=== PATIENT | female | born 1940 | race Caucasian/White ===

== ENCOUNTER 2018-01-21 18:12 | Emergency (ER) | payer OTHER ==
[2018-01-21 18:34] VITALS: BP 164/80; PULSE 80; TEMP 98.2; BMI 37.2
--- NOTE | 2018-01-21 18:42 | PDOC ---
History of Present Illness - General History Source: Patient, Family Exam Limitations: No Limitations - History of Present Illness Initial Comments: 01/21/18 18:46 The patient is an 85 year old female, accompanied by family, with a past medical history of HTN, hypercholerolemia, and diabetes who presents to the emergency department with rashes on her right leg and right buttox for approximately 4 days. The patient states that her leg began itching before presentation of the rash. She reports the rash on he leg feeling hot and painful. The rash on her buttox is 1 day old and is itchy. Patient has taken advil to attempt to relieve pain with mild success. She denies history of chickenpox. Patient has an unknown vaccination history. <Sam Parra - Last Filed: 01/21/18 18:45> - History of Present Illness Initial Comments: 01/27/18 07:13 Physicl exam: Alert, no acute distress, cheerful and cooperative. HEENT clear Neck supple without bruit mass or nodes Lungs clear CV regular without murmur rub or gallop Abdomen benign Neurological intact Skin: There is a rash along the dermatomal distribution of L4-L5 on the right, group vesicles on an erythematous base, some fresh vesicles are present, there is crusting on others. Impression: Herpes zoster, localize, without complication Plan: Since it is uncertain as to exactly when the lesions appeared, antiviral prescribed. Local wound care discussed. Because of comorbidities, steroids were not recommended. Patient was administered first dose of antiviral, and instructed to follow-up with her primary physician. Fully ambulatory and in no acute pain or other distress upon discharge to follow-up as directed <Jude Little - Last Filed: 01/27/18 07:16> - General Chief Complaint: Rash Stated Complaint: LESIONS ON BACK & KNEE Time Seen by Provider: 01/21/18 18:21 Past History <Sam Parra - Last Filed: 01/21/18 18:45> - Past Medical History COPD: No Diabetes: Yes HTN: Yes Hypercholesterolemia: Yes - Suicide/Smoking/Psychosocial Hx Smoking History: Never smoked Have you smoked in the past 12 months: No Number of Cigarettes Smoked Daily: 0 Hx Alcohol Use: No Drug/Substance Use Hx: No Substance Use Type: None <Jude Little - Last Filed: 01/27/18 07:16> - Past Medical History Allergies/Adverse Reactions: Allergies Allergy/AdvReac Type Severity Reaction Status Date / Time No Known Allergies Allergy Verified 01/21/18 18:14 Home Medications: Ambulatory Orders Metoprolol Tartrate 50 mg PO BID 07/23/16 Sitagliptin Phos/Metformin HCl [Janumet Xr 50-1,000 mg Tablet] 1 capl PO BID 11/06 Atorvastatin Ca [Lipitor] 40 mg PO HS 01/21/18 Glipizide 10 mg PO DAILY 01/21/18 Valacyclovir HCl [Valtrex] 1,000 mg PO TID #20 tablet 01/21/18 Valsartan/Hydrochlorothiazide [Valsartan-Hctz 320-12.5 mg Tab] 1 each PO DAILY 01/21/18 Review of Systems - Review of Systems Able to Perform ROS?: Yes Comments:: 01/21/18 18:46 CONSTITUTIONAL: Absent: fever, no chills, no fatigue EYES: Absent: visual changes ENT: Absent: ear pain, no sore throat CARDIOVASCULAR: Absent: chest pain, no palpitations RESPIRATORY: Absent: cough, no SOB GI: Absent: abdominal pain, no nausea, no vomiting, no constipation, no diarrhea GENITOURINARY: Absent: dysuria, no frequency, no hematuria MUSCULOSKELETAL: Absent: back pain, no arthralgia, no myalgia SKIN: (+) Rash medial aspect of right leg. Rash posterior aspect of right buttox. <Sam Parra - Last Filed: 01/21/18 18:45> *Physical Exam - Vital Signs Last Vital Signs Temp Pulse Resp BP Pulse Ox 98.2 F 80 18 164/80 96 01/21/18 18:13 01/21/18 18:13 01/21/18 18:13 01/21/18 18:13 01/21/18 18:13 - Physical Exam Comments: 01/21/18 18:46 GENERAL: Well-appearing, well-nourished. No apparent distress. HEENT: Normocephalic, atraumatic. PERRL, EOM intact. CARDIOVASCULAR: Normal S1, S2. Regular rate and rhythm. PULMONARY: Clear to auscultation bilaterally. ABDOMEN: Soft, non-distended, non-tender. EXTREMITIES: Normal ROM in all four extremities. No gross deformities. SKIN: (+) Rash medial aspect of right leg. Rash posterior aspect of right buttox. NEUROLOGICAL: No focal neurological deficits. <Sam Parra - Last Filed: 01/21/18 18:45> - Vital Signs Last Vital Signs Temp Pulse Resp BP Pulse Ox 98.2 F 80 18 164/80 96 01/21/18 18:13 01/21/18 18:13 01/21/18 18:13 01/21/18 18:13 01/21/18 18:13 <Jude Little - Last Filed: 01/27/18 07:16> *DC/Admit/Observation/Transfer - Attestations Scribe Attestion: 01/21/18 18:46 Documentation prepared by Sam Parra, acting as medical radiation dosimetrist for Jude Little MD. <Sam Parra - Last Filed: 01/21/18 18:45> - Discharge Dispostion Decision to Admit order: No <Jude Little - Last Filed: 01/27/18 07:16> Diagnosis at time of Disposition: Zoster Qualifiers: Herpes zoster complications: without complications Qualified Code(s): B02.9 - Zoster without complications - Discharge Dispostion Disposition: HOME Condition at time of disposition: Stable - Prescriptions Prescriptions: Valacyclovir HCl [Valtrex] 1,000 mg PO TID #20 tablet - Patient Instructions Printed Discharge Instructions: DI for Shingles Additional Instructions: Clean and dress wounds as directed. Keep covered and avoid irritation from clothing. Recheck primary physician in 2-3 days.
[2018-01-21] MEDS ORDERED: valACYclovir HCL 500 MG TABLET (FP) ONE (18:43)
[2018-01-21] MEDS ORDERED: valACYclovir HCL 1000 MG TABLET PO ONE (18:45)
== END 2018-01-21 18:59 | disposition home or self-care (01) ==
LOC: FER 18:12
DX: B02.9 Zoster without complications (principal); I10 Essential (primary) hypertension; E78.00 Pure hypercholesterolemia, unspecified; E11.9 Type 2 diabetes mellitus without complications
CPT/HCPCS: 99281-25

== ENCOUNTER 2018-03-13 22:35 | Inpatient (IN) | payer OTHER ==
--- NOTE | 2018-03-13 22:36 | PDOC ---
History of Present Illness - General Chief Complaint: Palpitations Stated Complaint: PALPITATIONS,WEAKNESS Past History - Travel Traveled outside of the country in the last 30 days: No Close contact w/someone who was outside of country & ill: No - Past Medical History Allergies/Adverse Reactions: Allergies Allergy/AdvReac Type Severity Reaction Status Date / Time No Known Allergies Allergy Verified 01/21/18 18:14 Home Medications: Ambulatory Orders Metoprolol Tartrate 50 mg PO BID 07/23/16 Sitagliptin Phos/Metformin HCl [Janumet Xr 50-1,000 mg Tablet] 1 capl PO BID 11/06 Atorvastatin Ca [Lipitor] 40 mg PO HS 01/21/18 Glipizide 10 mg PO DAILY 01/21/18 Valsartan/Hydrochlorothiazide [Valsartan-Hctz 320-12.5 mg Tab] 1 each PO DAILY 01/21/18 Aspirin [Ecotrin] 81 mg PO DAILY 03/13/18 COPD: No Diabetes: Yes HTN: Yes Hypercholesterolemia: Yes - Suicide/Smoking/Psychosocial Hx Smoking History: Never smoked Have you smoked in the past 12 months: No Number of Cigarettes Smoked Daily: 0 Hx Alcohol Use: No Drug/Substance Use Hx: No Substance Use Type: None Cardiac Specific PMH - Complaint Specific PMHX Abdominal Aortic Aneurysm: No Angina: Yes Cardiac Arrhythmia: No Cardiac Stent: No GERD: No Myocardial Infarction: No Pacemaker: No Pulmonary Embolus: No Valvular Heart Disease: No Peripheral Vascular Disease: Yes (pt has pain in her legs when she walks; also hx of DM) Review of Systems - Review of Systems Constitutional: Yes: Chills. No: Symptoms Reported, See HPI, Diaphoresis, Fever , Loss of Appetite, Malaise, Night Sweats, Weakness, Weight Stable, Unintentional Wgt. Loss, Unexplained wgt Loss, Other HEENTM: No: Symptoms Reported, See HPI, Eye Pain, Blurred Vision, Tearing, Recent change in vision, Double Vision, Cataracts, Ear Pain, Ocular Prothesis, Ear Discharge, Nose Pain, Nose Congestion, Tinnitus, Nose Bleeding, Hearing Loss , Throat Pain, Throat Swelling, Mouth Pain, Dental Problems, Difficulty Swallowing, Mouth Swelling, Other Respiratory: Yes: Cough. No: Symptoms reported, See HPI, Orthopnea, Shortness of Breath, SOB with Exertion, SOB at Rest, Stridor, Wheezing, Productive cough, Hemoptysis, Other Cardiac (ROS): Yes: Chest Pain, Lightheadedness, Palpitations. No: Symptoms Reported, See HPI, Edema, Irregular Heart Rate, Syncope, Chest Tightness, Other ABD/GI: No: Symptoms Reported, See HPI, Abdominal Distended, Abd. Pain w/ defecation, Blood Streaked Bowels, Constipated, Diarrhea, Difficulty Swallowing , Nausea, Poor Appetite, Poor Fluid Intake, Rectal Bleeding, Vomiting, Indigestion, Abdominal cramping, Tarry Stools, Other : No: Symptoms Reported, See HPI, Burning, Dysuria, Discharge, Frequency, Flank Pain, Hematuria, Incontinence, Pain, Urgency, Testicular Mass, Testicular Swelling, Lesions, Testicular Pain, Other Musculoskeletal: No: Symptoms Reported, See HPI, Back Pain, Gout, Joint Pain, Joint Swelling, Muscle Pain, Muscle Weakness, Neck Pain, Joint Stiffness, Other Integumentary: No: Symptoms Reported, See HPI, Bruising, Change in Color, Change in Hair/Nails, Dryness, Erythema, Flushing, Lesions, Lumps, Pallor, Pruritus, Rash, Sweating, Other *Physical Exam - Vital Signs Last Vital Signs Temp Pulse Resp BP Pulse Ox 99.1 F 80 20 110/64 94 L 03/14/18 00:50 03/14/18 00:50 03/14/18 00:50 03/14/18 00:50 03/13/18 22:38 - Physical Exam General Appearance: Yes: Nourished, Appropriately Dressed. No: Apparent Distress HEENT: positive: EOMI, MADHU, Normal ENT Inspection, Normal Voice, Pharynx Normal Neck: positive: Trachea midline, Supple Respiratory/Chest: positive: Crackles (At the bases), Rhonchi (at the bases bilaterally) Cardiovascular: positive: Regular Rhythm, S1, S2, Tachycardia Female Pelvic Exam: positive: normal external exam (slight vag wall prolapse) Gastrointestinal/Abdominal: positive: Normal Bowel Sounds, Soft Extremity: positive: Normal Inspection, Normal Range of Motion, Pedal Edema (1+) , Calf Tenderness (minimal) Integumentary: positive: Normal Color, Dry Neurologic: positive: last code striper II-XII NML intact, Fully Oriented, Alert, Normal Mood/ Affect, Normal Response, Motor Strength 5/5 Heart Score/ECG Review - History History: Slightly suspicious - Age Age: >/= 65 - Risk Factors Risk Factors Heart Score: Yes Hx Hypercholesterolemia, Yes Hx Hypertension, Yes Hx Diabetes Based on the list above the patient has:: >/=3 risk factors or Hx atherosclerotic disease - ECG Intrepretation Rhythm: Regular Rhythm - QRS Widened: RBBB - ST and T Non Specific ST-T Wave changes: Yes ED Treatment Course - LABORATORY CBC & Chemistry Diagram: 03/13/18 23:00 03/13/18 23:00 - ADDITIONAL ORDERS Additional order review: Laboratory Results 03/13/18 03/13/18 03/13/18 23:32 23:30 23:00 PT with INR INR PTT (Actin FS) Sodium 132 L Potassium 3.7 Chloride 101 Carbon Dioxide 25 Anion Gap 6 L BUN 35 H Creatinine 1.5 H Creat Clearance w eGFR 33.50 Random Glucose 196 H Calcium 8.0 L Total Bilirubin 0.4 AST 21 ALT 19 Alkaline Phosphatase 79 Creatine Kinase Troponin I 0.05 Total Protein 7.0 Albumin 3.3 L Urine Color Yellow Urine Appearance Cloudy Urine pH 5.0 Ur Specific [place] 1.020 Urine Protein 3+ H Urine Glucose (UA) Negative Urine Ketones Negative Urine Blood 2+ H Urine Nitrite Negative Urine Bilirubin Negative Urine Urobilinogen 0.2 Ur Leukocyte Esterase 2+ H Urine RBC 5-10 Urine WBC >100 Ur Epithelial Cells Few Urine Crystals Few Amorphous Urates Few Urine Bacteria Moderate 03/13/18 03/13/18 03/13/18 23:00 23:00 23:00 PT with INR 12.3 INR 1.10 PTT (Actin FS) 26.7 Sodium Potassium Chloride Carbon Dioxide Anion Gap BUN Creatinine Creat Clearance w eGFR Random Glucose Calcium Total Bilirubin AST ALT Alkaline Phosphatase Creatine Kinase 87 Troponin I Total Protein Albumin Urine Color Urine Appearance Urine pH Ur Specific [place] Urine Protein Urine Glucose (UA) Urine Ketones Urine Blood Urine Nitrite Urine Bilirubin Urine Urobilinogen Ur Leukocyte Esterase Urine RBC Urine WBC Ur Epithelial Cells Urine Crystals Amorphous Urates Urine Bacteria 03/13/18 23:00 RBC 3.95 MCV 89.1 MCHC 34.0 RDW 13.8 MPV 7.9 Neutrophils % 81.4 Lymphocytes % 11.1 Monocytes % 6.7 Eosinophils % 0.5 Basophils % 0.3 Troponin, BNP 03/13/18 23:32 Troponin I 0.05 - RADIOLOGY Radiology Studies Ordered: Category Date Time Status CHEST X-RAY PORTABLE* [RAD] Stat Radiology 03/13/18 22:39 Taken bilateral infitrates Chest X-Ray Result: Pneumonia - Medications Given in the ED: ED Medications Discontinued Medications Generic Name Dose Route Start Last Admin Trade Name Brooklynn PRN Reason Stop Dose Admin Acetaminophen 650 mg 03/13/18 23:02 03/13/18 23:03 Tylenol - PO 03/13/18 23:03 650 mg ONCE ONE Administration Aspirin 162 mg 03/13/18 23:00 03/13/18 23:00 Asa - PO 03/13/18 23:01 162 mg ONCE ONE Administration Azithromycin 500 mg/ Dextrose 250 mls @ 250 mls/hr 03/13/18 23:35 03/14/18 00 :10 IVPB 03/14/18 00:34 250 mls/hr ONCE ONE Administration Ceftriaxone Sodium 1 gm/ 50 mls @ 100 mls/hr 03/13/18 23:35 03/13/18 23:49 Dextrose IVPB 03/14/18 00:04 100 mls/hr ONCE ONE Administration Metoprolol Tartrate 50 mg 03/13/18 23:00 03/13/18 23:00 Lopressor - PO 03/13/18 23:01 50 mg NOW ONE Administration Nitroglycerin 1 inch 03/13/18 23:00 03/13/18 23:00 Nitro-Bid 2% Paste - TD 03/13/18 23:01 1 inch ONCE ONE Administration Pt also given ceftriaxone and zithromax to treat for community acquired pneumo. Pt will be covered for a UTI with the ceftriaxone also. - Consult/PCP Case Discussed with Personal Care Physician Not on Staff:: Not on staff Medical Decision Making - Medical Decision Making 03/13/18 22:48 Pt comes with weakness and palptations. She has a HR of 90, despite the fact that she tells us that she is compilant with her valsartan, HCTZ and betablocker. Pt's blood sugar was 200 earlier today which is high for her. 03/13/18 22:52 03/13/18 23:40 Pt's urine is cloudy; we did a straight cath specimen. Pt also has bilateral pneumonia on CXR. We will treat with IV ceftriaxone and IV zithromax. 03/13/18 23:40 Labs are all resulted. Pt is dry; bun/cr slightly elevated and her WBC is 13. 03/13/18 23:54 CPK is 87 and Trop is 0.5 Both within normal range. *DC/Admit/Observation/Transfer Diagnosis at time of Disposition: Bilateral pneumonia, Palpitations, Fever, Weakness, UTI (urinary tract infection), Cystitis - Discharge Dispostion Condition at time of disposition: Guarded Decision to Admit order: Yes Decision to Admit order Date/Time: Decision to Admit Order Category Date Time Status Decision to Admit to Hospital Routine Admission 03/13/18 23:58 Active - Referrals - Patient Instructions - Post Discharge Activity
[2018-03-13] MEDS ORDERED: METOPROLOL TARTRATE 50 MG TABLET (FP) ONE (22:57)
[2018-03-13] MEDS ORDERED: NITROGLYCERIN 2% OINTMENT - 1GM PACKET TD ONE ×2 (22:59→23:00)
[2018-03-13] MEDS ORDERED: ASPIRIN 81 MG CHEWABLE TABLETS PO ONE (23:00)
[2018-03-13] MEDS ORDERED: METOPROLOL TARTRATE 50 MG TABLET (FP) PO ONE (23:00)
[2018-03-13] MEDS ORDERED: ASPIRIN 81 MG CHEWABLE TABLETS ONE (23:01)
[2018-03-13] MEDS ORDERED: ACETAMINOPHEN 325 MG TABLET (FP) PO ONE (23:02)
[2018-03-13] MEDS ORDERED: ACETAMINOPHEN 325 MG TABLET (FP) ONE (23:03)
[2018-03-13 23:11] LABS: BASO % 0.3 % (0-2.0); EOS % 0.5 % (0-4.5); HEMATOCRIT 35.2 % (32.4-45.2); LYMPH % 11.1 % (8-40); MCH 30.3 pg (25.7-33.7); MEAN CELL VOLUME 89.1 fl (80-96); MEAN PLT VOLUME 7.9 fl (7.5-11.1); MONO % 6.7 % (3.8-10.2); NEUT % 81.4 % (42.8-82.8); PLATELET COUNT 287 K/MM3 (134-434); RBC 3.95 M/mm3 (3.60-5.2); RDW 13.8 % (11.6-15.6); WHITE BLOOD COUNT 13.1 K/mm3 (4.0-10.8)
[2018-03-13 23:32] LABS: INR 1.1 (0.82-1.09); PROTHROMBIN TIME (PATIENT) 12.3 SEC (10.2-13.0)
[2018-03-13 23:34] LABS: ALBUMIN 3.3 g/dl (3.5-5.0); ALK PHOS 79 U/L (32-92); ANION GAP 6 (8-16); BILIRUBIN,TOTAL 0.4 mg/dl (0.2-1.0); BLOOD UREA NITROGEN 35 mg/dl (7-18); CHLORIDE 101 mmol/L (98-107); CO2 25 mmol/L (22-28); CREATININE 1.5 mg/dl (0.6-1.3); GLUCOSE,RANDOM 196 mg/dl (74-106); POTASSIUM 3.7 mmol/L (3.5-5.1); SGOT/AST 21 U/L (10-42); SGPT/ALT 19 U/L (10-40); SODIUM 132 mmol/L (136-145)
[2018-03-13] MEDS ORDERED: AZITHROMYCIN IVPB 500 MG in DEXTROSE 5%-WATER - 250 ML IVPB ONE (23:35)
[2018-03-13] MEDS ORDERED: CEFTRIAXONE 1 GM in DEXTROSE 5%-WATER - 50 ML IVPB ONE (23:35)
[2018-03-13] MEDS ORDERED: cefTRIAXone SODIUM 1 GM VIAL ONE (23:40)
[2018-03-13] MEDS ORDERED: AZITHROMYCIN 500 MG VIAL IVPB ONE (23:40)
[2018-03-13 23:45] LABS: URINE BILIRUBIN Negative (NEGATIVE); URINE GLUCOSE (UA) Negative (NEGATIVE); URINE KETONE Negative (NEGATIVE); URINE NITRITE Negative (NEGATIVE); URINE UROBILINOGEN 0.2 (0.2-1.0)
[2018-03-13 23:52] LABS: URINE APPEARANCE CLOUDY; URINE COLOR YELLOW; URINE LEUK ESTERASE 2+ (NEGATIVE); URINE PROTEIN 3+ (NEGATIVE)
[2018-03-13 23:59] LABS: AMORP URATES FEW /hpf (NONE SEEN); EPI CELLS FEW /HPF; URINE BACTERIA MODERATE /hpf (NEGATIVE); URINE CRYSTALS FEW /hpf (NONE SEEN); URINE WBC >100 (0-5)
--- NOTE | 2018-03-13 23:59 | HP ---
CHIEF COMPLAINT: Weakness, Fever, Chills PCP: Dr. Louisa Koo ([place], [place]) HISTORY OF PRESENT ILLNESS: 77 y/o woman PMH DM, HTN, PVD, Shingles. Who presents to the ED with family for fever, chills, non-productive cough, and weakness. Per the family patient was noted to have bilateral hand shaking, dizziness, palpitations, subjective fever at home. Patient speaks Japanese/Crotian, the son and daughter in law translated per patient request. The patient reported chest pain when coughing while in the ED. She was given NTG paste, low dose Asa in the ED. Patient denies ZIMMERMAN, blurred vision, SOB, AP, N/V/D, constipation, dysuria. ER course was notable for: (1) EKG- RBBB (2) Troponin I- 0.05 (3) Chest Xray- Bilateral Infiltrates (4) Sepsis- T Max 102.1, WBC 13, Neutrophils 84, Spo2 92% RA Recent Travel: None PAST MEDICAL HISTORY: See HPI PAST SURGICAL HISTORY: Childbirth Social History: Smoking: Never Alcohol: Never Drugs: None Lives at home with family Family History: Non-contributory Allergies No Known Allergies Allergy (Verified 01/21/18 18:14) HOME MEDICATIONS: Home Medications Medication Instructions Recorded Metoprolol Tartrate 50 mg PO BID 07/23/16 Sitagliptin Phos/Metformin HCl 1 capl PO BID 07/23/16 [Janumet Xr 50-1,000 mg Tablet] Atorvastatin Ca [Lipitor] 40 mg PO HS 01/21/18 Glipizide 10 mg PO DAILY 01/21/18 Valacyclovir HCl [Valtrex] 1,000 mg PO TID #20 tablet 01/21/18 Valsartan/Hydrochlorothiazide 1 each PO DAILY 01/21/18 [Valsartan-Hctz 320-12.5 mg Tab] REVIEW OF SYSTEMS CONSTITUTIONAL: fever, chills, generalized weakness Absent: diaphoresis, malaise, loss of appetite, weight change HEENT: Absent: rhinorrhea, nasal congestion, throat pain, throat swelling, difficulty swallowing, mouth swelling, ear pain, eye pain, visual changes CARDIOVASCULAR: chest pain, palpitations, peripheral edema Absent: syncope, irregular heart rate, lightheadedness RESPIRATORY: cough Absent: shortness of breath, dyspnea with exertion, orthopnea, wheezing, stridor , hemoptysis GASTROINTESTINAL: Absent: abdominal pain, abdominal distension, nausea, vomiting, diarrhea, constipation, melena, hematochezia GENITOURINARY: Absent: dysuria, frequency, urgency, hesitancy, hematuria, flank pain, genital pain MUSCULOSKELETAL: Absent: myalgia, arthralgia, joint swelling, back pain, neck pain SKIN: Absent: rash, itching, pallor HEMATOLOGIC/IMMUNOLOGIC: Absent: easy bleeding, easy bruising, lymphadenopathy, frequent infections ENDOCRINE: Absent: unexplained weight gain, unexplained weight loss, heat intolerance, cold intolerance NEUROLOGIC: dizziness Absent: headache, focal weakness or paresthesias, unsteady gait, seizure, mental status changes, bladder or bowel incontinence PSYCHIATRIC: Absent: anxiety, depression, suicidal or homicidal ideation, hallucinations. PHYSICAL EXAMINATION Vital Signs - 24 hr 03/13/18 03/13/18 22:38 23:02 Temperature 99 F 102.1 F H Pulse Rate 90 Respiratory 18 Rate Blood Pressure 168/86 O2 Sat by Pulse 94 L Oximetry (%) GENERAL: Obese, awake, alert, and fully oriented, in no acute distress. HEAD: Normal with no signs of trauma. EYES: Pupils equal, round and reactive to light, extraocular movements intact, sclera anicteric, conjunctiva clear. No lid lag. EARS, NOSE, THROAT: Ears normal, nares patent, oropharynx clear without exudates. Moist mucous membranes. NECK: Normal range of motion, supple without lymphadenopathy, JVD, or masses. LUNGS: Coarse rhonchi at bases. No wheezes. No accessory muscle use. HEART: Regular rate and rhythm, normal S1 and S2 without murmur, rub or gallop. CP reproducible on palpation ABDOMEN: Soft, nontender, not distended, normoactive bowel sounds, no guarding, no rebound, no masses. No hepatomegaly or splenomegaly. MUSCULOSKELETAL: Normal range of motion at all joints. No bony deformities or tenderness. No CVA tenderness. UPPER EXTREMITIES: 2+ pulses, warm, well-perfused. No cyanosis. No clubbing. No peripheral edema. LOWER EXTREMITIES: 2+ pulses, warm, well-perfused. No calf tenderness. +1 B/L pitting peripheral edema. NEUROLOGICAL: Cranial nerves II-XII intact. Normal speech. Gait not observed. PSYCHIATRIC: Cooperative. Good eye contact. Appropriate mood and affect. SKIN: Warm, dry, normal turgor, no rashes or lesions noted, normal capillary refill. Laboratory Results - last 24 hr 03/13/18 03/13/18 03/13/18 23:00 23:00 23:00 WBC 13.1 H RBC 3.95 Hgb 12.0 Hct 35.2 MCV 89.1 MCH 30.3 MCHC 34.0 RDW 13.8 Plt Count 287 MPV 7.9 Absolute Neuts (auto) 10.6 Neutrophils % 81.4 Lymphocytes % 11.1 Monocytes % 6.7 Eosinophils % 0.5 Basophils % 0.3 PT with INR INR PTT (Actin FS) 26.7 Sodium Potassium Chloride Carbon Dioxide Anion Gap BUN Creatinine Creat Clearance w eGFR Random Glucose Calcium Total Bilirubin AST ALT Alkaline Phosphatase Creatine Kinase 87 Troponin I Total Protein Albumin Urine Color Urine Appearance Urine pH Ur Specific [place] Urine Protein Urine Glucose (UA) Urine Ketones Urine Blood Urine Nitrite Urine Bilirubin Urine Urobilinogen Ur Leukocyte Esterase 03/13/18 03/13/18 03/13/18 23:00 23:00 23:30 WBC RBC Hgb Hct MCV MCH MCHC RDW Plt Count MPV Absolute Neuts (auto) Neutrophils % Lymphocytes % Monocytes % Eosinophils % Basophils % PT with INR 12.3 INR 1.10 PTT (Actin FS) Sodium 132 L Potassium 3.7 Chloride 101 Carbon Dioxide 25 Anion Gap 6 L BUN 35 H Creatinine 1.5 H Creat Clearance w eGFR 33.50 Random Glucose 196 H Calcium 8.0 L Total Bilirubin 0.4 AST 21 ALT 19 Alkaline Phosphatase 79 Creatine Kinase Troponin I Total Protein 7.0 Albumin 3.3 L Urine Color Yellow Urine Appearance Cloudy Urine pH 5.0 Ur Specific [place] 1.020 Urine Protein 3+ H Urine Glucose (UA) Negative Urine Ketones Negative Urine Blood 2+ H Urine Nitrite Negative Urine Bilirubin Negative Urine Urobilinogen 0.2 Ur Leukocyte Esterase 2+ H 03/13/18 23:32 WBC RBC Hgb Hct MCV MCH MCHC RDW Plt Count MPV Absolute Neuts (auto) Neutrophils % Lymphocytes % Monocytes % Eosinophils % Basophils % PT with INR INR PTT (Actin FS) Sodium Potassium Chloride Carbon Dioxide Anion Gap BUN Creatinine Creat Clearance w eGFR Random Glucose Calcium Total Bilirubin AST ALT Alkaline Phosphatase Creatine Kinase Troponin I 0.05 Total Protein Albumin Urine Color Urine Appearance Urine pH Ur Specific [place] Urine Protein Urine Glucose (UA) Urine Ketones Urine Blood Urine Nitrite Urine Bilirubin Urine Urobilinogen Ur Leukocyte Esterase ASSESSMENT/PLAN: 77 y/o woman PMH of HTN, DM, PVD. Placed in Tele Observation Sepsis secondary to Community Acquired Pneumonia, Chest Pain. Plan: 1. Sepsis Community Acquired Pneumonia - CURB65 Score 2 - Sepsis Criteria Met- T Max 101.2, WBC 13, BUN 35, Spo2 92% - Chest Xray- bilateral infiltrates - Blood Cultures-pending - Urine Culture, Urine Legionella- pending - Given Ceftriaxone, Azithromycin in ED, will continue - Monitor vitals - Monitor CBC, BMP - Consider ID consult if condition worsens - O2 2. Chest Pain - r/o ACS - Likely pleurisy secondary to non-productive cough - Serial Enzymes - EKG- reviewed - Appreciate Cardiology consult - Asa, NTG paste given in ED - Will continue Asa 3. Hypertension - Suboptimal - Monitor BP - Continue home med - Monitor renal function 4. Diabetes Mellitus - stable - BGMs - Continue home meds - HgbA1c in am 5. PVD - Will continue to treat with interventions accordingly 6. FEN - PO Fluids as tolerated - Replete lytes prn - Low Na, Diabetic Diet 7. DVT ppx - OOB - SCDs - Heparin SQ Code Status: Full Code Dispo: Tele Observation Problem List - Problem (1) Bilateral pneumonia Code(s): J18.9 - PNEUMONIA, UNSPECIFIED ORGANISM (2) Chest pain Code(s): R07.9 - CHEST PAIN, UNSPECIFIED (3) Cough Code(s): R05 - COUGH (4) Fever Code(s): R50.9 - FEVER, UNSPECIFIED (5) Weakness Code(s): R53.1 - WEAKNESS (6) Hypertension Code(s): I10 - ESSENTIAL (PRIMARY) HYPERTENSION (7) Diabetes mellitus Code(s): E11.9 - TYPE 2 DIABETES MELLITUS WITHOUT COMPLICATIONS (8) PVD (peripheral vascular disease) Code(s): I73.9 - PERIPHERAL VASCULAR DISEASE, UNSPECIFIED Visit type - Emergency Visit Emergency Visit: Yes ED Registration Date: 03/13/18 Care time: The patient presented to the Emergency Department on the above date and was hospitalized for further evaluation of their emergent condition. - New Patient This patient is new to me today: Yes Date on this admission: 03/13/18 - Critical Care Critical Care patient: No Hospitalist Screening - Colonoscopy Questionnaire Colonoscopy Questionnaire: Colonoscopy Questionnaire - Patient: 50 - 75 years old and never had a screening colonoscopy: No History of colon or rectal polyps, or CA: No History of IBD, Crohn's disease or UC: No History of abdominal radiation therapy as a child: No - Relative: 1 with colon or rectal CA, or polyps at age 60 or younger: No Colon or rectal CA diagnosed at age 45 or younger: No Multiple relatives with colon or rectal CA: No - Outcome: Screening Result: Negative Screen
[2018-03-14 03:55] VITALS: BMI 37.5
[2018-03-14] MEDS ORDERED: ACETAMINOPHEN 325 MG TABLET (FP) PO PRN (05:02)
[2018-03-14] MEDS ORDERED: glipiZIDE 5 MG TABLET (FP) ONE (07:12)
[2018-03-14] MEDS: glipiZIDE 10 MG TABLET (FP) PO SCH (07:14)
[2018-03-14] MEDS: ASPIRIN COATED 81 MG TABLET.EC PO SCH (09:08)
[2018-03-14] MEDS: METOPROLOL TARTRATE 50 MG TABLET (FP) PO SCH ×2 (09:08→21:25)
[2018-03-14] MEDS: HEPARIN NA (PORCINE) 5,000 UNITS/ML 1ML VIAL SQ SCH ×2 (09:08→21:25)
[2018-03-14] MEDS: VALSARTAN 160 MG TABLET (UD) PO SCH (09:08)
[2018-03-14 09:12] LABS: ANION GAP 7 (8-16); BLOOD UREA NITROGEN 32 mg/dl (7-18); CALCIUM 8.2 mg/dl (8.4-10.2); CHLORIDE 102 mmol/L (98-107); CO2 28 mmol/L (22-28); CREATININE 1.4 mg/dl (0.6-1.3); GLUCOSE,RANDOM 133 mg/dl (74-106); MAGNESIUM 1.9 mg/dL (1.8-2.4); PHOSPHOROUS 3.9 mg/dl (2.5-4.6); POTASSIUM 4.2 mmol/L (3.5-5.1); SODIUM 137 mmol/L (136-145)
[2018-03-14 09:15] LABS: BASO % 0.2 % (0-2.0); EOS % 0.4 % (0-4.5); HEMATOCRIT 29.5 % (32.4-45.2); HEMOGLOBIN 10.3 GM/dl (10.7-15.3); LYMPH % 14.1 % (8-40); MCH 30.9 pg (25.7-33.7); MCHC 34.9 g/dl (32.0-36.0); MEAN CELL VOLUME 88.5 fl (80-96); MEAN PLT VOLUME 8.4 fl (7.5-11.1); MONO % 8.6 % (3.8-10.2); NEUT % 76.7 % (42.8-82.8); PLATELET COUNT 207 K/MM3 (134-434); RBC 3.34 M/mm3 (3.60-5.2); RDW 13.4 % (11.6-15.6); WHITE BLOOD COUNT 10.8 K/mm3 (4.0-10.8)
[2018-03-14] MEDS ORDERED: PATIENT'S OWN MEDICATION (NON-FORMULARY) (Sitagliptin Phos/Metformin Hcl [Janumet Xr 50-1, PO SCH (10:00)
[2018-03-14] MEDS ORDERED: PATIENT'S OWN MEDICATION (NON-FORMULARY) (Valsartan/Hydrochlorothiazide [Valsartan-Hctz 32 PO SCH (10:00)
[2018-03-14] MEDS ORDERED: HYDROCHLOROTHIAZIDE 12.5 MG CAPSULE (FP) PO SCH (10:00)
--- NOTE | 2018-03-14 10:48 | PN ---
Physical Exam: SUBJECTIVE: Patient seen and examined, pt reports feeling better, less sob, cp with deep breathing,intermittent productive cough with clear sputum, denies abdominal pain, N/V/D or urinary symptoms. OBJECTIVE: Vital Signs Period Temp Pulse Resp BP Sys/Metzger Pulse Ox Last 24 Hr 97.6 F-102.1 F 69-90 16-20 110-168/47-86 94-100 GENERAL: The patient is awake, alert, and fully oriented, in no acute distress. HEAD: Normal with no signs of trauma. EYES: PERRL, extraocular movements intact, sclera anicteric, conjunctiva clear. No ptosis. ENT: Ears normal, nares patent, oropharynx clear without exudates, moist mucous membranes. NECK: Trachea midline, full range of motion, supple. LUNGS: + crackles, no wheezing, Breath sounds equal, no accessory muscle use. HEART: Regular rate and rhythm, S1, S2 without murmur, rub or gallop. ABDOMEN: Soft, nontender, nondistended, normoactive bowel sounds, no guarding, no rebound, no hepatosplenomegaly, no masses. EXTREMITIES: 2+ pulses, warm, well-perfused, + edema LT > Rt, generalized weakness. NEUROLOGICAL: Cranial nerves II through XII grossly intact. Normal speech, gait not observed. PSYCH: Normal mood, normal affect. SKIN: Warm, dry, normal turgor, no rashes or lesions noted Laboratory Results - last 24 hr 03/13/18 03/13/18 03/13/18 23:00 23:00 23:00 WBC 13.1 H RBC 3.95 Hgb 12.0 Hct 35.2 MCV 89.1 MCH 30.3 MCHC 34.0 RDW 13.8 Plt Count 287 MPV 7.9 Absolute Neuts (auto) 10.6 Neutrophils % 81.4 Lymphocytes % 11.1 Monocytes % 6.7 Eosinophils % 0.5 Basophils % 0.3 PT with INR INR PTT (Actin FS) 26.7 Sodium Potassium Chloride Carbon Dioxide Anion Gap BUN Creatinine Creat Clearance w eGFR POC Glucometer Random Glucose Lactic Acid Calcium Phosphorus Magnesium Total Bilirubin AST ALT Alkaline Phosphatase Creatine Kinase 87 Troponin I Total Protein Albumin Urine Color Urine Appearance Urine pH Ur Specific [place] Urine Protein Urine Glucose (UA) Urine Ketones Urine Blood Urine Nitrite Urine Bilirubin Urine Urobilinogen Ur Leukocyte Esterase Urine RBC Urine WBC Ur Epithelial Cells Urine Crystals Amorphous Urates Urine Bacteria 03/13/18 03/13/18 03/13/18 23:00 23:00 23:30 WBC RBC Hgb Hct MCV MCH MCHC RDW Plt Count MPV Absolute Neuts (auto) Neutrophils % Lymphocytes % Monocytes % Eosinophils % Basophils % PT with INR 12.3 INR 1.10 PTT (Actin FS) Sodium 132 L Potassium 3.7 Chloride 101 Carbon Dioxide 25 Anion Gap 6 L BUN 35 H Creatinine 1.5 H Creat Clearance w eGFR 33.50 POC Glucometer Random Glucose 196 H Lactic Acid Calcium 8.0 L Phosphorus Magnesium Total Bilirubin 0.4 AST 21 ALT 19 Alkaline Phosphatase 79 Creatine Kinase Troponin I Total Protein 7.0 Albumin 3.3 L Urine Color Yellow Urine Appearance Cloudy Urine pH 5.0 Ur Specific [place] 1.020 Urine Protein 3+ H Urine Glucose (UA) Negative Urine Ketones Negative Urine Blood 2+ H Urine Nitrite Negative Urine Bilirubin Negative Urine Urobilinogen 0.2 Ur Leukocyte Esterase 2+ H Urine RBC 5-10 Urine WBC >100 Ur Epithelial Cells Few Urine Crystals Few Amorphous Urates Few Urine Bacteria Moderate 03/13/18 03/13/18 03/14/18 23:32 23:40 06:44 WBC RBC Hgb Hct MCV MCH MCHC RDW Plt Count MPV Absolute Neuts (auto) Neutrophils % Lymphocytes % Monocytes % Eosinophils % Basophils % PT with INR INR PTT (Actin FS) Sodium Potassium Chloride Carbon Dioxide Anion Gap BUN Creatinine Creat Clearance w eGFR POC Glucometer 134 Random Glucose Lactic Acid 1.4 Calcium Phosphorus Magnesium Total Bilirubin AST ALT Alkaline Phosphatase Creatine Kinase Troponin I 0.05 Total Protein Albumin Urine Color Urine Appearance Urine pH Ur Specific [place] Urine Protein Urine Glucose (UA) Urine Ketones Urine Blood Urine Nitrite Urine Bilirubin Urine Urobilinogen Ur Leukocyte Esterase Urine RBC Urine WBC Ur Epithelial Cells Urine Crystals Amorphous Urates Urine Bacteria 03/14/18 03/14/18 03/14/18 07:00 07:00 07:00 WBC 10.8 RBC 3.34 L Hgb 10.3 L Hct 29.5 L D MCV 88.5 MCH 30.9 MCHC 34.9 RDW 13.4 Plt Count 207 MPV 8.4 Absolute Neuts (auto) 8.4 Neutrophils % 76.7 Lymphocytes % 14.1 Monocytes % 8.6 Eosinophils % 0.4 Basophils % 0.2 PT with INR INR PTT (Actin FS) Sodium 137 Potassium 4.2 Chloride 102 Carbon Dioxide 28 Anion Gap 7 L BUN 32 H Creatinine 1.4 H Creat Clearance w eGFR 36.27 POC Glucometer Random Glucose 133 H D Lactic Acid Calcium 8.2 L Phosphorus 3.9 Magnesium 1.9 Total Bilirubin AST ALT Alkaline Phosphatase Creatine Kinase Troponin I < 0.03 Total Protein Albumin Urine Color Urine Appearance Urine pH Ur Specific [place] Urine Protein Urine Glucose (UA) Urine Ketones Urine Blood Urine Nitrite Urine Bilirubin Urine Urobilinogen Ur Leukocyte Esterase Urine RBC Urine WBC Ur Epithelial Cells Urine Crystals Amorphous Urates Urine Bacteria Active Medications Generic Name Dose Route Start Last Admin Trade Name Freq PRN Reason Stop Dose Admin Acetaminophen 650 mg 03/14/18 05:02 Tylenol - PO Q6H PRN FEVER Aspirin 81 mg 03/14/18 10:00 03/14/18 09:08 Ecotrin - PO 81 mg DAILY KERA Administration Atorvastatin Calcium 40 mg 03/14/18 22:00 Lipitor - PO HS KERA Glipizide 10 mg 03/14/18 07:00 03/14/18 07:14 Glucotrol - PO 10 mg DAILY@0700 KERA Administration Heparin Sodium (Porcine) 5,000 unit 03/14/18 10:00 03/14/18 09:08 Heparin - SQ 5,000 unit BID KERA Administration Hydrochlorothiazide 12.5 mg 03/14/18 10:00 03/14/18 09:08 Hctz - PO 12.5 mg DAILY KERA Administration Azithromycin 500 mg/ Dextrose 250 mls @ 250 mls/hr 03/14/18 18:00 IVPB DAILY KERA Ceftriaxone Sodium 1 gm/ 50 mls @ 100 mls/hr 03/14/18 18:00 Dextrose IVPB DAILY [facility] Protocol Metformin HCl 1,000 mg 03/14/18 16:30 Glucophage Xr - PO BIDAC KERA Metoprolol Tartrate 50 mg 03/14/18 10:00 03/14/18 09:08 Lopressor - PO 50 mg BID KERA Administration Sitagliptin Phosphate 50 mg 03/14/18 16:30 Januvia - PO BID@0700,1630 KERA Valsartan 320 mg 03/14/18 10:00 03/14/18 09:08 Diovan - PO 320 mg DAILY KERA Administration ASSESSMENT/PLAN: This is a 77 y/o woman PMH of HTN, DM, PVD and Shingles,admitted with Community Acquired Pneumonia and Chest Pain. *Sepsis due to Community Acquired Pneumonia - CURB65 Score 2 - Chest Xray- bilateral infiltrates - T Max 101.2, now afebrile - wbc normalized - Blood Cultures-pending - Urine Legionella- pending - will cont on Ceftriaxone, Azithromycin - will cont on O2, will check pulse ox * Chest Pain- Likely pleurisy secondary to non-productive cough - Trop neg x3 - EKG- SR with non- specific T wave abnormality - Cardiology consult ordered - Asa, NTG paste given in ED - Will continue Asa, BB and Statin *Hypertension- BP stable - will cont on home meds except HCTZ in view of DAVI * Diabetes Mellitus- BS stable - BGMs - will hold off on Metformin in view of elevated cre - will cotn on Januvia daily based on creatinine clearance - HgbA1c ordered * Abnormal UA - afebrile now - will f/u on urine culture - on Ceftriaxone * DAVI- baseline unknown - NA 132- 137 -cre 1.4 , bun 32 - will hold off Metformin and Januvia dose adjusted - will hold off on HCTZ - will f/u on CBC - gentle hydration * Hx of PVD - not on ant meds *Anemia- mild drop in H/H - no overt signs of bleeding noted - will check stool OB and Fe studies * LLE swelling - ordered US r/o DVT *FEN - Replete lytes prn - Low Na, Diabetic Diet *DVT ppx - OOB - SCDs - Heparin SQ Code Status: Full Code Dispo: Requires in patient care. Updated plan of care with son at bedside Visit type - Emergency Visit Emergency Visit: Yes ED Registration Date: 03/13/18 Care time: The patient presented to the Emergency Department on the above date and was hospitalized for further evaluation of their emergent condition. - New Patient This patient is new to me today: No - Critical Care Critical Care patient: No
[2018-03-14] MEDS ORDERED: SODIUM CHLORIDE 1,000 ML IV SCH (11:45)
--- NOTE | 2018-03-14 11:59 | CON.CARD ---
Cardiology Consult (text) - Consultation Consultation Note: cc: cough, fever hpi: 77 f hx hld, dm, htn here with cough, fever. Past few days not feeling well. Coughing a lot and started to notice sharp pain in right chest in one small area. Worse with coughing and deep breaths. Resolved today. No sob, palps, dizzy, loc, pnd, orthopnea. Treating for pna here. pmh: per hpi psh: nc social: no tob fam: no premature cad, scd ros: per hpi; no nvd, alcantar, vision changes, abd pain, gib, hematuria, dysuria meds: Home Medications Medication Instructions Recorded Metoprolol Tartrate 50 mg PO BID 07/23/16 Sitagliptin Phos/Metformin HCl 1 capl PO BID 07/23/16 [Janumet Xr 50-1,000 mg Tablet] Atorvastatin Ca [Lipitor] 40 mg PO HS 01/21/18 Glipizide 10 mg PO DAILY 01/21/18 Valsartan/Hydrochlorothiazide 1 each PO DAILY 01/21/18 [Valsartan-Hctz 320-12.5 mg Tab] Aspirin [Ecotrin] 81 mg PO DAILY 03/13/18 pe: Vital Signs Period Temp Pulse Resp BP Sys/Metzger Pulse Ox Last 24 Hr 97.6 F-102.1 F 69-90 16-20 110-168/47-86 94-100 nad no jvd rrr s1s2 no mrg cta bl nl eff aaox3 no le e/c/c pos dp pt no carotid bruits no jaundice diaphoresis abd nt nd pos bs +chest wall tenderness Laboratory Last Values WBC 10.8 K/mm3 (4.0-10.8) 03/14/18 07:00 RBC 3.34 M/mm3 (3.60-5.2) L 03/14/18 07:00 Hgb 10.3 GM/dl (10.7-15.3) L 03/14/18 07:00 Hct 29.5 % (32.4-45.2) L D 03/14/18 07:00 MCV 88.5 fl (80-96) 03/14/18 07:00 MCH 30.9 pg (25.7-33.7) 03/14/18 07:00 MCHC 34.9 g/dl (32.0-36.0) 03/14/18 07:00 RDW 13.4 % (11.6-15.6) 03/14/18 07:00 Plt Count 207 K/MM3 (134-434) 03/14/18 07:00 MPV 8.4 fl (7.5-11.1) 03/14/18 07:00 Absolute Neuts (auto) 8.4 # 03/14/18 07:00 Neutrophils % 76.7 % (42.8-82.8) 03/14/18 07:00 Lymphocytes % 14.1 % (8-40) 03/14/18 07:00 Monocytes % 8.6 % (3.8-10.2) 03/14/18 07:00 Eosinophils % 0.4 % (0-4.5) 03/14/18 07:00 Basophils % 0.2 % (0-2.0) 03/14/18 07:00 PT with INR 12.3 SEC (10.2-13.0) 03/13/18 23:00 INR 1.10 (0.82-1.09) 03/13/18 23:00 PTT (Actin FS) 26.7 SECONDS (25.2-36.5) 03/13/18 23:00 Sodium 137 mmol/L (136-145) 03/14/18 07:00 Potassium 4.2 mmol/L (3.5-5.1) 03/14/18 07:00 Chloride 102 mmol/L (98-107) 03/14/18 07:00 Carbon Dioxide 28 mmol/L (22-28) 03/14/18 07:00 Anion Gap 7 (8-16) L 03/14/18 07:00 BUN 32 mg/dl (7-18) H 03/14/18 07:00 Creatinine 1.4 mg/dl (0.6-1.3) H 03/14/18 07:00 Creat Clearance w eGFR 36.27 (>60) 03/14/18 07:00 POC Glucometer 149 UNITS (80-120) 03/14/18 11:20 Random Glucose 133 mg/dl (74-106) H D 03/14/18 07:00 Lactic Acid 1.4 mmol/L (0.0-2.0) 03/13/18 23:40 Calcium 8.2 mg/dl (8.4-10.2) L 03/14/18 07:00 Phosphorus 3.9 mg/dl (2.5-4.6) 03/14/18 07:00 Magnesium 1.9 mg/dL (1.8-2.4) 03/14/18 07:00 Total Bilirubin 0.4 mg/dl (0.2-1.0) 03/13/18 23:00 AST 21 U/L (10-42) 03/13/18 23:00 ALT 19 U/L (10-40) 03/13/18 23:00 Alkaline Phosphatase 79 U/L (32-92) 03/13/18 23:00 Creatine Kinase 87 IU/L (26-192) 03/13/18 23:00 Troponin I < 0.03 ng/ml (0.00-0.06) 03/14/18 07:00 Total Protein 7.0 g/dl (6.4-8.3) 03/13/18 23:00 Albumin 3.3 g/dl (3.5-5.0) L 03/13/18 23:00 Urine Color Yellow 03/13/18 23:30 Urine Appearance Cloudy 03/13/18 23:30 Urine pH 5.0 (4.5-8) 03/13/18 23:30 Ur Specific [place] 1.020 (1.005-1.025) 03/13/18 23:30 Urine Protein 3+ (NEGATIVE) H 03/13/18 23:30 Urine Glucose (UA) Negative (NEGATIVE) 03/13/18 23:30 Urine Ketones Negative (NEGATIVE) 03/13/18 23:30 Urine Blood 2+ (NEGATIVE) H 03/13/18 23:30 Urine Nitrite Negative (NEGATIVE) 03/13/18 23:30 Urine Bilirubin Negative (NEGATIVE) 03/13/18 23:30 Urine Urobilinogen 0.2 (0.2-1.0) 03/13/18 23:30 Ur Leukocyte Esterase 2+ (NEGATIVE) H 03/13/18 23:30 Urine RBC 5-10 /hpf (0-3) 03/13/18 23:30 Urine WBC >100 (0-5) 03/13/18 23:30 Ur Epithelial Cells Few /HPF 03/13/18 23:30 Urine Crystals Few /hpf (NONE SEEN) 03/13/18 23:30 Amorphous Urates Few /hpf (NONE SEEN) 03/13/18 23:30 Urine Bacteria Moderate /hpf (NEGATIVE) 03/13/18 23:30 ecg: sr, nl intervals, irbbb tele: sr cxr: no chf a/p: 77 f hx hld, dm, htn here with cough, fever. pna: -cont abx per pmd, pt symptomatically improving hld: -cont statin htn: -cont home meds cp: -reproducible on exam, worse with cough, seems MSK from pna/coughing. No signs acs. No further cardiac testing needed for this MSK cp. Can dc tele.
[2018-03-14] MEDS ORDERED: sitaGLIPtin PHOSPHATE 50 MG TABLET PO SCH (16:30)
[2018-03-14] MEDS ORDERED: CEFTRIAXONE 1 GM in DEXTROSE 5%-WATER - 50 ML IVPB SCH (18:00)
[2018-03-14] MEDS: AZITHROMYCIN IVPB 500 MG in DEXTROSE 5%-WATER - 250 ML IVPB SCH (18:06)
[2018-03-14] MEDS: ATORVASTATIN CA 40 MG TABLET (FP) PO SCH (21:25)
[2018-03-14] MEDS ORDERED: INSULIN (NOVOLOG) ASPART 100 UNITS/ML 10ML VIAL ONE (22:03)
[2018-03-14] MEDS: INSULIN SLIDING SCALE (NOVOLOG) 1 VIAL SQ SCH (22:04)
[2018-03-15] MEDS ORDERED: glipiZIDE 5 MG TABLET (FP) ONE (06:06)
[2018-03-15] MEDS: sitaGLIPtin PHOSPHATE 50 MG TABLET PO SCH (06:17)
[2018-03-15] MEDS: INSULIN SLIDING SCALE (NOVOLOG) 1 VIAL SQ SCH ×4 (06:18→21:12)
[2018-03-15] MEDS: glipiZIDE 10 MG TABLET (FP) PO SCH (06:18)
[2018-03-15 08:21] LABS: BASO % 0.3 % (0-2.0); EOS % 1.8 % (0-4.5); HEMATOCRIT 30.5 % (32.4-45.2); HEMOGLOBIN 10.5 GM/dl (10.7-15.3); LYMPH % 21.6 % (8-40); MCH 30.7 pg (25.7-33.7); MCHC 34.4 g/dl (32.0-36.0); MEAN CELL VOLUME 89.2 fl (80-96); MEAN PLT VOLUME 7.6 fl (7.5-11.1); MONO % 7.3 % (3.8-10.2); PLATELET COUNT 268 K/MM3 (134-434); RBC 3.42 M/mm3 (3.60-5.2); RDW 13.4 % (11.6-15.6)
[2018-03-15 08:57] LABS: ANION GAP 7 (8-16); BLOOD UREA NITROGEN 22 mg/dl (7-18); CALCIUM 8.5 mg/dl (8.4-10.2); CHLORIDE 104 mmol/L (98-107); CO2 27 mmol/L (22-28); CREATININE 1.2 mg/dl (0.6-1.3); GLUCOSE,RANDOM 113 mg/dl (74-106); POTASSIUM 4.4 mmol/L (3.5-5.1); SODIUM 138 mmol/L (136-145)
--- NOTE | 2018-03-15 09:18 | PN ---
Physical Exam: SUBJECTIVE: Patient seen and examined, patient is sitting at bedside recliner both sons at bedside, she reports left lower back pain, denies any tactile fevers reports improvement in breathing. OBJECTIVE:She was a 77-year-old female with a past medical history of diabetes mellitus, hypertension, peripheral vascular disease, and herpes zoster. Patient was admitted when she department to inpatient for sepsis secondary to Community- acquired pneumonia and urinary tract infection. Vital Signs Period Temp Pulse Resp BP Sys/Metzger Pulse Ox Last 24 Hr 98.2 F-99.1 F 75-94 17-20 132-160/54-65 95-99 GENERAL: The patient is awake, alert, and fully oriented, in no acute distress. HEAD: Normal with no signs of trauma. EYES: PERRL, extraocular movements intact, sclera anicteric, conjunctiva clear. No ptosis. ENT: Ears normal, nares patent, oropharynx clear without exudates, moist mucous membranes. NECK: Trachea midline, full range of motion, supple. LUNGS: Breath sounds equal, Clear to apexes and crackles to bilateral bases, rr 20, no wheezes, no accessory muscle use. HEART: Regular rate and rhythm, S1, S2 without murmur, rub or gallop. ABDOMEN: Soft, nontender, nondistended, normoactive bowel sounds, no guarding, no rebound, no hepatosplenomegaly, no masses. EXTREMITIES: 2+ pulses, warm, well-perfused, no edema. NEUROLOGICAL: Cranial nerves II through XII grossly intact. Normal speech, gait not observed. PSYCH: Normal mood, normal affect. SKIN: Warm, dry, normal turgor, no rashes or lesions noted Laboratory Results - last 24 hr 03/14/18 03/14/18 03/14/18 07:00 07:00 11:20 WBC 10.8 RBC 3.34 L Hgb 10.3 L Hct 29.5 L D MCV 88.5 MCH 30.9 MCHC 34.9 RDW 13.4 Plt Count 207 MPV 8.4 Absolute Neuts (auto) 8.4 Neutrophils % 76.7 Lymphocytes % 14.1 Monocytes % 8.6 Eosinophils % 0.4 Basophils % 0.2 Sodium Potassium Chloride Carbon Dioxide Anion Gap BUN Creatinine Creat Clearance w eGFR POC Glucometer 149 Random Glucose Calcium Ferritin Troponin I < 0.03 Vitamin B12 Serum Folate 03/14/18 03/14/18 03/14/18 13:20 13:20 16:40 WBC RBC Hgb Hct MCV MCH MCHC RDW Plt Count MPV Absolute Neuts (auto) Neutrophils % Lymphocytes % Monocytes % Eosinophils % Basophils % Sodium Potassium Chloride Carbon Dioxide Anion Gap BUN Creatinine Creat Clearance w eGFR POC Glucometer 145 Random Glucose Calcium Ferritin 197.2 Troponin I < 0.03 Vitamin B12 342 Serum Folate 19 H 03/14/18 03/15/18 03/15/18 21:23 06:15 07:55 WBC 8.0 RBC 3.42 L Hgb 10.5 L Hct 30.5 L MCV 89.2 MCH 30.7 MCHC 34.4 RDW 13.4 Plt Count 268 MPV 7.6 Absolute Neuts (auto) 5.6 Neutrophils % 69.0 Lymphocytes % 21.6 Monocytes % 7.3 Eosinophils % 1.8 Basophils % 0.3 Sodium Potassium Chloride Carbon Dioxide Anion Gap BUN Creatinine Creat Clearance w eGFR POC Glucometer 265 139 Random Glucose Calcium Ferritin Troponin I Vitamin B12 Serum Folate 03/15/18 07:55 WBC RBC Hgb Hct MCV MCH MCHC RDW Plt Count MPV Absolute Neuts (auto) Neutrophils % Lymphocytes % Monocytes % Eosinophils % Basophils % Sodium 138 Potassium 4.4 Chloride 104 Carbon Dioxide 27 Anion Gap 7 L BUN 22 H Creatinine 1.2 Creat Clearance w eGFR 43.34 POC Glucometer Random Glucose 113 H Calcium 8.5 Ferritin Troponin I Vitamin B12 Serum Folate Active Medications Generic Name Dose Route Start Last Admin Trade Name Freq PRN Reason Stop Dose Admin Acetaminophen 650 mg 03/14/18 05:02 Tylenol - PO Q6H PRN FEVER Aspirin 81 mg 03/14/18 10:00 03/14/18 09:08 Ecotrin - PO 81 mg DAILY KERA Administration Atorvastatin Calcium 40 mg 03/14/18 22:00 03/14/18 21:25 Lipitor - PO 40 mg HS KERA Administration Glipizide 10 mg 03/14/18 07:00 03/15/18 06:18 Glucotrol - PO 10 mg DAILY@0700 KERA Administration Heparin Sodium (Porcine) 5,000 unit 03/14/18 10:00 03/14/18 21:25 Heparin - SQ 5,000 unit BID KERA Administration Azithromycin 500 mg/ Dextrose 250 mls @ 250 mls/hr 03/14/18 18:00 03/14/18 18 :06 IVPB 250 mls/hr DAILY KERA Administration Sodium Chloride 1,000 mls @ 50 mls/hr 03/14/18 11:45 03/14/18 12:55 Normal Saline - IV 03/15/18 11:38 50 mls/hr ASDIR KERA Administration Ceftriaxone Sodium 50 mls @ 100 mls/hr 03/15/18 08:34 Ceftriaxone 1 Gm-D5w Bag IVPB DAILY [facility] Protocol Insulin Aspart 1 vial 03/14/18 22:00 03/15/18 06:18 Novolog Vial Sliding Scale - SQ Not Given ACHS [facility] Protocol Metoprolol Tartrate 50 mg 03/14/18 10:00 03/14/18 21:25 Lopressor - PO 50 mg BID KERA Administration Sitagliptin Phosphate 50 mg 03/15/18 07:00 03/15/18 06:17 Januvia - PO 50 mg DAILY@0700 KERA Administration Valsartan 320 mg 03/14/18 10:00 03/14/18 09:08 Diovan - PO 320 mg DAILY KERA Administration Microbiology 03/14/18 09:10 Sputum - Expectorated Gram Stain - Final 03/14/18 09:10 Sputum - Expectorated Sputum Culture - Preliminary NORMAL RESPIRATORY LAURA 03/13/18 23:40 Urine - Urine Clean Catch Urine Culture - Preliminary Lactose Fermenting Neg Bacilli 03/13/18 23:40 Blood - Peripheral Venous Blood Culture - Preliminary NO GROWTH OBTAINED AFTER 24 HOURS, INCUBATION TO CONTINUE FOR 4 DAYS. 03/13/18 23:40 Blood - Peripheral Venous Blood Culture - Preliminary NO GROWTH OBTAINED AFTER 24 HOURS, INCUBATION TO CONTINUE FOR 4 DAYS. IMAGING Chest x-ray: Increased markings of the left base enlarged heart Duplex of bilateral lower extremities: Negative for DVT bilaterally ASSESSMENT/PLAN: 1) Sepsis due to Community Acquired Pneumonia vs uti - afebrile no leukocytosis noted, Blood Cultures negative to date, Urine culture preliminary lactose fermenting negative bacilli - continue Rocephin and Zithromax until all cultures are finalized. - trend cbc and fever curve 2) pulm community acquired pna - pending sputum culture, repeat Chest x-ray ordered today, PA/LAT - Continue SpO2 monitoring, keep SpO2 above 92% with supplemental O2 as necessary - continue Rocephin and Zithromax. 3) cardiology Chest pain R/O ACS - troponin x 3 wnl - Pain unlikely ACS, cardiology consulted and following Hypertension - Continue Diovan and Lopressor, b/p slighthy above goal, likely secondary to pain 4)/neph UTI - Urine culture and as above, continue Rocephin until final culture is obtained. - Left CVA tenderness noted will order ultrasound of kidney bladder pelvis assess for hydronephrosis SIDDHARTH - Creatinine improving likely secondary to hypovolemia, strict monitoring 5) Endo Diabetes mellitus - Pending hemoglobin A1c, continue to hold metformin secondary to Siddharth, Continue glipizide and Januvia with regular insulin sliding scale fingersticks before meals and at bedtime FEN - Replete lytes prn - Low Na, Diabetic Diet *DVT ppx - OOB - SCDs - Heparin SQ Code Status: Full Code Dispo: Requires in patient care. Updated plan of care with sons at bedside, All questions answered, sons and patient agreed with plan
[2018-03-15] MEDS: CEFTRIAXONE 1 G/50 ML PREMIX 50 ML IVPB SCH (09:39)
[2018-03-15] MEDS: HEPARIN NA (PORCINE) 5,000 UNITS/ML 1ML VIAL SQ SCH ×2 (09:39→21:11)
[2018-03-15] MEDS: ASPIRIN COATED 81 MG TABLET.EC PO SCH (09:41)
[2018-03-15] MEDS: VALSARTAN 160 MG TABLET (UD) PO SCH (09:41)
[2018-03-15] MEDS: METOPROLOL TARTRATE 50 MG TABLET (FP) PO SCH ×2 (09:41→21:11)
[2018-03-15] MEDS: AZITHROMYCIN IVPB 500 MG in DEXTROSE 5%-WATER - 250 ML IVPB SCH (09:42)
[2018-03-15] MEDS: ATORVASTATIN CA 40 MG TABLET (FP) PO SCH (21:11)
--- NOTE | 2018-03-15 22:09 | EKG ---
Test Reason : Blood Pressure : / mmHG Vent. Rate : 097 BPM Atrial Rate : 097 BPM P-R Int : 136 ms QRS Dur : 112 ms QT Int : 370 ms P-R-T Axes : 027 006 -05 degrees QTc Int : 469 ms SINUS RHYTHM WITH PREMATURE ATRIAL COMPLEXES INCOMPLETE RIGHT BUNDLE BRANCH BLOCK BORDERLINE ECG NO PREVIOUS ECGS AVAILABLE Confirmed by MESHA WONG, ROSSY ([id number]) on 03/15/2018 10:09:24 PM Referred By: DR ARTEAGA Confirmed By:ROSSY ZIMMER MD
[2018-03-16] MEDS ORDERED: glipiZIDE 5 MG TABLET (FP) ONE (06:43)
[2018-03-16] MEDS: sitaGLIPtin PHOSPHATE 50 MG TABLET PO SCH (06:46)
[2018-03-16] MEDS: INSULIN SLIDING SCALE (NOVOLOG) 1 VIAL SQ SCH ×4 (06:47→21:42)
[2018-03-16] MEDS: glipiZIDE 10 MG TABLET (FP) PO SCH (06:47)
[2018-03-16 08:11] LABS: BASO % 1.3 % (0-2.0); EOS % 2.3 % (0-4.5); HEMATOCRIT 30.7 % (32.4-45.2); HEMOGLOBIN 10.6 GM/dl (10.7-15.3); LYMPH % 11.6 % (8-40); MCH 30.5 pg (25.7-33.7); MCHC 34.5 g/dl (32.0-36.0); MEAN CELL VOLUME 88.4 fl (80-96); MEAN PLT VOLUME 7.6 fl (7.5-11.1); MONO % 7.7 % (3.8-10.2); NEUT % 77.1 % (42.8-82.8); PLATELET COUNT 267 K/MM3 (134-434); RBC 3.47 M/mm3 (3.60-5.2); RDW 13.9 % (11.6-15.6); WHITE BLOOD COUNT 8.5 K/mm3 (4.0-10.8)
[2018-03-16 08:12] LABS: SERUM IRON SATURATION 10 % (15-55); TOTAL IRON BINDING CAPACITY 186 ug/dL (250-450); UIBC 168 ug/dL (118-369)
[2018-03-16] MEDS ORDERED: glipiZIDE 5 MG TABLET (FP) PO SCH (09:14)
[2018-03-16 09:36] LABS: ALBUMIN 2.6 g/dl (3.5-5.0); ALK PHOS 76 U/L (32-92); ANION GAP 11 (8-16); BLOOD UREA NITROGEN 20 mg/dl (7-18); CALCIUM 8.4 mg/dl (8.4-10.2); CHLORIDE 103 mmol/L (98-107); CO2 25 mmol/L (22-28); CREATININE 1.4 mg/dl (0.6-1.3); GLUCOSE,RANDOM 161 mg/dl (74-106); MAGNESIUM 1.8 mg/dL (1.8-2.4); PHOSPHOROUS 3.6 mg/dl (2.5-4.6); POTASSIUM 3.9 mmol/L (3.5-5.1); SGOT/AST 36 U/L (10-42); SGPT/ALT 57 U/L (10-40); SODIUM 139 mmol/L (136-145); TOT PROT 6.3 g/dl (6.4-8.3)
[2018-03-16 09:41] LABS: BILIRUBIN,TOTAL < 0.5 mg/dl (0.2-1.0)
[2018-03-16] MEDS: CEFTRIAXONE 1 G/50 ML PREMIX 50 ML IVPB SCH (09:53)
[2018-03-16] MEDS: ALBUTEROL SO4 2.5/IPRATROPIUM 0.5 INH SOL 3 ML VIAL.NEB. NEB SCH ×3 (09:53→19:53)
[2018-03-16] MEDS: AZITHROMYCIN IVPB 500 MG in DEXTROSE 5%-WATER - 250 ML IVPB SCH (09:56)
[2018-03-16] MEDS: ASPIRIN COATED 81 MG TABLET.EC PO SCH (09:56)
[2018-03-16] MEDS: VALSARTAN 160 MG TABLET (UD) PO SCH (09:56)
[2018-03-16] MEDS: HEPARIN NA (PORCINE) 5,000 UNITS/ML 1ML VIAL SQ SCH ×2 (09:56→21:41)
[2018-03-16] MEDS: METOPROLOL TARTRATE 50 MG TABLET (FP) PO SCH ×2 (09:56→21:41)
[2018-03-16] MEDS ORDERED: MAGNESIUM 1GM/D5W 100ML - 100 ML IVPB IVPB ONE (09:56)
--- NOTE | 2018-03-16 09:56 | PN ---
Physical Exam: SUBJECTIVE: Patient seen and examined, reports Left back pain, denies any chest pain or shortness of breath, sons at bedside. OBJECTIVE:patient is a 77-year-old female with a past medical history of diabetes mellitus, hypertension, peripheral vascular disease, and herpes zoster. Patient was admitted From the emergency department to inpatient for sepsis secondary to Community-acquired pneumonia and urinary tract infection Vital Signs Period Temp Pulse Resp BP Sys/Metzger Pulse Ox Last 24 Hr 98.2 F-99.1 F 80-106 17-20 150-160/66-80 92-98 GENERAL: The patient is awake, alert, and fully oriented, in no acute distress. HEAD: Normal with no signs of trauma. EYES: PERRL, extraocular movements intact, sclera anicteric, conjunctiva clear. No ptosis. ENT: Ears normal, nares patent, oropharynx clear without exudates, moist mucous membranes. NECK: Trachea midline, full range of motion, supple. LUNGS: Breath sounds equal,Crackles at bilateral bases, no wheezes, no accessory muscle use. HEART: Regular rate and rhythm, S1, S2 without murmur, rub or gallop. ABDOMEN: Soft, nontender, nondistended, normoactive bowel sounds, no guarding, no rebound, no hepatosplenomegaly, no masses. EXTREMITIES: 2+ pulses, warm, well-perfused, no edema. NEUROLOGICAL: Cranial nerves II through XII grossly intact. Normal speech, gait not observed. PSYCH: Normal mood, normal affect. SKIN: Warm, dry, normal turgor, no rashes or lesions noted Laboratory Results - last 24 hr 03/15/18 03/15/18 03/15/18 07:55 07:55 16:31 WBC RBC Hgb Hct MCV MCH MCHC RDW Plt Count MPV Absolute Neuts (auto) Neutrophils % Lymphocytes % Monocytes % Eosinophils % Basophils % Sodium Potassium Chloride Carbon Dioxide Anion Gap BUN Creatinine Creat Clearance w eGFR POC Glucometer 149 Random Glucose Hemoglobin A1c % 6.2 H Calcium Phosphorus Magnesium Iron 18 L TIBC 186 L Iron Saturation 10 L Total Bilirubin AST ALT Alkaline Phosphatase Total Protein Albumin 03/15/18 03/16/18 03/16/18 20:54 06:41 07:50 WBC 8.5 RBC 3.47 L Hgb 10.6 L Hct 30.7 L MCV 88.4 MCH 30.5 MCHC 34.5 RDW 13.9 Plt Count 267 MPV 7.6 Absolute Neuts (auto) 6.5 Neutrophils % 77.1 Lymphocytes % 11.6 Monocytes % 7.7 Eosinophils % 2.3 Basophils % 1.3 Sodium Potassium Chloride Carbon Dioxide Anion Gap BUN Creatinine Creat Clearance w eGFR POC Glucometer 291 164 Random Glucose Hemoglobin A1c % Calcium Phosphorus Magnesium Iron TIBC Iron Saturation Total Bilirubin AST ALT Alkaline Phosphatase Total Protein Albumin 03/16/18 07:50 WBC RBC Hgb Hct MCV MCH MCHC RDW Plt Count MPV Absolute Neuts (auto) Neutrophils % Lymphocytes % Monocytes % Eosinophils % Basophils % Sodium 139 Potassium 3.9 Chloride 103 Carbon Dioxide 25 Anion Gap 11 BUN 20 H Creatinine 1.4 H Creat Clearance w eGFR 36.27 POC Glucometer Random Glucose 161 H D Hemoglobin A1c % Calcium 8.4 Phosphorus 3.6 Magnesium 1.8 Iron TIBC Iron Saturation Total Bilirubin < 0.5 AST 36 D ALT 57 H D Alkaline Phosphatase 76 Total Protein 6.3 L Albumin 2.6 L Active Medications Generic Name Dose Route Start Last Admin Trade Name Mirzaq PRN Reason Stop Dose Admin Acetaminophen 650 mg 03/14/18 05:02 Tylenol - PO Q6H PRN FEVER Albuterol/Ipratropium 1 amp 03/16/18 08:00 03/16/18 09:53 Duoneb - NEB 1 amp RQID KERA Administration Aspirin 81 mg 03/14/18 10:00 03/16/18 09:56 Ecotrin - PO 81 mg DAILY KERA Administration Atorvastatin Calcium 40 mg 03/14/18 22:00 03/15/18 21:11 Lipitor - PO 40 mg HS KERA Administration Glipizide 10 mg 03/16/18 09:14 Glucotrol - PO DAILY@0700 KERA Heparin Sodium (Porcine) 5,000 unit 03/14/18 10:00 03/16/18 09:56 Heparin - SQ 5,000 unit BID KERA Administration Azithromycin 500 mg/ Dextrose 250 mls @ 250 mls/hr 03/14/18 18:00 03/16/18 09 :56 IVPB 250 mls/hr DAILY KERA Administration Ceftriaxone Sodium 50 mls @ 100 mls/hr 03/15/18 08:34 03/16/18 09:53 Ceftriaxone 1 Gm-D5w Bag IVPB 100 mls/hr DAILY KERA Administration Protocol Insulin Aspart 1 vial 03/14/18 22:00 03/16/18 06:47 Novolog Vial Sliding Scale - SQ Not Given ACHS [facility] Protocol Magnesium Sulfate 1 gm 03/16/18 09:56 Magnesium Sulfate IVPB 03/16/18 09:57 ONCE ONE Metoprolol Tartrate 50 mg 03/14/18 10:00 03/16/18 09:56 Lopressor - PO 50 mg BID KERA Administration Sitagliptin Phosphate 50 mg 03/15/18 07:00 03/16/18 06:46 Januvia - PO 50 mg DAILY@0700 KERA Administration Valsartan 320 mg 03/14/18 10:00 03/16/18 09:56 Diovan - PO 320 mg DAILY KERA Administration Microbiology 03/14/18 09:10 Sputum - Expectorated Gram Stain - Final 03/14/18 09:10 Sputum - Expectorated Sputum Culture - Final NORMAL RESPIRATORY LAURA 03/13/18 23:40 Blood - Peripheral Venous Blood Culture - Preliminary NO GROWTH OBTAINED AFTER 48 HOURS, INCUBATION TO CONTINUE FOR 3 DAYS. 03/13/18 23:40 Blood - Peripheral Venous Blood Culture - Preliminary NO GROWTH OBTAINED AFTER 48 HOURS, INCUBATION TO CONTINUE FOR 3 DAYS. 03/13/18 23:40 Urine - Urine Clean Catch Urine Culture - Preliminary Lactose Fermenting Neg Bacilli Imaging Chest x-ray: infilitrate of left lower lobe, Increased lung markings to the right base Duplex of bilateral lower extremities: Negative for DVT bilaterally ASSESSMENT/PLAN: 1) Sepsis due to Community Acquired Pneumonia vs uti - low grade temp noted, no leukocytosis noted, sputum and Blood Cultures negative to date, Urine culture preliminary lactose fermenting negative bacilli awaiting final urine culture - continue Rocephin and Zithromax until all cultures are finalized. - trend cbc and fever curve 2) pulm community acquired pna - cxr notable for left lower lobe infilitrate continue rocephin and zithromax - Continue SpO2 monitoring, keep SpO2 above 92% with supplemental O2 as necessary 3) cardiology Chest pain R/O ACS - troponin x 3 wnl - Pain unlikely ACS, cardiology consulted and following Hypertension - Continue Diovan and Lopressor, b/p slighthy above goal, likely secondary to pain 4)/neph UTI - Urine culture and as above, continue Rocephin until final culture is obtained. - Ultrasound of kidney/pelvis no evidence of hydronephrosis or urinary retention noted, Bilateral renal cysts DAVI - Creatinine improving likely secondary to hypovolemia, Restart IV fluids, strict monitoring 5) Endo Diabetes mellitus - hemoglobin A1c 6.2, continue to hold metformin secondary to Davi, Continue glipizide and Januvia with regular insulin sliding scale fingersticks before meals and at bedtime FEN - Replete lytes prn - Low Na, Diabetic Diet *DVT ppx - OOB - SCDs - Heparin SQ Code Status: Full Code Dispo: Requires in patient care. Updated plan of care with sons at bedside, All questions answered, sons and patient agreed with plan
[2018-03-16] MEDS ORDERED: REFRIGERATED ANITBIOTICS ONE (12:09)
[2018-03-16] MEDS ORDERED: INSULIN (NOVOLOG) ASPART 100 UNITS/ML 10ML VIAL ONE ×2 (12:10→17:07)
[2018-03-16] MEDS ORDERED: SODIUM CHLORIDE 0.45% 1,000 ML IV SCH (12:30)
[2018-03-16] MEDS: ATORVASTATIN CA 40 MG TABLET (FP) PO SCH (21:41)
[2018-03-17] MEDS: sitaGLIPtin PHOSPHATE 50 MG TABLET PO SCH (06:58)
[2018-03-17] MEDS: INSULIN SLIDING SCALE (NOVOLOG) 1 VIAL SQ SCH (06:58)
[2018-03-17] MEDS: ALBUTEROL SO4 2.5/IPRATROPIUM 0.5 INH SOL 3 ML VIAL.NEB. NEB SCH ×2 (08:14→11:27)
[2018-03-17] MEDS ORDERED: AZITHROMYCIN IVPB 250 ML IVPB SCH ×2 (08:17→10:00)
[2018-03-17 09:19] LABS: HEMATOCRIT 33.8 % (32.4-45.2); HEMOGLOBIN 11.2 GM/dl (10.7-15.3); MCH 29.5 pg (25.7-33.7); MCHC 33.2 g/dl (32.0-36.0); MEAN CELL VOLUME 88.6 fl (80-96); MEAN PLT VOLUME 7.5 fl (7.5-11.1); PLATELET COUNT 325 K/MM3 (134-434); RBC 3.82 M/mm3 (3.60-5.2); RDW 13.7 % (11.6-15.6); WHITE BLOOD COUNT 10.4 K/mm3 (4.0-10.8)
[2018-03-17] MEDS: VALSARTAN 160 MG TABLET (UD) PO SCH (09:19)
[2018-03-17] MEDS: HEPARIN NA (PORCINE) 5,000 UNITS/ML 1ML VIAL SQ SCH (09:19)
[2018-03-17] MEDS: ASPIRIN COATED 81 MG TABLET.EC PO SCH (09:19)
[2018-03-17] MEDS: CEFTRIAXONE 1 G/50 ML PREMIX 50 ML IVPB SCH (09:19)
[2018-03-17] MEDS: METOPROLOL TARTRATE 50 MG TABLET (FP) PO SCH (09:20)
[2018-03-17 09:27] LABS: ALBUMIN 2.7 g/dl (3.5-5.0); ALK PHOS 76 U/L (32-92); ANION GAP 9 (8-16); BILIRUBIN,TOTAL 0.2 mg/dl (0.2-1.0); BLOOD UREA NITROGEN 18 mg/dl (7-18); CALCIUM 8.1 mg/dl (8.4-10.2); CHLORIDE 101 mmol/L (98-107); CO2 23 mmol/L (22-28); CREATININE 1.2 mg/dl (0.6-1.3); GLUCOSE,RANDOM 299 mg/dl (74-106); MAGNESIUM 1.8 mg/dL (1.8-2.4); PHOSPHOROUS 3.6 mg/dl (2.5-4.6); POTASSIUM 3.7 mmol/L (3.5-5.1); SGOT/AST 27 U/L (10-42); SGPT/ALT 51 U/L (10-40); SODIUM 133 mmol/L (136-145); TOT PROT 6.6 g/dl (6.4-8.3)
[2018-03-17 09:35] LABS: ADD RBC MORPHOLOGY YES
[2018-03-17] MEDS ORDERED: KETOROLAC TROMETHAMINE 30 MG/1 ML VIAL IVPUSH ONE (10:14)
[2018-03-17] MEDS ORDERED: MAGNESIUM SULF 50% (8.12 MEQ/2 ML-1 GM VIAL) IVPB ONE (10:15)
[2018-03-17 10:23] LABS: PLATELET ESTIMATE ADEQUATE
[2018-03-17 10:36] LABS: URIC ACID 7.4 mg/dl (2.6-7.2)
[2018-03-17] MEDS ORDERED: MAGNESIUM 1GM/D5W - 1 GM/100 ML IVPB IVPB ONE (10:45)
[2018-03-17] MEDS ORDERED: INSULIN SLIDING SCALE (NOVOLOG) 1 VIAL SQ SCH (11:05)
[2018-03-17] MEDS ORDERED: POTASSIUM CHLORIDE TABS 20 MEQ TABLET.ER (FP) PO ONE (11:06)
[2018-03-17] MEDS ORDERED: INSULIN REGULAR HUMAN 100 UNITS/ML *VIAL SQ ONE (11:06)
[2018-03-17] MEDS ORDERED: INSULIN (NOVOLOG) ASPART 100 UNITS/ML 10ML VIAL ONE (11:18)
[2018-03-17] MEDS ORDERED: COLCHICINE 0.6 MG TABLET (FP) PO ONE ×2 (11:30→12:30)
--- NOTE | 2018-03-17 12:42 | DS ---
Physical Exam: SUBJECTIVE: Patient seen and examined, reports pain to left toe, OBJECTIVE: Vital Signs Period Temp Pulse Resp BP Sys/Metzger Pulse Ox Last 24 Hr 98.0 F-99.2 F 74-114 16-20 155-190/58-77 94-98 PHYSICAL EXAM GENERAL: The patient is awake, alert, and fully oriented, in no acute distress. HEAD: Normal with no signs of trauma. EYES: PERRL, extraocular movements intact, sclera anicteric, conjunctiva clear. ENT: Ears normal, nares patent, oropharynx clear without exudates, moist mucous membranes. NECK: Trachea midline, full range of motion, supple. LUNGS: Breath sounds equal, clear to auscultation bilaterally, no wheezes, no crackles, no accessory muscle use. HEART: Regular rate and rhythm, S1, S2 without murmur, rub or gallop. ABDOMEN: Soft, nontender, nondistended, normoactive bowel sounds, no guarding, no rebound, no hepatosplenomegaly, no masses. EXTREMITIES: 2+ pulses, warm, well-perfused, no edema. erythema and point tenderness to the left 1st digit of the foot NEUROLOGICAL: Cranial nerves II through XII grossly intact. Normal speech, gait not observed. PSYCH: Normal mood, normal affect. SKIN: Warm, dry, normal turgor, no rashes or lesions noted. LABS Laboratory Results - last 24 hr 03/16/18 03/16/18 03/17/18 17:14 21:40 06:57 WBC RBC Hgb Hct MCV MCH MCHC RDW Plt Count MPV Absolute Neuts (auto) Neutrophils % Neutrophils % (Manual) Band Neutrophils % Lymphocytes % Lymphocytes % (Manual) Monocytes % (Manual) Platelet Estimate Sodium Potassium Chloride Carbon Dioxide Anion Gap BUN Creatinine Creat Clearance w eGFR POC Glucometer 148 197 172 Random Glucose Uric Acid Calcium Phosphorus Magnesium Total Bilirubin AST ALT Alkaline Phosphatase Total Protein Albumin 03/17/18 03/17/18 09:00 09:00 WBC 10.4 RBC 3.82 Hgb 11.2 Hct 33.8 MCV 88.6 MCH 29.5 MCHC 33.2 RDW 13.7 Plt Count 325 MPV 7.5 Absolute Neuts (auto) 8.8 Neutrophils % No Result Required. Neutrophils % (Manual) 80.0 Band Neutrophils % 4.0 Lymphocytes % No Result Required. Lymphocytes % (Manual) 12.0 Monocytes % (Manual) 4 Platelet Estimate Adequate Sodium 133 L Potassium 3.7 Chloride 101 Carbon Dioxide 23 Anion Gap 9 BUN 18 Creatinine 1.2 Creat Clearance w eGFR 43.34 POC Glucometer Random Glucose 299 H D Uric Acid 7.4 H Calcium 8.1 L Phosphorus 3.6 Magnesium 1.8 Total Bilirubin 0.2 AST 27 D ALT 51 H Alkaline Phosphatase 76 Total Protein 6.6 Albumin 2.7 L Microbiology 03/13/18 23:40 Urine - Urine Clean Catch Urine Culture - Final Escherichia Coli 03/13/18 23:40 Blood - Peripheral Venous Blood Culture - Preliminary NO GROWTH OBTAINED AFTER 72 HOURS, INCUBATION TO CONTINUE FOR 2 DAYS. 03/13/18 23:40 Blood - Peripheral Venous Blood Culture - Preliminary NO GROWTH OBTAINED AFTER 72 HOURS, INCUBATION TO CONTINUE FOR 2 DAYS. 03/14/18 09:10 Sputum - Expectorated Gram Stain - Final 03/14/18 09:10 Sputum - Expectorated Sputum Culture - Final NORMAL RESPIRATORY LAURA Imaging Chest x-ray: infilitrate of left lower lobe, Increased lung markings to the right base Duplex of bilateral lower extremities: Negative for DVT bilaterally Ultrasound of kidney/pelvis no evidence of hydronephrosis or urinary retention noted, Bilateral renal cysts HOSPITAL COURSE: 1) Sepsis due to Community Acquired Pneumonia vs uti - patient is afebrile, no leukocytosis noted, sputum and Blood Cultures negative to date, -Rocephin and Zithromax (03/15 - 03/17) patient is was transitioned to levaquin . 2)community acquired pna - cxr notable for left lower lobe infilitrate treated with rocephin and zithromax - Continue SpO2 monitoring, keep SpO2 above 92% with supplemental O2 as necessary 3) Chest pain R/O ACS - troponin x 3 wnl - Pain unlikely ACS, cardiology consulted and following Hypertension - Continued Diovan and Lopressor 4)/neph UTI - Urine culture noted as above, treated with Rocephin senstive for ecoli - SIDDHARTH - Creatinine improving likely secondary to hypovolemia improved after iv hydration, creatine wnl 5) Endo Diabetes mellitus - hemoglobin A1c 6.2, metformin held secondary to Siddharth, Continue glipizide and Januvia, regular insulin sliding scale fingersticks before meals and at bedtime PLAN -discharge home with vns - continue levaquin for the next 7 days - follow up with pcp within 1 week - return precautions reviewed, ie chest pain, shortness of breath, fever Date of Admission:03/14/18 Date of Discharge: 03/17/18 Minutes to complete discharge: 45 Discharge Summary Reason For Visit: BILATERAL PNEUMONIA,SEPSIS Current Active Problems Bilateral pneumonia (Acute) Chest pain (Acute) Cough (Acute) Cystitis (Acute) Diabetes mellitus (Acute) Fever (Acute) Hypertension (Acute) PVD (peripheral vascular disease) (Acute) Palpitations (Acute) UTI (urinary tract infection) (Acute) Weakness (Acute) Condition: Guarded - Instructions Referrals: Do Colbert MD [Staff Physician] - - Home Medications Comprehensive Discharge Medication List: Ambulatory Orders Metoprolol Tartrate 50 mg PO BID 07/23/16 Sitagliptin Phos/Metformin HCl [Janumet Xr 50-1,000 mg Tablet] 1 capl PO BID 11/06 Atorvastatin Ca [Lipitor] 40 mg PO HS 01/21/18 Glipizide 10 mg PO DAILY 01/21/18 Valsartan/Hydrochlorothiazide [Valsartan-Hctz 320-12.5 mg Tab] 1 each PO DAILY 01/21/18 Aspirin [Ecotrin] 81 mg PO DAILY 03/13/18
[2018-03-17 14:16] VITALS: BP 155/64; PULSE 82; TEMP 98.2
== END 2018-03-17 15:05 | disposition home health service (06) | DRG 871 ==
LOC: FER 22:35 → UNDOADMOB 23:50 → FM/S 23:50 → UNDOADMOB 23:59 → INTOOBSV 23:59 → FM/S 23:59 → OBSVTOIN 03-14 12:13
PROVIDERS: ADMIT Internal Medicine; ATTEND Nurse Practitioner Family
DX: A41.9 Sepsis, unspecified organism (principal); J18.9 Pneumonia, unspecified organism; N39.0 Urinary tract infection, site not specified; N17.9 Acute kidney failure, unspecified; I45.10 Unspecified right bundle-branch block; E11.51 Type 2 diabetes mellitus with diabetic peripheral angiopathy without gangrene; R09.1 Pleurisy; D64.9 Anemia, unspecified; Z79.84 Long term (current) use of oral hypoglycemic drugs; N28.1 Cyst of kidney, acquired; B96.20 Unspecified Escherichia coli [E. coli] as the cause of diseases classified elsewhere; E86.1 Hypovolemia
CPT/HCPCS: 36415; 71045-TC-FY; 71046-TC-FY; 76775-TC; 76856-TC; 80048; 80053; 81003; 81015; 82550; 82607; 82728; 82746; 82962; 83036; 83540; 83550; 83605; 83735; 84100; 84484; 84550; 85025; 85610; 85730; 87040; 87070; 87086; 87186; 87205; 93005; 93970-TC; 94640; 94761; 97116-GP; 97161-GP; 99283-25; J1644; J7030; J7620

== ENCOUNTER 2018-06-28 12:45 | Inpatient (IN) | payer OTHER ==
[2018-06-28 13:08] VITALS: BMI 37.2
--- NOTE | 2018-06-28 13:39 | PDOC ---
History of Present Illness - General Chief Complaint: Chest Pain Stated Complaint: CHEST PAIN Time Seen by Provider: 06/28/18 12:49 - History of Present Illness Initial Comments: 06/28/18 13:33 78yo F hx HTN, HL, DM presents from PMD office with 2 weeks of SOB and RLQ abd pain x 1 month. SOB is not constant, occurs usually at rest. Has no exacerbating factors and resolves on its own. Has never happened before. Per Dr. Lynn, pt also c/o of CP at rest while in the office. Currently denies. Pt' s son and daughter in law at bedside volunteer that pt has been giving varying histories regarding her CP, SOB. RLQ pain is intermittent for 1 month. No radiation. No change with food. Last BM this morning, non bloody brown stool. Pt also reporting R flank pain and malodorous urine. No N/V. Denies F/C, recent immobility, LE edema or pain. PMD: Dr. Lynn Cards: Dr. Gonsalves Past History - Past Medical History Allergies/Adverse Reactions: Allergies Allergy/AdvReac Type Severity Reaction Status Date / Time No Known Allergies Allergy Verified 06/28/18 12:54 Home Medications: Ambulatory Orders Metoprolol Tartrate 50 mg PO BID 07/23/16 Sitagliptin Phos/Metformin HCl [Janumet Xr 50-1,000 mg Tablet] 1 capl PO DAILY 07/23/16 Aspirin [Ecotrin] 81 mg PO DAILY 03/13/18 Acetaminophen [Tylenol .Regular Strength -] 650 mg PO Q6H PRN tablet 03/17/18 Albuterol Sulfate Inhaler - [Ventolin Hfa Inhaler -] 2 inh PO Q4H PRN #1 inh Losartan 50Mg/Hctz 12.5MG [Hyzaar -] 1 tab PO DAILY 06/28/18 Cardiac Disorders: Yes (RBBB) COPD: No Diabetes: Yes HTN: Yes Hypercholesterolemia: Yes Other medical history: SHINGLES, PVD - Suicide/Smoking/Psychosocial Hx Smoking History: Never smoked Have you smoked in the past 12 months: No Number of Cigarettes Smoked Daily: 0 Hx Alcohol Use: No Drug/Substance Use Hx: No Substance Use Type: None Review of Systems - Review of Systems Comments:: 06/28/18 14:55 GENERAL/CONSTITUTIONAL: No fever or chills. No weakness. HEAD, EYES, EARS, NOSE AND THROAT: No change in vision. No ear pain or discharge. No sore throat. GASTROINTESTINAL: No nausea, vomiting, diarrhea or constipation. +abd pain GENITOURINARY: No dysuria, frequency, or change in urination. CARDIOVASCULAR: +chest pain or shortness of breath. RESPIRATORY: No cough, wheezing, or hemoptysis. MUSCULOSKELETAL: No joint or muscle swelling or pain. No neck or back pain. SKIN: No rash NEUROLOGIC: No headache, vertigo, loss of consciousness, or change in strength/ sensation. ENDOCRINE: No increased thirst. No abnormal weight change. HEMATOLOGIC/LYMPHATIC: No anemia, easy bleeding, or history of blood clots. ALLERGIC/IMMUNOLOGIC: No hives or skin allergy. *Physical Exam - Vital Signs Last Vital Signs Temp Pulse Resp BP Pulse Ox 98.0 F 70 18 190/100 H 98 06/28/18 12:45 06/28/18 12:45 06/28/18 12:45 06/28/18 12:45 06/28/18 12:45 - Physical Exam Comments: 06/28/18 14:56 GENERAL: Awake, alert, oriented to name and place, in no acute distress HEAD: No signs of trauma EYES: Sclera anicteric, conjunctiva clear ENT: Hearing grossly normal, nares patent, oropharynx clear without exudates. dry MM NECK: Supple LUNGS: Breath sounds equal, +bibasilar rales, no crackles HEART: Regular rate and rhythm, normal S1 and S2, no murmurs, rubs or gallops ABDOMEN: Soft, +RLQ ttp, normoactive bowel sounds. No guarding, no rebound. No masses EXTREMITIES: Normal range of motion, trace symmetric LE pitting edema. No clubbing or cyanosis. No cords, erythema, or tenderness NEUROLOGICAL: Normal speech, cranial nerves intact, negative pronator drift, 5/ 5 strength in all 4 extremities, normal sensation to light touch in all 4 extremities, normal cerebellar exam, normal tone SKIN: Warm, Dry, normal turgor, no rashes or lesions noted. Heart Score/ECG Review - History History: Moderately suspicious - Electrocardiogram EKG: Non specific repolarization disturbance - Age Age: >/= 65 - Risk Factors Based on the list above the patient has:: >/=3 risk factors or Hx atherosclerotic disease - Troponin Troponin: </= normal limit - Score Heart Score - Total: 6 #1 06/28/18 15:00 Twelve-lead EKG was performed and reviewed by me. Sinus rhythm, rate 76. Normal axis. +PACs. +RBBB. ED Treatment Course - LABORATORY CBC & Chemistry Diagram: 06/28/18 13:35 06/28/18 13:35 Medical Decision Making - Medical Decision Making 06/28/18 15:04 78yo F hx HTN, HL, DM presents to the ED with vague hx of CP, SOB, RLQ abd pain. Vitals with elevated BP, will repeat. EKG with no ischemia. DDx includes but not limited to ACS vs PNA vs CHF. Unlikely PE with bibasilar rales, 2 weeks of intermittent sxs, no hypoxia, tachycardia, or tachypnea but will consider if remaining w/u is unremarkable. Will obtain CTAP given RLQ pain. 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 Will need admission for echo, further w/u Case discussed with Dr. Canas, pt accepted for admission to in tele Case discussed in detail with admitting physician including history, physical exam and ancillary studies. Admitting physician has assumed care for the patient, will follow all pending diagnostics and will complete the evaluation and treatment. *DC/Admit/Observation/Transfer Diagnosis at time of Disposition: UTI (urinary tract infection), Shortness of breath, CHF (congestive heart failure), DAVI (acute kidney injury) - Discharge Dispostion Condition at time of disposition: Good Decision to Admit order: Yes - Referrals Referrals: Piper Lynn [Primary Care Provider] - - Patient Instructions - Post Discharge Activity - Attestations Physician Attestion: 06/28/18 16:56 I, Dr. Jonathan Hansen MD, attest that this document has been prepared under my direction and personally reviewed by me in its entirety. I further attest, that it accurately reflects all work, treatment, procedures and medical decision -making performed by me.
[2018-06-28 14:05] LABS: BASO % 0.7 % (0-2.0); EOS % 1.7 % (0-4.5); HEMATOCRIT 34.3 % (32.4-45.2); HEMOGLOBIN 11.5 GM/dl (10.7-15.3); LYMPH % 26.2 % (8-40); MCH 29.8 pg (25.7-33.7); MCHC 33.7 g/dl (32.0-36.0); MEAN CELL VOLUME 88.5 fl (80-96); MEAN PLT VOLUME 7.8 fl (7.5-11.1); MONO % 8.5 % (3.8-10.2); NEUT % 62.9 % (42.8-82.8); PLATELET COUNT 270 K/MM3 (134-434); RBC 3.87 M/mm3 (3.60-5.2); RDW 12.6 % (11.6-15.6); WHITE BLOOD COUNT 6.8 K/mm3 (4.0-10.8)
[2018-06-28 14:59] LABS: URINE APPEARANCE Slightly; URINE BILIRUBIN Negative (NEGATIVE); URINE COLOR Yellow; URINE GLUCOSE (UA) Trace (NEGATIVE); URINE KETONE Negative (NEGATIVE); URINE LEUK ESTERASE 3+ (NEGATIVE); URINE NITRITE Positive (NEGATIVE); URINE PROTEIN 2+ (NEGATIVE); URINE UROBILINOGEN 0.2 (0.2-1.0)
[2018-06-28 15:00] LABS: ALBUMIN 3.8 g/dl (3.5-5.0); ALK PHOS 80 U/L (32-92); ANION GAP 8 MMOL/L (8-16); BILIRUBIN,TOTAL 0.3 mg/dl (0.2-1.0); BLOOD UREA NITROGEN 53 mg/dl (7-18); CALCIUM 8.7 mg/dl (8.4-10.2); CHLORIDE 102 mmol/L (98-107); CO2 27 mmol/L (22-28); CREATININE 1.5 mg/dl (0.6-1.3); GLUCOSE,RANDOM 114 mg/dl (74-106); MAGNESIUM 2.5 mg/dL (1.8-2.4); POTASSIUM 4.1 mmol/L (3.5-5.1); SGOT/AST 19 U/L (10-42); SGPT/ALT 19 U/L (10-40); SODIUM 137 mmol/L (136-145); TOT PROT 7.1 g/dl (6.4-8.3)
[2018-06-28] MEDS ORDERED: SODIUM CHLORIDE 1,000 ML IV STA (15:18)
[2018-06-28] MEDS ORDERED: CEFTRIAXONE 1,000 MG in DEXTROSE 5%-WATER - 50 ML IVPB ONE (16:44)
[2018-06-28] MEDS ORDERED: ACETAMINOPHEN 325 MG TABLET (FP) PO PRN (16:56)
[2018-06-28] MEDS ORDERED: cefTRIAXone SODIUM 1 GM VIAL ONE (17:11)
[2018-06-28 17:18] LABS: URINE WBC >100 (0-5)
[2018-06-28] MEDS ORDERED: HEPARIN NA (PORCINE) 5,000 UNITS/ML 1ML VIAL ONE (17:18)
[2018-06-28] MEDS ORDERED: ACETAMINOPHEN 325 MG TABLET (FP) ONE (17:18)
[2018-06-28 17:19] LABS: URINE BACTERIA 4+ /hpf (NEGATIVE)
[2018-06-28] MEDS ORDERED: FUROSEMIDE 40 MG/4 ML INJECTABLE VIAL ONE (17:19)
[2018-06-28] MEDS: FUROSEMIDE 40 MG/4 ML INJECTABLE VIAL IVPUSH SCH (17:25)
[2018-06-28] MEDS: HEPARIN NA (PORCINE) 5,000 UNITS/ML 1ML VIAL SQ SCH (17:28)
[2018-06-28] MEDS: METOPROLOL TARTRATE 50 MG TABLET (FP) PO SCH (21:27)
[2018-06-28] MEDS: INSULIN SLIDING SCALE (NOVOLOG) 1 VIAL SQ SCH (21:49)
--- NOTE | 2018-06-29 | HP ---
CHIEF COMPLAINT: chest pain PCP: Shane HISTORY OF PRESENT ILLNESS: This is a 78 year old female with a significant past medical history of HTN, DM with report of chest pain, SOB and RLQ pain as per ED note. Pt is a poor historian, stated "i am old, i cannot remember" as per cotton chopper. Upon exam, pt reports she came to the ED because she thought her sugar was low. She confirms that she had chest pain and shortness of breath for a few days as well as cough. The pain and SOB are resolved now and she is only coughing "a little. " She does reports dysuria and burning on urination. ER course was notable for: (1) u/a c/w UTI (2) BNP 1572, trop neg (3) CXR with congestion Recent Travel: pt denies PAST MEDICAL HISTORY: HTN, HLD, RBBB, PVD, DM, shingles PAST SURGICAL HISTORY: pt denies Social History: Smoking: pt denies Alcohol: pt denies Drugs: pt denies Family History: unk Allergies No Known Allergies Allergy (Verified 06/28/18 12:54) HOME MEDICATIONS: 3 Medication Instructions Recorded Metoprolol Tartrate 50 mg PO BID 07/23/16 Sitagliptin Phos/Metformin HCl 1 capl PO DAILY 07/23/16 [Janumet Xr 50-1,000 mg Tablet] Aspirin [Ecotrin] 81 mg PO DAILY 03/13/18 Acetaminophen [Tylenol .Regular 650 mg PO Q6H PRN tablet 03/17/18 Strength -] Albuterol Sulfate Inhaler - 2 inh PO Q4H PRN #1 inh 03/17/18 [Ventolin Hfa Inhaler -] Losartan 50Mg/Hctz 12.5MG [Hyzaar 1 tab PO DAILY 06/28/18 -] REVIEW OF SYSTEMS CONSTITUTIONAL: Absent: fever, chills, diaphoresis, generalized weakness, malaise, loss of appetite, weight change HEENT: Absent: rhinorrhea, nasal congestion, throat pain, throat swelling, difficulty swallowing, mouth swelling, ear pain, eye pain, visual changes CARDIOVASCULAR: chest pain Absent: syncope, palpitations, irregular heart rate, lightheadedness, peripheral edema RESPIRATORY: cough, shortness of breath Absent: wheezing, stridor, hemoptysis GASTROINTESTINAL: Absent: abdominal pain, abdominal distension, nausea, vomiting, diarrhea, constipation, melena, hematochezia GENITOURINARY: dysuria Absent: frequency, urgency, hesitancy, hematuria, flank pain, genital pain MUSCULOSKELETAL: Absent: myalgia, arthralgia, joint swelling, back pain, neck pain SKIN: Absent: rash, itching, pallor HEMATOLOGIC/IMMUNOLOGIC: Absent: easy bleeding, easy bruising, lymphadenopathy, frequent infections ENDOCRINE: Absent: unexplained weight gain, unexplained weight loss, heat intolerance, cold intolerance NEUROLOGIC: Absent: headache, focal weakness or paresthesias, dizziness, unsteady gait, seizure, mental status changes, bladder or bowel incontinence PSYCHIATRIC: Absent: anxiety, depression, suicidal or homicidal ideation, hallucinations. PHYSICAL EXAMINATION Vital Signs - 24 hr 3 06/28/18 06/28/18 06/28/18 12:45 16:15 16:56 Temperature 98.0 F Pulse Rate 70 Pulse Rate [ 77 Apical] Respiratory 18 18 18 Rate Blood Pressure 190/100 H Blood Pressure 199/77 H [Left Arm] O2 Sat by Pulse 98 96 99 Oximetry (%) 3 06/28/18 06/28/18 06/28/18 19:00 20:58 21:00 Temperature 98.3 F 97.7 F Pulse Rate 65 Pulse Rate [ 74 Apical] Respiratory 18 19 18 Rate Blood Pressure 174/52 H Blood Pressure 200/71 H [Left Arm] O2 Sat by Pulse 99 98 99 Oximetry (%) GENERAL: Awake, alert, and fully oriented, in no acute distress. HEAD: Normal with no signs of trauma. EYES: Pupils equal, round and reactive to light, extraocular movements intact, sclera anicteric, conjunctiva clear. No lid lag. EARS, NOSE, THROAT: Ears normal, nares patent, oropharynx clear without exudates. Moist mucous membranes. NECK: Normal range of motion, supple without lymphadenopathy, JVD, or masses. LUNGS: Breath sounds equal, clear to auscultation bilaterally. No wheezes, and no crackles. No accessory muscle use. HEART: Regular rate and rhythm, normal S1 and S2 without murmur, rub or gallop. ABDOMEN: Soft, nontender, not distended, normoactive bowel sounds, no guarding, no rebound, no masses. No hepatomegaly or splenomegaly. MUSCULOSKELETAL: Normal range of motion at all joints. No bony deformities or tenderness. No CVA tenderness. UPPER EXTREMITIES: 2+ pulses, warm, well-perfused. No cyanosis. No clubbing. No peripheral edema. LOWER EXTREMITIES: 2+ pulses, warm, well-perfused. No calf tenderness. No peripheral edema. NEUROLOGICAL: Cranial nerves II-XII intact. Normal speech. Normal gait. PSYCHIATRIC: Cooperative. Good eye contact. Appropriate mood and affect. SKIN: Warm, dry, normal turgor, no rashes or lesions noted, normal capillary refill. Laboratory Results - last 24 hr 3 06/28/18 06/28/18 06/28/18 06/28/18 06/28/18 13:35 13:35 13:35 19:40 21:41 WBC 6.8 RBC 3.87 Hgb 11.5 Hct 34.3 MCV 88.5 MCH 29.8 MCHC 33.7 RDW 12.6 Plt Count 270 MPV 7.8 Absolute Neuts (auto) 4.3 Neutrophils % 62.9 Lymphocytes % 26.2 Monocytes % 8.5 Eosinophils % 1.7 Basophils % 0.7 Sodium 137 Potassium 4.1 Chloride 102 Carbon Dioxide 27 D Anion Gap 8 BUN 53 H Creatinine 1.5 H Creat Clearance w eGFR 33.41 POC Glucometer 165 Random Glucose 114 H Calcium 8.7 Magnesium 2.5 H Total Bilirubin 0.3 AST 19 D ALT 19 D Alkaline Phosphatase 80 Creatine Kinase 52 Troponin I < 0.03 < 0.03 B-Natriuretic Peptide 1572.4 H Total Protein 7.1 Albumin 3.8 Urine Color Urine Appearance Urine pH Ur Specific [place] Urine Protein Urine Glucose (UA) Urine Ketones Urine Blood Urine Nitrite Urine Bilirubin Urine Urobilinogen Ur Leukocyte Esterase Urine RBC Urine WBC Urine Bacteria 3 Urine Color Yellow 06/28/18: Urine Appearance Slightly 06/28/18 14:18 Urine pH 7.0 (4.5-8) 06/28/18 14:18 Ur Specific [place] 1.015 (1.010-1.035) 06/28/18 14:18 Urine Protein 2+ (NEGATIVE) H 06/28/18 14:18 Urine Glucose (UA) Trace (NEGATIVE) 06/28/18 14:18 Urine Ketones Negative (NEGATIVE) 06/28/18 14:18 Urine Blood Trace-intact (NEGATIVE) H 06/28/18 14:18 Urine Nitrite Positive (NEGATIVE) 06/28/18 14: Urine Bilirubin Negative (NEGATIVE) 06/28/18 14:18 Ur Leukocyte Esterase 3+ (NEGATIVE) H 06/28/18 14:18 Urine RBC 2-5 /hpf (0-3) 06/28/18 14:18 Urine WBC >100 (0-5) 06/28/18 14:18 Urine Bacteria 4+ /hpf (NEGATIVE) 06/28/18 14:18 ECG sinus rhythm with PAC vent rate 76, qtc 495 RBBB TWI lead III, aVF, unchanged from prior ECG Radiology Reports CXR portable Since the prior study of 03/20/2018 there are some mild central congestive changes with weak inspiration, large heart and sclerotic knob. Correlation recommended. Reported By: Enrico Moreira MD 06/28/18 1641 Abdomen/pelvis CT with IV and PO contrast Impression: No CT findings of acute pathology are noted within the abdomen/ pelvis. The partially imaged lower chest demonstrates bilateral mild to moderate groundglass interstitial thickening which may be chronic or acute in nature. Correlate clinically and with either radiography or dedicated chest CT. Cardiomegaly. Reported By: Jose Wilkes MD 06/28/18 1648 ASSESSMENT/PLAN: 78yF with PMH HTN, HLD, RBBB, PVD, DM, shingles presented to the ED with multiple complaints including chest pain, SOB, cough, RLQ pain, dysuria. CHF exac - lasix given in ED, pt feeling much better - cont lasix 20mg IVP daily - echo ordered - cardiology consult chest pain - troponin neg x 2, trend x 1 more HTN/HLD - cont home meds, losartan/HCTZ, metoprolol - lipid profile in am UTI - cont ceftriaxone DM - hold home janumet - BGM AC/HS with novolog SS DVT PPX - heparin SC FEN - tolerating po - BMP in am - low sodium / diabetic diet as tolerated Dispo: pt currently requires admission for management of her emergent condition. Visit type - Emergency Visit Emergency Visit: Yes ED Registration Date: 06/28/18 Care time: The patient presented to the Emergency Department on the above date and was hospitalized for further evaluation of their emergent condition. - New Patient This patient is new to me today: Yes Date on this admission: 06/28/18 - Critical Care Critical Care patient: No
[2018-06-29] MEDS: HEPARIN NA (PORCINE) 5,000 UNITS/ML 1ML VIAL SQ SCH ×3 (02:00→18:15)
[2018-06-29 08:15] LABS: BASO % 0.5 % (0-2.0); EOS % 1.7 % (0-4.5); HEMATOCRIT 33.4 % (32.4-45.2); HEMOGLOBIN 10.8 GM/dl (10.7-15.3); LYMPH % 20.7 % (8-40); MCH 28.6 pg (25.7-33.7); MCHC 32.3 g/dl (32.0-36.0); MEAN CELL VOLUME 88.5 fl (80-96); MEAN PLT VOLUME 7.9 fl (7.5-11.1); MONO % 8.1 % (3.8-10.2); PLATELET COUNT 244 K/MM3 (134-434); RBC 3.77 M/mm3 (3.60-5.2); WHITE BLOOD COUNT 7.9 K/mm3 (4.0-10.8)
[2018-06-29 08:41] LABS: ANION GAP 1 MMOL/L (8-16); BLOOD UREA NITROGEN 44 mg/dl (7-18); CALCIUM 8.1 mg/dl (8.4-10.2); CHLORIDE 105 mmol/L (98-107); CO2 27 mmol/L (22-28); CREATININE 1.4 mg/dl (0.6-1.3); GLUCOSE,RANDOM 114 mg/dl (74-106); MAGNESIUM 2.3 mg/dL (1.8-2.4); POTASSIUM 4.2 mmol/L (3.5-5.1); SODIUM 133 mmol/L (136-145)
[2018-06-29 08:52] LABS: CHOLESTEROL 225 mg/dl; HDL CHOLESTEROL 47 mg/dl (29-89); LDL CHOLESTEROL (ONLY DFH) 140 mg/dl; TRIGLYCERIDES 188 mg/dl (35-160)
--- NOTE | 2018-06-29 09:14 | PN ---
Physical Exam: SUBJECTIVE: Patient seen and examined, sitting in bedside recliner, son at bedside, reports pain to bilateral legs OBJECTIVE: patient is a 78 y/o female with a past medical history of HTN, HLD, RBBB, PVD, DM, and shingles. Patient was admitted from the emergency department for chf excerbation and uti. Vital Signs Period Temp Pulse Resp BP Sys/Metzger Pulse Ox Last 24 Hr 97.6 F-98.3 F 65-77 18-19 152-200/52-100 96-99 GENERAL: The patient is awake, alert, and fully oriented, in no acute distress. HEAD: Normal with no signs of trauma. EYES: PERRL, extraocular movements intact, sclera anicteric, conjunctiva clear. No ptosis. ENT: Ears normal, nares patent, oropharynx clear without exudates, moist mucous membranes. NECK: Trachea midline, full range of motion, supple. LUNGS: Breath sounds equal, clear to auscultation bilaterally, no wheezes, no crackles, no accessory muscle use. HEART: Regular rate and rhythm, S1, S2 without murmur, rub or gallop. ABDOMEN: Soft, nontender, nondistended, normoactive bowel sounds, no guarding, no rebound, no hepatosplenomegaly, no masses. EXTREMITIES: 2+ pulses, warm, well-perfused, no edema. NEUROLOGICAL: Cranial nerves II through XII grossly intact. Normal speech, gait not observed. PSYCH: Normal mood, normal affect. SKIN: Warm, dry, normal turgor, no rashes or lesions noted Laboratory Results - last 24 hr 06/28/18 06/28/18 06/28/18 13:35 13:35 13:35 WBC 6.8 RBC 3.87 Hgb 11.5 Hct 34.3 MCV 88.5 MCH 29.8 MCHC 33.7 RDW 12.6 Plt Count 270 MPV 7.8 Absolute Neuts (auto) 4.3 Neutrophils % 62.9 Lymphocytes % 26.2 Monocytes % 8.5 Eosinophils % 1.7 Basophils % 0.7 Sodium 137 Potassium 4.1 Chloride 102 Carbon Dioxide 27 D Anion Gap 8 BUN 53 H Creatinine 1.5 H Creat Clearance w eGFR 33.41 POC Glucometer Random Glucose 114 H Calcium 8.7 Magnesium 2.5 H Total Bilirubin 0.3 AST 19 D ALT 19 D Alkaline Phosphatase 80 Creatine Kinase Troponin I < 0.03 B-Natriuretic Peptide Total Protein 7.1 Albumin 3.8 Triglycerides Cholesterol Total LDL Cholesterol HDL Cholesterol Urine Color Urine Appearance Urine pH Ur Specific [place] Urine Protein Urine Glucose (UA) Urine Ketones Urine Blood Urine Nitrite Urine Bilirubin Urine Urobilinogen Ur Leukocyte Esterase Urine RBC Urine WBC Urine Bacteria 06/28/18 06/28/18 06/28/18 13:35 14:18 19:40 WBC RBC Hgb Hct MCV MCH MCHC RDW Plt Count MPV Absolute Neuts (auto) Neutrophils % Lymphocytes % Monocytes % Eosinophils % Basophils % Sodium Potassium Chloride Carbon Dioxide Anion Gap BUN Creatinine Creat Clearance w eGFR POC Glucometer Random Glucose Calcium Magnesium Total Bilirubin AST ALT Alkaline Phosphatase Creatine Kinase Troponin I < 0.03 B-Natriuretic Peptide 1572.4 H Total Protein Albumin Triglycerides Cholesterol Total LDL Cholesterol HDL Cholesterol Urine Color Yellow Urine Appearance Slightly Urine pH 7.0 Ur Specific [place] 1.015 Urine Protein 2+ H Urine Glucose (UA) Trace Urine Ketones Negative Urine Blood Trace-intact H Urine Nitrite Positive Urine Bilirubin Negative Urine Urobilinogen 0.2 Ur Leukocyte Esterase 3+ H Urine RBC 2-5 Urine WBC >100 Urine Bacteria 4+ 06/28/18 06/28/18 06/29/18 19:40 21:41 01:00 WBC RBC Hgb Hct MCV MCH MCHC RDW Plt Count MPV Absolute Neuts (auto) Neutrophils % Lymphocytes % Monocytes % Eosinophils % Basophils % Sodium Potassium Chloride Carbon Dioxide Anion Gap BUN Creatinine Creat Clearance w eGFR POC Glucometer 165 Random Glucose Calcium Magnesium Total Bilirubin AST ALT Alkaline Phosphatase Creatine Kinase 52 Troponin I Cancelled B-Natriuretic Peptide Total Protein Albumin Triglycerides Cholesterol Total LDL Cholesterol HDL Cholesterol Urine Color Urine Appearance Urine pH Ur Specific [place] Urine Protein Urine Glucose (UA) Urine Ketones Urine Blood Urine Nitrite Urine Bilirubin Urine Urobilinogen Ur Leukocyte Esterase Urine RBC Urine WBC Urine Bacteria 06/29/18 06/29/18 06/29/18 01:00 01:00 06:03 WBC RBC Hgb Hct MCV MCH MCHC RDW Plt Count MPV Absolute Neuts (auto) Neutrophils % Lymphocytes % Monocytes % Eosinophils % Basophils % Sodium Potassium Chloride Carbon Dioxide Anion Gap BUN Creatinine Creat Clearance w eGFR POC Glucometer 129 Random Glucose Calcium Magnesium Total Bilirubin AST ALT Alkaline Phosphatase Creatine Kinase Cancelled 49 Troponin I < 0.02 B-Natriuretic Peptide Total Protein Albumin Triglycerides Cholesterol Total LDL Cholesterol HDL Cholesterol Urine Color Urine Appearance Urine pH Ur Specific [place] Urine Protein Urine Glucose (UA) Urine Ketones Urine Blood Urine Nitrite Urine Bilirubin Urine Urobilinogen Ur Leukocyte Esterase Urine RBC Urine WBC Urine Bacteria 06/29/18 06/29/18 06/29/18 07:10 07:10 07:10 WBC 7.9 RBC 3.77 Hgb 10.8 Hct 33.4 MCV 88.5 MCH 28.6 MCHC 32.3 RDW 13.0 Plt Count 244 MPV 7.9 Absolute Neuts (auto) 5.6 Neutrophils % 69.0 Lymphocytes % 20.7 Monocytes % 8.1 Eosinophils % 1.7 Basophils % 0.5 Sodium 133 L Potassium 4.2 Chloride 105 Carbon Dioxide 27 Anion Gap 1 L BUN 44 H Creatinine 1.4 H Creat Clearance w eGFR 36.18 POC Glucometer Random Glucose 114 H Calcium 8.1 L Magnesium 2.3 Total Bilirubin AST ALT Alkaline Phosphatase Creatine Kinase Troponin I B-Natriuretic Peptide Total Protein Albumin Triglycerides 188 H Cholesterol 225 Total LDL Cholesterol 140 HDL Cholesterol 47 Urine Color Urine Appearance Urine pH Ur Specific [place] Urine Protein Urine Glucose (UA) Urine Ketones Urine Blood Urine Nitrite Urine Bilirubin Urine Urobilinogen Ur Leukocyte Esterase Urine RBC Urine WBC Urine Bacteria Active Medications Generic Name Dose Route Start Last Admin Trade Name Freq PRN Reason Stop Dose Admin Acetaminophen 650 mg 06/28/18 16:56 06/28/18 17:25 Tylenol - PO 650 mg Q6H PRN Administration PAIN Aspirin 81 mg 06/29/18 10:00 Ecotrin - PO DAILY KERA Furosemide 20 mg 06/28/18 17:03 06/28/18 17:25 Lasix Injection - IVPUSH 20 mg DAILY KERA Administration HCTZ/Losartan Potassium 1 tab 06/29/18 10:00 Hyzaar - PO DAILY KERA Heparin Sodium (Porcine) 5,000 unit 06/28/18 18:00 06/29/18 02:00 Heparin - SQ 5,000 unit Q8H-IV KERA Administration Ceftriaxone Sodium 1 gm/ 50 mls @ 100 mls/hr 06/29/18 10:00 Sodium Chloride IVPB DAILY [facility] Protocol Insulin Aspart 1 vial 06/28/18 22:00 06/28/18 21:49 Novolog Vial Sliding Scale - SQ Not Given ACHS [facility] Protocol Metoprolol Tartrate 50 mg 06/28/18 22:00 06/28/18 21:27 Lopressor - PO 50 mg BID KERA Administration imaging ct of abd/pelvis: no acute pathology ASSESSMENT/PLAN: 1) cardiology acute CHF exac - continue lasix 20mg, 1kg weight loss noted - strict i/o and daily weight - pt is pending echo today - appreciate cardiology input chest pain r/o acs - troponin x 3 wnl, continous cardiac monitoring hypertension hld - cont home meds, losartan/HCTZ, metoprolol - lipid profile in am 2) UTI - cont ceftriaxone, history of ecoli in past sensitive to rocephin, f/u urine culture 3) endo DM - fingersticks achs with regular insulin sliding scale DVT PPX - heparin SC FEN - tolerating po - BMP in am - low sodium / diabetic diet as tolerated Dispo: pt currently requires admission for management of her emergent condition. Visit type - Emergency Visit Emergency Visit: Yes ED Registration Date: 06/28/18 Care time: The patient presented to the Emergency Department on the above date and was hospitalized for further evaluation of their emergent condition. - New Patient This patient is new to me today: No - Critical Care Critical Care patient: No - Discharge Referral Referred to [facility] No
[2018-06-29] MEDS: CEFTRIAXONE 1 GM in SODIUM CHLORIDE 50 ML IVPB SCH (09:50)
[2018-06-29] MEDS ORDERED: CEFTRIAXONE 1 GM in DEXTROSE 5%-WATER - 50 ML IVPB SCH (10:00)
[2018-06-29] MEDS ORDERED: LOSARTAN 50MG/HCTZ 12.5MG 1 TAB (FP) PO SCH (10:00)
[2018-06-29] MEDS: ASPIRIN COATED 81 MG TABLET.EC PO SCH (10:26)
[2018-06-29] MEDS: FUROSEMIDE 40 MG/4 ML INJECTABLE VIAL IVPUSH SCH (10:26)
[2018-06-29] MEDS: METOPROLOL TARTRATE 50 MG TABLET (FP) PO SCH (10:26)
[2018-06-29] MEDS: INSULIN SLIDING SCALE (NOVOLOG) 1 VIAL SQ SCH ×3 (13:15→21:11)
--- NOTE | 2018-06-29 16:42 | ECHO ---
Name: OSMIN LR Exam:Adult Echocardiogram Study Date: 06/29/2018 12:32 PM Age: 78 yrs Reason For Study: CHF Height: 53 in Weight: 152 lb BSA: 1.5 m2 MMode/2D Measurements & Calculations IVSd: 1.3 cm Ao root diam: 2.6 cm LVIDd: 3.7 cm LA dimension: 3.9 cm LVIDs: 2.1 cm LVPWd: 1.1 cm EDV(Teich): 56.9 ml ESV(Teich): 14.2 ml Doppler Measurements & Calculations MV E max murphy: 100.2 cm/sec MV A max murphy: 107.4 cm/sec MV dec slope: 488.8 cm/sec2 MV E/A: 0.93 MR max murphy: 597.2 cm/sec TR max murphy: 260.8 cm/sec MR max P.9 mmHg TR max P.3 mmHg PI end-d murphy: 57.6 cm/sec Left Ventricle The left ventricular size, thickness and function are normal. EF 70%. Right Ventricle The right ventricle is grossly normal size. The right ventricular systolic function is normal. Atria The left atrium is mildly dilated. Mitral Valve Mitral annular calcification. Thickened mitral valves. Mild to moderate Mitral Regurgitation. Tricuspid Valve Mild TR with a PSAP of 32 mmHg. Aortic Valve The aortic valve is trileaflet. Mild aortic regurgitation. Pulmonic Valve The pulmonic valve leaflets are thin and pliable; valve motion is normal. Great Vessels The aortic root is normal size. Pericardium/Pleura There is no pericardial effusion. Interpretation Summary EF 70%. The right ventricular systolic function is normal. The left atrium is mildly dilated. Mitral annular calcification. Thickened mitral valves. Mild to moderate Mitral Regurgitation. Mild TR with a PSAP of 32 mmHg The aortic valve is trileaflet. Mild aortic regurgitation. The pulmonic valve leaflets are thin and pliable; valve motion is normal. MD Paul Romero 06/29/2018 04:41 PM
[2018-06-29] MEDS ORDERED: PT OWN MED DRAWER 7, Y5N ONE (16:45)
--- NOTE | 2018-06-29 16:55 | CON.CARD ---
Consult Consult Specialty:: cardio - History of Present Illness History of Present Illness: 78 yo female here with CP and SOB. family at bedside translates, and also provides supplemental history. pt experiencing episodic sob at rest, for past 2-3 months. episodes last seconds, probably < 1 minute then pass. states that what she described as chest heaviness yesterday is actually feeling like cannot catch her breath, no cp/tightness/constriction/pressure. "sometimes" feels heart beating rapidly--doesn't recall if palpitations are assctd with sob episodes or not. no syncope. NO MORE SOB SINCE HERE IN HOSPITAL denies h/o CAD, CHF, CVA initial bp's elevated 190s-200/100. presently improved, still 170s systolic labs: bun/creat 55/1.5, BNP 1500 (no priors), trop negative. PMH: HTN DM - Alcohol/Substance Use Hx Alcohol Use: No - Smoking History Smoking history: Never smoked Have you smoked in the past 12 months: No Aproximately how many cigarettes per day: 0 Home Medications - Allergies Allergies/Adverse Reactions: Allergies Allergy/AdvReac Type Severity Reaction Status Date / Time No Known Allergies Allergy Verified 06/28/18 12:54 - Home Medications Home Medications: Ambulatory Orders Metoprolol Tartrate 50 mg PO BID 07/23/16 Sitagliptin Phos/Metformin HCl [Janumet Xr 50-1,000 mg Tablet] 1 capl PO DAILY 07/23/16 Aspirin [Ecotrin] 81 mg PO DAILY 03/13/18 Acetaminophen [Tylenol .Regular Strength -] 650 mg PO Q6H PRN tablet 03/17/18 Albuterol Sulfate Inhaler - [Ventolin Hfa Inhaler -] 2 inh PO Q4H PRN #1 inh Losartan 50Mg/Hctz 12.5MG [Hyzaar -] 1 tab PO DAILY 06/28/18 Family Disease History - Family Disease History Family History: Denies (no known CMP) Review of Systems - Review of Systems Constitutional: denies: Chills, Fever Eyes: denies: Eye Pain HENT: denies: Nasal Congestion Neck: denies: Stiffness Cardiovascular: reports: Palpitations Respiratory: denies: Orthopnea, PND Gastrointestinal: denies: Diarrhea, Rectal Bleeding Genitourinary: denies: Burning, Hematuria Musculoskeletal: denies: Muscle Pain Integumentary: denies: Rash Neurological: denies: Numbness, Seizure, Syncope Endocrine: denies: Excessive Sweating Hematology/Lymphatic: denies: Excessive Bleeding Vital Signs: Vital Signs Temperature 98.1 F 06/29/18 14:25 Pulse Rate 68 06/29/18 14:25 Respiratory Rate 16 06/29/18 14:25 Blood Pressure 174/64 H 06/29/18 14:25 O2 Sat by Pulse Oximetry (%) 100 06/29/18 14:25 Constitutional: Yes: Well Nourished, No Distress Eyes: No: Sclera Icterus HENT: No: Nasal Congestion Neck: No: Decreased ROM Respiratory: Yes: CTA Bilaterally, Rales (bases). No: Accessory Muscle Use, Wheezes Gastrointestinal: Yes: Normal Bowel Sounds. No: Distention, Hepatomegaly, Palpable Mass, Tenderness Cardiovascular: Yes: Regular Rate and Rhythm JVD: No Carotid Bruit: No PMI: Non-Displaced Heart Sounds: Yes: S1, S2. No: Gallop Murmur: No: Systolic Murmur, Diastolic Murmur Musculoskeletal: Yes: Other (No kyphosis) Extremities: No: Cool, Cyanosis Edema: No Peripheral Pulses: 2+ Left Carotid, 2+ Right Carotid, 2+ Left Doralis Pedis, 2+ Right Dorsalis Pedis Integumentary: No: Jaundice Neurological: Yes: Alert, Oriented (x3) Psychiatric: No: Agitated - Other Data Labs, Other Data: CBC, BMP 06/29/18 07:10 06/29/18 07:10 Troponin, BNP 06/28/18 06/29/18 06/29/18 19:40 01:00 01:00 Troponin I < 0.03 Cancelled < 0.02 Troponin, BNP 06/28/18 06/29/18 06/29/18 19:40 01:00 01:00 Troponin I < 0.03 Cancelled < 0.02 Laboratory Tests 06/28/18 06/28/18 06/28/18 13:35 13:35 13:35 WBC Hgb Plt Count Sodium Potassium Carbon Dioxide BUN 53 H Creatinine 1.5 H Total Bilirubin 0.3 AST 19 D ALT 19 D Troponin I < 0.03 B-Natriuretic Peptide 1572.4 H Albumin 3.8 Triglycerides Cholesterol Total LDL Cholesterol HDL Cholesterol 06/28/18 06/29/1806/29/18 19:40 01:00 07:10 WBC 7.9 Hgb 10.8 Plt Count 244 Sodium Potassium Carbon Dioxide BUN Creatinine Total Bilirubin AST ALT Troponin I < 0.03 < 0.02 B-Natriuretic Peptide Albumin Triglycerides Cholesterol Total LDL Cholesterol HDL Cholesterol 06/29/18 06/29/18 07:10 07:10 WBC Hgb Plt Count Sodium 133 L Potassium 4.2 Carbon Dioxide 27 BUN 44 H Creatinine 1.4 H Total Bilirubin AST ALT Troponin I B-Natriuretic Peptide Albumin Triglycerides 188 H Cholesterol 225 Total LDL Cholesterol 140 HDL Cholesterol 47 Assessment/Plan ECG: NSR with APC. RBBB. normal axis. mildly prolonged QT (<500)--no signif change vs 03/08 prior CXR: mild central congestive changes new vs 03/08 Echo 06/29/18: nl LV/EF. nl RV. mild LAE. mild-mod MR, mild AI. PASP estimate 32 mmHg. tele: NSR with wide QRS. episodes of PSVT HR 130s-150 range, ? atrial tach SOB: -atypical sx's: nonexertional and sporadic, very brief duration -not suspicious description for angina. trop neg x 3, ECG no ischemic changes -BNP 1500, no priors--utility of this is veyr limited with GFR 30s -CXR with perihilar pulm edema pattern and assctd vascular redistribution ( image reviewed by me) -suspect component of acute CHF given no effusions present on CXR-- ? due to HTN urgency, ? due to longer episode of SVT -received lasix 20 IV yest and today, no more sob (bun and creat both trending down)--continue same for now. -would recommend no standing lasix on discharge, while observe for recurrent sx' s (expect HF will be avoided if BP and SVT are controlled)--given pt age and baseline GFR hi risk for DAVI or electrolyte abnormalities (evelio if remains on thiazide diuretic). -no indication for stress testing at this time PSVT: -possible atrial tach on tele, though cannot definitively rule out atrial flutter -brief episodes--would not expose her to risks of bleeding on AC without definitive dx -? episodes causing her CHF and also mild CHF on day of admission -rec change metoprolol to sustained release (succinate) and increase 50 bid to 75 bid -she should f/u with her balance wheel hand filer (dr alvarez, [facility]) as outpt for rhythm monitoring hypertensive urgency: -initially very elevated in ER -improving now, but still quite suboptimal (last systolic 170s) -changing home metoprolol to longer acting and higher dose -change losartan 50 to valsartan 320 (more potent, longer duration of effect). -cont home hctz 12.5 -observe BP trend. CKD: -prior creat here range 1.2-1.6 -renal fxn stable at present DM: -per hospitalist
[2018-06-29] MEDS ORDERED: LOSARTAN POTASSIUM 50 MG TABLET (FP) PO ONE (19:11)
[2018-06-30] MEDS: HEPARIN NA (PORCINE) 5,000 UNITS/ML 1ML VIAL SQ SCH ×2 (02:00→09:35)
[2018-06-30] MEDS: INSULIN SLIDING SCALE (NOVOLOG) 1 VIAL SQ SCH ×5 (06:29→21:44)
--- NOTE | 2018-06-30 07:49 | PN ---
Physical Exam: SUBJECTIVE: Patient seen and examined, reports feeling well wants to go home. OBJECTIVE:patient is a 78 y/o female with a past medical history of HTN, HLD, RBBB, PVD, DM, and shingles. Patient was admitted from the emergency department for chf excerbation and uti. Vital Signs Period Temp Pulse Resp BP Sys/Metzger Pulse Ox Last 24 Hr 97.7 F-98.1 F 67-78 16-19 162-174/53-64 96-100 GENERAL: The patient is awake, alert, and fully oriented, in no acute distress. HEAD: Normal with no signs of trauma. EYES: PERRL, extraocular movements intact, sclera anicteric, conjunctiva clear. No ptosis. ENT: Ears normal, nares patent, oropharynx clear without exudates, moist mucous membranes. NECK: Trachea midline, full range of motion, supple. LUNGS: Breath sounds equal, clear to auscultation bilaterally, no wheezes, no crackles, no accessory muscle use. HEART: Regular rate and rhythm, S1, S2 without murmur, rub or gallop. ABDOMEN: Soft, nontender, nondistended, normoactive bowel sounds, no guarding, no rebound, no hepatosplenomegaly, no masses. EXTREMITIES: 2+ pulses, warm, well-perfused, no edema. NEUROLOGICAL: Cranial nerves II through XII grossly intact. Normal speech, gait not observed. PSYCH: Normal mood, normal affect. SKIN: Warm, dry, normal turgor, no rashes or lesions noted Laboratory Results - last 24 hr 06/29/18 06/29/18 06/29/18 07:10 07:10 07:10 WBC 7.9 RBC 3.77 Hgb 10.8 Hct 33.4 MCV 88.5 MCH 28.6 MCHC 32.3 RDW 13.0 Plt Count 244 MPV 7.9 Absolute Neuts (auto) 5.6 Neutrophils % 69.0 Lymphocytes % 20.7 Monocytes % 8.1 Eosinophils % 1.7 Basophils % 0.5 Sodium 133 L Potassium 4.2 Chloride 105 Carbon Dioxide 27 Anion Gap 1 L BUN 44 H Creatinine 1.4 H Creat Clearance w eGFR 36.18 POC Glucometer Random Glucose 114 H Calcium 8.1 L Magnesium 2.3 Triglycerides 188 H Cholesterol 225 Total LDL Cholesterol 140 HDL Cholesterol 47 06/29/18 06/29/18 06/29/18 13:08 17:06 20:56 WBC RBC Hgb Hct MCV MCH MCHC RDW Plt Count MPV Absolute Neuts (auto) Neutrophils % Lymphocytes % Monocytes % Eosinophils % Basophils % Sodium Potassium Chloride Carbon Dioxide Anion Gap BUN Creatinine Creat Clearance w eGFR POC Glucometer 143 122 231 Random Glucose Calcium Magnesium Triglycerides Cholesterol Total LDL Cholesterol HDL Cholesterol 06/30/18 06:20 WBC RBC Hgb Hct MCV MCH MCHC RDW Plt Count MPV Absolute Neuts (auto) Neutrophils % Lymphocytes % Monocytes % Eosinophils % Basophils % Sodium Potassium Chloride Carbon Dioxide Anion Gap BUN Creatinine Creat Clearance w eGFR POC Glucometer 150 Random Glucose Calcium Magnesium Triglycerides Cholesterol Total LDL Cholesterol HDL Cholesterol Active Medications Generic Name Dose Route Start Last Admin Trade Name Freq PRN Reason Stop Dose Admin Acetaminophen 650 mg 06/28/18 16:56 06/28/18 17:25 Tylenol - PO 650 mg Q6H PRN Administration PAIN Aspirin 81 mg 06/29/18 10:00 06/29/18 10:26 Ecotrin - PO 81 mg DAILY [facility] Administration Furosemide 20 mg 06/28/18 17:03 06/29/18 10:26 Lasix Injection - IVPUSH 20 mg DAILY [facility] Administration Heparin Sodium (Porcine) 5,000 unit 06/28/18 18:00 06/30/18 02:00 Heparin - SQ 5,000 unit Q8H-IV [facility] Administration Hydrochlorothiazide 12.5 mg 06/30/18 10:00 Hctz - PO DAILY [facility] Ceftriaxone Sodium 1 gm/ 50 mls @ 100 mls/hr 06/29/18 10:00 Sodium Chloride IVPB DAILY [facility] Protocol Insulin Aspart 1 vial 06/28/18 22:00 06/30/18 06:29 Novolog Vial Sliding Scale - SQ 4 units ACHS [facility] Administration Protocol Metoprolol Succinate 75 mg 06/29/18 22:00 06/29/18 21:11 Toprol Xl - PO 75 mg BID [facility] Administration Valsartan 320 mg 06/30/18 10:00 Diovan - PO DAILY [facility] imaging ct of abd/pelvis: no acute pathology ASSESSMENT/PLAN: 1) cardiology acute CHF exac - continue lasix 20mg iv daily, 6kg weight loss noted -echo ef 70%, mild MR - strict i/o and daily weight - cardiology (amirah/lucia) consulted and followed chest pain r/o acs - troponin x 3 wnl, brief episode of atrial tachycardia noted on cardiac monitoiring, will continue metoprol, close monitoring hypertension - above goal, continue diovan, hctz, and toprol 2) UTI - cont ceftriaxone, history of ecoli in past sensitive to rocephin, f/u urine culture 3) endo DM - fingersticks achs with regular insulin sliding scale DVT PPX - heparin SC FEN - tolerating po - BMP in am - low sodium / diabetic diet as tolerated Dispo: pt currently requires admission for management of her emergent condition. Visit type - Emergency Visit Emergency Visit: Yes ED Registration Date: 06/28/18 Care time: The patient presented to the Emergency Department on the above date and was hospitalized for further evaluation of their emergent condition. - New Patient This patient is new to me today: No - Critical Care Critical Care patient: No - Discharge Referral Referred to [facility] Med [facility] No
[2018-06-30 08:11] LABS: ANION GAP 8 MMOL/L (8-16); BLOOD UREA NITROGEN 39 mg/dl (7-18); CALCIUM 8.6 mg/dl (8.4-10.2); CHLORIDE 101 mmol/L (98-107); CO2 26 mmol/L (22-28); CREATININE 1.4 mg/dl (0.6-1.3); GLUCOSE,RANDOM 135 mg/dl (74-106); POTASSIUM 3.8 mmol/L (3.5-5.1); SODIUM 135 mmol/L (136-145)
--- NOTE | 2018-06-30 09:20 | PN ---
Progress Note (short form) - Note Progress Note: s: no complaints, wants to go home Current Medications Acetaminophen (Tylenol -) 650 mg PO Q6H PRN PRN Reason: PAIN Last Admin: 06/28/18 17:25 Dose: 650 mg Aspirin (Ecotrin -) 81 mg PO DAILY [facility] Last Admin: 06/29/18 10:26 Dose: 81 mg Furosemide (Lasix Injection -) 20 mg IVPUSH DAILY [facility] Last Admin: 06/29/18 10:26 Dose: 20 mg Heparin Sodium (Porcine) (Heparin -) 5,000 unit SQ Q8H-IV [facility] Last Admin: 06/30/18 02:00 Dose: 5,000 unit Hydrochlorothiazide (Hctz -) 12.5 mg PO DAILY [facility] Ceftriaxone Sodium 1 gm/ (Sodium Chloride) 50 mls @ 100 mls/hr IVPB DAILY [facility]; Protocol Insulin Aspart (Novolog Vial Sliding Scale -) 1 vial SQ ACHS [facility]; Protocol Last Admin: 06/30/18 06:29 Dose: 4 units Metoprolol Succinate (Toprol Xl -) 75 mg PO BID [facility] Last Admin: 06/29/18 21:11 Dose: 75 mg Valsartan (Diovan -) 320 mg PO DAILY [facility] Vital Signs: Vital Signs Period Temp Pulse Resp BP Sys/Metzger Pulse Ox Last 24 Hr 97.7 F-98.1 F 67-78 16-19 162-174/53-64 96-100 Constitutional: Yes: Well Nourished, No Distress Eyes: No: Sclera Icterus HENT: No: Nasal Congestion Neck: No: Decreased ROM Respiratory: Yes: CTA Bilaterally. No: Accessory Muscle Use, Wheezes Gastrointestinal: Yes: Normal Bowel Sounds. No: Distention, Hepatomegaly, Palpable Mass, Tenderness Cardiovascular: Yes: Regular Rate and Rhythm JVD: No Carotid Bruit: No PMI: Non-Displaced Heart Sounds: Yes: S1, S2. No: Gallop Murmur: No: Systolic Murmur, Diastolic Murmur Musculoskeletal: Yes: Other (No kyphosis) Extremities: No: Cool, Cyanosis Edema: No Peripheral Pulses: 2+ Left Carotid, 2+ Right Carotid, 2+ Left Doralis Pedis, 2+ Right Dorsalis Pedis Integumentary: No: Jaundice Neurological: Yes: Alert, Oriented (x3) Psychiatric: No: Agitated Assessment/Plan ECG: NSR with APC. RBBB. normal axis. mildly prolonged QT (<500)--no signif change vs 03/08 prior CXR: mild central congestive changes new vs 03/08 Echo 06/29/18: nl LV/EF. nl RV. mild LAE. mild-mod MR, mild AI. PASP estimate 32 mmHg. tele: NSR with wide QRS. one episode of PSVT HR 140s at 21:20 (received increased dose of metoprolol 75 mg at 21:000) SOB: -atypical sx's: nonexertional and sporadic, very brief duration -not suspicious description for angina. trop neg x 3, ECG no ischemic changes -BNP 1500, no priors--utility of this is veyr limited with GFR 30s -CXR with perihilar pulm edema pattern and assctd vascular redistribution ( image reviewed by me) -suspect component of acute CHF given no effusions present on CXR-- ? due to HTN urgency, ? due to longer episode of SVT -received lasix 20 IV day of admission and yesterday, sob resolved and BUN/Cr stable - dc lasix 20 mg IV after dose this AM -would recommend no standing lasix on discharge, while observe for recurrent sx' s (expect HF will be avoided if BP and SVT are controlled)--given pt age and baseline GFR hi risk for DAVI or electrolyte abnormalities (evelio if remains on thiazide diuretic). -no indication for stress testing at this time PSVT: -possible atrial tach on tele, though cannot definitively rule out atrial flutter -brief episodes--would not expose her to risks of bleeding on AC without definitive dx -? episodes causing her CHF and also mild CHF on day of admission -cont metoprolol succinate 75 mg BID, did not have episodes except one which was right after receiving metoprolol. if further episodes today would increase to 100 mg BID -she should f/u with her electrical subcontractor (dr alvarez, [facility]) as outpt for rhythm monitoring hypertensive urgency: -initially very elevated in ER -improving now, but still quite suboptimal (last systolic 170s) -changed home metoprolol to longer acting and higher dose, has received one dose last night -changed losartan 50 to valsartan 320 (more potent, longer duration of effect) yesterday, observe BP trend on new regimen - has not received meds yet today -cont home hctz 12.5 CKD: -prior creat here range 1.2-1.6 -renal fxn stable at present DM: -per hospitalist
[2018-06-30] MEDS: VALSARTAN 160 MG TABLET (UD) PO SCH (09:34)
[2018-06-30] MEDS: ASPIRIN COATED 81 MG TABLET.EC PO SCH (09:34)
[2018-06-30] MEDS: HYDROCHLOROTHIAZIDE 12.5 MG CAPSULE (FP) PO SCH (09:34)
[2018-06-30] MEDS: FUROSEMIDE 40 MG/4 ML INJECTABLE VIAL IVPUSH SCH (09:35)
[2018-06-30 09:46] LABS: BASO % 0.7 % (0-2.0); EOS % 4.7 % (0-4.5); HEMATOCRIT 33.6 % (32.4-45.2); HEMOGLOBIN 10.8 GM/dl (10.7-15.3); LYMPH % 30.4 % (8-40); MCH 28.6 pg (25.7-33.7); MCHC 32.3 g/dl (32.0-36.0); MEAN CELL VOLUME 88.8 fl (80-96); MEAN PLT VOLUME 8.3 fl (7.5-11.1); MONO % 11.5 % (3.8-10.2); NEUT % 52.7 % (42.8-82.8); PLATELET COUNT 249 K/MM3 (134-434); RBC 3.79 M/mm3 (3.60-5.2); WHITE BLOOD COUNT 5.7 K/mm3 (4.0-10.8)
--- NOTE | 2018-06-30 09:50 | EKG ---
Test Reason : Blood Pressure : / mmHG Vent. Rate : 076 BPM Atrial Rate : 076 BPM P-R Int : 184 ms QRS Dur : 118 ms QT Int : 440 ms P-R-T Axes : 042 -07 -04 degrees QTc Int : 495 ms SINUS RHYTHM WITH PREMATURE ATRIAL COMPLEXES RIGHT BUNDLE BRANCH BLOCK ABNORMAL ECG WHEN COMPARED WITH ECG OF 20-MAR-2018 20:44, NO SIGNIFICANT CHANGE WAS FOUND Confirmed by REGINA WONG, BIMAL ([id number]) on 06/30/2018 9:49:59 AM Referred By: ROEL Confirmed By:BIMAL TAPIA MD
[2018-06-30] MEDS: CEFTRIAXONE 1 GM in SODIUM CHLORIDE 50 ML IVPB SCH (10:10)
[2018-06-30] MEDS ORDERED: PT OWN MED DRAWER 7, Y5N ONE (11:33)
[2018-06-30] MEDS ORDERED: INSULIN (NOVOLOG) ASPART 100 UNITS/ML 10ML VIAL ONE (21:43)
[2018-07-01] MEDS: HEPARIN NA (PORCINE) 5,000 UNITS/ML 1ML VIAL SQ SCH ×2 (02:43→09:56)
[2018-07-01 06:32] VITALS: TEMP 98
[2018-07-01] MEDS: INSULIN SLIDING SCALE (NOVOLOG) 1 VIAL SQ SCH (06:48)
[2018-07-01 07:59] LABS: HEMATOCRIT 34.1 % (32.4-45.2); HEMOGLOBIN 11.4 GM/dl (10.7-15.3); LYMPH % 26.5 % (8-40); MCH 29.7 pg (25.7-33.7); MCHC 33.5 g/dl (32.0-36.0); MEAN CELL VOLUME 88.6 fl (80-96); MEAN PLT VOLUME 7.7 fl (7.5-11.1); MONO % 10.2 % (3.8-10.2); NEUT % 55.3 % (42.8-82.8); PLATELET COUNT 257 K/MM3 (134-434); RBC 3.85 M/mm3 (3.60-5.2); RDW 12.6 % (11.6-15.6); WHITE BLOOD COUNT 6.6 K/mm3 (4.0-10.8)
[2018-07-01 08:27] LABS: ANION GAP 9 MMOL/L (8-16); BLOOD UREA NITROGEN 42 mg/dl (7-18); CHLORIDE 103 mmol/L (98-107); CO2 26 mmol/L (22-28); CREATININE 1.5 mg/dl (0.6-1.3); GLUCOSE,RANDOM 163 mg/dl (74-106); POTASSIUM 4.5 mmol/L (3.5-5.1); SODIUM 138 mmol/L (136-145)
[2018-07-01] MEDS ORDERED: PT OWN MED DRAWER 7, Y5N ONE (09:14)
[2018-07-01] MEDS: HYDROCHLOROTHIAZIDE 12.5 MG CAPSULE (FP) PO SCH (09:57)
[2018-07-01] MEDS: VALSARTAN 160 MG TABLET (UD) PO SCH (09:57)
[2018-07-01] MEDS: ASPIRIN COATED 81 MG TABLET.EC PO SCH (09:57)
[2018-07-01] MEDS: CEFTRIAXONE 1 GM in SODIUM CHLORIDE 50 ML IVPB SCH (09:58)
--- NOTE | 2018-07-01 10:51 | DS ---
Physical Exam: SUBJECTIVE: Patient seen and examinedNumber patient is sitting at bedside states son with patient reports feeling well denies chest pain shortness of breath wants to go home OBJECTIVE: patient is a 78 year old female with a significant past medical history of HTN, DM with report of chest pain, SOB and RLQ pain as per ED note. Pt is a poor historian, stated "i am old, i cannot remember" as per [employer]. Upon exam, pt reports she came to the ED because she thought her sugar was low. She confirms that she had chest pain and shortness of breath for a few days as well as cough. The pain and SOB are resolved now and she is only coughing "a little." She does reports dysuria and burning on urination. ER course was notable for: (1) u/a c/w UTI (2) BNP 1572, trop neg (3) CXR with congestion Vital Signs Period Temp Pulse Resp BP Sys/Metzger Pulse Ox Last 24 Hr 97.9 F-98.0 F 61-79 16-18 133-158/44-61 96-98 PHYSICAL EXAM GENERAL: The patient is awake, alert, and fully oriented, in no acute distress. HEAD: Normal with no signs of trauma. EYES: PERRL, extraocular movements intact, sclera anicteric, conjunctiva clear. No ptosis. ENT: Ears normal, nares patent, oropharynx clear without exudates, moist mucous membranes. NECK: Trachea midline, full range of motion, supple. LUNGS: Breath sounds equal, clear to auscultation bilaterally, no wheezes, no crackles, no accessory muscle use. HEART: Regular rate and rhythm, S1, S2 without murmur, rub or gallop. ABDOMEN: Soft, nontender, nondistended, normoactive bowel sounds, no guarding, no rebound, no hepatosplenomegaly, no masses. EXTREMITIES: 2+ pulses, warm, well-perfused, no edema. NEUROLOGICAL: Cranial nerves II through XII grossly intact. Normal speech, gait not observed. PSYCH: Normal mood, normal affect. SKIN: Warm, dry, normal turgor, no rashes or lesions noted LABS Laboratory Results - last 24 hr 06/30/18 06/30/18 07/01/18 11:21 21:39 06:34 WBC RBC Hgb Hct MCV MCH MCHC RDW Plt Count MPV Absolute Neuts (auto) Neutrophils % Lymphocytes % Monocytes % Eosinophils % Basophils % Sodium Potassium Chloride Carbon Dioxide Anion Gap BUN Creatinine Creat Clearance w eGFR POC Glucometer 297 180 140 Random Glucose Calcium 07/01/18 07/01/18 07:25 07:25 WBC 6.6 RBC 3.85 Hgb 11.4 Hct 34.1 MCV 88.6 MCH 29.7 MCHC 33.5 RDW 12.6 Plt Count 257 MPV 7.7 Absolute Neuts (auto) 3.5 Neutrophils % 55.3 Lymphocytes % 26.5 Monocytes % 10.2 Eosinophils % 7.0 H Basophils % 1.0 Sodium 138 Potassium 4.5 Chloride 103 Carbon Dioxide 26 Anion Gap 9 BUN 42 H Creatinine 1.5 H Creat Clearance w eGFR 33.41 POC Glucometer Random Glucose 163 H D Calcium 9.0 Microbiology 06/28/18 14:18 Urine - Urine Clean Catch Urine Culture - Preliminary Lactose Fermenting Neg Bacilli imaging ct of abd/pelvis: no acute pathology HOSPITAL COURSE: 1) cardiology acute systolic CHF exac - patient was diuressed with lasix 20mg iv daily, 6kg weight loss noted, patient is now euvolemic on exam -echo ef 70%, mild MR - cardiology (amirah/lucia) consulted and followed chest pain r/o acs - troponin x 3 wnl, brief episode of atrial tachycardia noted on cardiac monitoiring, toprol increased to 75mg bid hypertension - She was noted to have elevated blood pressure on hospital day 1, patient was placed on Diovan, b/p is now controlled 2) UTI - urine culture prelim + for lactose fermenting negative bacili, She was treated with Rocephin throughout admission then transitioned to Keflex 3) endo DM - fingersticks achs with regular insulin sliding scale PLAN - Discharge home with visiting nurse, son at bedside discharge instructions reviewed with son all questions answered return precautions reviewed, son verbalizes understanding. - Will discharge home with Keflexantibiotic for urinary tract infection - In addition reviewed change of blood pressure medication with son patient is now prescribed Diovan and losartan was discontinued some verbalizes understanding. - Strict follow-up with patient's primary inspector tester sorter at [facility] within 2 week patient and son verbalized understanding Date of Admission:06/28/18 Date of Discharge: 07/01/18 Minutes to complete discharge: 45 Discharge Summary Reason For Visit: ACUTE KIDNEY INJURY,URINARY TRACT INFECTION Current Active Problems DAVI (acute kidney injury) (Acute) CHF (congestive heart failure) (Acute) Shortness of breath (Acute) UTI (urinary tract infection) (Acute) Condition: Good - Instructions Diet, Activity, Other Instructions: you were admitted to The hospital for congestive heart failure and a urinary tract infection You were treated with IV antibiotics and will be discharged with Keflex ( antibiotic) please take antibiotic as prescribed. Please take antibiotic with food. Your blood pressure was noted to be elevated throughout urination, you were evaluated by the inspector tester sorter and was started on Diovan, Please continue Diovan as prescribed. In addition continue hydrochlorothiazide daily please follow-up with your inspector tester sorter if any new or persistent symptoms develop please return to the emergency department Referrals: Piper Lynn [Primary Care Provider] - Erika Licea MD [Staff Physician] - Disposition: HOME - Home Medications Comprehensive Discharge Medication List: Ambulatory Orders Metoprolol Tartrate 50 mg PO BID 07/23/16 Sitagliptin Phos/Metformin HCl [Janumet Xr 50-1,000 mg Tablet] 1 capl PO DAILY 07/23/16 Aspirin [Ecotrin] 81 mg PO DAILY 03/13/18 Acetaminophen [Tylenol .Regular Strength -] 650 mg PO Q6H PRN tablet 03/17/18 Albuterol Sulfate Inhaler - [Ventolin Hfa Inhaler -] 2 inh PO Q4H PRN #1 inh Losartan 50Mg/Hctz 12.5MG [Hyzaar -] 1 tab PO DAILY 06/28/18 - Discharge Referral Referred to [facility] No
[2018-07-01 12:14] VITALS: BP 156/72; PULSE 70
== END 2018-07-01 11:45 | disposition home or self-care (01) | DRG 291 ==
LOC: FER 12:45 → FM/S 16:56
PROVIDERS: ADMIT Internal Medicine; ATTEND Nurse Practitioner Family
DX: I13.0 Hypertensive heart and chronic kidney disease with heart failure and stage 1 through stage 4 chronic kidney disease, or unspecified chronic kidney disease (principal); I50.23 Acute on chronic systolic (congestive) heart failure; N39.0 Urinary tract infection, site not specified; I47.1 Supraventricular tachycardia; I16.0 Hypertensive urgency; E11.9 Type 2 diabetes mellitus without complications; E78.00 Pure hypercholesterolemia, unspecified; Z79.84 Long term (current) use of oral hypoglycemic drugs; I45.10 Unspecified right bundle-branch block; I73.9 Peripheral vascular disease, unspecified
CPT/HCPCS: 36415; 71045-TC-FY; 71250-TC; 74177-TC; 80048; 80053; 80061; 81003; 81015; 82550; 82962; 83735; 83880; 84484; 85025; 87086; 87186; 93005; 93306-TC; 93970-TC; 99285-25; J1644; J7030

== ENCOUNTER 2018-07-27 11:45 | Inpatient (IN) | payer OTHER ==
--- NOTE | 2018-07-27 11:47 | PDOC ---
History of Present Illness - General Chief Complaint: Cold Symptoms Stated Complaint: COUGH Time Seen by Provider: 07/27/18 11:47 History Source: Patient, Family Exam Limitations: No Limitations - History of Present Illness Initial Comments: 07/27/18 11:48 Ms Fritz is a 78 year old female with a significant past medical history of HTN, DM (poor historian) who presents to the ER with sons due to cough. Pt s/p recent admission for chest pain, s/p diuresis and UTI s/p treatment. She had had a cough which began three days ago, productive of yellow sputum This is associated with generalized weakness and myalgias No nausea, vomiting, diarrhea, constipation Decreased appetite Pt slightly confused S/p treatment for UTI (with Keflex, completed last week) PAST MEDICAL HISTORY: HTN, HLD, RBBB, PVD, DM, shingles PAST SURGICAL HISTORY: pt denies Social History: Smoking: pt denies Alcohol: pt denies Drugs: pt denies Family History: non contributory Allergies No Known Allergies Allergy HOME MEDICATIONS: Metoprolol 50mg po bid, Janumet, Asa, albuterol, Losartan/HCTZ REVIEW OF SYSTEMS GENERAL/CONSTITUTIONAL: Yes: Weakness, loss of appetite HEAD, EYES, EARS, NOSE AND THROAT: No: ear pain, discharge, sore throat, throat swelling. CARDIOVASCULAR: Yes: weakness No: chest pain, lightheadedness, palpitations, syncope RESPIRATORY: Yes: cough, shortness of breath GASTROINTESTINAL: No: nausea, vomiting, diarrhea, abdominal pain GENITOURINARY: No: dysuria, frequency, urgency, flank pain. MUSCULOSKELETAL: No: back pain, joint pain SKIN: No: lesions, pallor, rash or easy bruising. NEUROLOGIC: No: headache, vertigo, paresthesias, weakness ENDOCRINE: No: unexplained weight gain or loss HEMATOLOGIC/LYMPHATIC: No: anemia, easy bleeding, swelling nodes. PHYSICAL EXAMINATION GENERAL: Awake, alert, and fully oriented, in no acute distress, low grade fever . HEAD: Normal EYES: Pupils equal, round and reactive to light EARS, NOSE, THROAT: Ears normal, nares patent, oropharynx clear without exudates. Moist mucous membranes. NECK: Normal range of motion, supple LUNGS: crackles through out all lung day, no wheezing, (+) coughing HEART: Regular rate and rhythm, normal S1 and S2 without murmur, rub or gallop. ABDOMEN: Soft, nontender, distended MUSCULOSKELETAL: Normal range of motion at all joints. LOWER EXTREMITIES: 2+ pulses, warm, well-perfused. No calf tenderness. (+) peripheral edema to mid leg NEUROLOGICAL: Cranial nerves II-XII intact. Generalized weakness SKIN: Warm, dry, normal turgor, no rashes or lesions noted, normal capillary refill. 07/27/18 12:03 07/27/18 12:29 Past History - Past Medical History Allergies/Adverse Reactions: Allergies Allergy/AdvReac Type Severity Reaction Status Date / Time No Known Allergies Allergy Verified 07/27/18 11:47 Home Medications: Ambulatory Orders Sitagliptin Phos/Metformin HCl [Janumet Xr 50-1,000 mg Tablet] 1 capl PO DAILY 07/23/16 Aspirin [Ecotrin] 81 mg PO DAILY 03/13/18 Hydrochlorothiazide [Hctz -] 12.5 mg PO DAILY #30 cap 07/01/18 Metoprolol Succinate [Toprol XL -] 75 mg PO BID #60 tab.sr.24h 07/01/18 Valsartan [Diovan] 320 mg PO DAILY #30 tablet 07/01/18 Cardiac Disorders: Yes (RBBB) COPD: No Diabetes: Yes HTN: Yes Hypercholesterolemia: Yes - Suicide/Smoking/Psychosocial Hx Smoking History: Never smoked Have you smoked in the past 12 months: No Number of Cigarettes Smoked Daily: 0 Hx Alcohol Use: No Drug/Substance Use Hx: No Substance Use Type: None Hx Substance Use Treatment: No ED Treatment Course - LABORATORY CBC & Chemistry Diagram: 07/27/18 12:05 07/27/18 12:05 Medical Decision Making - Medical Decision Making 07/27/18 12:23 Pt presents to the ER with cough CXR reveals congestion and fluid overloading Given tylenol for low grade fever EKG: Sinus Rhythm, irregular, tachycardiac at 106 bpm, axis nml, intervals abn - QTc : 504ms, no st elevations or depressions, T waves upright 07/27/18 12:44 Laboratory Tests 07/01/18 07/01/18 07/27/18 07:25 07:25 12:05 WBC 6.6 6.4 Hgb 11.4 11.1 Hct 34.1 33.2 Plt Count 257 246 Sodium Potassium Chloride Carbon Dioxide BUN 42 H Creatinine 1.5 H Random Glucose 163 H D Troponin I 07/27/18 07/27/18 12:05 12:05 WBC Hgb Hct Plt Count Sodium 128 L Potassium 3.6 Chloride 96 L Carbon Dioxide 23 BUN 35 H Creatinine 1.7 H Random Glucose 230 H D Troponin I 0.03 07/27/18 13:25 call placed to hospitalist will place on obs Studies pending: - influenza - BNP - Serum/Urine osm - Urine Na/Urea Clinical impression: chf, initial presentation *DC/Admit/Observation/Transfer Diagnosis at time of Disposition: CHF (congestive heart failure) Qualifiers: Heart failure type: unspecified Heart failure chronicity: acute on chronic Qualified Code(s): I50.9 - Heart failure, unspecified - Discharge Dispostion Condition at time of disposition: Stable Decision to Admit order: Yes - Referrals - Patient Instructions - Post Discharge Activity
[2018-07-27] MEDS ORDERED: ACETAMINOPHEN 1000 MG/100 ML VIAL (NON FORMULARY) IVPB ONE (11:59)
[2018-07-27 12:29] LABS: HEMATOCRIT 33.2 % (32.4-45.2); HEMOGLOBIN 11.1 GM/dl (10.7-15.3); MCH 29.4 pg (25.7-33.7); MCHC 33.4 g/dl (32.0-36.0); PLATELET COUNT 246 K/MM3 (134-434); RBC 3.78 M/mm3 (3.60-5.2); RDW 12.5 % (11.6-15.6); WHITE BLOOD COUNT 6.4 K/mm3 (4.0-10.8)
[2018-07-27] MEDS ORDERED: ACETAMINOPHEN INJECTION 100 ML IVPB ONE (12:29)
[2018-07-27 12:36] LABS: ALBUMIN 3.1 g/dl (3.5-5.0); ALK PHOS 80 U/L (32-92); ANION GAP 9 MMOL/L (8-16); BILIRUBIN,TOTAL 0.6 mg/dl (0.2-1.0); BLOOD UREA NITROGEN 35 mg/dl (7-18); CALCIUM 8.3 mg/dl (8.4-10.2); CHLORIDE 96 mmol/L (98-107); CO2 23 mmol/L (22-28); CREATININE 1.7 mg/dl (0.6-1.3); GLUCOSE,RANDOM 230 mg/dl (74-106); POTASSIUM 3.6 mmol/L (3.5-5.1); SGOT/AST 22 U/L (10-42); SGPT/ALT 18 U/L (10-40); SODIUM 128 mmol/L (136-145); TOT PROT 6.7 g/dl (6.4-8.3)
[2018-07-27 12:39] LABS: ACTIVATED PTT 22.6 SECONDS (25.2-36.5)
[2018-07-27 12:43] LABS: INR 1.2 (0.82-1.09); PROTHROMBIN TIME (PATIENT) 13.4 SEC (10.2-13.0)
[2018-07-27 12:47] LABS: PLATELET ESTIMATE ADEQUATE
[2018-07-27 14:25] LABS: N-TERMINAL BNP 4744.3 pg/ml (5-450)
--- NOTE | 2018-07-27 16:41 | HP ---
CHIEF COMPLAINT: SOB brought in by family PCP: MAURI Gonsalves HISTORY OF PRESENT ILLNESS: Patient is an 78 y/o female who was recently seen here for SOB on the hospitalist service with a cardiac consult. She got some diuresis at that time but was discharged without lasix as no compelling indication given echo findings with normal LVEF/RVEF, mild LAE, mild to moderate MR, mild AI, with PASP 32. Today comes in with SOB noted by family. Unfortunately family not present on my initial assessment and the patient, as documented in the past, is a difficult historian. These sx aparently began last night and were not made better or worse with anything. 2 days cough with productive sputum. Hasn't been on abx recently, no other hospitalizations. Low grade fevers but none > 101.4. CXR shows large heart with central congestive changes seen. Flu swab was negative. BNP 4744 (1500 last check). She appears to have a history of having transient episodes of SOB at rest that have been occuring for months. Also, given her history of PSVT, it is documented on her last admission that there was concern that transiently elevated rates could be contributing to the patient's SOB. She will be admitted to telemetry. I should mention that when I saw her she was saturating well on RA without any respiratory complaints. 10 sys ROS couldn't be obtained from patient given her status as poor historian Recent Travel: None PAST MEDICAL HISTORY: DM, HTN, CKD-III (1.2-1.6 baseline), Long QTc (but <500) in the past PAST SURGICAL HISTORY: No recent procedures Social History: Smoking: no current Alcohol: no current Drugs: no current Family History: Couldn't accurately obtain Allergies No Known Allergies Allergy (Verified 07/27/18 11:47) HOME MEDICATIONS: Home Medications Medication Instructions Recorded Sitagliptin Phos/Metformin HCl 1 capl PO DAILY 07/23/16 [Janumet Xr 50-1,000 mg Tablet] Aspirin [Ecotrin] 81 mg PO DAILY 03/13/18 Hydrochlorothiazide [Hctz -] 12.5 mg PO DAILY #30 cap 07/01/18 Metoprolol Succinate [Toprol XL -] 75 mg PO BID #60 tab.sr.24h 07/01/18 Valsartan [Diovan] 320 mg PO DAILY #30 tablet 07/01/18 PHYSICAL EXAMINATION Vital Signs - 24 hr 07/27/18 07/27/18 07/27/18 11:46 11:56 12:06 Temperature 100.3 F H 100.3 F H Pulse Rate 67 Pulse Rate [ Apical] Respiratory 20 Rate Blood Pressure 153/75 Blood Pressure [Right Arm] O2 Sat by Pulse 94 L 93 L Oximetry (%) 07/27/18 13:46 Temperature 99.1 F Pulse Rate Pulse Rate [ 72 Apical] Respiratory 19 Rate Blood Pressure Blood Pressure 138/52 L [Right Arm] O2 Sat by Pulse 97 Oximetry (%) GENERAL: Awake, alert, and fully oriented, in no acute distress. HEAD: Normal with no signs of trauma. EYES: Pupils equal, round and reactive to light, extraocular movements intact EARS, NOSE, THROAT: Ears normal, nares patent, oropharynx clear without exudates. Moist mucous membranes. NECK: Normal range of motion, supple without lymphadenopathy, JVD, or masses. LUNGS: Breath sounds equal, clear to auscultation bilaterally. HEART: Regular rate and rhythm, normal S1 and S2 without murmur, rub or gallop. ABDOMEN: Soft, nontender, not distended, normoactive bowel sounds, no guarding MUSCULOSKELETAL: Normal range of motion at all joints. UPPER EXTREMITIES: 2+ pulses, warm, well-perfused. LOWER EXTREMITIES: 2+ pulses, warm, well-perfused. No calf tenderness. No peripheral edema. NEUROLOGICAL: Cranial nerves II-XII intact. Normal speech. Normal gait. PSYCHIATRIC: Cooperative. blunted affect SKIN: Warm, dry, normal turgor Laboratory Results - last 24 hr 07/27/18 07/27/18 07/27/18 12:05 12:05 12:05 WBC 6.4 RBC 3.78 Hgb 11.1 Hct 33.2 MCV 88.0 MCH 29.4 MCHC 33.4 RDW 12.5 Plt Count 246 MPV 8.0 Absolute Neuts (auto) 5.0 Neutrophils % No Result Required. Neutrophils % (Manual) 68.0 Band Neutrophils % 6.0 Lymphocytes % No Result Required. Lymphocytes % (Manual) 14.0 Monocytes % (Manual) 10 Basophils % (Manual) 2.0 Platelet Estimate Adequate PT with INR 13.4 H INR 1.20 PTT (Actin FS) 22.6 L Sodium 128 L Potassium 3.6 Chloride 96 L Carbon Dioxide 23 Anion Gap 9 BUN 35 H Creatinine 1.7 H Creat Clearance w eGFR 28.92 Random Glucose 230 H D Lactic Acid Calcium 8.3 L Total Bilirubin 0.6 AST 22 ALT 18 Alkaline Phosphatase 80 Creatine Kinase 47 CK-MB (CK-2) 1.3 Troponin I B-Natriuretic Peptide Total Protein 6.7 Albumin 3.1 L 07/27/18 07/27/18 07/27/18 12:05 12:05 12:32 WBC RBC Hgb Hct MCV MCH MCHC RDW Plt Count MPV Absolute Neuts (auto) Neutrophils % Neutrophils % (Manual) Band Neutrophils % Lymphocytes % Lymphocytes % (Manual) Monocytes % (Manual) Basophils % (Manual) Platelet Estimate PT with INR INR PTT (Actin FS) Sodium Potassium Chloride Carbon Dioxide Anion Gap BUN Creatinine Creat Clearance w eGFR Random Glucose Lactic Acid 1.7 Calcium Total Bilirubin AST ALT Alkaline Phosphatase Creatine Kinase 46 CK-MB (CK-2) Troponin I 0.03 B-Natriuretic Peptide Total Protein Albumin 07/27/18 12:32 WBC RBC Hgb Hct MCV MCH MCHC RDW Plt Count MPV Absolute Neuts (auto) Neutrophils % Neutrophils % (Manual) Band Neutrophils % Lymphocytes % Lymphocytes % (Manual) Monocytes % (Manual) Basophils % (Manual) Platelet Estimate PT with INR INR PTT (Actin FS) Sodium Potassium Chloride Carbon Dioxide Anion Gap BUN Creatinine Creat Clearance w eGFR Random Glucose Lactic Acid Calcium Total Bilirubin AST ALT Alkaline Phosphatase Creatine Kinase CK-MB (CK-2) Troponin I B-Natriuretic Peptide 4744.3 H Total Protein Albumin ASSESSMENT/PLAN: Mrs. Earl is an 78 y/o female presenting with 1 day SOB found to have low grade fevers and an elevated BNP. She will be admitted to the medicine service with a cardiac consultation 1) Acute SOB with elevated BNP -Has been seen here for fluid overload in the past by Dr. Hubbard; she was not discharged on lasix as there was no compelling reason. She did have a history of bouts of PSVT that likely could have contributed to a rate related fluid overload picture -Consulting cardiology -Echo reviewed from last visit; LVEF and RVEF, mild LAW, mild to moderate MR, Mild AI, PASP is 32. -BNP 4k range but unreliable given gfr; was 1000s last time so this does represent an interval increase -As she is doing well and not on O2 2) Low grade fever -Could be reactive; no WBC. Given pulmonary symptoms, etc. will work this up to ensure no pneumonia, especially with her repeat visits to the hospital. Blood cx drawn in ER. Follow VS for fevers, trend WBC, check ESR/CRP, check CT to better elucidate lung structure and to check for occult infiltrate. 3) DM -SSI while inpatient; hold PO antihyperglycemics 4) Mild DAVI on CKD-III -GFR has been trending in low 30s; now Cr slightly above her baseline of 1.2- 1.6 at 1.7. Will monitor UOP and BMP, and if this continues to worsen we will consult nephrology. Makes the BNP unreliable 5) H/O HTN -Continue home Valsartan 320; on home metoprolol succinate 75 bid per cardio at last visit -Monitor; keep <160 while inpatient. -Close followup with PCP 6) Acute Hyponatremia -Na 128; has been somewhat low in the past. Checking serum/urine osm, urine Na. Asx. If worsens will go ahead and consult nephrology. Hemodynamics stable. -Need more information before we can assuredly diurese or hydrate; followup labs. 7) H/O PSVT -Monitor on tele Code status unchanged since last admission 40 minutes spent on this admission Visit type - Emergency Visit Emergency Visit: No - New Patient This patient is new to me today: Yes Date on this admission: 07/27/18 - Critical Care Critical Care patient: No
[2018-07-27] MEDS ORDERED: ALBUTEROL SO4 2.5/IPRATROPIUM 0.5 INH SOL 3 ML VIAL.NEB. NEB ONE ×2 (19:56→20:15)
[2018-07-27] MEDS ORDERED: guaiFENesin 200 MG/10 ML 10 ML UNIT-DOSE CUPS PO ONE ×2 (19:56→20:15)
[2018-07-27] MEDS: HEPARIN NA (PORCINE) 5,000 UNITS/ML 1ML VIAL SQ SCH (21:25)
[2018-07-28 02:15] LABS: ANION GAP 11 MMOL/L (8-16); BLOOD UREA NITROGEN 40 mg/dL (7-18); CALCIUM 8.1 mg/dL (8.5-10.1); CHLORIDE 98 mmol/L (98-107); CO2 24 mmol/L (21-32); CREATININE 1.9 mg/dL (0.55-1.3); GLUCOSE,RANDOM 276 mg/dL (74-106); POTASSIUM 3.4 mmol/L (3.5-5.1); SODIUM 134 mmol/L (136-145)
[2018-07-28] MEDS ORDERED: POTASSIUM CHLORIDE TABS 20 MEQ TABLET.ER (FP) PO ONE (04:19)
[2018-07-28] MEDS: HEPARIN NA (PORCINE) 5,000 UNITS/ML 1ML VIAL SQ SCH ×3 (06:06→21:18)
[2018-07-28] MEDS: INSULIN SLIDING SCALE (NOVOLOG) 1 VIAL SQ SCH ×2 (06:59→16:50)
[2018-07-28 08:20] LABS: HEMATOCRIT 31.4 % (32.4-45.2); HEMOGLOBIN 10.4 GM/dl (10.7-15.3); MCH 29.2 pg (25.7-33.7); MCHC 33.1 g/dl (32.0-36.0); MEAN CELL VOLUME 88.1 fl (80-96); MEAN PLT VOLUME 8.5 fl (7.5-11.1); PLATELET COUNT 215 K/MM3 (134-434); RBC 3.56 M/mm3 (3.60-5.2); RDW 12.3 % (11.6-15.6)
[2018-07-28 08:27] LABS: ALBUMIN 2.6 g/dl (3.5-5.0); ALK PHOS 86 U/L (32-92); ANION GAP 10 MMOL/L (8-16); BILIRUBIN,TOTAL 0.4 mg/dl (0.2-1.0); BLOOD UREA NITROGEN 38 mg/dl (7-18); CALCIUM 8.4 mg/dl (8.4-10.2); CHLORIDE 99 mmol/L (98-107); CO2 25 mmol/L (22-28); CREATININE 1.7 mg/dl (0.6-1.3); GLUCOSE,RANDOM 247 mg/dl (74-106); MAGNESIUM 1.7 mg/dL (1.8-2.4); SGOT/AST 19 U/L (10-42); SGPT/ALT 22 U/L (10-40); SODIUM 134 mmol/L (136-145); TOT PROT 5.9 g/dl (6.4-8.3)
--- NOTE | 2018-07-28 08:28 | PN ---
Physical Exam: SUBJECTIVE: Patient seen and examined, patient reports difficulty breathing and persistent cough, son at bedside. OBJECTIVE: Patient is a 78 y/o female with a past medical history of DM, HTN, CKD stage III, and chronic uti. patient was admitted from the emergency department for acute respiratory distress. Vital Signs Period Temp Pulse Resp BP Sys/Metzger Pulse Ox Last 24 Hr 98.3 F-100.3 F 67-123 18-20 110-153/45-75 92-100 GENERAL: The patient is awake, alert, and fully oriented, and agitated. HEAD: Normal with no signs of trauma. EYES: PERRL, extraocular movements intact, sclera anicteric, conjunctiva clear. No ptosis. ENT: Ears normal, nares patent, oropharynx clear without exudates, moist mucous membranes. NECK: Trachea midline, full range of motion, + jvd, supple. LUNGS: Breath sounds equal, course rhonchi to apexes witb inspiratory wheeze and rales to bases, rr 24, + accessory muscle use. HEART: Regular rate and rhythm, S1, S2 without murmur, rub or gallop. ABDOMEN: Soft, nontender, nondistended, normoactive bowel sounds, no guarding, no rebound, no hepatosplenomegaly, no masses. EXTREMITIES: 2+ pulses, warm, well-perfused, no edema. NEUROLOGICAL: Cranial nerves II through XII grossly intact. Normal speech, gait not observed. PSYCH: Normal mood, normal affect. SKIN: Warm, dry, normal turgor, no rashes or lesions noted Laboratory Results - last 24 hr CBC WBC 8.0 K/mm3 (4.0-10.8) 07/28/18 06:30 RBC 3.56 M/mm3 (3.60-5.2) L 07/28/18 06:30 Hgb 10.4 GM/dl (10.7-15.3) L 07/28/18 06:30 Hct 31.4 % (32.4-45.2) L 07/28/18 06:30 MCV 88.1 fl (80-96) 07/28/18 06:30 MCH 29.2 pg (25.7-33.7) 07/28/18 06:30 MCHC 33.1 g/dl (32.0-36.0) 07/28/18 06:30 RDW 12.3 % (11.6-15.6) 07/28/18 06:30 Plt Count 215 K/MM3 (134-434) 07/28/18 06:30 MPV 8.5 fl (7.5-11.1) 07/28/18 06:30 Absolute Neuts (auto) 5.0 K/mm3 07/27/18 12:05 Neutrophils % No Result Required. 07/27/18 12:05 Neutrophils % (Manual) 68.0 % (42.8-82.8) 07/27/18 12:05 Band Neutrophils % 6.0 % (0-10) 07/27/18 12:05 Lymphocytes % No Result Required. 07/27/18 12:05 Lymphocytes % (Manual) 14.0 % (8-40) 07/27/18 12:05 Monocytes % (Manual) 10 % (3.8-10.2) 07/27/18 12:05 Basophils % (Manual) 2.0 % (0-2.0) 07/27/18 12:05 Platelet Estimate Adequate 07/27/18 12:05 ESR > 140 mm/hr (0-30) H 07/27/18 12:05 CMP Sodium 134 mmol/L (136-145) L 07/28/18 06:30 Potassium 4.0 mmol/L (3.5-5.1) 07/28/18 06:30 Chloride 99 mmol/L (98-107) 07/28/18 06:30 Carbon Dioxide 25 mmol/L (22-28) 07/28/18 06:30 Anion Gap 10 MMOL/L (8-16) 07/28/18 06:30 BUN 38 mg/dl (7-18) H 07/28/18 06:30 Creatinine 1.7 mg/dl (0.6-1.3) H 07/28/18 06:30 Creat Clearance w eGFR 28.92 (>60) 07/28/18 06:30 POC Glucometer 225 UNITS (80-120) 07/28/18 11:40 Random Glucose 247 mg/dl (74-106) H 07/28/18 06:30 Serum Osmolality 290 mosm/kg (278-305) 07/27/18 13:05 Lactic Acid 1.7 mmol/L (0.4-2.0) 07/27/18 12:05 Calcium 8.4 mg/dl (8.4-10.2) 07/28/18 06:30 Magnesium 1.7 mg/dL (1.8-2.4) L 07/28/18 06:30 Total Bilirubin 0.4 mg/dl (0.2-1.0) 07/28/18 06:30 AST 19 U/L (10-42) 07/28/18 06:30 ALT 22 U/L (10-40) D 07/28/18 06:30 Alkaline Phosphatase 86 U/L (32-92) 07/28/18 06:30 Creatine Kinase 46 IU/L (26-192) 07/27/18 12:32 CK-MB (CK-2) 1.3 ng/mL (0.3-4.0) 07/27/18 12:05 Troponin I 0.03 ng/ml (0.00-0.06) 07/27/18 20:20 C-Reactive Protein 24.2 MG/DL (0.00-0.3) H 07/27/18 12:32 B-Natriuretic Peptide 4744.3 pg/ml (5-450) H 07/27/18 12:32 Total Protein 5.9 g/dl (6.4-8.3) L 07/28/18 06:30 Albumin 2.6 g/dl (3.5-5.0) L 07/28/18 06:30 Active Medications Generic Name Dose Route Start Last Admin Trade Name Freq PRN Reason Stop Dose Admin Aspirin 81 mg 07/28/18 10:00 Ecotrin - PO DAILY [facility] Heparin Sodium (Porcine) 5,000 unit 07/27/18 22:00 07/28/18 06:06 Heparin - SQ 5,000 unit TID KERA Administration Hydrochlorothiazide 12.5 mg 07/28/18 10:00 Hctz - PO DAILY KERA Insulin Aspart 1 vial 07/28/18 07:00 07/28/18 06:59 Novolog Vial Sliding Scale - SQ 6 units BIDAC KERA Administration Protocol Metoprolol Succinate 75 mg 07/27/18 22:00 07/27/18 21:24 Toprol Xl - PO 75 mg BID KERA Administration Valsartan 320 mg 07/28/18 10:00 Diovan - PO DAILY KERA Microbiology 07/27/18 12:06 Nasopharyngeal Swab Influenza Types A,B Antigen - Final, negative 07/27/18 12:06 Nasopharyngeal Swab - Final, negative ASSESSMENT/PLAN: 1) CARDIOVASCULAR acute congestive heart failure - signs of fluid overload noted on exam, repeat cxr today with vascular congestion, will order lasix 40mg iv x1, strict i/o and daily weight, pending ct of chest - echo 06/29/18, reviewed 06/29/18 ef 70%, moderate MR - pt does have a history of PSVT, likely contributing to CHF HR 110-120's on cardiac monitoring (sinus rhythmn), will increased toprol to 100mg bid - appreciate cardiology input hypertension - b/p slightly above goal, close monitoring q4h, will continue toprol now 100mg bid and diovan 2) ID low grade fever - no leukocytosis noted, influenza rapid is negative, pending blood and urine culture - awaiting ct of chest to r/o any infilitrate 3) endo DM - continue fingerstick achs with regular insulin sliding scale 4) nephro acute on chronic ckd - repeat creatine today 1.7, baseline 1.2, close following in setting of diuresis f/e/n - diabetic diet - replete magnesium ppx - heparin - protonix - oob - pt evaluation Code status unchanged since last admission 40 minutes spent on this admission Visit type - Emergency Visit Emergency Visit: Yes ED Registration Date: 07/27/18 Care time: The patient presented to the Emergency Department on the above date and was hospitalized for further evaluation of their emergent condition. - New Patient This patient is new to me today: Yes Date on this admission: 07/28/18 - Critical Care Critical Care patient: No - Discharge Referral Referred to [facility] Med P.C.: No
[2018-07-28] MEDS ORDERED: MAGNESIUM SULF 50% (8.12 MEQ/2 ML-1 GM VIAL) IVPB ONE (09:02)
[2018-07-28] MEDS ORDERED: MAGNESIUM 1GM/D5W - 1 GM/100 ML IVPB IVPB ONE (09:30)
[2018-07-28] MEDS ORDERED: FUROSEMIDE 40 MG/4 ML INJECTABLE VIAL IVPUSH ONE (09:30)
[2018-07-28] MEDS ORDERED: ALBUTEROL SO4 2.5/IPRATROPIUM 0.5 INH SOL 3 ML VIAL.NEB. NEB ONE (09:30)
[2018-07-28] MEDS: VALSARTAN 160 MG TABLET (UD) PO SCH (09:42)
[2018-07-28] MEDS: ASPIRIN COATED 81 MG TABLET.EC PO SCH (09:42)
--- NOTE | 2018-07-28 09:49 | EKG ---
Test Reason : Blood Pressure : / mmHG Vent. Rate : 106 BPM Atrial Rate : 122 BPM P-R Int : 000 ms QRS Dur : 120 ms QT Int : 380 ms P-R-T Axes : 031 017 -14 degrees QTc Int : 504 ms SINUS TACHYCARDIA WITH FUSION COMPLEXES RIGHT BUNDLE BRANCH BLOCK ABNORMAL ECG WHEN COMPARED WITH ECG OF 28-JUN-2018 13:16, FUSION COMPLEXES ARE NOW PRESENT PREMATURE ATRIAL COMPLEXES ARE NO LONGER PRESENT NON-SPECIFIC CHANGE IN ST SEGMENT IN ANTERIOR LEADS NONSPECIFIC T WAVE ABNORMALITY NOW EVIDENT IN ANTERIOR LEADS Confirmed by REGINA WONG, BIMAL ([id number]) on 07/28/2018 9:49:42 AM Referred By: CHRISTIAN PAYNE Confirmed By:BIMAL TAPIA MD
[2018-07-28] MEDS ORDERED: HYDROCHLOROTHIAZIDE 12.5 MG CAPSULE (FP) PO SCH (10:00)
[2018-07-28] MEDS ORDERED: ALBUTEROL SO4 2.5/IPRATROPIUM 0.5 INH SOL 3 ML VIAL.NEB. NEB PRN (12:13)
[2018-07-28] MEDS ORDERED: METOPROLOL TARTRATE 25 MG TABLET (FP) PO ONE (13:12)
[2018-07-28] MEDS ORDERED: PANTOPRAZOLE SODIUM 40 MG VIAL IVPUSH ONE (13:30)
[2018-07-28] MEDS ORDERED: ACETAMINOPHEN 1000 MG/100 ML VIAL (NON FORMULARY) IVPB ONE (14:45)
--- NOTE | 2018-07-28 16:12 | CON.CARD ---
Cardiology Consult (text) - Consultation Consultation Note: cc: productive cough hpi: 78 f hx hld, dm, htn here with productive cough for 3 days. Also some sob. No cp palps dizzy loc pnd orthopnea le edema. pmh: per hpi psh: nc social: no tob fam: no premature cad, scd ros: per hpi; no nvd, alcantar, vision changes, abd pain, gib, hematuria, dysuria meds: Ambulatory Orders Sitagliptin Phos/Metformin HCl [Janumet Xr 50-1,000 mg Tablet] 1 capl PO DAILY 07/23/16 Aspirin [Ecotrin] 81 mg PO DAILY 03/13/18 Hydrochlorothiazide [Hctz -] 12.5 mg PO DAILY #30 cap 07/01/18 Metoprolol Succinate [Toprol XL -] 75 mg PO BID #60 tab.sr.24h 07/01/18 Valsartan [Diovan] 320 mg PO DAILY #30 tablet 07/01/18 pe: Vital Signs Period Temp Pulse Resp BP Sys/Metzger Pulse Ox Last 24 Hr 98.1 F-100.8 F 70-124 18-20 110-174/45-66 89-100 nad no jvd rrr s1s2 no mrg right sided crackles, nl eff aaox3 no le e/c/c pos dp pt no carotid bruits no jaundice diaphoresis abd nt nd pos bs Laboratory Last Values WBC 8.0 K/mm3 (4.0-10.8) 07/28/18 06:30 RBC 3.56 M/mm3 (3.60-5.2) L 07/28/18 06:30 Hgb 10.4 GM/dl (10.7-15.3) L 07/28/18 06:30 Hct 31.4 % (32.4-45.2) L 07/28/18 06:30 MCV 88.1 fl (80-96) 07/28/18 06:30 MCH 29.2 pg (25.7-33.7) 07/28/18 06:30 MCHC 33.1 g/dl (32.0-36.0) 07/28/18 06:30 RDW 12.3 % (11.6-15.6) 07/28/18 06:30 Plt Count 215 K/MM3 (134-434) 07/28/18 06:30 MPV 8.5 fl (7.5-11.1) 07/28/18 06:30 Absolute Neuts (auto) 5.0 K/mm3 07/27/18 12:05 Neutrophils % No Result Required. 07/27/18 12:05 Neutrophils % (Manual) 68.0 % (42.8-82.8) 07/27/18 12:05 Band Neutrophils % 6.0 % (0-10) 07/27/18 12:05 Lymphocytes % No Result Required. 07/27/18 12:05 Lymphocytes % (Manual) 14.0 % (8-40) 07/27/18 12:05 Monocytes % (Manual) 10 % (3.8-10.2) 07/27/18 12:05 Basophils % (Manual) 2.0 % (0-2.0) 07/27/18 12:05 Platelet Estimate Adequate 07/27/18 12:05 ESR > 140 mm/hr (0-30) H 07/27/18 12:05 PT with INR 13.4 SEC (10.2-13.0) H 07/27/18 12:05 INR 1.20 (0.82-1.09) 07/27/18 12:05 PTT (Actin FS) 22.6 SECONDS (25.2-36.5) L 07/27/18 12:05 Sodium 134 mmol/L (136-145) L 07/28/18 06:30 Potassium 4.0 mmol/L (3.5-5.1) 07/28/18 06:30 Chloride 99 mmol/L (98-107) 07/28/18 06:30 Carbon Dioxide 25 mmol/L (22-28) 07/28/18 06:30 Anion Gap 10 MMOL/L (8-16) 07/28/18 06:30 BUN 38 mg/dl (7-18) H 07/28/18 06:30 Creatinine 1.7 mg/dl (0.6-1.3) H 07/28/18 06:30 Creat Clearance w eGFR 28.92 (>60) 07/28/18 06:30 POC Glucometer 225 UNITS (80-120) 07/28/18 11:40 Random Glucose 247 mg/dl (74-106) H 07/28/18 06:30 Serum Osmolality 290 mosm/kg (278-305) 07/27/18 13:05 Lactic Acid 1.7 mmol/L (0.4-2.0) 07/27/18 12:05 Calcium 8.4 mg/dl (8.4-10.2) 07/28/18 06:30 Magnesium 1.7 mg/dL (1.8-2.4) L 07/28/18 06:30 Total Bilirubin 0.4 mg/dl (0.2-1.0) 07/28/18 06:30 AST 19 U/L (10-42) 07/28/18 06:30 ALT 22 U/L (10-40) D 07/28/18 06:30 Alkaline Phosphatase 86 U/L (32-92) 07/28/18 06:30 Creatine Kinase 46 IU/L (26-192) 07/27/18 12:32 CK-MB (CK-2) 1.3 ng/mL (0.3-4.0) 07/27/18 12:05 Troponin I 0.03 ng/ml (0.00-0.06) 07/27/18 20:20 C-Reactive Protein 24.2 MG/DL (0.00-0.3) H 07/27/18 12:32 B-Natriuretic Peptide 4744.3 pg/ml (5-450) H 07/27/18 12:32 Total Protein 5.9 g/dl (6.4-8.3) L 07/28/18 06:30 Albumin 2.6 g/dl (3.5-5.0) L 07/28/18 06:30 ECG: sr, pacs, nl pr, RBBB, no sig change prior ct chest: rul and rll pna Echo 06/29/18: nl LV/EF. nl RV. mild LAE. mild-mod MR, mild AI. PASP estimate 32 mmHg. tele: sr, pacs, brief pat runs a/p: 78 f hx hld, dm, htn here with productive cough. SOB, productive cough: -bnp elevated but not as reliable with ckd -ct chest shows no chf, no effusions, but shows right pna. she also has a fever and productive cough. would treat as pna, does not seem chf presently -no signs acs atrial tach: -cont toprol 100 bid -she should f/u with her direct marketing manager (dr alvarez, [facility]) as outpt for rhythm monitoring htn: -cont current meds CKD: -prior creat here range 1.2-1.6 -renal fxn stable at present
--- NOTE | 2018-07-28 17:29 | HOSP ---
Subjective - Review of Symptoms Events since last encounter: Was called by the nursing electrical assembly supervisor "Keara" regarding the Ct scan for being positive for BL consolidation and needing IV antibiotic. Ordered IV Zosyn with Pulmonary and ID consult. Patient has a prolonged QTC of 504. Discussed with ID will send Legionella and pneumo. antigen, start the patient on Zosyn and Doxycyline IV. Patient was admitted today. Physical Examination Vital Signs: Vital Signs Temperature 100.8 F H 07/28/18 14:15 Pulse Rate 124 H 07/28/18 14:15 Respiratory Rate 20 07/28/18 14:15 Blood Pressure 174/64 H 07/28/18 14:15 O2 Sat by Pulse Oximetry (%) 89 L 07/28/18 14:15 Labs: CBC, BMP 07/28/18 06:30 07/28/18 06:30
[2018-07-28] MEDS ORDERED: PIPERACILLIN/TAZOB 3.375 GM 3.375 GM in DEXTROSE 5%-WATER - 50 ML IVPB SCH (18:00)
[2018-07-28] MEDS ORDERED: PIPERACILLIN/TAZOB 3.375 GM 3.375 GM/50 ML BAG IVPB SCH ×2 (18:06→18:15)
[2018-07-28 18:28] LABS: URINE APPEARANCE Clear; URINE BILIRUBIN Negative (NEGATIVE); URINE COLOR Yellow; URINE GLUCOSE (UA) Negative (NEGATIVE); URINE KETONE Negative (NEGATIVE); URINE LEUK ESTERASE 1+ (NEGATIVE); URINE NITRITE Negative (NEGATIVE); URINE PROTEIN 2+ (NEGATIVE); URINE UROBILINOGEN 0.2 (0.2-1.0)
[2018-07-28 18:58] LABS: EPI CELLS FEW /HPF; URINE BACTERIA 3+ /hpf (NEGATIVE); URINE RBC 0-2 /hpf (0-3)
[2018-07-28] MEDS ORDERED: PT OWN MED DRAWER 7, Y5N ONE (21:08)
[2018-07-28] MEDS ORDERED: REFRIGERATED ANITBIOTICS ONE (21:09)
[2018-07-28] MEDS ORDERED: DOXYCYCLINE INJECTION 100 MG in DEXTROSE 5%-WATER - 100 ML IVPB SCH (22:00)
[2018-07-28 22:12] LABS: URINE UREA NITROGEN 270 MG/DL (350-1000)
[2018-07-29] MEDS ORDERED: PIPERACILLIN/TAZOB 3.375 GM 3.375 GM/50 ML BAG IVPB SCH (02:00)
[2018-07-29] MEDS ORDERED: ACETAMINOPHEN 325 MG TABLET (FP) ONE (06:18)
[2018-07-29] MEDS: HEPARIN NA (PORCINE) 5,000 UNITS/ML 1ML VIAL SQ SCH ×3 (06:27→21:19)
[2018-07-29] MEDS: INSULIN SLIDING SCALE (NOVOLOG) 1 VIAL SQ SCH ×2 (06:27→17:00)
[2018-07-29] MEDS ORDERED: INSULIN (NOVOLOG) ASPART 100 UNITS/ML 10ML VIAL ONE (06:45)
[2018-07-29] MEDS ORDERED: ACETAMINOPHEN 325 MG TABLET (FP) PO PRN (07:50)
--- NOTE | 2018-07-29 07:51 | PN ---
Physical Exam: SUBJECTIVE: Patient seen and examined, reports moist cough denies any chest pain , does reports shortness of breath. OBJECTIVE:Patient is a 78 y/o female with a past medical history of DM, HTN, CKD stage III, and chronic uti. patient was admitted from the emergency department for acute respiratory distress secondary to PNA Vital Signs Period Temp Pulse Resp BP Sys/Metzger Pulse Ox Last 24 Hr 98 F-102.2 F 91-124 18-20 110-174/44-76 89-100 GENERAL: The patient is awake, alert, and fully oriented, in no acute distress. HEAD: Normal with no signs of trauma. EYES: PERRL, extraocular movements intact, sclera anicteric, conjunctiva clear. No ptosis. ENT: Ears normal, nares patent, oropharynx clear without exudates, moist mucous membranes. NECK: Trachea midline, full range of motion, supple. LUNGS: Breath sounds equal, crackles to bilateral lower lobes, rhonchi to apexes bilaterally, no wheezes, no accessory muscle use. HEART: Regular rate and rhythm, S1, S2 without murmur, rub or gallop. ABDOMEN: Soft, nontender, nondistended, normoactive bowel sounds, no guarding, no rebound, no hepatosplenomegaly, no masses. EXTREMITIES: 2+ pulses, warm, well-perfused, no edema bilaterally lower extremities. NEUROLOGICAL: Cranial nerves II through XII grossly intact. Normal speech, gait not observed. PSYCH: Normal mood, normal affect. SKIN: Warm, dry, normal turgor, no rashes or lesions noted Laboratory Results - last 24 hr CBC WBC 10.7 K/mm3 (4.0-10.8) 07/29/18 07:37 RBC 3.32 M/mm3 (3.60-5.2) L 07/29/18 07:37 Hgb 9.9 GM/dl (10.7-15.3) L 07/29/18 07:37 Hct 29.2 % (32.4-45.2) L 07/29/18 07:37 MCV 87.9 fl (80-96) 07/29/18 07:37 MCH 29.7 pg (25.7-33.7) 07/29/18 07:37 MCHC 33.8 g/dl (32.0-36.0) 07/29/18 07:37 RDW 12.5 % (11.6-15.6) 07/29/18 07:37 Plt Count 231 K/MM3 (134-434) 07/29/18 07:37 MPV 7.9 fl (7.5-11.1) 07/29/18 07:37 Absolute Neuts (auto) 9.5 K/mm3 07/29/18 07:37 Neutrophils % 88.0 % (42.8-82.8) H 07/29/18 07:37 Neutrophils % (Manual) 68.0 % (42.8-82.8) 07/27/18 12:05 Band Neutrophils % 6.0 % (0-10) 07/27/18 12:05 Lymphocytes % 6.9 % (8-40) L 07/29/18 07:37 Lymphocytes % (Manual) 14.0 % (8-40) 07/27/18 12:05 Monocytes % 4.9 % (3.8-10.2) 07/29/18 07:37 Monocytes % (Manual) 10 % (3.8-10.2) 07/27/18 12:05 Eosinophils % 0.2 % (0-4.5) 07/29/18 07:37 Basophils % 0.0 % (0-2.0) 07/29/18 07:37 Basophils % (Manual) 2.0 % (0-2.0) 07/27/18 12:05 Platelet Estimate Adequate 07/27/18 12:05 ESR > 140 mm/hr (0-30) H 07/27/18 12:05 CMP Sodium 132 mmol/L (136-145) L 07/29/18 07:37 Potassium 3.4 mmol/L (3.5-5.1) L 07/29/18 07:37 Chloride 98 mmol/L (98-107) 07/29/18 07:37 Carbon Dioxide 25 mmol/L (22-28) 07/29/18 07:37 Anion Gap 9 MMOL/L (8-16) 07/29/18 07:37 BUN 35 mg/dl (7-18) H 07/29/18 07:37 Creatinine 1.8 mg/dl (0.6-1.3) H 07/29/18 07:37 Creat Clearance w eGFR 27.07 (>60) 07/29/18 07:37 POC Glucometer 309 UNITS (80-120) 07/29/18 11:48 Random Glucose 249 mg/dl (74-106) H 07/29/18 07:37 Serum Osmolality 290 mosm/kg (278-305) 07/27/18 13:05 Lactic Acid 1.7 mmol/L (0.4-2.0) 07/27/18 12:05 Calcium 7.9 mg/dl (8.4-10.2) L 07/29/18 07:37 Phosphorus 3.1 mg/dl (2.5-4.6) 07/29/18 07:37 Magnesium 1.9 mg/dL (1.8-2.4) 07/29/18 07:37 Total Bilirubin 0.4 mg/dl (0.2-1.0) 07/28/18 06:30 AST 19 U/L (10-42) 07/28/18 06:30 ALT 22 U/L (10-40) D 07/28/18 06:30 Alkaline Phosphatase 86 U/L (32-92) 07/28/18 06:30 Creatine Kinase 46 IU/L (26-192) 07/27/18 12:32 CK-MB (CK-2) 1.3 ng/mL (0.3-4.0) 07/27/18 12:05 Troponin I 0.03 ng/ml (0.00-0.06) 07/27/18 20:20 C-Reactive Protein 24.2 MG/DL (0.00-0.3) H 07/27/18 12:32 B-Natriuretic Peptide 4744.3 pg/ml (5-450) H 07/27/18 12:32 Total Protein 5.9 g/dl (6.4-8.3) L 07/28/18 06:30 Albumin 2.6 g/dl (3.5-5.0) L 07/28/18 06:30 Active Medications Generic Name Dose Route Start Last Admin Trade Name Freq PRN Reason Stop Dose Admin Albuterol/Ipratropium 1 amp 07/28/18 12:13 Duoneb - NEB Q6H PRN SHORTNESS OF BREATH Aspirin 81 mg 07/28/18 10:00 07/28/18 09:42 Ecotrin - PO 81 mg DAILY KERA Administration Heparin Sodium (Porcine) 5,000 unit 07/27/18 22:00 07/29/18 06:27 Heparin - SQ 5,000 unit TID KERA Administration Doxycycline Hyclate 100 mg/ 100 mls @ 100 mls/hr 07/28/18 22:00 07/28/18 21: 18 Dextrose IVPB 100 mls/hr BID KERA Administration Piperacillin Sod/Tazobactam Sod 3.375 gm in 50 mls @ 100 mls/hr 07/29/18 02: 00 07/29/18 01:29 Zosyn 3.375gm Ivpb (Pre-Docked) IVPB 100 mls/hr Q8H-IV KERA Administration Protocol Insulin Aspart 1 vial 07/28/18 07:00 07/29/18 06:27 Novolog Vial Sliding Scale - SQ 6 units BIDAC KERA Administration Protocol Metoprolol Succinate 100 mg 07/28/18 22:00 07/28/18 21:18 Toprol Xl - PO 100 mg BID KERA Administration Pantoprazole Sodium 40 mg 07/29/18 10:00 Protonix Iv IVPUSH DAILY KERA Valsartan 320 mg 07/28/18 10:00 07/28/18 09:42 Diovan - PO 320 mg DAILY KERA Administration Microbiology 07/27/18 12:05 Blood - Peripheral Venous Blood Culture - Preliminary NO GROWTH OBTAINED AFTER 48 HOURS, INCUBATION TO CONTINUE FOR 3 DAYS. 07/27/18 13:14 Blood - Peripheral Venous Blood Culture - Preliminary NO GROWTH OBTAINED AFTER 24 HOURS, INCUBATION TO CONTINUE FOR 4 DAYS. 07/27/18 12:06 Nasopharyngeal Swab Influenza Types A,B Antigen - Final, negative 07/27/18 12:06 Nasopharyngeal Swab - Final, negative IMAGING ct of chest: right upper and lower lobe consolidations ASSESSMENT/PLAN: 1) CARDIOVASCULAR congestive heart failure - ct of chest reviewed, no effusions no infilitrates noted, patient appears euvolemic on exam - continues strict i/o daily weights - echo 06/29/18, reviewed 06/29/18 ef 70%, moderate MR - cardiology consulted and following hx of psvt - less tachycardic, will continue toprol 100mg bid with parameters - continue cardiac monitoring hypertension - b/p at goal, close monitoring q4h, will continue toprol now 100mg bid and diovan 2)pulm PNA - no leukocytosis is noted, tmax 102.2 today, blood culture negative to date, follow up sputum culture and urine antigens - continue doxycline and zosyn day 1 - appreciate ID and pulmonary consult 3) endo DM - continue fingerstick achs with regular insulin sliding scale 4) nephro acute on chronic ckd - repeat creatine today 1.8, baseline 1.2, slightly elevated, pt did receive lasix yesterday, repeat bmp tomorrow f/e/n - diabetic diet ppx - heparin - protonix - oob - pt evaluation Visit type - Emergency Visit Emergency Visit: Yes ED Registration Date: 07/27/18 Care time: The patient presented to the Emergency Department on the above date and was hospitalized for further evaluation of their emergent condition. - New Patient This patient is new to me today: No - Critical Care Critical Care patient: No - Discharge Referral Referred to [facility] Med P.C.: No
[2018-07-29 08:07] LABS: EOS % 0.2 % (0-4.5); HEMATOCRIT 29.2 % (32.4-45.2); HEMOGLOBIN 9.9 GM/dl (10.7-15.3); LYMPH % 6.9 % (8-40); MCH 29.7 pg (25.7-33.7); MCHC 33.8 g/dl (32.0-36.0); MEAN CELL VOLUME 87.9 fl (80-96); MEAN PLT VOLUME 7.9 fl (7.5-11.1); MONO % 4.9 % (3.8-10.2); PLATELET COUNT 231 K/MM3 (134-434); RBC 3.32 M/mm3 (3.60-5.2); RDW 12.5 % (11.6-15.6); WHITE BLOOD COUNT 10.7 K/mm3 (4.0-10.8)
[2018-07-29 08:15] LABS: ANION GAP 9 MMOL/L (8-16); BLOOD UREA NITROGEN 35 mg/dl (7-18); CALCIUM 7.9 mg/dl (8.4-10.2); CHLORIDE 98 mmol/L (98-107); CO2 25 mmol/L (22-28); CREATININE 1.8 mg/dl (0.6-1.3); GLUCOSE,RANDOM 249 mg/dl (74-106); MAGNESIUM 1.9 mg/dL (1.8-2.4); PHOSPHOROUS 3.1 mg/dl (2.5-4.6); POTASSIUM 3.4 mmol/L (3.5-5.1); SODIUM 132 mmol/L (136-145)
[2018-07-29] MEDS ORDERED: POTASSIUM CHLORIDE TABS 20 MEQ TABLET.ER (FP) PO ONE (09:00)
[2018-07-29] MEDS: PANTOPRAZOLE SODIUM 40 MG VIAL IVPUSH SCH (09:43)
[2018-07-29] MEDS: VALSARTAN 160 MG TABLET (UD) PO SCH (09:43)
[2018-07-29] MEDS: ASPIRIN COATED 81 MG TABLET.EC PO SCH (09:44)
[2018-07-29] MEDS: DOXYCYCLINE INJECTION 100 MG in SODIUM CHLORIDE 100 ML IVPB SCH ×2 (09:44→21:19)
[2018-07-29] MEDS: PIPERACILLIN/TAZOB 3.375 GM 3.375 GM in SODIUM CHLORIDE 50 ML IVPB SCH ×2 (09:44→17:49)
--- NOTE | 2018-07-29 10:35 | PN ---
Progress Note (short form) - Note Progress Note: ID Consult dictated RUL/RLL pneumonia Possible sepsis secondary to pneumonia Pending c/s empiric zosyn/ doxycycline
--- NOTE | 2018-07-29 10:54 | PN ---
Progress Note (short form) - Note Progress Note: PULMONARY CONSULTATION DICTATED 07/29/18 IMP BILATERAL PNEUMONIA CHF HTN DM CKD PLAN IV ABX PER ID CULTURES INHALED BRONCHODILATORS O2 LASIX LEGIONELLA URINARY ANTIGEN F/U CHEST X-RAYS DR CARDONA Problem List - Problems (1) CHF (congestive heart failure) Code(s): I50.9 - HEART FAILURE, UNSPECIFIED Qualifiers: Heart failure type: unspecified Heart failure chronicity: acute on chronic Qualified Code(s): I50.9 - Heart failure, unspecified (2) Bilateral pneumonia Code(s): J18.9 - PNEUMONIA, UNSPECIFIED ORGANISM (3) Chest pain Code(s): R07.9 - CHEST PAIN, UNSPECIFIED (4) Cough Code(s): R05 - COUGH (5) Diabetes mellitus Code(s): E11.9 - TYPE 2 DIABETES MELLITUS WITHOUT COMPLICATIONS (6) Fever Code(s): R50.9 - FEVER, UNSPECIFIED (7) Hypertension Code(s): I10 - ESSENTIAL (PRIMARY) HYPERTENSION (8) Shortness of breath Code(s): R06.02 - SHORTNESS OF BREATH
--- NOTE | 2018-07-29 13:29 | CONS ---
DATE OF CONSULTATION: DATE OF DICTATION: 07/29/2018 HISTORY OF PRESENT ILLNESS: The patient is an 78-year-old female who is evaluated for pneumonia. The patient's history was obtained from the chart as she is [id number]. The patient was admitted to the hospital on July 27, 2018 with a three-day history of worsening shortness of breath and cough productive of yellowish sputum. In addition, she complained of generalized weakness, myalgias and malaise. She had recently been treated for a urinary tract infection with Keflex. On admission, a chest x-ray showed possible pneumonia. A CAT scan of the chest shows right upper lobe and right lower lobe consolidation suspicious for pneumonia. Cultures were obtained and she was empirically treated with Zosyn and doxycycline. At the present time, she is out of bed to chair. She is in no acute respiratory distress. She is noted to have a dry cough. The patient lives at home in the community. She is a nonsmoker. She was recently hospitalized in June for a urinary tract infection. She has had no known ill contacts. Her vaccination status is not clear. PAST MEDICAL HISTORY: Positive for diabetes mellitus, hypertension, hyperlipidemia, peripheral vascular disease. ALLERGIES: No known drug allergies. MEDICATIONS: Janumet, Ecotrin, hydrochlorothiazide, Toprol and Diovan. SOCIAL HISTORY: As per HPI. REVIEW OF SYSTEMS: Neurologic: No loss of consciousness, seizure activity or focal weakness. Cardiac: Negative for chest pain or palpitations. Respiratory: As per HPI. Gastrointestinal: Negative for vomiting or diarrhea. Genitourinary: Positive for azotemia. LABORATORY DATA: White count 10.7, hematocrit 29.2, platelet count 231, BUN 35, creatinine 1.8. A urinalysis shows 10 to 20 white cells. Influenza swab is negative. Cultures are pending. PHYSICAL EXAMINATION: General: She is out of bed to chair. She is in no acute respiratory distress. Vital Signs: T-max is 102.2, pulse 93 and regular, blood pressure 129/47, respiratory rate 20 per minute. HEENT:: Sclerae anicteric. Heart: Heart sounds S1, S2. Lungs: Rales bilaterally in both lungs from the base to the mid-lung. Abdomen: Obese, soft and nontender. Extremities: Positive for edema. IMPRESSION: 1. Right upper lobe/right lower lobe pneumonia. 2. Possible sepsis secondary to pneumonia. 3. Congestive heart failure. 4. Diabetes mellitus. 5. Azotemia. PLAN: 1. Await cultures. 2. Obtain sputum culture and urine Legionella antigen. 3. Continue empiric antibiotic coverage with Zosyn and doxycycline. 4. Agree with avoiding macrolides and quinolones in light of prolonged QT interval. 5. Will follow. Thank you for the kind referral. SONJA NEGRETE M.D. [id number]
[2018-07-29] MEDS: ALBUTEROL SO4 2.5/IPRATROPIUM 0.5 INH SOL 3 ML VIAL.NEB. NEB SCH ×3 (13:30→20:07)
--- NOTE | 2018-07-29 17:40 | PN ---
Progress Note (short form) - Note Progress Note: cc: productive cough s: still has cough, sob improving. no cp, palps, dizzy Current Medications Acetaminophen (Tylenol -) 650 mg PO Q4H PRN PRN Reason: FEVER Albuterol/Ipratropium (Duoneb -) 1 amp NEB RQID COUNT INCLUDES THE [facility] Last Admin: 07/29/18 13:30 Dose: 1 amp Aspirin (Ecotrin -) 81 mg PO DAILY COUNT INCLUDES THE [facility] Last Admin: 07/29/18 09:44 Dose: 81 mg Guaifenesin (Diabetic Tussin Dm -) 5 ml PO Q6H PRN PRN Reason: COUGH Heparin Sodium (Porcine) (Heparin -) 5,000 unit SQ TID COUNT INCLUDES THE [facility] Last Admin: 07/29/18 14:30 Dose: 5,000 unit Piperacillin Sod/Tazobactam (Sod 3.375 gm/ Sodium Chloride) 50 mls @ 100 mls/ hr IVPB Q8H-IV COUNT INCLUDES THE [facility]; Protocol Last Admin: 07/29/18 09:44 Dose: 100 mls/hr Doxycycline Hyclate 100 mg/ (Sodium Chloride) 100 mls @ 100 mls/hr IVPB BID COUNT INCLUDES THE [facility] Last Admin: 07/29/18 09:44 Dose: 100 mls/hr Insulin Aspart (Novolog Vial Sliding Scale -) 1 vial SQ BIDAC COUNT INCLUDES THE [facility]; Protocol Last Admin: 07/29/18 06:27 Dose: 6 units Metoprolol Succinate (Toprol Xl -) 100 mg PO BID COUNT INCLUDES THE [facility] Last Admin: 07/29/18 09:44 Dose: 100 mg Pantoprazole Sodium (Protonix Iv) 40 mg IVPUSH DAILY COUNT INCLUDES THE [facility] Last Admin: 07/29/18 09:43 Dose: 40 mg Valsartan (Diovan -) 320 mg PO DAILY COUNT INCLUDES THE [facility] Last Admin: 07/29/18 09:43 Dose: 320 mg Vital Signs Period Temp Pulse Resp BP Sys/Metzger Pulse Ox Last 24 Hr 98 F-102.2 F 80-110 16-20 110-154/44-76 89-99 nad no jvd rrr s1s2 no mrg right sided crackles, nl eff aaox3 no le e/c/c pos dp pt no carotid bruits no jaundice diaphoresis abd nt nd pos bs ECG: sr, pacs, nl pr, RBBB, no sig change prior ct chest: rul and rll pna Echo 06/29/18: nl LV/EF. nl RV. mild LAE. mild-mod MR, mild AI. PASP estimate 32 mmHg. tele: sr, pacs, brief pat runs a/p: 78 f hx hld, dm, htn here with productive cough. SOB, productive cough: -bnp elevated but not as reliable with ckd - remains euvolemic -ct chest shows no chf, no effusions, but shows right pna. she also has a fever and productive cough, likely 2/2 PNA - pulm and ID following, on abx -no signs acs - stable from cardiac perspective atrial tach: -cont toprol 100 bid -she should f/u with her hot oiler (dr alvarez, [facility]) as outpt for rhythm monitoring htn: -cont current meds CKD: -prior creat here range 1.2-1.6 -renal fxn stable at present
[2018-07-29] MEDS ORDERED: PT OWN MED DRAWER 7, Y5N ONE (21:09)
[2018-07-30] MEDS ORDERED: PT OWN MED DRAWER 7, Y5N ONE ×3 (00:55→09:51)
[2018-07-30] MEDS: PIPERACILLIN/TAZOB 3.375 GM 3.375 GM in SODIUM CHLORIDE 50 ML IVPB SCH ×3 (01:14→17:37)
[2018-07-30] MEDS: guaiFENesin/D-M SUGAR-FREE/ACLHOL-FREE 118 ML BOTTLE PO PRN ×2 (01:42→22:13)
[2018-07-30] MEDS: HEPARIN NA (PORCINE) 5,000 UNITS/ML 1ML VIAL SQ SCH ×3 (06:29→21:44)
[2018-07-30] MEDS: INSULIN SLIDING SCALE (NOVOLOG) 1 VIAL SQ SCH ×4 (06:57→22:17)
[2018-07-30] MEDS: ALBUTEROL SO4 2.5/IPRATROPIUM 0.5 INH SOL 3 ML VIAL.NEB. NEB SCH ×4 (08:00→20:01)
[2018-07-30 09:11] LABS: BASO % 0.5 % (0-2.0); EOS % 1.8 % (0-4.5); HEMATOCRIT 28.5 % (32.4-45.2); HEMOGLOBIN 9.4 GM/dl (10.7-15.3); LYMPH % 11.6 % (8-40); MCH 29.4 pg (25.7-33.7); MCHC 33.2 g/dl (32.0-36.0); MEAN CELL VOLUME 88.6 fl (80-96); MONO % 5.7 % (3.8-10.2); NEUT % 80.4 % (42.8-82.8); PLATELET COUNT 269 K/MM3 (134-434); RBC 3.21 M/mm3 (3.60-5.2); RDW 12.5 % (11.6-15.6); WHITE BLOOD COUNT 9.5 K/mm3 (4.0-10.8)
--- NOTE | 2018-07-30 09:26 | CONS ---
DATE OF CONSULTATION: 07/29/2018 PULMONARY CONSULTATION REFERRING PHYSICIAN: Karime Perdomo NP HISTORY OF PRESENT ILLNESS: The patient is obtained from the chart as the patient is a poor historian because of the language barrier. She is an 78-year-old white female with a past medical history of hypertension, diabetes, PVD, shingles, hyperlipidemia, recent CHF, chronic kidney disease, admitted to [facility] secondary to shortness of breath, coughing and chest congestion. The patient apparently had the cough three days prior to admission. It was productive of yellow sputum. She also had generalized weakness and myalgias. According to her son, the patient also had decreased p.o. intake. She has had no nausea, vomiting, diarrhea or constipation. On admission, she was also noted to have a fever of 102.2. A chest CT was performed showing bilateral infiltrates consistent with pneumonia. The patient was admitted and placed on broad-spectrum antibiotics. Of note is that the patient was hospitalized in [place] in June secondary to congestive heart failure. PAST MEDICAL HISTORY: Again, this includes CHF, chronic kidney disease, hypertension and diabetes. REVIEW OF SYSTEMS: Positive for shortness of breath, fevers, weakness. No chest pain, palpitations or abdominal pain. CURRENT MEDICATIONS: Diovan, doxycycline, piperacillin, heparin, , DuoNebs, Toprol, NovoLog, Ecotrin and pantoprazole. PHYSICAL EXAMINATION: General: The patient is an elderly white female, awake and alert, currently in no acute distress. Vital Signs: She is currently afebrile. Blood pressure is 113/46, respiratory rate 18, O2 saturation is 99%. HEENT: Head is normocephalic, atraumatic. Neck: Supple. Heart: Regular. S1, S2. Chest: Scattered rhonchi. Abdomen: Soft. Bowel sounds are positive. Extremities: No cyanosis or edema. LABORATORY: BUN 35, creatinine 1.8, WBC is 10.7, hemoglobin 9.9, hematocrit 29.2, ESR is 140. A chest CT shows right upper lobe and lower lobe consolidations suspicious for pneumonia. IMPRESSION: 1. Bilateral pneumonia. 2. Recent history of congestive heart failure. 3. Elevated sed rate. 4. Hypertension. 5. Chronic kidney disease. PLAN: 1. Antibiotic therapy. 2. Supplemental O2. 3. Inhaled bronchodilators. 4. Follow up chest CT as an outpatient to document resolution of infiltrates. 5. Follow up chest x-rays, obtain cultures, Legionella urinary antigen. CHRISTO CARDONA M.D. [id number] MTDD
--- NOTE | 2018-07-30 09:46 | PN ---
Physical Exam: SUBJECTIVE: Patient seen and examined, sitting in bedside chair accompanied by Son, reports ongoing cough, denies any chest pain or shortness of breath. OBJECTIVE:Patient is a 78 y/o female with a past medical history of DM, HTN, CKD stage III, and chronic uti's. patient was admitted from the emergency department for acute respiratory distress secondary to PNA Vital Signs Period Temp Pulse Resp BP Sys/Metzger Pulse Ox Last 24 Hr 98 F-99.1 F 80-94 16-18 113-150/46-58 99-99 GENERAL: The patient is awake, alert, and fully oriented, in no acute distress. HEAD: Normal with no signs of trauma. EYES: PERRL, extraocular movements intact, sclera anicteric, conjunctiva clear. No ptosis. ENT: Ears normal, nares patent, oropharynx clear without exudates, moist mucous membranes. NECK: Trachea midline, full range of motion, supple. LUNGS: Breath sounds equal, crackles to bilateral lower lobes, rhonchi to apexes bilaterally, no wheezes, no accessory muscle use. HEART: Regular rate and rhythm, S1, S2 without murmur, rub or gallop. ABDOMEN: Soft, nontender, nondistended, normoactive bowel sounds, no guarding, no rebound, no hepatosplenomegaly, no masses. EXTREMITIES: 2+ pulses, warm, well-perfused, no edema bilaterally lower extremities. NEUROLOGICAL: Cranial nerves II through XII grossly intact. Normal speech, gait not observed. PSYCH: Normal mood, normal affect. SKIN: Warm, dry, normal turgor, no rashes or lesions noted Laboratory Results - last 24 hr 07/29/18 07/29/18 07/29/18 11:48 17:44 21:25 WBC RBC Hgb Hct MCV MCH MCHC RDW Plt Count MPV Absolute Neuts (auto) Neutrophils % Lymphocytes % Monocytes % Eosinophils % Basophils % POC Glucometer 309 322 240 07/30/18 07/30/18 06:24 09:04 WBC 9.5 RBC 3.21 L Hgb 9.4 L Hct 28.5 L MCV 88.6 MCH 29.4 MCHC 33.2 RDW 12.5 Plt Count 269 MPV 7.0 L Absolute Neuts (auto) 7.7 Neutrophils % 80.4 Lymphocytes % 11.6 Monocytes % 5.7 Eosinophils % 1.8 Basophils % 0.5 POC Glucometer 235 Active Medications Generic Name Dose Route Start Last Admin Trade Name Freq PRN Reason Stop Dose Admin Acetaminophen 650 mg 07/29/18 07:50 Tylenol - PO Q4H PRN FEVER Albuterol/Ipratropium 1 amp 07/29/18 13:15 07/29/18 20:07 Duoneb - NEB 1 amp RQID KERA Administration Aspirin 81 mg 07/28/18 10:00 07/29/18 09:44 Ecotrin - PO 81 mg DAILY KERA Administration Guaifenesin 5 ml 07/29/18 14:00 07/30/18 01:42 Diabetic Tussin Dm - PO 5 ml Q6H PRN Administration COUGH Heparin Sodium (Porcine) 5,000 unit 07/27/18 22:00 07/30/18 06:29 Heparin - SQ 5,000 unit TID KERA Administration Piperacillin Sod/Tazobactam 50 mls @ 100 mls/hr 07/29/18 10:00 07/30/18 01:14 Sod 3.375 gm/ Sodium Chloride IVPB 100 mls/hr Q8H-IV KERA Administration Protocol Doxycycline Hyclate 100 mg/ 100 mls @ 100 mls/hr 07/29/18 10:00 07/29/18 21: 19 Sodium Chloride IVPB 100 mls/hr BID KERA Administration Insulin Aspart 1 vial 07/28/18 07:00 07/30/18 06:57 Novolog Vial Sliding Scale - SQ 4 units BIDAC KERA Administration Protocol Metoprolol Succinate 100 mg 07/28/18 22:00 07/29/18 21:19 Toprol Xl - PO 100 mg BID KERA Administration Pantoprazole Sodium 40 mg 07/29/18 10:00 07/29/18 09:43 Protonix Iv IVPUSH 40 mg DAILY KERA Administration Valsartan 320 mg 07/28/18 10:00 07/29/18 09:43 Diovan - PO 320 mg DAILY KERA Administration Microbiology 07/28/18 17:40 Urine - Urine Clean Catch Urine Culture - Preliminary Lactose Fermenting Neg Bacilli 07/28/18 11:45 Sputum - Expectorated Gram Stain - Final 07/28/18 17:40 Urine For Antigen Detection Legionella Antigen - Final, negative 07/28/18 17:40 Urine For Antigen Detection Streptococcus pneumoniae Antigen (M - Final, negative 07/27/18 13:14 Blood - Peripheral Venous Blood Culture - Preliminary NO GROWTH OBTAINED AFTER 48 HOURS, INCUBATION TO CONTINUE FOR 3 DAYS. 07/27/18 12:05 Blood - Peripheral Venous Blood Culture - Preliminary NO GROWTH OBTAINED AFTER 48 HOURS, INCUBATION TO CONTINUE FOR 3 DAYS. 07/27/18 12:06 Nasopharyngeal Swab Influenza Types A,B Antigen - Final, negative 07/27/18 12:06 Nasopharyngeal Swab - Final, negative IMAGING ct of chest: right upper and lower lobe consolidations ASSESSMENT/PLAN: 1) CARDIOVASCULAR congestive heart failure - patient remains euvolemic, close monitoring - continues strict i/o daily weights - echo 06/29/18, reviewed 06/29/18 ef 70%, moderate MR - cardiology consulted and following hx of psvt - will continue toprol 100mg bid with parameters - continue cardiac monitoring hypertension - close monitoring q4h, will continue toprol now 100mg bid and diovan 2)pulm PNA - no leukocytosis is noted, low grade temp, sputum culture prelim +, hemopilus, continue doxycline and zosyn day 2 - ID and pulmonary consulted and following 3) endo DM - continue fingerstick achs with regular insulin sliding scale, restart januvia renal dose. 4) nephro acute on chronic ckd - repeat creatine today 1.7, trending downward, baseline 1.2, repeat bmp tomorrow in AM 5) heme normocytic anemia -repeat hgb 9.4 today, baseline 12, no signs of bleeding noted, pending iron studies 6) UTI - urine culture, prelim +, will continue zosyn until final culture is obtained f/e/n - diabetic diet ppx - heparin - protonix - oob - pt evaluation Visit type - Emergency Visit Emergency Visit: Yes ED Registration Date: 07/27/18 Care time: The patient presented to the Emergency Department on the above date and was hospitalized for further evaluation of their emergent condition. - New Patient This patient is new to me today: No - Critical Care Critical Care patient: No - Discharge Referral Referred to [facility] Med P.C.: No
[2018-07-30 10:03] LABS: ANION GAP 9 MMOL/L (8-16); BLOOD UREA NITROGEN 38 mg/dl (7-18); CALCIUM 8.4 mg/dl (8.4-10.2); CHLORIDE 105 mmol/L (98-107); CO2 22 mmol/L (22-28); CREATININE 1.7 mg/dl (0.6-1.3); GLUCOSE,RANDOM 231 mg/dl (74-106); PHOSPHOROUS 3.3 mg/dl (2.5-4.6); POTASSIUM 4.5 mmol/L (3.5-5.1); SODIUM 136 mmol/L (136-145)
--- NOTE | 2018-07-30 10:03 | PN ---
Progress Note (short form) - Note Progress Note: PULMONARY AWAKE/ALERT LANGUAGE BARRIER/SON PRESENT CONGESTED COUGH BUT SOME SUBJECTIVE IMPROVEMENT LOW GRADE TEMP SPO2 94% R/A OOB TO CHAIR NO JVD NOTED AT 90% BILATERAL DIFFUSE CRACKLES WITH EXP RHONCHI S1S2 BS+ B/L 1+ EDEMA LABS/MEDS/NOTES/IMAGES/MICRO NOTED IMP BILATERAL PNEUMONIA CHF HTN DM CKD PLAN IV ABX CULTURES UNREVEALING THUS FAR INHALED BRONCHODILATORS O2 LASIX URINARY ANTIGENS NEGATIVE INFLU SWAB NEGATIVE F/U CHEST X-RAYS Gibran KUO MD
[2018-07-30] MEDS: ASPIRIN COATED 81 MG TABLET.EC PO SCH (10:12)
[2018-07-30] MEDS: PANTOPRAZOLE SODIUM 40 MG VIAL IVPUSH SCH (10:13)
[2018-07-30] MEDS: VALSARTAN 160 MG TABLET (UD) PO SCH (10:13)
[2018-07-30] MEDS: DOXYCYCLINE INJECTION 100 MG in SODIUM CHLORIDE 100 ML IVPB SCH ×2 (10:14→21:44)
[2018-07-30] MEDS ORDERED: SODIUM CHLORIDE 100 ML IVPB ONE ×2 (12:03→19:58)
[2018-07-30] MEDS ORDERED: DOXYCYCLINE HYCLATE 100 MG VIAL ONE ×2 (12:03→19:57)
[2018-07-30] MEDS ORDERED: INSULIN (NOVOLOG) ASPART 100 UNITS/ML 10ML VIAL ONE (12:04)
[2018-07-30] MEDS: LACTOBACILLUS ACIDOPHILUS 1 TABLET PO SCH (15:10)
[2018-07-30] MEDS ORDERED: Insulin (LOG) Aspart 100 UNITS/ML VIAL SQ ONE (21:58)
[2018-07-31] MEDS: PIPERACILLIN/TAZOB 3.375 GM 3.375 GM in SODIUM CHLORIDE 50 ML IVPB SCH ×3 (01:12→18:16)
[2018-07-31] MEDS: HEPARIN NA (PORCINE) 5,000 UNITS/ML 1ML VIAL SQ SCH ×3 (06:11→21:02)
[2018-07-31] MEDS: sitaGLIPtin PHOSPHATE 25 MG TABLET (FP) PO SCH (06:11)
[2018-07-31] MEDS: INSULIN SLIDING SCALE (NOVOLOG) 1 VIAL SQ SCH ×4 (06:59→21:02)
[2018-07-31] MEDS: ALBUTEROL SO4 2.5/IPRATROPIUM 0.5 INH SOL 3 ML VIAL.NEB. NEB SCH ×4 (08:07→20:05)
[2018-07-31 08:37] LABS: EOS % 3.1 % (0-4.5); HEMATOCRIT 29.6 % (32.4-45.2); HEMOGLOBIN 9.7 GM/dl (10.7-15.3); LYMPH % 21.3 % (8-40); MCH 29.1 pg (25.7-33.7); MCHC 32.6 g/dl (32.0-36.0); MEAN CELL VOLUME 89.4 fl (80-96); MEAN PLT VOLUME 8.1 fl (7.5-11.1); MONO % 6.8 % (3.8-10.2); NEUT % 68.8 % (42.8-82.8); PLATELET COUNT 309 K/MM3 (134-434); RBC 3.31 M/mm3 (3.60-5.2); RDW 12.6 % (11.6-15.6)
[2018-07-31 08:47] LABS: ANION GAP 8 MMOL/L (8-16); BLOOD UREA NITROGEN 34 mg/dl (7-18); CALCIUM 8.5 mg/dl (8.4-10.2); CHLORIDE 104 mmol/L (98-107); CO2 23 mmol/L (22-28); CREATININE 1.6 mg/dl (0.6-1.3); GLUCOSE,RANDOM 233 mg/dl (74-106); MAGNESIUM 1.9 mg/dL (1.8-2.4); POTASSIUM 4.7 mmol/L (3.5-5.1); SODIUM 135 mmol/L (136-145)
[2018-07-31] MEDS ORDERED: DOXYCYCLINE HYCLATE 100 MG VIAL ONE ×2 (09:09→20:50)
[2018-07-31] MEDS ORDERED: SODIUM CHLORIDE 100 ML IVPB ONE ×2 (09:10→20:52)
[2018-07-31] MEDS: PANTOPRAZOLE SODIUM 40 MG VIAL IVPUSH SCH (09:25)
[2018-07-31] MEDS: LACTOBACILLUS ACIDOPHILUS 1 TABLET PO SCH (09:26)
[2018-07-31] MEDS: ASPIRIN COATED 81 MG TABLET.EC PO SCH (09:26)
[2018-07-31] MEDS: VALSARTAN 160 MG TABLET (UD) PO SCH (09:26)
[2018-07-31] MEDS: DOXYCYCLINE INJECTION 100 MG in SODIUM CHLORIDE 100 ML IVPB SCH ×2 (09:54→21:02)
--- NOTE | 2018-07-31 11:37 | PN ---
Physical Exam: SUBJECTIVE: Patient seen and examined oob to chair. Persistent cough, clear sputum. OBJECTIVE: Vital Signs Period Temp Pulse Resp BP Sys/Metzger Pulse Ox Last 24 Hr 98.1 F-99.2 F 89-105 17-18 148-158/48-83 93-97 GENERAL: The patient is awake, alert, and fully oriented, in no acute distress. LUNGS: Crackles all the way up; coughing; no wheezing, no accessory muscle use HEART: Regular rate and rhythm, S1, S2 ABDOMEN: Soft, nontender, nondistended EXTREMITIES: 1+bilateral lower extremity edema NEUROLOGICAL: Cranial nerves II through XII grossly intact. Normal speech, gait not observed. Laboratory Results - last 24 hr 07/30/18 07/30/18 07/30/18 11:13 11:13 12:00 WBC RBC Hgb Hct MCV MCH MCHC RDW Plt Count MPV Absolute Neuts (auto) Neutrophils % Lymphocytes % Monocytes % Eosinophils % Basophils % Retic Count 1.24 Sodium Potassium Chloride Carbon Dioxide Anion Gap BUN Creatinine Creat Clearance w eGFR POC Glucometer 291 Random Glucose Calcium Phosphorus Magnesium Ferritin 294.8 07/30/18 07/30/18 07/31/18 16:48 21:41 06:09 WBC RBC Hgb Hct MCV MCH MCHC RDW Plt Count MPV Absolute Neuts (auto) Neutrophils % Lymphocytes % Monocytes % Eosinophils % Basophils % Retic Count Sodium Potassium Chloride Carbon Dioxide Anion Gap BUN Creatinine Creat Clearance w eGFR POC Glucometer 364 339 235 Random Glucose Calcium Phosphorus Magnesium Ferritin 07/31/18 07/31/18 07:05 07:05 WBC 9.0 RBC 3.31 L Hgb 9.7 L Hct 29.6 L MCV 89.4 MCH 29.1 MCHC 32.6 RDW 12.6 Plt Count 309 MPV 8.1 Absolute Neuts (auto) 6.2 Neutrophils % 68.8 Lymphocytes % 21.3 Monocytes % 6.8 Eosinophils % 3.1 Basophils % 0.0 Retic Count Sodium 135 L Potassium 4.7 Chloride 104 Carbon Dioxide 23 Anion Gap 8 BUN 34 H Creatinine 1.6 H Creat Clearance w eGFR 31.01 POC Glucometer Random Glucose 233 H Calcium 8.5 Phosphorus 4.0 D Magnesium 1.9 Ferritin Active Medications Generic Name Dose Route Start Last Admin Trade Name Freq PRN Reason Stop Dose Admin Acetaminophen 650 mg 07/29/18 07:50 Tylenol - PO Q4H PRN FEVER Albuterol/Ipratropium 1 amp 07/29/18 13:15 07/31/18 11:14 Duoneb - NEB 1 amp RQID KERA Administration Aspirin 81 mg 07/28/18 10:00 07/31/18 09:26 Ecotrin - PO 81 mg DAILY KERA Administration Guaifenesin 5 ml 07/29/18 14:00 07/30/18 22:13 Diabetic Tussin Dm - PO 5 ml Q6H PRN Administration COUGH Heparin Sodium (Porcine) 5,000 unit 07/27/18 22:00 07/31/18 06:11 Heparin - SQ 5,000 unit TID KERA Administration Piperacillin Sod/Tazobactam 50 mls @ 100 mls/hr 07/29/18 10:00 07/31/18 09:26 Sod 3.375 gm/ Sodium Chloride IVPB 100 mls/hr Q8H-IV KERA Administration Protocol Doxycycline Hyclate 100 mg/ 100 mls @ 100 mls/hr 07/29/18 10:00 07/31/18 09: 54 Sodium Chloride IVPB 100 mls/hr BID KERA Administration Insulin Aspart 1 vial 07/30/18 21:58 07/31/18 11:12 Novolog Vial Sliding Scale - SQ 10 units ACHS KERA Administration Protocol Lactobacillus Acidophilus 1 tab 07/30/18 13:30 07/31/18 09:26 Bacid - PO 1 tab DAILY [facility] Administration Metoprolol Succinate 100 mg 07/28/18 22:00 07/31/18 09:26 Toprol Xl - PO 100 mg BID KERA Administration Pantoprazole Sodium 40 mg 07/29/18 10:00 07/31/18 09:25 Protonix Iv IVPUSH 40 mg DAILY [facility]A Administration Sitagliptin Phosphate 25 mg 07/31/18 07:00 07/31/18 06:11 Januvia - PO 25 mg DAILY@0700 [facility] Administration Valsartan 320 mg 07/28/18 10:00 07/31/18 09:26 Diovan - PO 320 mg DAILY [facility]ERA Administration ASSESSMENT/PLAN 78 year-old female with a PMH significant for HTN, heart failure, NIDDM, CKD, and recurrent UTIs, admitted for pneumonia. Haemophilus Influenza Type B community-acquired pneumonia --07/28 sputum (+) Haemophilus influenza Type B (patient emigrated from [facility] 1995, never received Hib vaccine??) --presently on Zosyn, switch to ceftriaxone tomorrow --adry --walked today in hallway, maintained SpO2 98% on room air Klebsiella UTI --same as above; will start ceftriaxone tomorrow Diastolic heart failure --lung congestion on successive xrays, diffuse crackles on exam, persistent cough, 1+ bilateral lower extremity edema, BNP 4744 (was 1500 a month ago) --06/29/18 Echo: LV normal; RV normal; LAE; mild to moderate MR; mild TR; mild AI --start Lasix IV 40mg --daily weights --strict I&Os Hypertension --BP elevated but stable --continue metoprolol; hold losartan CKD --Cr. 1.6 today, was 1.7 on admission, baseline 1.2 --continue to trend --hold ARB for now NIDDM --Novolog sliding scale coverage FEN Fluids: PO intake adequate Electrolytes: replete as indicated Nutrition: low sodium, diabetic DVT prophylaxis: subq heparin Physical therapy Dispo: continues to require inpatient care. Full code. Visit type - Emergency Visit Emergency Visit: Yes ED Registration Date: 07/27/18 Care time: The patient presented to the Emergency Department on the above date and was hospitalized for further evaluation of their emergent condition. - New Patient This patient is new to me today: Yes Date on this admission: 07/31/18 - Critical Care Critical Care patient: No
[2018-07-31] MEDS: FUROSEMIDE 40 MG/4 ML INJECTABLE VIAL IVPUSH SCH (12:09)
[2018-07-31] MEDS ORDERED: AZITHROMYCIN IVPB 500 MG in DEXTROSE 5%-WATER - 250 ML IVPB SCH (13:30)
[2018-08-01] MEDS: HEPARIN NA (PORCINE) 5,000 UNITS/ML 1ML VIAL SQ SCH ×3 (06:24→21:11)
[2018-08-01] MEDS ORDERED: PT OWN MED DRAWER 7, Y5N ONE ×2 (06:37→21:00)
[2018-08-01] MEDS: guaiFENesin/D-M SUGAR-FREE/ACLHOL-FREE 118 ML BOTTLE PO PRN ×2 (06:41→21:12)
[2018-08-01] MEDS ORDERED: REFRIGERATED ANITBIOTICS ONE (08:39)
[2018-08-01] MEDS: sitaGLIPtin PHOSPHATE 25 MG TABLET (FP) PO SCH (08:43)
[2018-08-01] MEDS: ALBUTEROL SO4 2.5/IPRATROPIUM 0.5 INH SOL 3 ML VIAL.NEB. NEB SCH ×4 (08:43→20:27)
[2018-08-01] MEDS: INSULIN SLIDING SCALE (NOVOLOG) 1 VIAL SQ SCH ×4 (08:43→21:10)
[2018-08-01] MEDS ORDERED: DOXYCYCLINE HYCLATE 100 MG VIAL ONE ×2 (09:03→20:54)
[2018-08-01] MEDS ORDERED: SODIUM CHLORIDE 100 ML IVPB ONE ×2 (09:04→20:55)
[2018-08-01 09:31] LABS: EOS % 3.5 % (0-4.5); HEMATOCRIT 28.5 % (32.4-45.2); LYMPH % 22.4 % (8-40); MCH 31.5 pg (25.7-33.7); MEAN PLT VOLUME 7.7 fl (7.5-11.1); MONO % 5.9 % (3.8-10.2); NEUT % 68.2 % (42.8-82.8); PLATELET COUNT 325 K/MM3 (134-434); RBC 3.17 M/mm3 (3.60-5.2); RDW 12.6 % (11.6-15.6); WHITE BLOOD COUNT 9.1 K/mm3 (4.0-10.8)
[2018-08-01] MEDS: ASPIRIN COATED 81 MG TABLET.EC PO SCH (09:31)
[2018-08-01] MEDS: PANTOPRAZOLE SODIUM 40 MG VIAL IVPUSH SCH (09:31)
[2018-08-01] MEDS: FUROSEMIDE 40 MG/4 ML INJECTABLE VIAL IVPUSH SCH (09:31)
[2018-08-01] MEDS: LACTOBACILLUS ACIDOPHILUS 1 TABLET PO SCH (09:31)
[2018-08-01] MEDS: VALSARTAN 160 MG TABLET (UD) PO SCH (09:31)
[2018-08-01] MEDS: DOXYCYCLINE INJECTION 100 MG in SODIUM CHLORIDE 100 ML IVPB SCH ×2 (09:32→21:09)
--- NOTE | 2018-08-01 09:35 | PN ---
Physical Exam: SUBJECTIVE: Patient seen and examined oob to chair. Cough slightly improved. OBJECTIVE: Vital Signs Period Temp Pulse Resp BP Sys/Metzger Pulse Ox Last 24 Hr 97.6 F-99.9 F 88-98 18-19 135-183/52-75 92-98 GENERAL: The patient is awake, alert, and fully oriented, in no acute distress. LUNGS: Crackles all the way up persist; coughing; no wheezing, no accessory muscle use HEART: Regular rate and rhythm, S1, S2 ABDOMEN: Soft, nontender, nondistended EXTREMITIES: 1+bilateral lower extremity edema NEUROLOGICAL: Cranial nerves II through XII grossly intact. Normal speech, gait not observed. Laboratory Results - last 24 hr 08/01/18 08/01/18 08/01/18 08:00 08:00 11:59 WBC 9.1 RBC 3.17 L Hgb 10.0 L Hct 28.5 L MCV 90.0 MCH 31.5 MCHC 35.0 RDW 12.6 Plt Count 325 MPV 7.7 Absolute Neuts (auto) 6.3 Neutrophils % 68.2 Lymphocytes % 22.4 Monocytes % 5.9 Eosinophils % 3.5 Basophils % 0.0 Sodium 136 Potassium 5.0 Chloride 104 Carbon Dioxide 23 Anion Gap 9 BUN 35 H Creatinine 1.5 H Creat Clearance w eGFR 33.41 POC Glucometer 360 Random Glucose 212 H Calcium 8.7 Magnesium 1.8 Total Bilirubin 0.2 AST 24 D ALT 36 D Alkaline Phosphatase 86 Total Protein 6.3 L Albumin 2.4 L Active Medications Generic Name Dose Route Start Last Admin Trade Name Freq PRN Reason Stop Dose Admin Acetaminophen 650 mg 07/29/18 07:50 Tylenol - PO Q4H PRN FEVER Albuterol/Ipratropium 1 amp 07/29/18 13:15 08/01/18 08:43 Duoneb - NEB 1 amp RQID KERA Administration Aspirin 81 mg 07/28/18 10:00 08/01/18 09:31 Ecotrin - PO 81 mg DAILY KERA Administration Furosemide 40 mg 07/31/18 12:00 08/01/18 09:31 Lasix Injection - IVPUSH 40 mg DAILY KERA Administration Guaifenesin 5 ml 07/29/18 14:00 08/01/18 06:41 Diabetic Tussin Dm - PO 5 ml Q6H PRN Administration COUGH Heparin Sodium (Porcine) 5,000 unit 07/27/18 22:00 08/01/18 06:24 Heparin - SQ 5,000 unit TID KERA Administration Doxycycline Hyclate 100 mg/ 100 mls @ 100 mls/hr 07/29/18 10:00 08/01/18 09: 32 Sodium Chloride IVPB 100 mls/hr BID KERA Administration Ceftriaxone Sodium 1 gm/ 100 mls @ 200 mls/hr 08/01/18 10:00 08/01/18 09:31 Dextrose IVPB 200 mls/hr DAILY KERA Administration Protocol Insulin Aspart 1 vial 07/30/18 21:58 08/01/18 08:43 Novolog Vial Sliding Scale - SQ 4 units ACHS KERA Administration Protocol Lactobacillus Acidophilus 1 tab 07/30/18 13:30 08/01/18 09:31 Bacid - PO 1 tab DAILY [facility]ERA Administration Metoprolol Succinate 100 mg 07/28/18 22:00 08/01/18 09:31 Toprol Xl - PO 100 mg BID KERA Administration Pantoprazole Sodium 40 mg 07/29/18 10:00 08/01/18 09:31 Protonix Iv IVPUSH 40 mg DAILY [facility]A Administration Sitagliptin Phosphate 25 mg 07/31/18 07:00 08/01/18 08:43 Januvia - PO 25 mg DAILY@0700 [facility] Administration Valsartan 320 mg 07/28/18 10:00 08/01/18 09:31 Diovan - PO 320 mg DAILY [facility]ERA Administration ASSESSMENT/PLAN: 78 year-old female with a PMH significant for HTN, heart failure, NIDDM, CKD, and recurrent UTIs, admitted for pneumonia. In CHF exacerbation and hypertensive. Haemophilus Influenza Type B community-acquired pneumonia --Tm 99.9, no leukocytosis --07/28 sputum (+) Haemophilus influenza Type B --Zosyn x 3 days; ceftriaxone (day #1) --duonebs Klebsiella UTI --antibiotics as above Diastolic heart failure --lung congestion on successive xrays, diffuse crackles on exam, persistent cough, 1+ bilateral lower extremity edema, BNP 4744 (was 1500 a month ago) --06/29/18 Echo: LV normal; RV normal; LAE; mild to moderate MR; mild TR; mild AI --continue Lasix IV 40mg --daily weights --strict I&Os Hypertension --BP elevated; continue Toprol XL, valsartan, start amlodipine CKD --Cr. 1.5 today, was 1.7 on admission, baseline 1.2-1.6 --continue to trend NIDDM --glucose running 200s; nursing says adhering to hospital diabetic diet --Novolog sliding scale coverage FEN Fluids: PO intake adequate Electrolytes: replete as indicated Nutrition: low sodium, diabetic DVT prophylaxis: subq heparin Physical therapy Dispo: continues to require inpatient care. Full code. Visit type - Emergency Visit Emergency Visit: Yes ED Registration Date: 07/27/18 Care time: The patient presented to the Emergency Department on the above date and was hospitalized for further evaluation of their emergent condition. - New Patient This patient is new to me today: No - Critical Care Critical Care patient: No
[2018-08-01] MEDS ORDERED: CEFTRIAXONE 1 GM in DEXTROSE 5%-WATER - 100 ML IVPB SCH (10:00)
[2018-08-01 10:31] LABS: ANION GAP 9 MMOL/L (8-16); BLOOD UREA NITROGEN 35 mg/dl (7-18); CHLORIDE 104 mmol/L (98-107); CO2 23 mmol/L (22-28); CREATININE 1.5 mg/dl (0.6-1.3); GLUCOSE,RANDOM 212 mg/dl (74-106); SODIUM 136 mmol/L (136-145)
[2018-08-01 10:32] LABS: ALBUMIN 2.4 g/dl (3.5-5.0); ALK PHOS 86 U/L (32-92); BILIRUBIN,TOTAL 0.2 mg/dl (0.2-1.0); CALCIUM 8.7 mg/dl (8.4-10.2); MAGNESIUM 1.8 mg/dL (1.8-2.4); SGOT/AST 24 U/L (10-42); SGPT/ALT 36 U/L (10-40); TOT PROT 6.3 g/dl (6.4-8.3)
[2018-08-01] MEDS: amLODIPine BESYLATE 5 MG TABLET (FP) PO SCH (13:54)
[2018-08-02] MEDS: HEPARIN NA (PORCINE) 5,000 UNITS/ML 1ML VIAL SQ SCH ×3 (06:31→21:19)
[2018-08-02] MEDS: guaiFENesin/D-M SUGAR-FREE/ACLHOL-FREE 118 ML BOTTLE PO PRN (06:32)
[2018-08-02] MEDS: sitaGLIPtin PHOSPHATE 25 MG TABLET (FP) PO SCH (06:32)
[2018-08-02] MEDS: INSULIN SLIDING SCALE (NOVOLOG) 1 VIAL SQ SCH ×4 (06:50→22:45)
[2018-08-02 08:20] LABS: BASO % 0.2 % (0-2.0); EOS % 3.1 % (0-4.5); HEMATOCRIT 30.1 % (32.4-45.2); HEMOGLOBIN 9.8 GM/dl (10.7-15.3); MCH 28.7 pg (25.7-33.7); MCHC 32.4 g/dl (32.0-36.0); MEAN CELL VOLUME 88.6 fl (80-96); MEAN PLT VOLUME 7.5 fl (7.5-11.1); NEUT % 79.7 % (42.8-82.8); PLATELET COUNT 347 K/MM3 (134-434); RDW 12.8 % (11.6-15.6); WHITE BLOOD COUNT 8.5 K/mm3 (4.0-10.8)
[2018-08-02] MEDS: ALBUTEROL SO4 2.5/IPRATROPIUM 0.5 INH SOL 3 ML VIAL.NEB. NEB SCH ×4 (08:20→20:39)
[2018-08-02] MEDS: CEFTRIAXONE 1 G/50 ML PREMIX 50 ML IVPB SCH (09:11)
[2018-08-02] MEDS: LACTOBACILLUS ACIDOPHILUS 1 TABLET PO SCH (09:11)
[2018-08-02] MEDS: PANTOPRAZOLE SODIUM 40 MG VIAL IVPUSH SCH (09:12)
[2018-08-02] MEDS: ASPIRIN COATED 81 MG TABLET.EC PO SCH (09:13)
[2018-08-02] MEDS: FUROSEMIDE 40 MG/4 ML INJECTABLE VIAL IVPUSH SCH ×2 (09:13→14:39)
[2018-08-02] MEDS: VALSARTAN 160 MG TABLET (UD) PO SCH (09:13)
[2018-08-02] MEDS: amLODIPine BESYLATE 5 MG TABLET (FP) PO SCH (09:13)
--- NOTE | 2018-08-02 09:16 | PN ---
Progress Note, Physician History of Present Illness: OOB in chair + cough noted Nursing staff reports cough less productive Afebrile Sputum H flu Legionella ag (-) WBC WNL Azotemia improved - Current Medication List Current Medications: Active Medications Acetaminophen (Tylenol -) 650 mg PO Q4H PRN PRN Reason: FEVER Albuterol/Ipratropium (Duoneb -) 1 amp NEB RQID [facility] Last Admin: 08/02/18 08:20 Dose: 1 amp Amlodipine Besylate (Norvasc -) 5 mg PO DAILY [facility] Last Admin: 08/01/18 13:54 Dose: 5 mg Aspirin (Ecotrin -) 81 mg PO DAILY [facility] Last Admin: 08/01/18 09:31 Dose: 81 mg Furosemide (Lasix Injection -) 40 mg IVPUSH DAILY [facility] Last Admin: 08/01/18 09:31 Dose: 40 mg Guaifenesin (Diabetic Tussin Dm -) 5 ml PO Q6H PRN PRN Reason: COUGH Last Admin: 08/02/18 06:32 Dose: 5 ml Heparin Sodium (Porcine) (Heparin -) 5,000 unit SQ TID [facility] Last Admin: 08/02/18 06:31 Dose: 5,000 unit Doxycycline Hyclate 100 mg/ (Sodium Chloride) 100 mls @ 100 mls/hr IVPB BID [facility] Last Admin: 08/01/18 21:09 Dose: 100 mls/hr Ceftriaxone Sodium (Ceftriaxone 1 Gm-D5w Bag) 50 mls @ 100 mls/hr IVPB DAILY [facility]; Protocol Insulin Aspart (Novolog Vial Sliding Scale -) 1 vial SQ ACHS [facility]; Protocol Last Admin: 08/02/18 06:50 Dose: 4 units Lactobacillus Acidophilus (Bacid -) 1 tab PO DAILY [facility] Last Admin: 08/01/18 09:31 Dose: 1 tab Metoprolol Succinate (Toprol Xl -) 100 mg PO BID [facility] Last Admin: 08/01/18 21:10 Dose: 100 mg Pantoprazole Sodium (Protonix Iv) 40 mg IVPUSH DAILY [facility] Last Admin: 08/01/18 09:31 Dose: 40 mg Sitagliptin Phosphate (Januvia -) 25 mg PO DAILY@0700 [facility] Last Admin: 08/02/18 06:32 Dose: 25 mg Valsartan (Diovan -) 320 mg PO DAILY [facility] Last Admin: 08/01/18 09:31 Dose: 320 mg - Objective Vital Signs: Vital Signs Temperature 98.1 F 08/02/18 06:00 Pulse Rate 92 H 08/02/18 06:00 Respiratory Rate 20 08/02/18 06:00 Blood Pressure 138/80 08/02/18 06:00 O2 Sat by Pulse Oximetry (%) 95 08/01/18 20:33 Constitutional: Yes: No Distress Cardiovascular: Yes: Regular Rate and Rhythm, S1, S2 Respiratory: Yes: Other (rales at bases bilaterally) Gastrointestinal: Yes: Normal Bowel Sounds, Soft. No: Tenderness Edema: Yes Labs: CBC, BMP 08/02/18 07:21 INR, PTT INR 1.20 (0.82-1.09) 07/27/18 12:05 Assessment/Plan RUL/ RLL pnerumonia Azotemia- improved CHF Continue Zosyn D/C doxycycline
[2018-08-02 09:56] LABS: ALBUMIN 2.5 g/dl (3.5-5.0); ANION GAP 11 MMOL/L (8-16); BILIRUBIN,TOTAL 0.4 mg/dl (0.2-1.0); BLOOD UREA NITROGEN 36 mg/dl (7-18); CALCIUM 8.9 mg/dl (8.4-10.2); CHLORIDE 104 mmol/L (98-107); CO2 22 mmol/L (22-28); CREATININE 1.5 mg/dl (0.6-1.3); GLUCOSE,RANDOM 214 mg/dl (74-106); MAGNESIUM 1.6 mg/dL (1.8-2.4); POTASSIUM 5.3 mmol/L (3.5-5.1); SODIUM 137 mmol/L (136-145); TOT PROT 6.2 g/dl (6.4-8.3)
[2018-08-02 09:57] LABS: ALK PHOS 82 U/L (32-92); SGOT/AST 22 U/L (10-42); SGPT/ALT 35 U/L (10-40)
--- NOTE | 2018-08-02 11:51 | PN ---
Physical Exam: SUBJECTIVE: Patient seen and examined oob to chair. Cough is much improved. OBJECTIVE: Vital Signs Period Temp Pulse Resp BP Sys/Metzger Pulse Ox Last 24 Hr 98 F-98.5 F 81-93 18-20 121-158/48-80 95-96 GENERAL: The patient is awake, alert, and fully oriented, in no acute distress. LUNGS: Crackles now jail up; minimal coughing; no wheezing, no accessory muscle use HEART: Regular rate and rhythm, S1, S2 ABDOMEN: Soft, nontender, nondistended EXTREMITIES: 1+bilateral lower extremity edema NEUROLOGICAL: Cranial nerves II through XII grossly intact. Normal speech, gait not observed. Laboratory Results - last 24 hr 08/01/18 08/01/18 08/01/18 11:59 16:36 20:52 WBC RBC Hgb Hct MCV MCH MCHC RDW Plt Count MPV Absolute Neuts (auto) Neutrophils % Lymphocytes % Monocytes % Eosinophils % Basophils % Sodium Potassium Chloride Carbon Dioxide Anion Gap BUN Creatinine Creat Clearance w eGFR POC Glucometer 360 251 244 Random Glucose Calcium Magnesium Total Bilirubin AST ALT Alkaline Phosphatase Total Protein Albumin 08/02/18 08/02/18 08/02/18 06:30 07:21 07:21 WBC 8.5 RBC 3.40 L Hgb 9.8 L Hct 30.1 L MCV 88.6 MCH 28.7 MCHC 32.4 RDW 12.8 Plt Count 347 MPV 7.5 Absolute Neuts (auto) 6.7 Neutrophils % 79.7 Lymphocytes % 14.0 Monocytes % 3.0 L Eosinophils % 3.1 Basophils % 0.2 Sodium 137 Potassium 5.3 H Chloride 104 Carbon Dioxide 22 Anion Gap 11 BUN 36 H Creatinine 1.5 H Creat Clearance w eGFR 33.41 POC Glucometer 208 Random Glucose 214 H Calcium 8.9 Magnesium 1.6 L Total Bilirubin 0.4 AST 22 ALT 35 Alkaline Phosphatase 82 Total Protein 6.2 L Albumin 2.5 L Active Medications Generic Name Dose Route Start Last Admin Trade Name Freq PRN Reason Stop Dose Admin Acetaminophen 650 mg 07/29/18 07:50 Tylenol - PO Q4H PRN FEVER Albuterol/Ipratropium 1 amp 07/29/18 13:15 08/02/18 08:20 Duoneb - NEB 1 amp RQID [facility]ERA Administration Amlodipine Besylate 5 mg 08/01/18 13:00 08/02/18 09:13 Norvasc - PO 5 mg DAILY [facility] Administration Aspirin 81 mg 07/28/18 10:00 08/02/18 09:13 Ecotrin - PO 81 mg DAILY [facility] Administration Furosemide 40 mg 07/31/18 12:00 08/02/18 09:13 Lasix Injection - IVPUSH 40 mg DAILY [facility] Administration Guaifenesin 5 ml 07/29/18 14:00 08/02/18 06:32 Diabetic Tussin Dm - PO 5 ml Q6H PRN Administration COUGH Heparin Sodium (Porcine) 5,000 unit 07/27/18 22:00 08/02/18 06:31 Heparin - SQ 5,000 unit TID KERA Administration Ceftriaxone Sodium 50 mls @ 100 mls/hr 08/02/18 08:07 08/02/18 09:11 Ceftriaxone 1 Gm-D5w Bag IVPB 100 mls/hr DAILY [facility] Administration Protocol Insulin Aspart 1 vial 07/30/18 21:58 08/02/18 06:50 Novolog Vial Sliding Scale - SQ 4 units ACHS KERA Administration Protocol Lactobacillus Acidophilus 1 tab 07/30/18 13:30 08/02/18 09:11 Bacid - PO 1 tab DAILY [facility] Administration Metoprolol Succinate 100 mg 07/28/18 22:00 08/02/18 09:13 Toprol Xl - PO 100 mg BID [facility] Administration Pantoprazole Sodium 40 mg 07/29/18 10:00 08/02/18 09:12 Protonix Iv IVPUSH 40 mg DAILY [facility] Administration Sitagliptin Phosphate 25 mg 07/31/18 07:00 08/02/18 06:32 Januvia - PO 25 mg DAILY@0700 [facility] Administration Valsartan 320 mg 07/28/18 10:00 08/02/18 09:13 Diovan - PO 320 mg DAILY [facility] Administration ASSESSMENT/PLAN 78 year-old female with a PMH significant for HTN, heart failure, NIDDM, CKD, and recurrent UTIs, admitted for pneumonia. In CHF exacerbation and hypertensive. Haemophilus Influenza Type B community-acquired pneumonia --afebrile, no leukocytosis --07/28 sputum (+) Haemophilus influenza Type B --Zosyn x 3 days; ceftriaxone (day #2) --duonebs --ID following Klebsiella UTI --antibiotics as above Diastolic heart failure --lung congestion on successive xrays, diffuse crackles persist on exam, 1+ bilateral lower extremity edema, BNP 4744 (was 1500 a month ago) --06/29/18 Echo: LV normal; RV normal; LAE; mild to moderate MR; mild TR; mild AI --weight trending up; nursing says patient is diet compliant; increase Lasix IV 40mg BID; fluid restrict 1L --daily weights --strict I&Os --cardiology following Hypertension --BP improved after starting amlodipine 08/01 --continue Toprol XL, valsartan, amlodipine CKD --Cr. 1.5 today, was 1.7 on admission, baseline 1.2-1.6 --continue to trend NIDDM --glucose running 200s; adhering to hospital diabetic diet --Novolog sliding scale coverage FEN Fluids: PO intake adequate Electrolytes: replete as indicated Nutrition: low sodium, diabetic DVT prophylaxis: subq heparin Physical therapy Dispo: continues to require inpatient care. Full code. Visit type - Emergency Visit Emergency Visit: Yes ED Registration Date: 07/27/18 Care time: The patient presented to the Emergency Department on the above date and was hospitalized for further evaluation of their emergent condition. - New Patient This patient is new to me today: No - Critical Care Critical Care patient: No
[2018-08-02] MEDS ORDERED: MAGNESIUM SULF 50% (8.12 MEQ/2 ML-1 GM VIAL) IVPB ONE (11:58)
[2018-08-02] MEDS ORDERED: INSULIN (NOVOLOG) ASPART 100 UNITS/ML 10ML VIAL ONE ×2 (12:03→22:44)
--- NOTE | 2018-08-02 13:45 | PN ---
Progress Note (short form) - Note Progress Note: cc: productive cough s: cough stable. no cp, palps dizzy Current Medications Acetaminophen (Tylenol -) 650 mg PO Q4H PRN PRN Reason: FEVER Albuterol/Ipratropium (Duoneb -) 1 amp NEB RQID [facility] Last Admin: 08/02/18 12:07 Dose: 1 amp Amlodipine Besylate (Norvasc -) 5 mg PO DAILY [facility] Last Admin: 08/02/18 09:13 Dose: 5 mg Aspirin (Ecotrin -) 81 mg PO DAILY [facility] Last Admin: 08/02/18 09:13 Dose: 81 mg Furosemide (Lasix Injection -) 40 mg IVPUSH BID@0600,1400 [facility] Guaifenesin (Diabetic Tussin Dm -) 5 ml PO Q6H PRN PRN Reason: COUGH Last Admin: 08/02/18 06:32 Dose: 5 ml Heparin Sodium (Porcine) (Heparin -) 5,000 unit SQ TID [facility] Last Admin: 08/02/18 06:31 Dose: 5,000 unit Ceftriaxone Sodium (Ceftriaxone 1 Gm-D5w Bag) 50 mls @ 100 mls/hr IVPB DAILY [facility]; Protocol Last Admin: 08/02/18 09:11 Dose: 100 mls/hr Insulin Aspart (Novolog Vial Sliding Scale -) 1 vial SQ ACHS [facility]; Protocol Last Admin: 08/02/18 12:07 Dose: 4 units Lactobacillus Acidophilus (Bacid -) 1 tab PO DAILY [facility] Last Admin: 08/02/18 09:11 Dose: 1 tab Metoprolol Succinate (Toprol Xl -) 100 mg PO BID [facility] Last Admin: 08/02/18 09:13 Dose: 100 mg Pantoprazole Sodium (Protonix Iv) 40 mg IVPUSH DAILY [facility] Last Admin: 08/02/18 09:12 Dose: 40 mg Sitagliptin Phosphate (Januvia -) 25 mg PO DAILY@0700 [facility] Last Admin: 08/02/18 06:32 Dose: 25 mg Valsartan (Diovan -) 320 mg PO DAILY [facility] Last Admin: 08/02/18 09:13 Dose: 320 mg Vital Signs Period Temp Pulse Resp BP Sys/Metzger Pulse Ox Last 24 Hr 98 F-98.5 F 81-93 18-20 121-158/48-80 95-96 nad, no jvd rrr s1s2 no mrg + rales at bases bilaterally, nl eff aaox3 1+ edema liza to ankles pos dp pt no carotid bruits no jaundice diaphoresis abd nt nd pos bs ECG: sr, pacs, nl pr, RBBB, no sig change prior ct chest: rul and rll pna Echo 06/29/18: nl LV/EF. nl RV. mild LAE. mild-mod MR, mild AI. PASP estimate 32 mmHg. tele: sr, pacs, brief pat runs a/p: 78 f hx hld, dm, htn here with productive cough. SOB, productive cough: -bnp elevated but not as reliable with ckd - euvolemic initially -ct chest shows no chf, no effusions, but shows right pna. she also has a fever and productive cough, likely 2/2 PNA - pulm and ID following, on abx - repeat x rays show congestion, gained weight since admission, noted crackles on exam - started on lasix 40 mg IV lasix daily x2, increased to BID today due to weight not improving, Cr stable - continue lasix 40 mg IV BID today, repeat CXR ordered - monitor Cr, I/O, daily standing weights atrial tach: -cont toprol 100 bid -she should f/u with her data officer (dr alvarez, [facility]) as outpt for rhythm monitoring htn: -cont current meds CKD: -prior creat here range 1.2-1.6 -renal fxn stable at present
--- NOTE | 2018-08-02 15:12 | PN ---
Progress Note (short form) - Note Progress Note: PULMONARY AWAKE/ALERT LANGUAGE BARRIER/ LESS CONGESTED COUGH LOW GRADE TEMP SPO2 98% R/A OOB TO CHAIR NO JVD NOTED AT 90% BILATERAL DIFFUSE CRACKLES WITH EXP RHONCHI S1S2 BS+ B/L 1+ EDEMA LABS/MEDS/NOTES/IMAGES/MICRO NOTED CXR SHOWS IMPROVEMENT IMP H.INFLU PNEUMONIA CHF HTN DM CKD PLAN IV ABX DAY #7 INHALED BRONCHODILATORS O2 LASIX/GLYCEMIC CONTROL Gibran KUO MD
[2018-08-03] MEDS: HEPARIN NA (PORCINE) 5,000 UNITS/ML 1ML VIAL SQ SCH ×2 (06:32→15:14)
[2018-08-03] MEDS: sitaGLIPtin PHOSPHATE 25 MG TABLET (FP) PO SCH (06:33)
[2018-08-03] MEDS: FUROSEMIDE 40 MG/4 ML INJECTABLE VIAL IVPUSH SCH (06:33)
[2018-08-03] MEDS ORDERED: INSULIN (NOVOLOG) ASPART 100 UNITS/ML 10ML VIAL ONE ×2 (06:34→11:43)
[2018-08-03] MEDS: INSULIN SLIDING SCALE (NOVOLOG) 1 VIAL SQ SCH ×4 (06:35→22:05)
--- NOTE | 2018-08-03 07:29 | PN ---
Progress Note, Physician History of Present Illness: pulmonary alert,oob-chair,feeling better,less congested,less cough - Current Medication List Current Medications: Active Medications Acetaminophen (Tylenol -) 650 mg PO Q4H PRN PRN Reason: FEVER Last Admin: 08/02/18 21:19 Dose: 650 mg Albuterol/Ipratropium (Duoneb -) 1 amp NEB RQID [facility] Last Admin: 08/02/18 20:39 Dose: 1 amp Amlodipine Besylate (Norvasc -) 5 mg PO DAILY [facility] Last Admin: 08/02/18 09:13 Dose: 5 mg Aspirin (Ecotrin -) 81 mg PO DAILY [facility] Last Admin: 08/02/18 09:13 Dose: 81 mg Furosemide (Lasix Injection -) 40 mg IVPUSH BID@0600,1400 [facility] Last Admin: 08/03/18 06:33 Dose: 40 mg Guaifenesin (Diabetic Tussin Dm -) 5 ml PO Q6H PRN PRN Reason: COUGH Last Admin: 08/02/18 06:32 Dose: 5 ml Heparin Sodium (Porcine) (Heparin -) 5,000 unit SQ TID [facility] Last Admin: 08/03/18 06:32 Dose: 5,000 unit Ceftriaxone Sodium (Ceftriaxone 1 Gm-D5w Bag) 50 mls @ 100 mls/hr IVPB DAILY [facility]; Protocol Last Admin: 08/02/18 09:11 Dose: 100 mls/hr Insulin Aspart (Novolog Vial Sliding Scale -) 1 vial SQ ACHS [facility]; Protocol Last Admin: 08/03/18 06:35 Dose: 4 units Lactobacillus Acidophilus (Bacid -) 1 tab PO DAILY [facility] Last Admin: 08/02/18 09:11 Dose: 1 tab Metoprolol Succinate (Toprol Xl -) 100 mg PO BID [facility] Last Admin: 08/02/18 21:20 Dose: 100 mg Pantoprazole Sodium (Protonix Iv) 40 mg IVPUSH DAILY [facility] Last Admin: 08/02/18 09:12 Dose: 40 mg Sitagliptin Phosphate (Januvia -) 25 mg PO DAILY@0700 [facility] Last Admin: 08/03/18 06:33 Dose: 25 mg Valsartan (Diovan -) 320 mg PO DAILY [facility] Last Admin: 08/02/18 09:13 Dose: 320 mg - Objective Vital Signs: Vital Signs Temperature 98.1 F 08/03/18 06:00 Pulse Rate 125 H 08/03/18 06:00 Respiratory Rate 18 08/03/18 06:00 Blood Pressure 146/94 08/03/18 06:00 O2 Sat by Pulse Oximetry (%) 98 08/03/18 06:52 Constitutional: Yes: Well Nourished, Calm Eyes: Yes: WNL HENT: Yes: WNL Neck: Yes: WNL Cardiovascular: Yes: Tachycardia, S1, S2 Respiratory: Yes: Rales (few bibasilar crackles) Gastrointestinal: Yes: Normal Bowel Sounds, Soft Extremities: Yes: WNL Edema: No Labs: CBC, BMP Problem List - Problems (1) CHF (congestive heart failure) Code(s): I50.9 - HEART FAILURE, UNSPECIFIED Qualifiers: Heart failure type: unspecified Heart failure chronicity: acute on chronic Qualified Code(s): I50.9 - Heart failure, unspecified (2) Bilateral pneumonia Code(s): J18.9 - PNEUMONIA, UNSPECIFIED ORGANISM (3) Chest pain Code(s): R07.9 - CHEST PAIN, UNSPECIFIED (4) Cough Code(s): R05 - COUGH (5) Diabetes mellitus Code(s): E11.9 - TYPE 2 DIABETES MELLITUS WITHOUT COMPLICATIONS (6) Fever Code(s): R50.9 - FEVER, UNSPECIFIED (7) Hypertension Code(s): I10 - ESSENTIAL (PRIMARY) HYPERTENSION (8) Shortness of breath Code(s): R06.02 - SHORTNESS OF BREATH Assessment/Plan IMP BILATERAL PNEUMONIA CLINICALLY IMPROVING CHF OMPROVING HTN DM CKD PLAN ABX PER ID INHALED BRONCHODILATORS O2 LASIX F/U CHEST X-RAYS DR CARDONA Problem List - Problems (1) CHF (congestive heart failure) Code(s): I50.9 - HEART FAILURE, UNSPECIFIED Qualifiers: Heart failure type: unspecified Heart failure chronicity: acute on chronic Qualified Code(s): I50.9 - Heart failure, unspecified (2) Bilateral pneumonia Code(s): J18.9 - PNEUMONIA, UNSPECIFIED ORGANISM (3) Chest pain Code(s): R07.9 - CHEST PAIN, UNSPECIFIED (4) Cough Code(s): R05 - COUGH (5) Diabetes mellitus Code(s): E11.9 - TYPE 2 DIABETES MELLITUS WITHOUT COMPLICATIONS (6) Fever Code(s): R50.9 - FEVER, UNSPECIFIED (7) Hypertension Code(s): I10 - ESSENTIAL (PRIMARY) HYPERTENSION (8) Shortness of breath Code(s): R06.02 - SHORTNESS OF BREATH
[2018-08-03 08:27] LABS: ANION GAP 7 MMOL/L (8-16); BLOOD UREA NITROGEN 42 mg/dl (7-18); CALCIUM 8.4 mg/dl (8.4-10.2); CHLORIDE 99 mmol/L (98-107); CO2 25 mmol/L (22-28); CREATININE 1.7 mg/dl (0.6-1.3); GLUCOSE,RANDOM 215 mg/dl (74-106); POTASSIUM 4.6 mmol/L (3.5-5.1); SODIUM 131 mmol/L (136-145)
[2018-08-03] MEDS: ALBUTEROL SO4 2.5/IPRATROPIUM 0.5 INH SOL 3 ML VIAL.NEB. NEB SCH ×2 (09:17→11:50)
[2018-08-03] MEDS: PANTOPRAZOLE SODIUM 40 MG VIAL IVPUSH SCH (09:17)
[2018-08-03] MEDS: VALSARTAN 160 MG TABLET (UD) PO SCH (09:17)
[2018-08-03] MEDS: CEFTRIAXONE 1 G/50 ML PREMIX 50 ML IVPB SCH (09:17)
[2018-08-03] MEDS: amLODIPine BESYLATE 5 MG TABLET (FP) PO SCH (09:18)
[2018-08-03] MEDS: ASPIRIN COATED 81 MG TABLET.EC PO SCH (09:18)
[2018-08-03] MEDS: LACTOBACILLUS ACIDOPHILUS 1 TABLET PO SCH (09:19)
--- NOTE | 2018-08-03 10:39 | PN ---
Physical Exam: SUBJECTIVE: Patient seen and examined oob to chair. Son present. OBJECTIVE: Vital Signs Period Temp Pulse Resp BP Sys/Metzger Pulse Ox Last 24 Hr 97.9 F-98.4 F 85-125 16-18 130-146/53-99 93-98 GENERAL: The patient is awake, alert, and fully oriented, in no acute distress. LUNGS: Crackles bilateral lower lobes; minimal coughing; no wheezing, no accessory muscle use HEART: Regular rate and rhythm, S1, S2 ABDOMEN: Soft, nontender, nondistended EXTREMITIES: trace edema bilaterally NEUROLOGICAL: Cranial nerves II through XII grossly intact. Normal speech, gait not observed. Laboratory Results - last 24 hr 08/03/18 08/03/18 06:31 07:36 Sodium 131 L Potassium 4.6 Chloride 99 Carbon Dioxide 25 Anion Gap 7 L BUN 42 H Creatinine 1.7 H Creat Clearance w eGFR 28.92 POC Glucometer 201 Random Glucose 215 H Calcium 8.4 Magnesium 2.0 Active Medications Generic Name Dose Route Start Last Admin Trade Name Freq PRN Reason Stop Dose Admin Acetaminophen 650 mg 07/29/18 07:50 08/02/18 21:19 Tylenol - PO 650 mg Q4H PRN Administration FEVER Albuterol/Ipratropium 1 amp 07/29/18 13:15 08/03/18 09:17 Duoneb - NEB 1 amp RQID [facility] Administration Amlodipine Besylate 5 mg 08/01/18 13:00 08/03/18 09:18 Norvasc - PO 5 mg DAILY [facility] Administration Aspirin 81 mg 07/28/18 10:00 08/03/18 09:18 Ecotrin - PO 81 mg DAILY [facility] Administration Guaifenesin 5 ml 07/29/18 14:00 08/02/18 06:32 Diabetic Tussin Dm - PO 5 ml Q6H PRN Administration COUGH Heparin Sodium (Porcine) 5,000 unit 07/27/18 22:00 08/03/18 06:32 Heparin - SQ 5,000 unit TID [facility] Administration Ceftriaxone Sodium 50 mls @ 100 mls/hr 08/02/18 08:07 08/03/18 09:17 Ceftriaxone 1 Gm-D5w Bag IVPB 100 mls/hr DAILY [facility] Administration Protocol Insulin Aspart 1 vial 07/30/18 21:58 08/03/18 06:35 Novolog Vial Sliding Scale - SQ 4 units ACHS [facility] Administration Protocol Lactobacillus Acidophilus 1 tab 07/30/18 13:30 08/03/18 09:19 Bacid - PO 1 tab DAILY [facility] Administration Metoprolol Succinate 100 mg 07/28/18 22:00 08/03/18 09:18 Toprol Xl - PO 100 mg BID [facility] Administration Pantoprazole Sodium 40 mg 07/29/18 10:00 08/03/18 09:17 Protonix Iv IVPUSH 40 mg DAILY [facility] Administration Sitagliptin Phosphate 25 mg 07/31/18 07:00 08/03/18 06:33 Januvia - PO 25 mg DAILY@0700 [facility] Administration Valsartan 320 mg 07/28/18 10:00 08/03/18 09:17 Diovan - PO 320 mg DAILY [facility] Administration ASSESSMENT/PLAN 78 year-old female with a PMH significant for HTN, heart failure, NIDDM, CKD, and recurrent UTIs, admitted for pneumonia. In CHF exacerbation and hypertensive. Haemophilus Influenza Type B community-acquired pneumonia --afebrile, no leukocytosis --07/28 sputum (+) Haemophilus influenza Type B --Zosyn x 3 days; ceftriaxone (day #3); tomorrow will be day #7 of antibiotics --duonebs --ID following Klebsiella UTI --antibiotics as above Diastolic heart failure --08/02 CXR worsening congestive changes; increased Lasix IV yesterday to BID , down 1.6kg today but bump in BUN/Cr, will decrease to daily --daily weights --strict I&Os --cardiology following Hypertension --BP improved after starting amlodipine 08/01 --continue Toprol XL, valsartan, amlodipine CKD --Cr 1.7, baseline 1.2-1.6 --continue to trend NIDDM --glucose running 200s; adhering to hospital diabetic diet --Novolog sliding scale coverage FEN Fluids: PO intake adequate Electrolytes: replete as indicated Nutrition: low sodium, diabetic DVT prophylaxis: subq heparin Physical therapy Dispo: continues to require inpatient care. Full code. Visit type - Emergency Visit Emergency Visit: Yes ED Registration Date: 07/27/18 Care time: The patient presented to the Emergency Department on the above date and was hospitalized for further evaluation of their emergent condition. - New Patient This patient is new to me today: No - Critical Care Critical Care patient: No
[2018-08-03 15:42] VITALS: BMI 24.4
[2018-08-04] MEDS: INSULIN SLIDING SCALE (NOVOLOG) 1 VIAL SQ SCH ×2 (06:51→11:32)
[2018-08-04] MEDS: sitaGLIPtin PHOSPHATE 25 MG TABLET (FP) PO SCH (06:52)
[2018-08-04 09:03] LABS: BASO % 0.5 % (0-2.0); EOS % 2.6 % (0-4.5); HEMOGLOBIN 10.7 GM/dl (10.7-15.3); LYMPH % 20.1 % (8-40); MCH 29.6 pg (25.7-33.7); MCHC 33.5 g/dl (32.0-36.0); MEAN CELL VOLUME 88.4 fl (80-96); MEAN PLT VOLUME 7.1 fl (7.5-11.1); MONO % 6.8 % (3.8-10.2); PLATELET COUNT 442 K/MM3 (134-434); RBC 3.62 M/mm3 (3.60-5.2); RDW 12.8 % (11.6-15.6); WHITE BLOOD COUNT 9.1 K/mm3 (4.0-10.8)
[2018-08-04 09:25] LABS: ALBUMIN 2.7 g/dl (3.5-5.0); ALK PHOS 93 U/L (32-92); ANION GAP 10 MMOL/L (8-16); BILIRUBIN,TOTAL 0.3 mg/dl (0.2-1.0); BLOOD UREA NITROGEN 45 mg/dl (7-18); CALCIUM 8.7 mg/dl (8.4-10.2); CHLORIDE 99 mmol/L (98-107); CO2 23 mmol/L (22-28); CREATININE 1.6 mg/dl (0.6-1.3); GLUCOSE,RANDOM 165 mg/dl (74-106); POTASSIUM 4.2 mmol/L (3.5-5.1); SGOT/AST 19 U/L (10-42); SGPT/ALT 27 U/L (10-40); SODIUM 132 mmol/L (136-145); TOT PROT 6.8 g/dl (6.4-8.3)
--- NOTE | 2018-08-04 09:59 | PN ---
Progress Note, Physician History of Present Illness: OOB in chair No complaints via cell liner Afebrile Sputum H flu Legionella ag (-) WBC WNL - Current Medication List Current Medications: Active Medications Acetaminophen (Tylenol -) 650 mg PO Q4H PRN PRN Reason: FEVER Last Admin: 08/02/18 21:19 Dose: 650 mg Amlodipine Besylate (Norvasc -) 5 mg PO DAILY [facility] Last Admin: 08/03/18 09:18 Dose: 5 mg Aspirin (Ecotrin -) 81 mg PO DAILY [facility] Last Admin: 08/03/18 09:18 Dose: 81 mg Guaifenesin (Diabetic Tussin Dm -) 5 ml PO Q6H PRN PRN Reason: COUGH Last Admin: 08/02/18 06:32 Dose: 5 ml Ceftriaxone Sodium (Ceftriaxone 1 Gm-D5w Bag) 50 mls @ 100 mls/hr IVPB DAILY [facility]; Protocol Last Admin: 08/03/18 09:17 Dose: 100 mls/hr Insulin Aspart (Novolog Vial Sliding Scale -) 1 vial SQ ACHS [facility]; Protocol Last Admin: 08/04/18 06:51 Dose: 4 units Lactobacillus Acidophilus (Bacid -) 1 tab PO DAILY [facility] Last Admin: 08/03/18 09:19 Dose: 1 tab Metoprolol Succinate (Toprol Xl -) 100 mg PO BID [facility] Last Admin: 08/03/18 22:05 Dose: 100 mg Pantoprazole Sodium (Protonix Iv) 40 mg IVPUSH DAILY [facility] Last Admin: 08/03/18 09:17 Dose: 40 mg Sitagliptin Phosphate (Januvia -) 25 mg PO DAILY@0700 [facility] Last Admin: 08/04/18 06:52 Dose: 25 mg Valsartan (Diovan -) 320 mg PO DAILY [facility] Last Admin: 08/03/18 09:17 Dose: 320 mg - Objective Vital Signs: Vital Signs Temperature 97.6 F 08/04/18 05:00 Pulse Rate 78 08/04/18 05:00 Respiratory Rate 18 08/04/18 05:00 Blood Pressure 173/61 H 08/04/18 05:00 O2 Sat by Pulse Oximetry (%) 94 L 08/03/18 22:01 Constitutional: Yes: No Distress Cardiovascular: Yes: Regular Rate and Rhythm, S1, S2 Respiratory: Yes: Other (rales lower lung day bilaterally) Gastrointestinal: Yes: Normal Bowel Sounds, Soft. No: Tenderness Edema: Yes Edema: LLE: 1+, RLE: 1+ Labs: CBC, BMP 08/04/18 08:53 08/04/18 08:53 INR, PTT INR 1.20 (0.82-1.09) 07/27/18 12:05 Assessment/Plan RUL/ RLL pnerumonia Azotemia- improved CHF May substitute Augmentin 875 mg po bid x 7d
[2018-08-04 10:47] VITALS: BP 140/62; PULSE 79; TEMP 97.8
[2018-08-04] MEDS: amLODIPine BESYLATE 5 MG TABLET (FP) PO SCH (10:48)
[2018-08-04] MEDS: CEFTRIAXONE 1 G/50 ML PREMIX 50 ML IVPB SCH (10:48)
[2018-08-04] MEDS: PANTOPRAZOLE SODIUM 40 MG VIAL IVPUSH SCH (10:48)
[2018-08-04] MEDS: ASPIRIN COATED 81 MG TABLET.EC PO SCH (10:48)
[2018-08-04] MEDS: VALSARTAN 160 MG TABLET (UD) PO SCH (10:49)
[2018-08-04] MEDS: LACTOBACILLUS ACIDOPHILUS 1 TABLET PO SCH (10:49)
--- NOTE | 2018-08-04 10:52 | DS ---
Physical Exam: SUBJECTIVE: Patient seen and examined OBJECTIVE: Vital Signs Period Temp Pulse Resp BP Sys/Metzger Pulse Ox Last 24 Hr 97.6 F-98.3 F 70-86 15-18 110-173/51-76 94-99 PHYSICAL EXAM GENERAL: The patient is awake, alert, and fully oriented, in no acute distress. HEAD: Normal with no signs of trauma. EYES: PERRL, extraocular movements intact, sclera anicteric, conjunctiva clear. ENT: Ears normal, nares patent, oropharynx clear without exudates, moist mucous membranes. NECK: Trachea midline, full range of motion, supple. LUNGS: Breath sounds equal, clear to auscultation bilaterally, no wheezes, no crackles, no accessory muscle use. HEART: Regular rate and rhythm, S1, S2 without murmur, rub or gallop. ABDOMEN: Soft, nontender, nondistended, normoactive bowel sounds, no guarding, no rebound, no hepatosplenomegaly, no masses. EXTREMITIES: 2+ pulses, warm, well-perfused, no edema. NEUROLOGICAL: Cranial nerves II through XII grossly intact. Normal speech, gait not observed. PSYCH: Normal mood, normal affect. SKIN: Warm, dry, normal turgor, no rashes or lesions noted. LABS Laboratory Results - last 24 hr 08/03/18 08/03/18 08/03/18 11:39 16:53 22:03 WBC RBC Hgb Hct MCV MCH MCHC RDW Plt Count MPV Absolute Neuts (auto) Neutrophils % Lymphocytes % Monocytes % Eosinophils % Basophils % Sodium Potassium Chloride Carbon Dioxide Anion Gap BUN Creatinine Creat Clearance w eGFR POC Glucometer 294 164 208 Random Glucose Calcium Magnesium Total Bilirubin AST ALT Alkaline Phosphatase Total Protein Albumin 08/04/18 08/04/18 08/04/18 06:44 08:53 08:53 WBC 9.1 RBC 3.62 Hgb 10.7 Hct 32.0 L MCV 88.4 MCH 29.6 MCHC 33.5 RDW 12.8 Plt Count 442 H MPV 7.1 L Absolute Neuts (auto) 6.5 Neutrophils % 70.0 Lymphocytes % 20.1 Monocytes % 6.8 Eosinophils % 2.6 Basophils % 0.5 Sodium 132 L Potassium 4.2 Chloride 99 Carbon Dioxide 23 Anion Gap 10 BUN 45 H Creatinine 1.6 H Creat Clearance w eGFR 31.01 POC Glucometer 204 Random Glucose 165 H D Calcium 8.7 Magnesium 2.0 Total Bilirubin 0.3 AST 19 ALT 27 D Alkaline Phosphatase 93 H D Total Protein 6.8 Albumin 2.7 L HOSPITAL COURSE: Date of Admission:07/27/18 Date of Discharge: 08/04/18 Pre hospital course Patient is an 78 y/o female who was recently seen here for SOB on the hospitalist service with a cardiac consult. She got some diuresis at that time but was discharged without lasix as no compelling indication given echo findings with normal LVEF/RVEF, mild LAE, mild to moderate MR, mild AI, with PASP 32. Today comes in with SOB noted by family. Two days cough with productive sputum. Hasn't been on abx recently, no other hospitalizations. Low grade fevers but none >101.4. CXR shows large heart with central congestive changes seen. Flu swab was negative. BNP 4744 (1500 last check). She appears to have a history of having transient episodes of SOB at rest that have been occurring for months. Subsequent hospital course 78 year-old female with a PMH significant for HTN, heart failure, NIDDM, CKD, and recurrent UTIs, admitted for pneumonia, CHF exacerbation and HTN. Haemophilus Influenza Type B community-acquired pneumonia --had fever to 102.2, afebrile > 5 days; no leukocytosis --07/28 sputum (+) Haemophilus influenza Type B --treated with Zosyn x 3 days; ceftriaxone x 4 days; discharged on 7-day course of augmentin Klebsiella UTI --antibiotics as above Diastolic heart failure --08/02 CXR worsening congestive changes --diuresed with Lasix --respiratory status stable, ambulated without oxygen and maintained SpPO2 98 % --will discharge on Lasix 40mg daily Hypertension --BP improved after starting amlodipine 08/01 --continued Toprol XL, valsartan, amlodipine CKD --Cr 1.6 at time of discharge, baseline 1.2-1.6 NIDDM --glucose running 200s; adhering to hospital diabetic diet --Novolog sliding scale coverage Minutes to complete discharge: 35 Discharge Summary Reason For Visit: CONGESTIVE HEART FAILURE Current Active Problems CHF (congestive heart failure) (Acute) Condition: Improved - Instructions Disposition: HOME - Home Medications Comprehensive Discharge Medication List: Ambulatory Orders Sitagliptin Phos/Metformin HCl [Jackt Xr 50-1,000 mg Tablet] 1 capl PO DAILY 07/23/16 Aspirin [Ecotrin] 81 mg PO DAILY 03/13/18 Metoprolol Succinate [Toprol XL -] 75 mg PO BID #60 tab.sr.24h 07/01/18 Valsartan [Diovan] 320 mg PO DAILY #30 tablet 07/01/18 Amlodipine Besylate [Norvasc -] 5 mg PO DAILY #30 tablet 08/04/18 This patient is new to me today: No Emergency Visit: Yes ED Registration Date: 07/27/18 Care time: The patient presented to the Emergency Department on the above date and was hospitalized for further evaluation of their emergent condition. Critical Care patient: No - Discharge Referral Referred to [facility] No
--- NOTE | 2018-08-04 15:15 | PN ---
Progress Note (short form) - Note Progress Note: PULMONARY AWAKE/ALERT LANGUAGE BARRIER/ LESS CONGESTED COUGH VSS SPO2 98% R/A OOB TO CHAIR NO JVD NOTED AT 90% BILATERAL DIFFUSE CRACKLES WITH EXP RHONCHI S1S2 BS+ B/L 1+ EDEMA LABS/MEDS/NOTES/IMAGES/MICRO NOTED CXR SHOWS IMPROVEMENT IMP H.INFLU PNEUMONIA CHF HTN DM CKD PLAN AGREE WITH CONTINUING TREATMENT AN OUTPATIENT INHALED BRONCHODILATORS O2 LASIX/GLYCEMIC CONTROL Gibran KUO MD
== END 2018-08-04 14:18 | disposition home or self-care (01) | DRG 291 ==
LOC: FER 11:45 → FM/S 13:30 → OBSVTOIN 15:45 → FM/S 18:36
PROVIDERS: ADMIT Internal Medicine; ATTEND Nurse Practitioner Acute Care
DX: I13.0 Hypertensive heart and chronic kidney disease with heart failure and stage 1 through stage 4 chronic kidney disease, or unspecified chronic kidney disease (principal); J11.00 Influenza due to unidentified influenza virus with unspecified type of pneumonia; I50.31 Acute diastolic (congestive) heart failure; N17.9 Acute kidney failure, unspecified; E87.1 Hypo-osmolality and hyponatremia; I47.1 Supraventricular tachycardia; N39.0 Urinary tract infection, site not specified; R07.89 Other chest pain; R05 Cough; R50.9 Fever, unspecified; R06.02 Shortness of breath; B96.1 Klebsiella pneumoniae [K. pneumoniae] as the cause of diseases classified elsewhere; E11.22 Type 2 diabetes mellitus with diabetic chronic kidney disease; N18.3 Chronic kidney disease, stage 3 (moderate); I45.10 Unspecified right bundle-branch block
CPT/HCPCS: 36415; 71045-TC-FY; 71046-TC-FY; 71250-TC; 80048; 80053; 81003; 81015; 82550; 82553; 82728; 82962; 83540; 83550; 83605; 83735; 83880; 83930; 83935; 84100; 84300; 84484; 85025; 85027; 85044; 85610; 85651; 85730; 86140; 87040; 87070; 87086; 87186; 87205; 87804; 87899; 93005; 94640; 97116-GP; 97161-GP; 99284-25; G0378; J0131; J1644

== ENCOUNTER 2019-08-30 17:39 | Inpatient (IN) | payer OTHER ==
--- NOTE | 2019-08-30 17:46 | PDOC ---
History of Present Illness - General Chief Complaint: Respiratory Stated Complaint: COUGH Time Seen by Provider: 08/30/19 17:44 - History of Present Illness Initial Comments: 08/30/19 17:45 79 yo F PMH HTN, diastolic heart failure, NIDDM, CKD, and recurrent UTIs, p/w cough. Serb speaking only, translation via daughter in law. Reports 5 days of cough, white sputum, worse at night. Actually feels better today, but her son discovered that she was having a cough today and wanted her to come straight to the ER considering her previous CHF and PNA history. Patient further complains that her hands have had a tremor for the past 5-6 days. Patient notes that she has had previous presentations with a cough that has turned out to be PNA, CHF exacerbation, or both. Specifically denies CP, SOB, fevers/chills, sick contacts, recent travel, [place], N/ V, constipation/diarrhea, abdominal pain, urinary changes. 08/30/19 19:10 Past History - Past Medical History Allergies/Adverse Reactions: Allergies Allergy/AdvReac Type Severity Reaction Status Date / Time No Known Allergies Allergy Verified 08/30/19 17:40 Home Medications: Ambulatory Orders Sitagliptin Phos/Metformin HCl [Janumet Xr 50-1,000 mg Tablet] 1 capl PO DAILY 07/23/16 Metoprolol Succinate [Toprol XL -] 75 mg PO BID #60 tab.sr.24h 07/01/18 Furosemide 40 mg PO DAILY #30 tablet 08/04/18 Amlodipine Besylate [Norvasc -] 10 mg PO DAILY 08/30/19 Atorvastatin Ca [Lipitor] 40 mg PO HS 08/30/19 Cardiac Disorders: Yes (RBBB) COPD: No Diabetes: Yes HTN: Yes Hypercholesterolemia: Yes - Psycho Social/Smoking Cessation Hx Smoking History: Never smoked Have you smoked in the past 12 months: No Number of Cigarettes Smoked Daily: 0 Hx Alcohol Use: No Drug/Substance Use Hx: No Substance Use Type: None Hx Substance Use Treatment: No Review of Systems - Review of Systems Comments:: 08/30/19 18:36 GENERAL/CONSTITUTIONAL: No fever or chills. No weakness. Hand tremors for the past 5-6 days. HEAD, EYES, EARS, NOSE AND THROAT: No change in vision. No ear pain or discharge. No sore throat. CARDIOVASCULAR: No chest pain or shortness of breath. RESPIRATORY: No cough, wheezing, or hemoptysis. GASTROINTESTINAL: No nausea, vomiting, diarrhea or constipation. GENITOURINARY: No dysuria, frequency, or change in urination. MUSCULOSKELETAL: No joint or muscle swelling or pain. No neck or back pain. SKIN: No rash NEUROLOGIC: No headache, vertigo, loss of consciousness, or change in strength/ sensation. ENDOCRINE: No increased thirst. No abnormal weight change. HEMATOLOGIC/LYMPHATIC: No anemia, easy bleeding, or history of blood clots. ALLERGIC/IMMUNOLOGIC: No hives or skin allergy *Physical Exam - Physical Exam 08/30/19 18:36 Gen: well-developed, well-nourished, NAD Neuro: AAOX4, CN II-XII intact, FTN intact, EOMI, PERRLA, 5/5 strength, SILT HEENT: atraumatic, normocephalic, dry mucous membranes Neck: trachea midline, supple CV: regular rate, regular rhythm, no murmurs, rubs, or gallops Pulm: b/l rhonchi Abd: soft, non-distended, non-tender MSK: full ROM, intact pulses Extr: 2+ pitting edema to the mid-rojas, no deformities Skin: warm, dry ED Treatment Course - LABORATORY CBC & Chemistry Diagram: 09/01/19 08:44 09/01/19 08:44 Medical Decision Making - Medical Decision Making 08/30/19 18:38 Concern for possible occult infiltrate. - Chest PA + L - CBC, CMP - BNP - coags - EKG, CXR - reassess Discharge - Discharge Information Problems reviewed: Yes Clinical Impression/Diagnosis: CHF (congestive heart failure) Qualifiers: Heart failure type: unspecified Heart failure chronicity: unspecified Qualified Code(s): I50.9 - Heart failure, unspecified Condition: Improved - Follow up/Referral - Patient Discharge Instructions - Post Discharge Activity
--- NOTE | 2019-08-30 19:00 | PDOC ---
Attending Attestation - Resident Resident Name: Igor Del Rosario - ED Attending Attestation I have performed the following: I have examined & evaluated the patient, The case was reviewed & discussed with the resident, I agree w/resident's findings & plan, Exceptions are as noted - HPI HPI: 08/30/19 18:58 79yo F hx CHF on lasix, HTN, DM, CKD (1.2-1.6) presents to the ED with cough for 1 week COmpliant with meds - Medical Decision Making 08/30/19 19:00 cough, hypoxic to 93% DDx CHF vs PNA vs bronchitis Plan -labs -CXR -reassess
--- NOTE | 2019-08-30 19:29 | PDOC ---
*Physical Exam - Vital Signs Last Vital Signs Temp Pulse Resp BP Pulse Ox 98.3 F 98 H 18 170/88 95 08/30/19 17:40 08/30/19 17:40 08/30/19 17:40 08/30/19 17:40 08/30/19 18:24 ED Treatment Course - LABORATORY CBC & Chemistry Diagram: 08/30/19 19:15 08/30/19 19:15 ED Progress Note - Progress Note Progress Note: 08/30/19 19:28 This is an 79-year-old female who comes in complaining of cough and congestion. Patient was seen initially by Dr. Hansen and care was transferred to [facility] at 1900 hrs. Patient has a work-up pending. Patient's O2 sat is low and she does have rhonchi on clinical exam. Patient has history of pneumonia in the past. Patient will need an admission once her work-up is complete. 08/30/19 20:54 Patient does have a moderately elevated glucose otherwise her white count is normal and there is no left shift. Chest x-ray shows some pulmonary vascular congestion but no obvious infiltrate chest x-ray was read by [facility] EKG shows normal sinus rhythm with some PACs and old inferior infarct and incomplete right bundle branch block no acute pathology Patient's BNP is markedly elevated at approximately 2500 Patient given Lasix and will be admitted to an inpatient bed for further management of CHF Discharge - Discharge Information Problems reviewed: Yes Clinical Impression/Diagnosis: CHF (congestive heart failure) Qualifiers: Heart failure type: unspecified Heart failure chronicity: unspecified Qualified Code(s): I50.9 - Heart failure, unspecified Condition: Stable - Admission Yes - Follow up/Referral - Patient Discharge Instructions - Post Discharge Activity
[2019-08-30 19:38] LABS: BASO % 0.6 % (0-2.0); EOS % 2.5 % (0-4.5); HEMATOCRIT 36.2 % (32.4-45.2); LYMPH % 30.1 % (8-40); MCH 29.9 pg (25.7-33.7); MCHC 33.2 g/dl (32.0-36.0); MONO % 8.6 % (3.8-10.2); NEUT % 58.2 % (42.8-82.8); PLATELET COUNT 282 K/MM3 (134-434); RBC 4.02 M/mm3 (3.60-5.2); RDW 12.6 % (11.6-15.6); WHITE BLOOD COUNT 9.7 K/mm3 (4.0-10.8)
[2019-08-30 19:43] LABS: ALBUMIN 3.4 g/dl (3.4-5.0); BILIRUBIN,TOTAL 0.5 mg/dl (0.2-1); CALCIUM 8.4 mg/dl (8.5-10); CREATININE 1.7 mg/dl (0.55-1.3); INR 1.11 (0.82-1.09); MAGNESIUM 1.8 mg/dL (1.8-2.4); POTASSIUM 4.7 mmol/L (3.5-5.1); PROTHROMBIN TIME (PATIENT) 12.4 SEC (10.2-13.0)
[2019-08-30] MEDS ORDERED: FUROSEMIDE 40 MG/4 ML INJECTABLE VIAL IVPUSH ONE (20:54)
[2019-08-30] MEDS ORDERED: INSULIN REGULAR HUMAN 100 UNITS/ML *VIAL IVPUSH ONE ×2 (20:56→20:59)
[2019-08-30] MEDS ORDERED: FUROSEMIDE 40 MG/4 ML INJECTABLE VIAL ONE (20:59)
[2019-08-30 21:06] LABS: EPITHELIAL CELLS FEW /hpf
[2019-08-30] MEDS ORDERED: INSULIN REGULAR HUMAN 100 UNITS/ML *VIAL ONE (21:08)
[2019-08-30] MEDS: ATORVASTATIN CA 40 MG TABLET (FP) PO SCH (22:25)
[2019-08-30 23:02] VITALS: BMI 23.1
[2019-08-31] MEDS ORDERED: guaiFENesin/D-METHORPHAN HB 10 ML UNIT-DOSE CUPS PO PRN (06:51)
[2019-08-31 08:06] LABS: BASO % 0.3 % (0-2.0); EOS % 1.8 % (0-4.5); HEMATOCRIT 35.1 % (32.4-45.2); HEMOGLOBIN 11.8 GM/dl (10.7-15.3); LYMPH % 18.8 % (8-40); MCH 29.5 pg (25.7-33.7); MCHC 33.5 g/dl (32.0-36.0); MONO % 7.3 % (3.8-10.2); NEUT % 71.8 % (42.8-82.8); PLATELET COUNT 247 K/MM3 (134-434); RBC 3.99 M/mm3 (3.60-5.2); RDW 12.4 % (11.6-15.6); WHITE BLOOD COUNT 9.8 K/mm3 (4.0-10.8)
[2019-08-31 08:27] LABS: ALBUMIN 3.1 g/dl (3.4-5.0); BILIRUBIN,TOTAL 0.5 mg/dl (0.2-1); CALCIUM 8.4 mg/dl (8.5-10); CREATININE 1.4 mg/dl (0.55-1.3); MAGNESIUM 1.7 mg/dL (1.8-2.4); POTASSIUM 4.2 mmol/L (3.5-5.1); TOT PROT 6.4 g/dl (6.4-8.2)
--- NOTE | 2019-08-31 08:52 | HP ---
CHIEF COMPLAINT: Cough PCP: Dr. Gonsalves Cardiology: Dr. Romero in [place] HISTORY OF PRESENT ILLNESS: 79 year-old female with a PMH significant for HTN, diastolic HF, NIDDM, CKD, and recurrent UTIs. Brought by family to the ED with report of cough productive of whitish sputum x 5 days. Patient stated she was feeling better but son wanted her to come to the hospital. Denies fever, sweats, chills. Denies chest pain, SOB, palpitations. Denies nausea, vomiting, diarrhea. ER course was notable for: (1) BNP 2508 Recent Travel: No PAST MEDICAL HISTORY: Hypertension Diastolic heart failure Type II NIDDM Chronic kidney disease Recurrent UTIs PAST SURGICAL HISTORY: None reported Social History: lives with extended family Smoking: never Alcohol: no Drugs: no Family history: non-contributory Allergies No Known Allergies Allergy (Verified 08/30/19 17:40) HOME MEDICATIONS: Home Medications Medication Instructions Recorded Sitagliptin Phos/Metformin HCl 1 capl PO DAILY 07/23/16 [Janumet Xr 50-1,000 mg Tablet] Metoprolol Succinate [Toprol XL -] 75 mg PO BID #60 tab.sr.24h 07/01/18 Furosemide 40 mg PO DAILY #30 tablet 08/04/18 Amlodipine Besylate [Norvasc -] 10 mg PO DAILY 08/30/19 Atorvastatin Ca [Lipitor] 40 mg PO HS 08/30/19 REVIEW OF SYSTEMS CONSTITUTIONAL: Absent: fever, chills, diaphoresis, generalized weakness, malaise, loss of appetite, weight change HEENT: Absent: rhinorrhea, nasal congestion, throat pain, throat swelling, difficulty swallowing, mouth swelling, ear pain, eye pain, visual changes CARDIOVASCULAR: Absent: chest pain, syncope, palpitations, irregular heart rate, lightheadedness , peripheral edema RESPIRATORY: +cough Absent: shortness of breath, dyspnea with exertion, orthopnea, wheezing, stridor , hemoptysis GASTROINTESTINAL: Absent: abdominal pain, abdominal distension, nausea, vomiting, diarrhea, constipation, melena, hematochezia GENITOURINARY: Absent: dysuria, frequency, urgency, hesitancy, hematuria, flank pain, genital pain MUSCULOSKELETAL: Absent: myalgia, arthralgia, joint swelling, back pain, neck pain SKIN: Absent: rash, itching, pallor HEMATOLOGIC/IMMUNOLOGIC: Absent: easy bleeding, easy bruising, lymphadenopathy, frequent infections ENDOCRINE: Absent: unexplained weight gain, unexplained weight loss, heat intolerance, cold intolerance NEUROLOGIC: Absent: headache, focal weakness or paresthesias, dizziness, unsteady gait, seizure, mental status changes, bladder or bowel incontinence PSYCHIATRIC: Absent: anxiety, depression, suicidal or homicidal ideation, hallucinations. PHYSICAL EXAMINATION Vital Signs - 24 hr 08/30/19 08/30/19 08/30/19 17:40 18:24 20:58 Temperature 98.3 F 97.8 F Pulse Rate 98 H Pulse Rate [ 89 Left Apical] Respiratory 18 20 Rate Blood Pressure 170/88 Blood Pressure 159/85 [Right Arm] O2 Sat by Pulse 93 L 95 99 Oximetry (%) 08/30/19 08/31/19 08/31/19 22:00 01:55 05:00 Temperature 98.4 F 98.3 F 97.9 F Pulse Rate 104 H 90 79 Pulse Rate [ Left Apical] Respiratory 20 18 18 Rate Blood Pressure 162/69 148/55 L 151/67 Blood Pressure [Right Arm] O2 Sat by Pulse 95 93 L Oximetry (%) GENERAL: Awake, alert, and fully oriented, in no acute distress. HEAD: Normal with no signs of trauma. EYES: Pupils equal, round and reactive to light, extraocular movements intact, sclera anicteric, conjunctiva clear. LUNGS: Breath sounds equal, clear to auscultation bilaterally. No wheezes, and no crackles. No accessory muscle use. HEART: Regular rate and rhythm, normal S1 and S2. ABDOMEN: Soft, nontender, not distended, normoactive bowel sound. UPPER EXTREMITIES: 2+ pulses, warm, well-perfused. No cyanosis. No clubbing. No peripheral edema. LOWER EXTREMITIES: 2+ pulses, warm, well-perfused. No calf tenderness. 2+ bilateral edema NEUROLOGICAL: Cranial nerves II-XII intact. Normal speech. Laboratory Results - last 24 hr 08/30/19 08/30/19 08/30/19 19:15 19:15 19:15 WBC 9.7 RBC 4.02 Hgb 12.0 Hct 36.2 MCV 90.0 MCH 29.9 MCHC 33.2 RDW 12.6 Plt Count 282 MPV 8.0 Absolute Neuts (auto) 5.7 Neutrophils % 58.2 Lymphocytes % 30.1 Monocytes % 8.6 Eosinophils % 2.5 Basophils % 0.6 PT with INR INR PTT (Actin FS) 28.3 Sodium 136 Potassium 4.7 Chloride 100 Carbon Dioxide 24 Anion Gap 12 BUN 35.0 H Creatinine 1.7 H Est GFR (CKD-EPI)AfAm 32.21 Est GFR (CKD-EPI)NonAf 27.80 POC Glucometer Random Glucose 286 H Calcium 8.4 L Magnesium 1.8 Total Bilirubin 0.5 AST 21 ALT 18 Alkaline Phosphatase 84 Troponin I B-Natriuretic Peptide Total Protein 7.0 Albumin 3.4 Urine Color Urine Appearance Urine pH Urine Protein Urine Glucose (UA) Urine Ketones Urine Blood Urine Nitrite Urine Bilirubin Urine Urobilinogen Ur Leukocyte Esterase Urine RBC Urine WBC Ur Transition Epith Cell Urine Bacteria 08/30/19 08/30/19 08/30/19 19:15 19:15 19:15 WBC RBC Hgb Hct MCV MCH MCHC RDW Plt Count MPV Absolute Neuts (auto) Neutrophils % Lymphocytes % Monocytes % Eosinophils % Basophils % PT with INR 12.4 INR 1.11 PTT (Actin FS) Sodium Potassium Chloride Carbon Dioxide Anion Gap BUN Creatinine Est GFR (CKD-EPI)AfAm Est GFR (CKD-EPI)NonAf POC Glucometer Random Glucose Calcium Magnesium Total Bilirubin AST ALT Alkaline Phosphatase Troponin I < 0.03 B-Natriuretic Peptide 2508.0 H Total Protein Albumin Urine Color Urine Appearance Urine pH Urine Protein Urine Glucose (UA) Urine Ketones Urine Blood Urine Nitrite Urine Bilirubin Urine Urobilinogen Ur Leukocyte Esterase Urine RBC Urine WBC Ur Transition Epith Cell Urine Bacteria 08/30/19 08/31/19 08/31/19 20:50 06:34 07:09 WBC 9.8 RBC 3.99 Hgb 11.8 Hct 35.1 MCV 88.0 MCH 29.5 MCHC 33.5 RDW 12.4 Plt Count 247 MPV 8.0 Absolute Neuts (auto) 7.1 Neutrophils % 71.8 Lymphocytes % 18.8 Monocytes % 7.3 Eosinophils % 1.8 Basophils % 0.3 PT with INR INR PTT (Actin FS) Sodium Potassium Chloride Carbon Dioxide Anion Gap BUN Creatinine Est GFR (CKD-EPI)AfAm Est GFR (CKD-EPI)NonAf POC Glucometer 177 Random Glucose Calcium Magnesium Total Bilirubin AST ALT Alkaline Phosphatase Troponin I B-Natriuretic Peptide Total Protein Albumin Urine Color Yellow Urine Appearance Slightly Urine pH 7.0 Urine Protein 3+ H Urine Glucose (UA) 1+ H Urine Ketones Negative Urine Blood Trace-intact Urine Nitrite Positive H Urine Bilirubin Negative Urine Urobilinogen 0.2 Ur Leukocyte Esterase 1+ Urine RBC 2-5 Urine WBC 10-20 Ur Transition Epith Cell Few Urine Bacteria Many 08/31/19 07:09 WBC RBC Hgb Hct MCV MCH MCHC RDW Plt Count MPV Absolute Neuts (auto) Neutrophils % Lymphocytes % Monocytes % Eosinophils % Basophils % PT with INR INR PTT (Actin FS) Sodium 136 Potassium 4.2 Chloride 103 Carbon Dioxide 25 Anion Gap 8 BUN 28.0 H Creatinine 1.4 H Est GFR (CKD-EPI)AfAm 40.74 Est GFR (CKD-EPI)NonAf 35.15 POC Glucometer Random Glucose 183 H Calcium 8.4 L Magnesium 1.7 L Total Bilirubin 0.5 AST 17 ALT 15 Alkaline Phosphatase 69 D Troponin I B-Natriuretic Peptide Total Protein 6.4 Albumin 3.1 L Urine Color Urine Appearance Urine pH Urine Protein Urine Glucose (UA) Urine Ketones Urine Blood Urine Nitrite Urine Bilirubin Urine Urobilinogen Ur Leukocyte Esterase Urine RBC Urine WBC Ur Transition Epith Cell Urine Bacteria ASSESSMENT/PLAN: 79 year-old female with a PMH significant for HTN, diastolic HF, Type II NIDDM, CKD, and recurrent UTIs. Brought by family to the ED with report of cough productive of whitish sputum x 5 days. Cough --afebrile, no leukocytosis, no recent illness, CXR unremarkable --observe off antibiotics Acute on chronic diastolic heart failure --2+ lower extremity edema, BNP elevated; patient goes to adult day care, eats salted foods --Lasix IVP 40mg x 1 given in ED with improvement in Cr this morning 1.7--> 1.4 --continue Lasix IVP 40mg daily --strict I&Os --daily weights Hypertension --continue ToprolXL, amlodipine Type II NIDDM --Novolog sliding scale coverage Chronic kidney disease --Cr 1.4 which is baseline Recurrent UTIs Pyuria --asymptomatic, afebrile, no leukocytosis --culture pending --no antibiotics Hypomagnesemia --replete FEN Fluids: PO intake adequate Electrolytes: replete as indicated Nutrition: low sodium diabetic DVT prophylaxis: subq lovenox Physical therapy Dispo: continues to require inpatient care. Full code. Visit type - Emergency Visit Emergency Visit: Yes ED Registration Date: 08/30/19 Care time: The patient presented to the Emergency Department on the above date and was hospitalized for further evaluation of their emergent condition. - New Patient This patient is new to me today: Yes Date on this admission: 08/31/19 - Critical Care Critical Care patient: No
[2019-08-31] MEDS: FUROSEMIDE 40 MG/4 ML INJECTABLE VIAL IVPUSH SCH (09:07)
[2019-08-31] MEDS: amLODIPine BESYLATE 10 MG TABLET (FP) PO SCH (09:08)
[2019-08-31] MEDS: ENOXAPARIN NA (PORCINE) 40 MG/0.4 ML DISP.SYRIN SQ SCH (10:06)
--- NOTE | 2019-08-31 10:11 | EKG ---
Test Reason : Blood Pressure : / mmHG Vent. Rate : 092 BPM Atrial Rate : 092 BPM P-R Int : 164 ms QRS Dur : 112 ms QT Int : 396 ms P-R-T Axes : 042 -12 005 degrees QTc Int : 489 ms SINUS RHYTHM WITH PREMATURE ATRIAL COMPLEXES INCOMPLETE RIGHT BUNDLE BRANCH BLOCK INFERIOR INFARCT , AGE UNDETERMINED ABNORMAL ECG WHEN COMPARED WITH ECG OF 27-JUL-2018 12:21, FUSION COMPLEXES ARE NO LONGER PRESENT PREMATURE ATRIAL COMPLEXES ARE NOW PRESENT INFERIOR INFARCT IS NOW PRESENT NONSPECIFIC T WAVE ABNORMALITY NO LONGER EVIDENT IN ANTERIOR LEADS Confirmed by REGINA WONG, BIMAL ([id number]) on 08/31/2019 10:10:51 AM Referred By: DR WHITING Confirmed By:BIMAL TAPIA MD
--- NOTE | 2019-08-31 15:30 | ECHO ---
Name: OSMIN LR Exam:Adult Echocardiogram Study Date: 08/31/2019 01:02 PM Age: 79 yrs Reason For Study: CHF Height: 68 in Weight: 146 lb BSA: 1.8 m2 MMode/2D Measurements & Calculations IVSd: 1.5 cm Ao root diam: 2.7 cm LVIDd: 3.3 cm LA dimension: 3.9 cm LVIDs: 2.3 cm LVPWd: 0.90 cm EDV(Teich): 42.7 ml LVOT diam: 2.0 cm ESV(Teich): 18.7 ml Doppler Measurements & Calculations MV E max murphy: 141.7 cm/sec MV A max murphy: 151.9 cm/sec MV dec slope: 742.8 cm/sec2 MV E/A: 0.93 Ao V2 max: 172.7 cm/sec LV V1 max P.8 mmHg Ao max P.9 mmHg LV V1 max: 109.4 cm/sec KEYSHAWN(V,D): 2.0 cm2 MR max murphy: 485.5 cm/sec TR max murphy: 286.6 cm/sec MR max P.5 mmHg TR max P.0 mmHg PA V2 max: 133.5 cm/sec PI end-d murphy: 103.4 cm/sec PA max P.1 mmHg Procedure A two-dimensional transthoracic echocardiogram with color flow and Doppler was performed. The study w as technically difficult with many images being suboptimal in quality. Left Ventricle The left ventricular size, thickness and function are normal. The left ventricular ejection fraction is normal. Regional wall motion abnormalities cannot be excluded due to limited visualization. Right Ventricle The right ventricle is not well visualized. Atria The left atrium is moderately dilated. The right atrium is mild to moderately dilated. Mitral Valve There is moderate mitral valve thickening. There is mild to moderate mitral annular calcification. Th ere is mild to moderate mitral regurgitation. Tricuspid Valve There is mild tricuspid valve thickening. There is no tricuspid stenosis. There is mild to moderate t ricuspid regurgitation. Right ventricular systolic pressure is elevated at 40-50mmHg. Aortic Valve The aortic valve is trileaflet. There is mild to moderate aortic valve thickening. There is mild aort ic sclerosis.;. No hemodynamically significant valvular aortic stenosis. Mild to moderate aortic regurgi tation. Pulmonic Valve The pulmonic valve is not well visualized. There is no pulmonic valvular stenosis. Mild pulmonic valv ular regurgitation. Great Vessels The aortic root is normal size. Pericardium/Pleura There is no pericardial effusion. Interpretation Summary The study was technically difficult with many images being suboptimal in quality. Mild to moderate aortic regurgitation. The left atrium is moderately dilated. The right atrium is mild to moderately dilated. The left ventricular ejection fraction is normal. The left ventricular size, thickness and function are normal Regional wall motion abnormalities cannot be excluded due to limited visualization. There is mild to moderate tricuspid regurgitation. Right ventricular systolic pressure is elevated at 40-50mmHg. There is mild to moderate aortic valve thickening. The aortic valve is trileaflet. There is mild aortic sclerosis.; Mild pulmonic valvular regurgitation. There is moderate mitral valve thickening. There is mild to moderate mitral regurgitation. There is mild to moderate mitral annular calcification. MD Song Ashton 08/31/2019 03:30 PM
[2019-08-31] MEDS ORDERED: MAGNESIUM SULF 50% (8.12 MEQ/2 ML-1 GM VIAL) IVPB ONE (20:29)
[2019-08-31] MEDS: ATORVASTATIN CA 40 MG TABLET (FP) PO SCH (22:05)
[2019-09-01 09:05] LABS: BASO % 0.4 % (0-2.0); EOS % 1.5 % (0-4.5); HEMATOCRIT 36.1 % (32.4-45.2); HEMOGLOBIN 11.9 GM/dl (10.7-15.3); LYMPH % 22.1 % (8-40); MCH 29.3 pg (25.7-33.7); MCHC 32.9 g/dl (32.0-36.0); MEAN CELL VOLUME 89.1 fl (80-96); MEAN PLT VOLUME 7.6 fl (7.5-11.1); MONO % 6.5 % (3.8-10.2); NEUT % 69.5 % (42.8-82.8); PLATELET COUNT 271 K/MM3 (134-434); RBC 4.05 M/mm3 (3.60-5.2); RDW 12.4 % (11.6-15.6); WHITE BLOOD COUNT 9.1 K/mm3 (4.0-10.8)
[2019-09-01] MEDS: FUROSEMIDE 40 MG/4 ML INJECTABLE VIAL IVPUSH SCH (09:18)
[2019-09-01] MEDS: ENOXAPARIN NA (PORCINE) 40 MG/0.4 ML DISP.SYRIN SQ SCH (09:20)
[2019-09-01] MEDS: amLODIPine BESYLATE 10 MG TABLET (FP) PO SCH (09:20)
[2019-09-01 09:24] LABS: ALBUMIN 3.1 g/dl (3.4-5.0); BILIRUBIN,TOTAL 0.5 mg/dl (0.2-1); CALCIUM 8.4 mg/dl (8.5-10); CREATININE 1.5 mg/dl (0.55-1.3); MAGNESIUM 1.9 mg/dL (1.8-2.4); POTASSIUM 4.3 mmol/L (3.5-5.1); TOT PROT 6.5 g/dl (6.4-8.2)
[2019-09-01] MEDS ORDERED: INSULIN (NOVOLOG) ASPART 100 UNITS/ML 10ML VIAL SQ SCH (12:15)
[2019-09-01 13:59] VITALS: BP 128/61; PULSE 79; TEMP 98
--- NOTE | 2019-09-01 14:14 | DS ---
Physical Exam: SUBJECTIVE: Patient seen and examined OBJECTIVE: Vital Signs Period Temp Pulse Resp BP Sys/Metzger Pulse Ox Last 24 Hr 98.0 F-99.1 F 79-88 18-20 128-156/52-61 91-93 PHYSICAL EXAM GENERAL: The patient is awake, alert, and fully oriented, in no acute distress. HEAD: Normal with no signs of trauma. EYES: PERRL, extraocular movements intact, sclera anicteric, conjunctiva clear. ENT: Ears normal, nares patent, oropharynx clear without exudates, moist mucous membranes. NECK: Trachea midline, full range of motion, supple. LUNGS: Breath sounds equal, clear to auscultation bilaterally, no wheezes, no crackles, no accessory muscle use. HEART: Regular rate and rhythm, S1, S2 without murmur, rub or gallop. ABDOMEN: Soft, nontender, nondistended, normoactive bowel sounds, no guarding, no rebound, no hepatosplenomegaly, no masses. EXTREMITIES: 2+ pulses, warm, well-perfused, no edema. NEUROLOGICAL: Cranial nerves II through XII grossly intact. Normal speech, gait not observed. PSYCH: Normal mood, normal affect. SKIN: Warm, dry, normal turgor, no rashes or lesions noted. LABS Laboratory Results - last 24 hr 08/31/19 08/31/19 09/01/19 16:28 22:30 06:57 WBC RBC Hgb Hct MCV MCH MCHC RDW Plt Count MPV Absolute Neuts (auto) Neutrophils % Lymphocytes % Monocytes % Eosinophils % Basophils % Sodium Potassium Chloride Carbon Dioxide Anion Gap BUN Creatinine Est GFR (CKD-EPI)AfAm Est GFR (CKD-EPI)NonAf POC Glucometer 226 192 175 Random Glucose Calcium Magnesium Total Bilirubin AST ALT Alkaline Phosphatase Total Protein Albumin 09/01/19 09/01/19 09/01/19 08:44 08:44 11:46 WBC 9.1 RBC 4.05 Hgb 11.9 Hct 36.1 MCV 89.1 MCH 29.3 MCHC 32.9 RDW 12.4 Plt Count 271 MPV 7.6 Absolute Neuts (auto) 6.4 Neutrophils % 69.5 Lymphocytes % 22.1 Monocytes % 6.5 Eosinophils % 1.5 Basophils % 0.4 Sodium 135 L Potassium 4.3 Chloride 100 Carbon Dioxide 25 Anion Gap 10 BUN 26.0 H Creatinine 1.5 H Est GFR (CKD-EPI)AfAm 37.48 Est GFR (CKD-EPI)NonAf 32.34 POC Glucometer 257 Random Glucose 244 H Calcium 8.4 L Magnesium 1.9 Total Bilirubin 0.5 AST 18 ALT 17 Alkaline Phosphatase 69 Total Protein 6.5 Albumin 3.1 L HOSPITAL COURSE: Date of Admission:08/30/19 Date of Discharge: 09/01/19 79 year-old female with a PMH significant for HTN, diastolic HF, Type II NIDDM, CKD, and recurrent UTIs. Brought by family to the ED with report of cough productive of whitish sputum x 5 days. Cough --afebrile, no leukocytosis, no recent illness, CXR unremarkable --observed off antibiotics Acute on chronic diastolic heart failure --2+ lower extremity edema and BNP was elevated on admission; patient goes to adult day care, eats salted foods --treated with Lasix IVP 40mg daily, down 3.3kg Hypertension --BP was stable, continued ToprolXL, amlodipine Type II NIDDM --Novolog sliding scale coverage Chronic kidney disease --Cr 1.5 which is baseline Recurrent UTIs Pyuria --asymptomatic, afebrile, no leukocytosis --culture grew LFGNB, like colonization of bladder epithelium in this elderly woman with recurrent UTIs; no antibiodies given Hypomagnesemia --repleted Minutes to complete discharge: 35 Discharge Summary Problems reviewed: Yes Reason For Visit: CONGESTIVE HEART FAILURE Current Active Problems CHF (congestive heart failure) (Acute) Condition: Improved - Instructions Referrals: Piper Lynn [Primary Care Provider] - Disposition: HOME - Home Medications Comprehensive Discharge Medication List: Ambulatory Orders Sitagliptin Phos/Metformin HCl [Janumet Xr 50-1,000 mg Tablet] 1 capl PO DAILY 07/23/16 Metoprolol Succinate [Toprol XL -] 75 mg PO BID #60 tab.sr.24h 07/01/18 Furosemide 40 mg PO DAILY #30 tablet 08/04/18 Amlodipine Besylate [Norvasc -] 10 mg PO DAILY 08/30/19 Atorvastatin Ca [Lipitor] 40 mg PO HS 08/30/19 This patient is new to me today: No Emergency Visit: Yes ED Registration Date: 08/30/19 Care time: The patient presented to the Emergency Department on the above date and was hospitalized for further evaluation of their emergent condition. Critical Care patient: No - Discharge Referral Referred to [facility] No
== END 2019-09-01 14:53 | disposition home or self-care (01) | DRG 291 ==
LOC: SUPCPDRO 17:39 → FER 17:39 → FM/S 21:32
PROVIDERS: ADMIT Internal Medicine; ATTEND Nurse Practitioner Acute Care
DX: I13.0 Hypertensive heart and chronic kidney disease with heart failure and stage 1 through stage 4 chronic kidney disease, or unspecified chronic kidney disease (principal); I50.33 Acute on chronic diastolic (congestive) heart failure; N39.0 Urinary tract infection, site not specified; I45.10 Unspecified right bundle-branch block; E11.22 Type 2 diabetes mellitus with diabetic chronic kidney disease; N18.9 Chronic kidney disease, unspecified; R82.81 Pyuria; E83.42 Hypomagnesemia; B96.20 Unspecified Escherichia coli [E. coli] as the cause of diseases classified elsewhere; R05 Cough
CPT/HCPCS: 36415; 71046-TC-FY; 80053; 81003; 81015; 82962; 83735; 83880; 84484; 85025; 85610; 85730; 87086; 87186; 93005; 93306-TC; 99284-25

== ENCOUNTER 2020-10-09 16:55 | Inpatient (IN) | payer OTHER ==
[2020-10-09 18:02] LABS: BASO % 4.4 % (0-2.0); EOS % 0.4 % (0-4.5); HEMATOCRIT 32.6 % (32.4-45.2); HEMOGLOBIN 10.6 GM/dl (10.7-15.3); LYMPH % 13.9 % (8-40); MCH 28.9 pg (25.7-33.7); MCHC 32.5 g/dl (32.0-36.0); MEAN CELL VOLUME 88.7 fl (80-96); MEAN PLT VOLUME 7.5 fl (7.5-11.1); MONO % 4.4 % (3.8-10.2); NEUT % 76.9 % (42.8-82.8); PLATELET COUNT 256 K/MM3 (134-434); RBC 3.68 M/mm3 (3.60-5.2); RDW 13.4 % (11.6-15.6); WHITE BLOOD COUNT 7.9 K/mm3 (4.0-10.8)
[2020-10-09 18:05] LABS: ALBUMIN 3.8 g/dl (3.4-5.0); BILIRUBIN,TOTAL 0.8 mg/dl (0.2-1); CALCIUM 8.6 mg/dl (8.5-10); POTASSIUM 4.9 mmol/L (3.5-5.1); TOT PROT 7.7 g/dl (6.4-8.2)
[2020-10-09] MEDS ORDERED: FUROSEMIDE 40 MG/4 ML INJECTABLE VIAL IVPUSH ONE (18:28)
[2020-10-09] MEDS ORDERED: FUROSEMIDE 40 MG/4 ML INJECTABLE VIAL ONE (18:49)
[2020-10-09 19:07] LABS: N-TERMINAL BNP 4844.6 pg/ml (5-450)
[2020-10-09] MEDS: ATORVASTATIN CA 40 MG TABLET (FP) PO SCH (23:02)
[2020-10-09] MEDS: HEPARIN NA (PORCINE) 5,000 UNITS/ML 1ML VIAL SQ SCH (23:03)
[2020-10-09] MEDS: INSULIN SLIDING SCALE (NOVOLOG) 1 VIAL SQ SCH (23:11)
[2020-10-09] MEDS ORDERED: CEFTRIAXONE 1 GM in DEXTROSE 5%-WATER - 50 ML IVPB ONE (23:51)
[2020-10-10] MEDS ORDERED: DEXTROSE 5%-WATER - 50 ML IVPB ONE (00:09)
[2020-10-10] MEDS ORDERED: cefTRIAXone SODIUM 1 GM VIAL ONE (00:09)
[2020-10-10] MEDS: INSULIN SLIDING SCALE (NOVOLOG) 1 VIAL SQ SCH ×4 (06:40→22:07)
[2020-10-10] MEDS: FUROSEMIDE 40 MG/4 ML INJECTABLE VIAL IVPUSH SCH ×2 (06:40→15:27)
[2020-10-10] MEDS ORDERED: ACETAMINOPHEN 325 MG TABLET (FP) PO ONE (06:57)
[2020-10-10 08:18] LABS: BASO % 0.6 % (0-2.0); EOS % 1.9 % (0-4.5); HEMATOCRIT 29.2 % (32.4-45.2); HEMOGLOBIN 9.7 GM/dl (10.7-15.3); LYMPH % 12.1 % (8-40); MCH 29.1 pg (25.7-33.7); MCHC 33.1 g/dl (32.0-36.0); MEAN PLT VOLUME 7.4 fl (7.5-11.1); MONO % 6.6 % (3.8-10.2); NEUT % 78.8 % (42.8-82.8); PLATELET COUNT 219 K/MM3 (134-434); RBC 3.32 M/mm3 (3.60-5.2); WHITE BLOOD COUNT 7.9 K/mm3 (4.0-10.8)
[2020-10-10 08:33] LABS: ALBUMIN 3.1 g/dl (3.4-5.0); BILIRUBIN,TOTAL 0.8 mg/dl (0.2-1); CALCIUM 8.3 mg/dl (8.5-10); CREATININE 1.7 mg/dl (0.55-1.3); TOT PROT 6.5 g/dl (6.4-8.2)
[2020-10-10] MEDS: amLODIPine BESYLATE 10 MG TABLET (FP) PO SCH (09:27)
[2020-10-10] MEDS: HEPARIN NA (PORCINE) 5,000 UNITS/ML 1ML VIAL SQ SCH ×2 (09:28→21:50)
[2020-10-10] MEDS ORDERED: amLODIPine BESYLATE 5 MG TABLET (FP) PO SCH (10:00)
[2020-10-10] MEDS: ATORVASTATIN CA 40 MG TABLET (FP) PO SCH (21:50)
[2020-10-11] MEDS: FUROSEMIDE 40 MG/4 ML INJECTABLE VIAL IVPUSH SCH ×2 (06:29→15:22)
[2020-10-11] MEDS: INSULIN SLIDING SCALE (NOVOLOG) 1 VIAL SQ SCH ×3 (06:29→21:18)
[2020-10-11 08:23] LABS: HEMATOCRIT 32.3 % (32.4-45.2); HEMOGLOBIN 10.4 GM/dl (10.7-15.3); LYMPH % 20.5 % (8-40); MCH 28.5 pg (25.7-33.7); MCHC 32.1 g/dl (32.0-36.0); MEAN CELL VOLUME 88.8 fl (80-96); MEAN PLT VOLUME 7.8 fl (7.5-11.1); MONO % 6.3 % (3.8-10.2); NEUT % 69.2 % (42.8-82.8); PLATELET COUNT 272 K/MM3 (134-434); RBC 3.64 M/mm3 (3.60-5.2); RDW 13.3 % (11.6-15.6); WHITE BLOOD COUNT 6.7 K/mm3 (4.0-10.8)
[2020-10-11 08:29] LABS: ALBUMIN 3.4 g/dl (3.4-5.0); BILIRUBIN,TOTAL 0.6 mg/dl (0.2-1); CALCIUM 8.3 mg/dl (8.5-10); CREATININE 1.8 mg/dl (0.55-1.3); MAGNESIUM 2.1 mg/dL (1.8-2.4); POTASSIUM 4.2 mmol/L (3.5-5.1); TOT PROT 6.8 g/dl (6.4-8.2)
[2020-10-11] MEDS: amLODIPine BESYLATE 10 MG TABLET (FP) PO SCH (10:32)
[2020-10-11] MEDS: HEPARIN NA (PORCINE) 5,000 UNITS/ML 1ML VIAL SQ SCH ×2 (10:33→21:18)
[2020-10-11] MEDS: ATORVASTATIN CA 40 MG TABLET (FP) PO SCH (21:18)
[2020-10-12] MEDS: INSULIN SLIDING SCALE (NOVOLOG) 1 VIAL SQ SCH ×5 (06:52→22:00)
[2020-10-12] MEDS: amLODIPine BESYLATE 10 MG TABLET (FP) PO SCH (09:59)
[2020-10-12] MEDS: HEPARIN NA (PORCINE) 5,000 UNITS/ML 1ML VIAL SQ SCH ×2 (09:59→22:00)
[2020-10-12] MEDS ORDERED: FUROSEMIDE 40 MG/4 ML INJECTABLE VIAL IVPUSH SCH (10:00)
[2020-10-12] MEDS: FUROSEMIDE 40 MG/4 ML INJECTABLE VIAL IVPUSH SCH (17:30)
[2020-10-12] MEDS: ATORVASTATIN CA 40 MG TABLET (FP) PO SCH (22:00)
[2020-10-13] MEDS: FUROSEMIDE 40 MG/4 ML INJECTABLE VIAL IVPUSH SCH ×2 (05:48→15:25)
[2020-10-13] MEDS: INSULIN SLIDING SCALE (NOVOLOG) 1 VIAL SQ SCH ×4 (06:47→21:33)
[2020-10-13 08:36] LABS: BASO % 0.4 % (0-2.0); EOS % 2.6 % (0-4.5); HEMATOCRIT 29.6 % (32.4-45.2); HEMOGLOBIN 9.7 GM/dl (10.7-15.3); LYMPH % 15.7 % (8-40); MCHC 32.8 g/dl (32.0-36.0); MEAN CELL VOLUME 88.6 fl (80-96); MEAN PLT VOLUME 7.6 fl (7.5-11.1); MONO % 8.4 % (3.8-10.2); NEUT % 72.9 % (42.8-82.8); PLATELET COUNT 247 K/MM3 (134-434); RBC 3.35 M/mm3 (3.60-5.2); RDW 13.1 % (11.6-15.6); WHITE BLOOD COUNT 7.2 K/mm3 (4.0-10.8)
[2020-10-13 08:44] LABS: CALCIUM 8.1 mg/dl (8.5-10); CREATININE 1.7 mg/dl (0.55-1.3); MAGNESIUM 2.2 mg/dL (1.8-2.4); POTASSIUM 4.1 mmol/L (3.5-5.1)
[2020-10-13] MEDS: HEPARIN NA (PORCINE) 5,000 UNITS/ML 1ML VIAL SQ SCH ×2 (11:08→21:28)
[2020-10-13] MEDS: amLODIPine BESYLATE 10 MG TABLET (FP) PO SCH (11:08)
[2020-10-13] MEDS: ATORVASTATIN CA 40 MG TABLET (FP) PO SCH (21:28)
[2020-10-14] MEDS: FUROSEMIDE 40 MG/4 ML INJECTABLE VIAL IVPUSH SCH ×2 (06:05→14:22)
[2020-10-14] MEDS: INSULIN SLIDING SCALE (NOVOLOG) 1 VIAL SQ SCH ×4 (07:07→21:16)
[2020-10-14] MEDS: amLODIPine BESYLATE 10 MG TABLET (FP) PO SCH (09:59)
[2020-10-14] MEDS: HEPARIN NA (PORCINE) 5,000 UNITS/ML 1ML VIAL SQ SCH ×2 (09:59→21:17)
[2020-10-14 12:30] LABS: POTASSIUM 4.1 mmol/L (3.5-5.1)
[2020-10-14 12:33] LABS: BLOOD UREA NITROGEN 53.8 mg/dL (7-18); MAGNESIUM 2.4 mg/dL (1.8-2.4)
[2020-10-14 12:38] LABS: CALCIUM 9.2 mg/dL (8.5-10.1)
[2020-10-14] MEDS: ATORVASTATIN CA 40 MG TABLET (FP) PO SCH (21:17)
[2020-10-15] MEDS: INSULIN SLIDING SCALE (NOVOLOG) 1 VIAL SQ SCH ×4 (06:28→21:13)
[2020-10-15] MEDS: FUROSEMIDE 40 MG/4 ML INJECTABLE VIAL IVPUSH SCH ×2 (06:37→14:55)
[2020-10-15] MEDS: HEPARIN NA (PORCINE) 5,000 UNITS/ML 1ML VIAL SQ SCH ×2 (09:53→21:13)
[2020-10-15] MEDS: amLODIPine BESYLATE 10 MG TABLET (FP) PO SCH (09:54)
[2020-10-15 10:12] LABS: POTASSIUM 4.1 mmol/L (3.5-5.1)
[2020-10-15 10:15] LABS: BLOOD UREA NITROGEN 52.4 mg/dL (7-18); MAGNESIUM 2.3 mg/dL (1.8-2.4)
[2020-10-15 10:18] LABS: CREATININE 1.9 mg/dL (0.55-1.3)
[2020-10-15 10:31] LABS: CALCIUM 8.5 mg/dL (8.5-10.1)
[2020-10-15] MEDS: ATORVASTATIN CA 40 MG TABLET (FP) PO SCH (21:13)
[2020-10-16] MEDS: FUROSEMIDE 40 MG/4 ML INJECTABLE VIAL IVPUSH SCH (06:00)
[2020-10-16] MEDS: INSULIN SLIDING SCALE (NOVOLOG) 1 VIAL SQ SCH ×2 (06:27→11:31)
[2020-10-16 07:32] LABS: BASO % 1.1 % (0-2.0); EOS % 3.3 % (0-4.5); HEMATOCRIT 31.7 % (32.4-45.2); HEMOGLOBIN 10.4 GM/dl (10.7-15.3); MCH 28.9 pg (25.7-33.7); MCHC 32.9 g/dl (32.0-36.0); MEAN CELL VOLUME 87.8 fl (80-96); MEAN PLT VOLUME 7.5 fl (7.5-11.1); MONO % 10.4 % (3.8-10.2); NEUT % 60.2 % (42.8-82.8); PLATELET COUNT 270 K/MM3 (134-434); RBC 3.61 M/mm3 (3.60-5.2); RDW 13.3 % (11.6-15.6)
[2020-10-16 07:50] LABS: ALBUMIN 3.5 g/dl (3.4-5.0); BILIRUBIN,TOTAL 0.9 mg/dl (0.2-1); CALCIUM 8.6 mg/dl (8.5-10); CREATININE 2.2 mg/dl (0.55-1.3); MAGNESIUM 2.2 mg/dL (1.8-2.4); POTASSIUM 4.3 mmol/L (3.5-5.1)
[2020-10-16 09:04] VITALS: BP 132/81; PULSE 79; TEMP 98
[2020-10-16] MEDS: HEPARIN NA (PORCINE) 5,000 UNITS/ML 1ML VIAL SQ SCH (09:04)
[2020-10-16] MEDS: amLODIPine BESYLATE 10 MG TABLET (FP) PO SCH (09:05)
[2020-10-16 10:31] VITALS: BMI 31.6
== END 2020-10-16 11:40 | disposition home or self-care (01) | DRG 291 ==
LOC: FER 16:55 → FM/S 19:46
PROVIDERS: ADMIT Internal Medicine; ATTEND Nurse Practitioner Acute Care
DX: I13.0 Hypertensive heart and chronic kidney disease with heart failure and stage 1 through stage 4 chronic kidney disease, or unspecified chronic kidney disease (principal); I50.33 Acute on chronic diastolic (congestive) heart failure; N17.9 Acute kidney failure, unspecified; I47.1 Supraventricular tachycardia; E11.9 Type 2 diabetes mellitus without complications; E78.5 Hyperlipidemia, unspecified; R09.02 Hypoxemia; I12.9 Hypertensive chronic kidney disease with stage 1 through stage 4 chronic kidney disease, or unspecified chronic kidney disease; N18.9 Chronic kidney disease, unspecified; I27.20 Pulmonary hypertension, unspecified; E87.70 Fluid overload, unspecified
CPT/HCPCS: 36415; 71045-TC-FY; 80048; 80053; 81003; 81015; 82565; 82962; 83735; 83880; 84156; 84300; 84443; 84484; 85025; 93005; 93306-TC; 97116-GP; 97162-GP; 99285-25; C9803; J1644; U0003

== ENCOUNTER 2020-12-30 14:00 | Inpatient (IN) | payer OTHER ==
[2020-12-30 14:42] LABS: BASO % 0.9 % (0-2.0); EOS % 4.2 % (0-4.5); HEMATOCRIT 35.4 % (32.4-45.2); HEMOGLOBIN 11.7 GM/dl (10.7-15.3); LYMPH % 19.5 % (8-40); MCH 28.3 pg (25.7-33.7); MCHC 32.9 g/dl (32.0-36.0); MEAN CELL VOLUME 86.1 fl (80-96); MEAN PLT VOLUME 7.9 fl (7.5-11.1); MONO % 8.3 % (3.8-10.2); NEUT % 67.1 % (42.8-82.8); PLATELET COUNT 256 K/MM3 (134-434); RBC 4.11 M/mm3 (3.60-5.2); RDW 12.6 % (11.6-15.6); WHITE BLOOD COUNT 7.5 K/mm3 (4.0-10.8)
[2020-12-30 15:04] LABS: ALBUMIN 3.3 g/dl (3.4-5.0); BILIRUBIN,TOTAL 0.5 mg/dl (0.2-1); CALCIUM 8.2 mg/dl (8.5-10); CREATININE 1.9 mg/dl (0.55-1.3); MAGNESIUM 2.1 mg/dL (1.8-2.4); TOT PROT 6.7 g/dl (6.4-8.2)
[2020-12-30] MEDS ORDERED: FUROSEMIDE 40 MG/4 ML INJECTABLE VIAL IVPUSH ONE (15:49)
[2020-12-30] MEDS ORDERED: FUROSEMIDE 40 MG/4 ML INJECTABLE VIAL ONE (15:51)
[2020-12-30 16:29] LABS: EPITHELIAL CELLS FEW /hpf
[2020-12-30 18:42] VITALS: BMI 29.4
[2020-12-30] MEDS: ATORVASTATIN CA 40 MG TABLET (FP) PO SCH (22:36)
[2020-12-31 08:17] LABS: BASO % 0.3 % (0-2.0); EOS % 3.6 % (0-4.5); HEMATOCRIT 34.7 % (32.4-45.2); HEMOGLOBIN 11.6 GM/dl (10.7-15.3); LYMPH % 24.1 % (8-40); MCH 28.7 pg (25.7-33.7); MCHC 33.5 g/dl (32.0-36.0); MEAN CELL VOLUME 85.9 fl (80-96); MEAN PLT VOLUME 7.7 fl (7.5-11.1); MONO % 9.8 % (3.8-10.2); NEUT % 62.2 % (42.8-82.8); PLATELET COUNT 275 K/MM3 (134-434); RBC 4.04 M/mm3 (3.60-5.2); RDW 12.1 % (11.6-15.6); WHITE BLOOD COUNT 7.5 K/mm3 (4.0-10.8)
[2020-12-31 08:26] LABS: ALBUMIN 3.4 g/dl (3.4-5.0); BILIRUBIN,TOTAL 0.5 mg/dl (0.2-1); CALCIUM 8.5 mg/dl (8.5-10); CREATININE 1.8 mg/dl (0.55-1.3)
[2020-12-31] MEDS: amLODIPine BESYLATE 5 MG TABLET (FP) PO SCH (09:38)
[2020-12-31] MEDS: FUROSEMIDE 40 MG/4 ML INJECTABLE VIAL IVPUSH SCH (09:40)
[2020-12-31] MEDS ORDERED: metoPROLOL SUCCINATE 25 MG TAB.SR.24H (FP) ONE ×2 (14:43→21:08)
[2020-12-31] MEDS: METOPROLOL SUCCINATE 50 MG, METOPROLOL SUCCINATE 25 MG PO SCH ×2 (14:47→21:21)
[2020-12-31] MEDS: HEPARIN NA (PORCINE) 5,000 UNITS/ML 1ML VIAL SQ SCH ×2 (14:48→21:20)
[2020-12-31] MEDS: ATORVASTATIN CA 40 MG TABLET (FP) PO SCH (21:20)
[2021-01-01] MEDS: HEPARIN NA (PORCINE) 5,000 UNITS/ML 1ML VIAL SQ SCH ×3 (06:40→21:32)
[2021-01-01 07:52] LABS: BASO % 0.7 % (0-2.0); EOS % 5.5 % (0-4.5); HEMATOCRIT 33.3 % (32.4-45.2); LYMPH % 18.4 % (8-40); MCH 28.4 pg (25.7-33.7); MCHC 33.2 g/dl (32.0-36.0); MEAN CELL VOLUME 85.5 fl (80-96); MEAN PLT VOLUME 7.6 fl (7.5-11.1); MONO % 9.8 % (3.8-10.2); NEUT % 65.6 % (42.8-82.8); PLATELET COUNT 240 K/MM3 (134-434); RBC 3.89 M/mm3 (3.60-5.2); RDW 12.6 % (11.6-15.6); WHITE BLOOD COUNT 7.4 K/mm3 (4.0-10.8)
[2021-01-01 08:26] LABS: ALBUMIN 2.9 g/dl (3.4-5.0); BILIRUBIN,TOTAL 0.5 mg/dl (0.2-1); CALCIUM 8.2 mg/dl (8.5-10); CREATININE 1.8 mg/dl (0.55-1.3); MAGNESIUM 2.2 mg/dL (1.8-2.4); TOT PROT 6.3 g/dl (6.4-8.2)
[2021-01-01] MEDS ORDERED: metoPROLOL SUCCINATE 25 MG TAB.SR.24H (FP) ONE ×2 (09:10→21:22)
[2021-01-01] MEDS: FUROSEMIDE 40 MG/4 ML INJECTABLE VIAL IVPUSH SCH (10:23)
[2021-01-01] MEDS: METOPROLOL SUCCINATE 50 MG, METOPROLOL SUCCINATE 25 MG PO SCH ×2 (10:23→21:33)
[2021-01-01] MEDS: amLODIPine BESYLATE 5 MG TABLET (FP) PO SCH (10:23)
[2021-01-01] MEDS: DEXAMETHASONE SOD PHOSPHATE 10 MG/1 ML VIAL IVPUSH SCH (15:38)
[2021-01-01] MEDS: ATORVASTATIN CA 40 MG TABLET (FP) PO SCH (21:32)
[2021-01-02] MEDS: HEPARIN NA (PORCINE) 5,000 UNITS/ML 1ML VIAL SQ SCH ×3 (06:35→21:10)
[2021-01-02 08:09] LABS: SARS-CoV-2 NAA Not Detected (Not Detected)
[2021-01-02 08:10] LABS: BASO % 0.1 % (0-2.0); HEMATOCRIT 32.2 % (32.4-45.2); HEMOGLOBIN 10.7 GM/dl (10.7-15.3); MCH 28.7 pg (25.7-33.7); MCHC 33.3 g/dl (32.0-36.0); MEAN CELL VOLUME 86.1 fl (80-96); MONO % 4.1 % (3.8-10.2); NEUT % 79.8 % (42.8-82.8); PLATELET COUNT 245 K/MM3 (134-434); RBC 3.74 M/mm3 (3.60-5.2); RDW 12.3 % (11.6-15.6); WHITE BLOOD COUNT 6.7 K/mm3 (4.0-10.8)
[2021-01-02 08:15] LABS: INR 1.12 (0.82-1.09); PROTHROMBIN TIME (PATIENT) 12.4 SEC (10.2-13.0)
[2021-01-02 08:51] LABS: ALBUMIN 3.2 g/dl (3.4-5.0); BILIRUBIN,TOTAL 0.4 mg/dl (0.2-1); CALCIUM 8.5 mg/dl (8.5-10); CREATININE 1.6 mg/dl (0.55-1.3); MAGNESIUM 2.2 mg/dL (1.8-2.4); TOT PROT 6.6 g/dl (6.4-8.2)
[2021-01-02] MEDS ORDERED: metoPROLOL SUCCINATE 25 MG TAB.SR.24H (FP) ONE ×2 (09:59→20:55)
[2021-01-02] MEDS: amLODIPine BESYLATE 5 MG TABLET (FP) PO SCH (10:11)
[2021-01-02] MEDS: DEXAMETHASONE SOD PHOSPHATE 10 MG/1 ML VIAL IVPUSH SCH (10:12)
[2021-01-02] MEDS: FUROSEMIDE 40 MG/4 ML INJECTABLE VIAL IVPUSH SCH (10:12)
[2021-01-02] MEDS: METOPROLOL SUCCINATE 50 MG, METOPROLOL SUCCINATE 25 MG PO SCH ×2 (10:12→21:10)
[2021-01-02] MEDS: INSULIN (NOVOLOG) ASPART 100 UNITS/ML 10ML VIAL SQ SCH ×3 (12:04→21:08)
[2021-01-02] MEDS: ATORVASTATIN CA 40 MG TABLET (FP) PO SCH (21:10)
[2021-01-03] MEDS: HEPARIN NA (PORCINE) 5,000 UNITS/ML 1ML VIAL SQ SCH (06:16)
[2021-01-03] MEDS: INSULIN (NOVOLOG) ASPART 100 UNITS/ML 10ML VIAL SQ SCH ×2 (06:17→11:57)
[2021-01-03 08:03] LABS: CREATININE 1.6 mg/dl (0.55-1.3); MAGNESIUM 2.3 mg/dL (1.8-2.4)
[2021-01-03] MEDS ORDERED: metoPROLOL SUCCINATE 25 MG TAB.SR.24H (FP) ONE (09:14)
[2021-01-03] MEDS: METOPROLOL SUCCINATE 50 MG, METOPROLOL SUCCINATE 25 MG PO SCH (09:19)
[2021-01-03] MEDS: FUROSEMIDE 40 MG/4 ML INJECTABLE VIAL IVPUSH SCH (09:20)
[2021-01-03] MEDS: amLODIPine BESYLATE 5 MG TABLET (FP) PO SCH (09:20)
[2021-01-03 09:42] VITALS: BP 118/63; PULSE 77; TEMP 97.9
== END 2021-01-03 13:20 | disposition home or self-care (01) | DRG 291 ==
LOC: FER 14:00 → SUPCPDRO 14:00 → FM/S 17:42 → INTOOBSV 17:42 → OBSVTOIN 21:26
PROVIDERS: ADMIT Internal Medicine; ATTEND Nurse Practitioner Acute Care
DX: I13.0 Hypertensive heart and chronic kidney disease with heart failure and stage 1 through stage 4 chronic kidney disease, or unspecified chronic kidney disease (principal); I50.33 Acute on chronic diastolic (congestive) heart failure; J96.01 Acute respiratory failure with hypoxia; I47.1 Supraventricular tachycardia; N18.9 Chronic kidney disease, unspecified; E11.22 Type 2 diabetes mellitus with diabetic chronic kidney disease; E78.5 Hyperlipidemia, unspecified
CPT/HCPCS: 36415; 71046-TC-FY; 71250-TC; 80048; 80053; 81003; 81015; 82550; 82728; 82962; 83615; 83735; 83880; 84484; 85025; 85379; 85610; 86140; 87040; 93005; 94761; 97116-GP; 97162-GP; 99285-25; C9803; G0378; J1100; J1644; U0003; U0005

== ENCOUNTER 2021-06-01 17:05 | Inpatient (IN) | payer OTHER ==
[2021-06-01 18:12] LABS: BASO % 2.6 % (0-2.0); EOS % 1.6 % (0-4.5); HEMATOCRIT 38.2 % (32.4-45.2); HEMOGLOBIN 12.4 GM/dl (10.7-15.3); LYMPH % 23.9 % (8-40); MCH 28.8 pg (25.7-33.7); MCHC 32.6 g/dl (32.0-36.0); MEAN CELL VOLUME 88.4 fl (80-96); MEAN PLT VOLUME 7.8 fl (7.5-11.1); MONO % 10.5 % (3.8-10.2); NEUT % 61.4 % (42.8-82.8); PLATELET COUNT 229 10^3/uL (134-434); RBC 4.32 M/mm3 (3.60-5.2); RDW 12.7 % (11.6-15.6); WHITE BLOOD COUNT 7.9 K/mm3 (4.0-10.8)
[2021-06-01 18:26] LABS: ALBUMIN 4.2 g/dl (3.4-5.0); ALK PHOS 89 U/L (45-117); ANION GAP 11 MMOL/L (8-16); BILIRUBIN,TOTAL 0.5 mg/dl (0.2-1); CALCIUM 8.5 mg/dl (8.5-10); CHLORIDE 101 mmol/L (98-107); CO2 26 mmol/L (21-32); CREATININE 1.6 mg/dl (0.55-1.3); GLUCOSE,RANDOM 132 mg/dl (74-106); SGOT/AST 19 U/L (15-37); SGPT/ALT 19 U/L (13-61); SODIUM 138 mmol/L (136-145); TOT PROT 7.4 g/dl (6.4-8.2)
[2021-06-01 19:18] LABS: N-TERMINAL BNP 1405.1 pg/ml (5-450)
[2021-06-01] MEDS ORDERED: FUROSEMIDE 100 MG/10 ML INJECTABLE VIAL IVPB ONE (19:29)
[2021-06-01] MEDS ORDERED: FUROSEMIDE 100 MG/10 ML INJECTABLE VIAL ONE (19:34)
[2021-06-01 21:34] VITALS: BMI 27.8
[2021-06-01] MEDS: HEPARIN NA (PORCINE) 5,000 UNITS/ML 1ML VIAL SQ SCH (22:49)
[2021-06-01] MEDS: INSULIN SLIDING SCALE (NOVOLOG) 1 VIAL SQ SCH (22:49)
[2021-06-01] MEDS: ATORVASTATIN CA 40 MG TABLET (FP) PO SCH (22:50)
[2021-06-01] MEDS: ACETAMINOPHEN 325 MG TABLET (FP) PO PRN (23:37)
[2021-06-01] MEDS: METOPROLOL TARTRATE 25 MG TABLET (FP) PO SCH (23:38)
[2021-06-02] MEDS ORDERED: FUROSEMIDE 40 MG/4 ML INJECTABLE VIAL IVPUSH SCH (06:00)
[2021-06-02] MEDS: INSULIN SLIDING SCALE (NOVOLOG) 1 VIAL SQ SCH ×4 (06:07→21:44)
[2021-06-02] MEDS: ACETAMINOPHEN 325 MG TABLET (FP) PO PRN (06:27)
[2021-06-02] MEDS ORDERED: METOPROLOL TARTRATE 25 MG TABLET (FP) PO SCH (10:00)
[2021-06-02 10:01] LABS: BASO % 1.3 % (0-2.0); EOS % 1.6 % (0-4.5); HEMATOCRIT 37.7 % (32.4-45.2); HEMOGLOBIN 12.5 GM/dl (10.7-15.3); LYMPH % 28.7 % (8-40); MCH 29.2 pg (25.7-33.7); MCHC 33.2 g/dl (32.0-36.0); MEAN CELL VOLUME 87.8 fl (80-96); MEAN PLT VOLUME 8.9 fl (7.5-11.1); MONO % 8.9 % (3.8-10.2); NEUT % 59.5 % (42.8-82.8); PLATELET COUNT 218 10^3/uL (134-434); RDW 12.3 % (11.6-15.6); WHITE BLOOD COUNT 8.2 K/mm3 (4.0-10.8)
[2021-06-02 10:02] LABS: ALBUMIN 3.9 g/dl (3.4-5.0); BILIRUBIN,TOTAL 0.8 mg/dl (0.2-1); CALCIUM 8.6 mg/dl (8.5-10); CREATININE 1.6 mg/dl (0.55-1.3); TOT PROT 6.9 g/dl (6.4-8.2)
[2021-06-02] MEDS: amLODIPine BESYLATE 10 MG TABLET (FP) PO SCH (10:17)
[2021-06-02] MEDS: HEPARIN NA (PORCINE) 5,000 UNITS/ML 1ML VIAL SQ SCH (10:17)
[2021-06-02] MEDS: METOPROLOL TARTRATE 25 MG TABLET (FP) PO SCH ×2 (10:17→21:39)
[2021-06-02] MEDS ORDERED: traMADol HCL 50 MG TABLET PO ONE (11:00)
[2021-06-02] MEDS: APIXABAN 2.5 MG TABLET PO SCH ×2 (11:04→21:39)
[2021-06-02] MEDS ORDERED: ACETAMINOPHEN 1000 MG/100 ML VIAL (NON FORMULARY) IVPB PRN (11:24)
[2021-06-02] MEDS: FUROSEMIDE 40 MG/4 ML INJECTABLE VIAL IVPB SCH (14:12)
[2021-06-02] MEDS: ATORVASTATIN CA 40 MG TABLET (FP) PO SCH (21:39)
[2021-06-03] MEDS: FUROSEMIDE 40 MG/4 ML INJECTABLE VIAL IVPB SCH ×2 (06:32→16:27)
[2021-06-03] MEDS: INSULIN SLIDING SCALE (NOVOLOG) 1 VIAL SQ SCH ×4 (06:37→21:22)
[2021-06-03 07:47] LABS: BASO % 1.4 % (0-2.0); EOS % 2.1 % (0-4.5); HEMOGLOBIN 12.1 GM/dl (10.7-15.3); MCH 28.6 pg (25.7-33.7); MCHC 32.6 g/dl (32.0-36.0); MEAN CELL VOLUME 87.8 fl (80-96); MEAN PLT VOLUME 8.2 fl (7.5-11.1); MONO % 8.3 % (3.8-10.2); NEUT % 72.2 % (42.8-82.8); PLATELET COUNT 192 10^3/uL (134-434); RBC 4.21 M/mm3 (3.60-5.2); RDW 12.5 % (11.6-15.6)
[2021-06-03 08:15] LABS: ALBUMIN 3.4 g/dl (3.4-5.0); BILIRUBIN,TOTAL 0.4 mg/dl (0.2-1); CALCIUM 8.3 mg/dl (8.5-10); CREATININE 1.5 mg/dl (0.55-1.3); MAGNESIUM 2.1 mg/dL (1.8-2.4); TOT PROT 6.4 g/dl (6.4-8.2)
[2021-06-03] MEDS: amLODIPine BESYLATE 10 MG TABLET (FP) PO SCH (09:30)
[2021-06-03] MEDS: METOPROLOL TARTRATE 25 MG TABLET (FP) PO SCH ×2 (09:30→21:17)
[2021-06-03] MEDS: APIXABAN 2.5 MG TABLET PO SCH ×2 (09:30→21:17)
[2021-06-03] MEDS: GABAPENTIN 100 MG CAPSULE PO SCH ×2 (16:27→21:17)
[2021-06-03] MEDS: ATORVASTATIN CA 40 MG TABLET (FP) PO SCH (21:17)
[2021-06-04] MEDS: FUROSEMIDE 40 MG/4 ML INJECTABLE VIAL IVPB SCH ×2 (06:34→14:32)
[2021-06-04] MEDS: GABAPENTIN 100 MG CAPSULE PO SCH ×3 (06:35→22:08)
[2021-06-04] MEDS: INSULIN SLIDING SCALE (NOVOLOG) 1 VIAL SQ SCH ×4 (07:19→22:10)
[2021-06-04 08:20] LABS: ALBUMIN 4.1 g/dl (3.4-5.0); BILIRUBIN,TOTAL 0.8 mg/dl (0.2-1); CALCIUM 8.9 mg/dl (8.5-10); CREATININE 1.5 mg/dl (0.55-1.3); TOT PROT 7.4 g/dl (6.4-8.2)
[2021-06-04 10:01] LABS: N-TERMINAL BNP 1730.4 pg/ml (5-450)
[2021-06-04] MEDS: METOPROLOL TARTRATE 25 MG TABLET (FP) PO SCH ×2 (10:49→22:08)
[2021-06-04] MEDS: amLODIPine BESYLATE 10 MG TABLET (FP) PO SCH (10:49)
[2021-06-04] MEDS: APIXABAN 2.5 MG TABLET PO SCH ×2 (10:49→22:08)
[2021-06-04] MEDS: ATORVASTATIN CA 40 MG TABLET (FP) PO SCH (22:08)
[2021-06-05] MEDS: GABAPENTIN 100 MG CAPSULE PO SCH ×3 (06:36→21:44)
[2021-06-05] MEDS: FUROSEMIDE 40 MG/4 ML INJECTABLE VIAL IVPB SCH ×2 (06:37→15:41)
[2021-06-05] MEDS: INSULIN SLIDING SCALE (NOVOLOG) 1 VIAL SQ SCH ×4 (06:41→21:51)
[2021-06-05 08:04] LABS: BASO % 1.3 % (0-2.0); EOS % 3.4 % (0-4.5); HEMATOCRIT 33.3 % (32.4-45.2); HEMOGLOBIN 11.1 GM/dl (10.7-15.3); LYMPH % 24.7 % (8-40); MCH 29.4 pg (25.7-33.7); MCHC 33.3 g/dl (32.0-36.0); MEAN CELL VOLUME 88.2 fl (80-96); MEAN PLT VOLUME 8.2 fl (7.5-11.1); MONO % 9.3 % (3.8-10.2); NEUT % 61.3 % (42.8-82.8); PLATELET COUNT 210 10^3/uL (134-434); RBC 3.78 M/mm3 (3.60-5.2); RDW 12.6 % (11.6-15.6); WHITE BLOOD COUNT 7.1 K/mm3 (4.0-10.8)
[2021-06-05 08:09] LABS: ALBUMIN 3.2 g/dl (3.4-5.0); BILIRUBIN,TOTAL 0.6 mg/dl (0.2-1); CALCIUM 8.2 mg/dl (8.5-10); CREATININE 1.8 mg/dl (0.55-1.3)
[2021-06-05] MEDS: amLODIPine BESYLATE 10 MG TABLET (FP) PO SCH (10:41)
[2021-06-05] MEDS: APIXABAN 2.5 MG TABLET PO SCH ×2 (10:41→21:43)
[2021-06-05] MEDS: METOPROLOL TARTRATE 25 MG TABLET (FP) PO SCH ×2 (10:41→21:43)
[2021-06-05] MEDS: ATORVASTATIN CA 40 MG TABLET (FP) PO SCH (21:43)
[2021-06-06] MEDS: FUROSEMIDE 40 MG/4 ML INJECTABLE VIAL IVPB SCH ×2 (06:28→14:47)
[2021-06-06] MEDS: GABAPENTIN 100 MG CAPSULE PO SCH ×3 (06:28→21:50)
[2021-06-06] MEDS: INSULIN SLIDING SCALE (NOVOLOG) 1 VIAL SQ SCH ×4 (06:35→21:54)
[2021-06-06 08:38] LABS: ALBUMIN 3.2 g/dl (3.4-5.0); BILIRUBIN,TOTAL 0.6 mg/dl (0.2-1); CALCIUM 8.1 mg/dl (8.5-10); CREATININE 1.6 mg/dl (0.55-1.3); MAGNESIUM 2.1 mg/dL (1.8-2.4); PHOSPHOROUS 4.5 mg/dl (2.5-4.9); TOT PROT 6.1 g/dl (6.4-8.2)
[2021-06-06 09:31] LABS: BASO % 1.7 % (0-2.0); EOS % 2.9 % (0-4.5); HEMATOCRIT 34.5 % (32.4-45.2); HEMOGLOBIN 11.8 GM/dl (10.7-15.3); MCH 29.8 pg (25.7-33.7); MCHC 34.2 g/dl (32.0-36.0); MEAN CELL VOLUME 87.3 fl (80-96); MEAN PLT VOLUME 8.3 fl (7.5-11.1); MONO % 9.5 % (3.8-10.2); NEUT % 65.9 % (42.8-82.8); PLATELET COUNT 220 10^3/uL (134-434); RBC 3.96 M/mm3 (3.60-5.2); RDW 12.1 % (11.6-15.6); WHITE BLOOD COUNT 7.4 K/mm3 (4.0-10.8)
[2021-06-06] MEDS: APIXABAN 2.5 MG TABLET PO SCH ×2 (09:45→21:50)
[2021-06-06] MEDS: amLODIPine BESYLATE 10 MG TABLET (FP) PO SCH (09:45)
[2021-06-06] MEDS: METOPROLOL TARTRATE 25 MG TABLET (FP) PO SCH ×2 (09:45→21:50)
[2021-06-06] MEDS: POTASSIUM CHLORIDE TABS 10 MEQ TABLET.ER (FP) PO SCH (11:42)
[2021-06-06] MEDS: ATORVASTATIN CA 40 MG TABLET (FP) PO SCH (21:49)
[2021-06-07] MEDS: GABAPENTIN 100 MG CAPSULE PO SCH (05:55)
[2021-06-07] MEDS ORDERED: FUROSEMIDE 40 MG TABLET (FP) PO SCH (06:00)
[2021-06-07] MEDS: INSULIN SLIDING SCALE (NOVOLOG) 1 VIAL SQ SCH (06:04)
[2021-06-07 08:18] LABS: CALCIUM 7.9 mg/dl (8.5-10); CREATININE 1.7 mg/dl (0.55-1.3)
[2021-06-07 11:05] VITALS: BP 151/74; PULSE 88; TEMP 98
[2021-06-07] MEDS: APIXABAN 2.5 MG TABLET PO SCH (11:09)
[2021-06-07] MEDS: amLODIPine BESYLATE 10 MG TABLET (FP) PO SCH (11:09)
[2021-06-07] MEDS: METOPROLOL TARTRATE 25 MG TABLET (FP) PO SCH (11:09)
[2021-06-07] MEDS: POTASSIUM CHLORIDE TABS 10 MEQ TABLET.ER (FP) PO SCH (11:10)
== END 2021-06-07 13:22 | disposition home or self-care (01) | DRG 291 ==
LOC: FER 17:05 → FM/S 19:32
PROVIDERS: ADMIT Internal Medicine; ATTEND Nurse Practitioner Family
DX: I13.0 Hypertensive heart and chronic kidney disease with heart failure and stage 1 through stage 4 chronic kidney disease, or unspecified chronic kidney disease (principal); I50.33 Acute on chronic diastolic (congestive) heart failure; N17.9 Acute kidney failure, unspecified; I45.10 Unspecified right bundle-branch block; E11.22 Type 2 diabetes mellitus with diabetic chronic kidney disease; E11.51 Type 2 diabetes mellitus with diabetic peripheral angiopathy without gangrene; E78.5 Hyperlipidemia, unspecified; I27.20 Pulmonary hypertension, unspecified; I25.10 Atherosclerotic heart disease of native coronary artery without angina pectoris; I34.0 Nonrheumatic mitral (valve) insufficiency; E11.40 Type 2 diabetes mellitus with diabetic neuropathy, unspecified; N18.30 Chronic kidney disease, stage 3 unspecified; I48.0 Paroxysmal atrial fibrillation; Z79.84 Long term (current) use of oral hypoglycemic drugs
CPT/HCPCS: 36415; 71045-TC-FY; 71250-TC; 80048; 80053; 82550; 82962; 83036; 83735; 83880; 84100; 84484; 85025; 93005; 93970-TC; 97116-GP; 97162-GP; 99285-25; C9803; J1644; U0003; U0005

== ENCOUNTER 2021-07-12 20:35 | Inpatient (IN) | payer OTHER ==
[2021-07-12 21:24] LABS: RDW 12.2 % (11.6-15.6); WHITE BLOOD COUNT 13.9 K/mm3 (4.0-10.8)
[2021-07-12 21:27] LABS: HEMATOCRIT 35.7 % (32.4-45.2); HEMOGLOBIN 11.9 GM/dl (10.7-15.3); MCH 29.1 pg (25.7-33.7); MCHC 33.3 g/dl (32.0-36.0); MEAN CELL VOLUME 87.4 fl (80-96); MEAN PLT VOLUME 8.3 fl (7.5-11.1); PLATELET COUNT 196 10^3/uL (134-434); RBC 4.08 M/mm3 (3.60-5.2)
[2021-07-12 21:43] LABS: ALBUMIN 4.1 g/dl (3.4-5.0); ALK PHOS 92 U/L (45-117); ANION GAP 13 MMOL/L (8-16); BILIRUBIN,TOTAL 0.6 mg/dl (0.2-1); CALCIUM 8.4 mg/dl (8.5-10); CHLORIDE 95 mmol/L (98-107); CO2 24 mmol/L (21-32); CREATININE 1.9 mg/dl (0.55-1.3); GLUCOSE,RANDOM 150 mg/dl (74-106); SGOT/AST 18 U/L (15-37); SGPT/ALT 14 U/L (13-61); SODIUM 132 mmol/L (136-145); TOT PROT 7.3 g/dl (6.4-8.2)
[2021-07-12 22:30] LABS: N-TERMINAL BNP 2374.5 pg/ml (5-450)
[2021-07-12] MEDS ORDERED: CEFTRIAXONE 1,000 MG in DEXTROSE 5%-WATER - 50 ML IVPB ONE (22:43)
[2021-07-12] MEDS ORDERED: cefTRIAXone SODIUM 1 GM VIAL ONE (22:45)
[2021-07-12 23:23] LABS: PLATELET ESTIMATE ADEQUATE
[2021-07-13] MEDS ORDERED: POTASSIUM CHLORIDE TABS 10 MEQ TABLET.ER (FP) PO ONE (00:15)
[2021-07-13] MEDS ORDERED: ACETAMINOPHEN 325 MG TABLET (FP) PO PRN (00:36)
[2021-07-13] MEDS ORDERED: POTASSIUM CHLORIDE TABS 20 MEQ TABLET.ER (FP) PO ONE (00:53)
[2021-07-13 01:48] LABS: EPI CELLS 12 /uL (0-25.1); HYALINE CASTS 1 /uL (0-3.1); PH,URINE 5.5 (5.0-8.0); URINE APPEARANCE CLEAR; URINE BACTERIA 91 /uL (0-1359); URINE BILIRUBIN NEGATIVE (NEGATIVE); URINE COLOR YELLOW; URINE GLUCOSE (UA) NEGATIVE (NEGATIVE); URINE KETONE NEGATIVE (NEGATIVE); URINE LEUK ESTERASE 1+ (NEGATIVE); URINE NITRITE NEGATIVE (NEGATIVE); URINE PROTEIN 2+ (NEGATIVE); URINE RBC 2 /uL (0-23.9); URINE UROBILINOGEN 0.2 mg/dL (0.2-1.0); URINE WBC 85 /uL (0-25.8)
[2021-07-13] MEDS ORDERED: PIPERACILLIN/TAZOBACTAM 3.375 GM VIAL IVPB ONE ×2 (02:10→09:20)
[2021-07-13] MEDS ORDERED: DEXTROSE 5%-WATER - 50 ML IVPB ONE ×3 (02:10→21:11)
[2021-07-13 02:23] VITALS: BMI 26.3
[2021-07-13] MEDS: PIPERACILLIN/TAZOB 3.375 GM 3.375 GM in DEXTROSE 5%-WATER - 50 ML IVPB SCH ×2 (02:31→09:56)
[2021-07-13 08:20] LABS: BASO % 0.6 % (0-2.0); EOS % 1.5 % (0-4.5); HEMATOCRIT 33.7 % (32.4-45.2); HEMOGLOBIN 11.2 GM/dl (10.7-15.3); LYMPH % 20.4 % (8-40); MCH 29.3 pg (25.7-33.7); MCHC 33.3 g/dl (32.0-36.0); MEAN CELL VOLUME 87.9 fl (80-96); MEAN PLT VOLUME 8.5 fl (7.5-11.1); NEUT % 70.5 % (42.8-82.8); PLATELET COUNT 175 10^3/uL (134-434); RBC 3.83 M/mm3 (3.60-5.2); WHITE BLOOD COUNT 10.4 K/mm3 (4.0-10.8)
[2021-07-13 08:28] LABS: ALBUMIN 3.4 g/dl (3.4-5.0); BILIRUBIN,TOTAL 0.4 mg/dl (0.2-1); CALCIUM 8.5 mg/dl (8.5-10); CREATININE 1.7 mg/dl (0.55-1.3); MAGNESIUM 2.1 mg/dL (1.8-2.4); TOT PROT 6.3 g/dl (6.4-8.2)
[2021-07-13] MEDS: METOPROLOL TARTRATE 25 MG TABLET (FP) PO SCH ×2 (09:56→21:27)
[2021-07-13] MEDS: APIXABAN 2.5 MG TABLET PO SCH ×2 (09:56→21:26)
[2021-07-13] MEDS ORDERED: ATORVASTATIN CA 40 MG TABLET (FP) PO SCH (10:00)
[2021-07-13] MEDS ORDERED: amLODIPine BESYLATE 10 MG TABLET (FP) PO SCH (10:00)
[2021-07-13] MEDS ORDERED: PIPERACILLIN/TAZOB 3.375 GM 3.375 GM in DEXTROSE 5%-WATER - 50 ML IVPB SCH (10:00)
[2021-07-13] MEDS ORDERED: APIXABAN 2.5 MG TABLET PO SCH (10:00)
[2021-07-13] MEDS ORDERED: IPRATROPIUM BR 0.02% 0.5 MG/2.5 ML VIAL.NEB. NEB PRN (11:01)
[2021-07-13] MEDS: INSULIN SLIDING SCALE (NOVOLOG) 1 VIAL SQ SCH ×3 (11:19→21:31)
[2021-07-13] MEDS: FUROSEMIDE 40 MG TABLET (FP) PO SCH (13:09)
[2021-07-13] MEDS: GABAPENTIN 100 MG CAPSULE PO SCH ×2 (13:09→21:26)
[2021-07-13] MEDS: DOXYCYCLINE HYCLATE 100 MG CAPSULE PO SCH (18:46)
[2021-07-13] MEDS ORDERED: cefTRIAXone SODIUM 1 GM VIAL ONE (21:11)
[2021-07-13] MEDS: POTASSIUM CHLORIDE TABS 10 MEQ TABLET.ER (FP) PO SCH (21:26)
[2021-07-13] MEDS: CEFTRIAXONE 1 GM in DEXTROSE 5%-WATER - 50 ML IVPB SCH (21:26)
[2021-07-13] MEDS: ATORVASTATIN CA 40 MG TABLET (FP) PO SCH (21:26)
[2021-07-14] MEDS: FUROSEMIDE 40 MG TABLET (FP) PO SCH ×2 (06:38→14:21)
[2021-07-14] MEDS: INSULIN SLIDING SCALE (NOVOLOG) 1 VIAL SQ SCH ×4 (06:38→22:50)
[2021-07-14] MEDS: GABAPENTIN 100 MG CAPSULE PO SCH ×3 (06:38→21:02)
[2021-07-14 09:09] LABS: RDW 12.3 % (11.6-15.6)
[2021-07-14 09:12] LABS: HEMATOCRIT 33.8 % (32.4-45.2); HEMOGLOBIN 11.4 GM/dl (10.7-15.3); MCHC 33.6 g/dl (32.0-36.0); MEAN PLT VOLUME 9.7 fl (7.5-11.1); PLATELET COUNT 230 10^3/uL (134-434)
[2021-07-14 09:17] LABS: ALBUMIN 3.1 g/dl (3.4-5.0); BILIRUBIN,TOTAL 0.4 mg/dl (0.2-1); CALCIUM 7.9 mg/dl (8.5-10); CREATININE 1.9 mg/dl (0.55-1.3); MAGNESIUM 2.1 mg/dL (1.8-2.4); TOT PROT 6.1 g/dl (6.4-8.2)
[2021-07-14] MEDS ORDERED: cefTRIAXone SODIUM 1 GM VIAL ONE (09:17)
[2021-07-14] MEDS ORDERED: DEXTROSE 5%-WATER - 50 ML IVPB ONE (09:17)
[2021-07-14] MEDS: APIXABAN 2.5 MG TABLET PO SCH ×2 (09:38→21:02)
[2021-07-14] MEDS: CEFTRIAXONE 1 GM in DEXTROSE 5%-WATER - 50 ML IVPB SCH (09:38)
[2021-07-14] MEDS: POTASSIUM CHLORIDE TABS 10 MEQ TABLET.ER (FP) PO SCH ×2 (09:38→21:02)
[2021-07-14] MEDS: DOXYCYCLINE HYCLATE 100 MG CAPSULE PO SCH ×2 (09:38→18:29)
[2021-07-14] MEDS: METOPROLOL TARTRATE 25 MG TABLET (FP) PO SCH ×2 (09:39→21:03)
[2021-07-14 10:32] LABS: PLATELET ESTIMATE ADEQUATE
[2021-07-14] MEDS ORDERED: IPRATROPIUM BR 0.02% 0.5 MG/2.5 ML VIAL.NEB. NEB STA (12:25)
[2021-07-14] MEDS: ALBUTEROL SO4 2.5/IPRATROPIUM 0.5 INH SOL 3 ML VIAL.NEB. NEB PRN (18:29)
[2021-07-14] MEDS: ATORVASTATIN CA 40 MG TABLET (FP) PO SCH (21:02)
[2021-07-15] MEDS: GABAPENTIN 100 MG CAPSULE PO SCH ×3 (05:35→21:11)
[2021-07-15] MEDS: ALBUTEROL SO4 2.5/IPRATROPIUM 0.5 INH SOL 3 ML VIAL.NEB. NEB PRN ×2 (05:35→09:20)
[2021-07-15] MEDS: FUROSEMIDE 40 MG TABLET (FP) PO SCH (05:35)
[2021-07-15] MEDS: INSULIN SLIDING SCALE (NOVOLOG) 1 VIAL SQ SCH ×4 (06:23→21:11)
[2021-07-15] MEDS ORDERED: cefTRIAXone SODIUM 1 GM VIAL ONE (08:37)
[2021-07-15] MEDS ORDERED: DEXTROSE 5%-WATER - 50 ML IVPB ONE (08:37)
[2021-07-15] MEDS: CEFTRIAXONE 1 GM in DEXTROSE 5%-WATER - 50 ML IVPB SCH (09:16)
[2021-07-15] MEDS: APIXABAN 2.5 MG TABLET PO SCH ×2 (09:17→21:10)
[2021-07-15] MEDS: POTASSIUM CHLORIDE TABS 10 MEQ TABLET.ER (FP) PO SCH ×2 (09:17→21:10)
[2021-07-15] MEDS: METOPROLOL TARTRATE 25 MG TABLET (FP) PO SCH ×2 (09:17→21:10)
[2021-07-15] MEDS: DOXYCYCLINE HYCLATE 100 MG CAPSULE PO SCH ×2 (09:17→17:00)
[2021-07-15] MEDS: FUROSEMIDE 40 MG/4 ML INJECTABLE VIAL IVPUSH SCH (13:11)
[2021-07-15] MEDS: ATORVASTATIN CA 40 MG TABLET (FP) PO SCH (21:10)
[2021-07-16] MEDS: FUROSEMIDE 40 MG/4 ML INJECTABLE VIAL IVPUSH SCH (06:25)
[2021-07-16] MEDS: INSULIN SLIDING SCALE (NOVOLOG) 1 VIAL SQ SCH ×4 (06:26→22:58)
[2021-07-16] MEDS: GABAPENTIN 100 MG CAPSULE PO SCH ×3 (06:26→22:25)
[2021-07-16 07:52] LABS: EOS % 2.5 % (0-4.5); HEMATOCRIT 37.7 % (32.4-45.2); HEMOGLOBIN 12.8 GM/dl (10.7-15.3); LYMPH % 22.5 % (8-40); MCHC 33.9 g/dl (32.0-36.0); MEAN CELL VOLUME 88.7 fl (80-96); MONO % 5.9 % (3.8-10.2); NEUT % 68.1 % (42.8-82.8); PLATELET COUNT 217 10^3/uL (134-434); RBC 4.25 M/mm3 (3.60-5.2); RDW 12.1 % (11.6-15.6); WHITE BLOOD COUNT 8.5 K/mm3 (4.0-10.8)
[2021-07-16 08:01] LABS: ALBUMIN 3.4 g/dl (3.4-5.0); BILIRUBIN,TOTAL 0.6 mg/dl (0.2-1); CALCIUM 8.9 mg/dl (8.5-10); MAGNESIUM 1.8 mg/dL (1.8-2.4)
[2021-07-16] MEDS: APIXABAN 2.5 MG TABLET PO SCH ×2 (10:00→22:25)
[2021-07-16] MEDS: ALBUTEROL SO4 2.5/IPRATROPIUM 0.5 INH SOL 3 ML VIAL.NEB. NEB SCH ×4 (10:10→21:21)
[2021-07-16] MEDS ORDERED: cefTRIAXone SODIUM 1 GM VIAL ONE (10:45)
[2021-07-16] MEDS ORDERED: DEXTROSE 5%-WATER - 50 ML IVPB ONE (10:45)
[2021-07-16] MEDS: CEFTRIAXONE 1 GM in DEXTROSE 5%-WATER - 50 ML IVPB SCH (10:48)
[2021-07-16] MEDS: METOPROLOL TARTRATE 25 MG TABLET (FP) PO SCH ×2 (10:48→22:25)
[2021-07-16] MEDS: POTASSIUM CHLORIDE TABS 10 MEQ TABLET.ER (FP) PO SCH ×2 (10:49→22:25)
[2021-07-16] MEDS: DOXYCYCLINE HYCLATE 100 MG CAPSULE PO SCH ×2 (10:49→18:12)
[2021-07-16] MEDS: methylPREDNISolone NA SUCC 40 MG/1 ML VIAL IVPUSH SCH ×3 (12:44→21:20)
[2021-07-16] MEDS: ATORVASTATIN CA 40 MG TABLET (FP) PO SCH (22:25)
[2021-07-16] MEDS ORDERED: INSULIN (NOVOLOG) ASPART 100 UNITS/ML 10ML VIAL SQ ONE (22:45)
[2021-07-17] MEDS: methylPREDNISolone NA SUCC 40 MG/1 ML VIAL IVPUSH SCH ×4 (03:22→21:30)
[2021-07-17] MEDS: GABAPENTIN 100 MG CAPSULE PO SCH ×3 (06:44→21:32)
[2021-07-17] MEDS: FUROSEMIDE 40 MG TABLET (FP) PO SCH ×2 (06:44→14:13)
[2021-07-17] MEDS ORDERED: INSULIN (NOVOLOG) ASPART 100 UNITS/ML 10ML VIAL SQ ONE ×2 (06:45→23:33)
[2021-07-17] MEDS: INSULIN SLIDING SCALE (NOVOLOG) 1 VIAL SQ SCH ×4 (06:50→23:17)
[2021-07-17 08:10] LABS: HEMATOCRIT 34.2 % (32.4-45.2); HEMOGLOBIN 11.4 GM/dl (10.7-15.3); MCH 29.7 pg (25.7-33.7); MCHC 33.5 g/dl (32.0-36.0); MEAN CELL VOLUME 88.8 fl (80-96); MEAN PLT VOLUME 8.4 fl (7.5-11.1); PLATELET COUNT 196 10^3/uL (134-434); RBC 3.85 M/mm3 (3.60-5.2); RDW 11.9 % (11.6-15.6); WHITE BLOOD COUNT 8.6 K/mm3 (4.0-10.8)
[2021-07-17 08:13] LABS: BILIRUBIN,TOTAL 0.6 mg/dl (0.2-1); CALCIUM 8.8 mg/dl (8.5-10); CREATININE 1.8 mg/dl (0.55-1.3); MAGNESIUM 1.9 mg/dL (1.8-2.4); TOT PROT 6.5 g/dl (6.4-8.2)
[2021-07-17 08:23] LABS: ADD RBC MORPHOLOGY YES
[2021-07-17] MEDS ORDERED: cefTRIAXone SODIUM 1 GM VIAL ONE (09:35)
[2021-07-17] MEDS ORDERED: DEXTROSE 5%-WATER - 50 ML IVPB ONE (09:36)
[2021-07-17] MEDS: CEFTRIAXONE 1 GM in DEXTROSE 5%-WATER - 50 ML IVPB SCH (09:39)
[2021-07-17] MEDS: ALBUTEROL SO4 2.5/IPRATROPIUM 0.5 INH SOL 3 ML VIAL.NEB. NEB SCH ×4 (09:39→21:33)
[2021-07-17] MEDS: DOXYCYCLINE HYCLATE 100 MG CAPSULE PO SCH ×2 (09:40→17:06)
[2021-07-17] MEDS: METOPROLOL TARTRATE 25 MG TABLET (FP) PO SCH ×2 (09:40→21:33)
[2021-07-17] MEDS: APIXABAN 2.5 MG TABLET PO SCH ×2 (09:40→21:32)
[2021-07-17] MEDS: POTASSIUM CHLORIDE TABS 10 MEQ TABLET.ER (FP) PO SCH ×2 (09:40→21:32)
[2021-07-17 10:07] LABS: PLATELET ESTIMATE ADEQUATE
[2021-07-17 20:07] LABS: SARS-CoV-2 NAA Not Detected (Not Detected)
[2021-07-17] MEDS: ATORVASTATIN CA 40 MG TABLET (FP) PO SCH (21:32)
[2021-07-18] MEDS: methylPREDNISolone NA SUCC 40 MG/1 ML VIAL IVPUSH SCH ×4 (03:00→22:25)
[2021-07-18] MEDS: FUROSEMIDE 40 MG TABLET (FP) PO SCH ×2 (05:48→15:02)
[2021-07-18] MEDS: GABAPENTIN 100 MG CAPSULE PO SCH ×3 (05:48→22:26)
[2021-07-18] MEDS: INSULIN SLIDING SCALE (NOVOLOG) 1 VIAL SQ SCH ×4 (06:15→23:06)
[2021-07-18] MEDS ORDERED: ALBUTEROL SO4 2.5/IPRATROPIUM 0.5 INH SOL 3 ML VIAL.NEB. NEB SCH ×3 (08:16→09:30)
[2021-07-18 09:24] LABS: BASO % 1.2 % (0-2.0); HEMATOCRIT 33.1 % (32.4-45.2); HEMOGLOBIN 11.1 GM/dl (10.7-15.3); MCH 29.6 pg (25.7-33.7); MCHC 33.4 g/dl (32.0-36.0); MEAN CELL VOLUME 88.5 fl (80-96); MEAN PLT VOLUME 8.3 fl (7.5-11.1); MONO % 0.9 % (3.8-10.2); NEUT % 93.9 % (42.8-82.8); PLATELET COUNT 215 10^3/uL (134-434); RBC 3.74 M/mm3 (3.60-5.2); RDW 12.3 % (11.6-15.6); WHITE BLOOD COUNT 10.8 K/mm3 (4.0-10.8)
[2021-07-18 09:47] LABS: ALBUMIN 2.9 g/dl (3.4-5.0); BILIRUBIN,TOTAL 0.3 mg/dl (0.2-1); CALCIUM 8.4 mg/dl (8.5-10); CREATININE 1.7 mg/dl (0.55-1.3); MAGNESIUM 1.8 mg/dL (1.8-2.4); TOT PROT 6.2 g/dl (6.4-8.2)
[2021-07-18] MEDS: ALBUTEROL SO4 2.5/IPRATROPIUM 0.5 INH SOL 3 ML VIAL.NEB. NEB SCH ×4 (09:58→22:26)
[2021-07-18] MEDS ORDERED: DEXTROSE 5%-WATER - 50 ML IVPB ONE (10:14)
[2021-07-18] MEDS ORDERED: cefTRIAXone SODIUM 1 GM VIAL ONE (10:14)
[2021-07-18] MEDS: CEFTRIAXONE 1 GM in DEXTROSE 5%-WATER - 50 ML IVPB SCH (10:24)
[2021-07-18] MEDS: POTASSIUM CHLORIDE TABS 10 MEQ TABLET.ER (FP) PO SCH ×2 (10:24→22:26)
[2021-07-18] MEDS: DOXYCYCLINE HYCLATE 100 MG CAPSULE PO SCH ×2 (10:24→17:23)
[2021-07-18] MEDS: APIXABAN 2.5 MG TABLET PO SCH ×2 (10:24→22:25)
[2021-07-18] MEDS: METOPROLOL TARTRATE 25 MG TABLET (FP) PO SCH ×2 (10:24→22:25)
[2021-07-18] MEDS ORDERED: INSULIN (NOVOLOG) ASPART 100 UNITS/ML 10ML VIAL SQ ONE ×2 (11:45→22:54)
[2021-07-18] MEDS: ATORVASTATIN CA 40 MG TABLET (FP) PO SCH (22:25)
[2021-07-19] MEDS: FUROSEMIDE 40 MG TABLET (FP) PO SCH ×2 (06:29→14:15)
[2021-07-19] MEDS: GABAPENTIN 100 MG CAPSULE PO SCH ×2 (06:29→14:15)
[2021-07-19] MEDS: INSULIN SLIDING SCALE (NOVOLOG) 1 VIAL SQ SCH ×2 (06:32→11:41)
[2021-07-19] MEDS ORDERED: cefTRIAXone SODIUM 1 GM VIAL ONE (07:36)
[2021-07-19] MEDS ORDERED: DEXTROSE 5%-WATER - 50 ML IVPB ONE (07:36)
[2021-07-19 08:22] VITALS: BP 155/77; PULSE 99; TEMP 98.1
[2021-07-19] MEDS: CEFTRIAXONE 1 GM in DEXTROSE 5%-WATER - 50 ML IVPB SCH (09:09)
[2021-07-19] MEDS: APIXABAN 2.5 MG TABLET PO SCH (09:10)
[2021-07-19] MEDS: METOPROLOL TARTRATE 25 MG TABLET (FP) PO SCH (09:10)
[2021-07-19] MEDS: ALBUTEROL SO4 2.5/IPRATROPIUM 0.5 INH SOL 3 ML VIAL.NEB. NEB SCH ×2 (09:10→14:14)
[2021-07-19] MEDS: DOXYCYCLINE HYCLATE 100 MG CAPSULE PO SCH (09:10)
[2021-07-19] MEDS: POTASSIUM CHLORIDE TABS 10 MEQ TABLET.ER (FP) PO SCH (09:11)
[2021-07-19] MEDS: methylPREDNISolone NA SUCC 40 MG/1 ML VIAL IVPUSH SCH (09:16)
[2021-07-19 11:04] LABS: BASO % 1.9 % (0-2.0); EOS % 0.1 % (0-4.5); HEMATOCRIT 32.9 % (32.4-45.2); HEMOGLOBIN 11.1 GM/dl (10.7-15.3); LYMPH % 5.9 % (8-40); MCH 29.7 pg (25.7-33.7); MCHC 33.7 g/dl (32.0-36.0); MEAN CELL VOLUME 87.9 fl (80-96); MEAN PLT VOLUME 8.3 fl (7.5-11.1); MONO % 3.2 % (3.8-10.2); NEUT % 88.9 % (42.8-82.8); PLATELET COUNT 216 10^3/uL (134-434); RBC 3.75 M/mm3 (3.60-5.2); RDW 11.7 % (11.6-15.6); WHITE BLOOD COUNT 8.1 K/mm3 (4.0-10.8)
[2021-07-19 11:27] LABS: ALBUMIN 2.9 g/dl (3.4-5.0); BILIRUBIN,TOTAL 0.4 mg/dl (0.2-1); CALCIUM 7.8 mg/dl (8.5-10); CREATININE 1.7 mg/dl (0.55-1.3); MAGNESIUM 1.9 mg/dL (1.8-2.4); TOT PROT 5.9 g/dl (6.4-8.2)
== END 2021-07-19 14:41 | disposition home or self-care (01) | DRG 291 ==
LOC: FER 20:35 → FM/S 23:44 → UNDOADMIN 07-13 01:47 → FM/S 07-13 01:47
PROVIDERS: ADMIT Internal Medicine; ATTEND Nurse Practitioner Acute Care
DX: I13.0 Hypertensive heart and chronic kidney disease with heart failure and stage 1 through stage 4 chronic kidney disease, or unspecified chronic kidney disease (principal); J96.01 Acute respiratory failure with hypoxia; J18.9 Pneumonia, unspecified organism; I50.33 Acute on chronic diastolic (congestive) heart failure; J44.0 Chronic obstructive pulmonary disease with (acute) lower respiratory infection; I48.20 Chronic atrial fibrillation, unspecified; J44.1 Chronic obstructive pulmonary disease with (acute) exacerbation; N18.9 Chronic kidney disease, unspecified; D72.829 Elevated white blood cell count, unspecified; E78.5 Hyperlipidemia, unspecified; I27.20 Pulmonary hypertension, unspecified; E11.9 Type 2 diabetes mellitus without complications; I34.0 Nonrheumatic mitral (valve) insufficiency
CPT/HCPCS: 36415; 70450-TC; 71045-TC-FY; 71250-TC; 80053; 81003; 82550; 82962; 83605; 83735; 83880; 84484; 85025; 86301; 87040; 87070; 87077; 87086; 87106; 87205; 87804; 87899; 93005; 94640; 94761; 97116-GP; 97162-GP; 99285-25; C9803; U0003; U0005

== ENCOUNTER 2021-08-30 21:12 | Emergency (ER) | payer OTHER ==
[2021-08-30 21:39] VITALS: BMI 26.6
[2021-08-30 22:28] LABS: ALBUMIN 3.5 g/dl (3.4-5.0); BILIRUBIN,TOTAL 0.8 mg/dl (0.2-1); CALCIUM 8.3 mg/dl (8.5-10); CREATININE 2.3 mg/dl (0.55-1.3); TOT PROT 7.1 g/dl (6.4-8.2)
[2021-08-30] MEDS ORDERED: SODIUM CHLORIDE 1,000 ML IV SCH (22:30)
[2021-08-30 22:50] LABS: BASO % 0.3 % (0-2.0); EOS % 0.1 % (0-4.5); HEMATOCRIT 36.1 % (32.4-45.2); HEMOGLOBIN 12.3 GM/dL (10.7-15.3); LYMPH % 25.1 % (8-40); MCH 29.2 pg (25.7-33.7); MEAN CELL VOLUME 85.7 fl (80-96); MEAN PLT VOLUME 8.5 fl (7.5-11.1); MONO % 11.5 % (3.8-10.2); PLATELET COUNT 150 10^3/uL (134-434); RBC 4.21 M/mm3 (3.60-5.2); RDW 13.8 % (11.6-15.6)
[2021-08-30] MEDS ORDERED: ACETAMINOPHEN 1000 MG/100 ML VIAL IVPB ONE (23:00)
[2021-08-30] MEDS ORDERED: ACETAMINOPHEN INJECTION 100 ML IVPB ONE (23:01)
[2021-08-30] MEDS: ACETAMINOPHEN 500 MG TABLET (FP) PO ONE ×2 (23:07→23:12)
[2021-08-31 01:10] VITALS: BP 97/58; PULSE 106; TEMP 98.3
== END 2021-08-31 02:45 | disposition home or self-care (01) ==
LOC: FER 21:12
PROC: 3E033NZ Introduction of Analgesics, Hypnotics, Sedatives into Peripheral Vein, Percutaneous Approach (ICD-10-PCS; principal; 2021-08-30)
DX: U07.1 COVID-19 (principal); I50.30 Unspecified diastolic (congestive) heart failure
CPT/HCPCS: 36415; 71045-TC-FY; 80053; 81003; 81015; 82550; 83605; 83880; 84484; 85025; 87040; 87086; 87186; 93005; 96374; 99284-25; C9803; J0131; U0003; U0005

== ENCOUNTER 2021-11-21 09:45 | Inpatient (IN) | payer OTHER ==
[2021-11-21 11:06] LABS: MAGNESIUM 1.9 mg/dL (1.8-2.4)
[2021-11-21 11:07] LABS: ALBUMIN 3.3 g/dl (3.4-5.0); BILIRUBIN,TOTAL 0.9 mg/dl (0.2-1); CALCIUM 8.6 mg/dl (8.5-10); CREATININE 1.7 mg/dl (0.55-1.3); TOT PROT 7.1 g/dl (6.4-8.2)
[2021-11-21 11:30] LABS: AMORP URATES 2+ /hpf (NONE SEEN); EPITHELIAL CELLS FEW /hpf
[2021-11-21] MEDS ORDERED: CEFTRIAXONE 1 GM in DEXTROSE 5%-WATER - 50 ML IVPB ONE (11:53)
[2021-11-21] MEDS ORDERED: cefTRIAXone SODIUM 1 GM VIAL ONE (11:56)
[2021-11-21] MEDS ORDERED: AZITHROMYCIN IVPB 500 MG in DEXTROSE 5%-WATER - 250 ML IVPB ONE (13:40)
[2021-11-21] MEDS ORDERED: AZITHROMYCIN 500 MG VIAL IVPB ONE (13:49)
[2021-11-21] MEDS ORDERED: ALBUTEROL SO4 HFA INHALER IH PRN (14:42)
[2021-11-21] MEDS ORDERED: PATIENT'S OWN MEDICATION (NON-FORMULARY) (Benzonatate 100 MG Capsule) PO PRN (14:42)
[2021-11-21 14:45] LABS: BASO % 0.5 % (0-2.0); EOS % 0.2 % (0-4.5); HEMATOCRIT 29.8 % (32.4-45.2); HEMOGLOBIN 9.8 GM/dL (10.7-15.3); LYMPH % 14.4 % (8-40); MCH 29.6 pg (25.7-33.7); MEAN CELL VOLUME 89.7 fl (80-96); MEAN PLT VOLUME 8.2 fl (7.5-11.1); MONO % 7.1 % (3.8-10.2); NEUT % 77.8 % (42.8-82.8); PLATELET COUNT 244 10^3/uL (134-434); RBC 3.33 M/mm3 (3.60-5.2); RDW 14.6 % (11.6-15.6); WHITE BLOOD COUNT 10.1 K/mm3 (4.0-10.0)
[2021-11-21 14:52] LABS: PLATELET ESTIMATE ADEQUATE
[2021-11-21 14:53] LABS: N-TERMINAL BNP 5498.2 pg/ml (5-450)
[2021-11-21] MEDS ORDERED: INSULIN (NOVOLOG) ASPART 100 UNITS/ML 10ML VIAL ONE (16:55)
[2021-11-21] MEDS: INSULIN (NOVOLOG) ASPART 100 UNITS/ML 10ML VIAL SQ SCH ×2 (16:57→21:30)
[2021-11-21 17:59] VITALS: BMI 25.4
[2021-11-21] MEDS ORDERED: FUROSEMIDE 40 MG TABLET (FP) PO SCH (18:00)
[2021-11-21] MEDS: APIXABAN 2.5 MG TABLET PO SCH (21:30)
[2021-11-21] MEDS: METOPROLOL TARTRATE 50 MG TABLET (FP) PO SCH (21:30)
[2021-11-21] MEDS ORDERED: APIXABAN 5 MG TABLET PO SCH (22:00)
[2021-11-22] MEDS: INSULIN (NOVOLOG) ASPART 100 UNITS/ML 10ML VIAL SQ SCH ×4 (07:11→22:14)
[2021-11-22] MEDS ORDERED: cefTRIAXone SODIUM 1 GM VIAL ONE (08:58)
[2021-11-22] MEDS ORDERED: SODIUM CHLORIDE 50 ML IVPB ONE (08:58)
[2021-11-22] MEDS: PANTOPRAZOLE 40 MG TABLET PO SCH (09:11)
[2021-11-22] MEDS: APIXABAN 2.5 MG TABLET PO SCH ×2 (09:11→22:13)
[2021-11-22] MEDS: METOPROLOL TARTRATE 50 MG TABLET (FP) PO SCH ×2 (09:14→22:13)
[2021-11-22] MEDS ORDERED: CEFTRIAXONE 1 GM in SODIUM CHLORIDE 50 ML IVPB SCH (10:00)
[2021-11-22] MEDS ORDERED: FUROSEMIDE 40 MG/4 ML INJECTABLE VIAL IVPUSH SCH (10:00)
[2021-11-22] MEDS ORDERED: amLODIPine BESYLATE 10 MG TABLET (FP) PO SCH (10:00)
[2021-11-22] MEDS ORDERED: AZITHROMYCIN IVPB 250 MG in SODIUM CHLORIDE 250 ML IVPB SCH (10:00)
[2021-11-22] MEDS: guaiFENesin/D-M SUGAR-FREE/ACLHOL-FREE 118 ML BOTTLE PO PRN (12:23)
[2021-11-22] MEDS ORDERED: FUROSEMIDE 40 MG/4 ML INJECTABLE VIAL IVPUSH ONE (15:57)
[2021-11-22] MEDS: dilTIAZem HCL 30 MG TABLET PO SCH (17:14)
[2021-11-22] MEDS: ATORVASTATIN CA 40 MG TABLET (FP) PO SCH (22:13)
[2021-11-22] MEDS: INSULIN (LEVEMIR) 100 UNITS/ML UNITS SQ SCH (22:13)
[2021-11-23] MEDS: FUROSEMIDE 40 MG/4 ML INJECTABLE VIAL IVPUSH SCH ×2 (05:47→13:04)
[2021-11-23] MEDS: dilTIAZem HCL 30 MG TABLET PO SCH ×5 (05:47→23:58)
[2021-11-23] MEDS: INSULIN (NOVOLOG) ASPART 100 UNITS/ML 10ML VIAL SQ SCH ×4 (06:46→21:46)
[2021-11-23 08:43] LABS: CALCIUM 8.4 mg/dl (8.5-10); CREATININE 1.8 mg/dl (0.55-1.3)
[2021-11-23] MEDS: PANTOPRAZOLE 40 MG TABLET PO SCH (09:57)
[2021-11-23] MEDS: APIXABAN 2.5 MG TABLET PO SCH ×2 (09:57→21:30)
[2021-11-23] MEDS: METOPROLOL TARTRATE 50 MG TABLET (FP) PO SCH ×2 (09:57→21:30)
[2021-11-23] MEDS: ATORVASTATIN CA 40 MG TABLET (FP) PO SCH (21:30)
[2021-11-23] MEDS: guaiFENesin/D-M SUGAR-FREE/ACLHOL-FREE 118 ML BOTTLE PO PRN (21:30)
[2021-11-23] MEDS: INSULIN (LEVEMIR) 100 UNITS/ML UNITS SQ SCH (21:45)
[2021-11-24] MEDS: FUROSEMIDE 40 MG/4 ML INJECTABLE VIAL IVPUSH SCH ×2 (06:55→15:00)
[2021-11-24] MEDS: INSULIN (NOVOLOG) ASPART 100 UNITS/ML 10ML VIAL SQ SCH ×4 (06:55→21:15)
[2021-11-24] MEDS: dilTIAZem HCL 30 MG TABLET PO SCH ×4 (06:55→23:59)
[2021-11-24] MEDS: METOPROLOL TARTRATE 50 MG TABLET (FP) PO SCH ×2 (09:28→21:14)
[2021-11-24] MEDS: APIXABAN 2.5 MG TABLET PO SCH ×2 (09:29→21:14)
[2021-11-24] MEDS: PANTOPRAZOLE 40 MG TABLET PO SCH (09:29)
[2021-11-24 09:41] LABS: CALCIUM 8.2 mg/dl (8.5-10); CREATININE 1.8 mg/dl (0.55-1.3); MAGNESIUM 2.1 mg/dL (1.8-2.4)
[2021-11-24 10:32] LABS: BILIRUBIN,TOTAL 1.2 mg/dl (0.2-1); CALCIUM 8.4 mg/dl (8.5-10); CREATININE 1.8 mg/dl (0.55-1.3); MAGNESIUM 1.9 mg/dL (1.8-2.4)
[2021-11-24] MEDS ORDERED: FUROSEMIDE 40 MG/4 ML INJECTABLE VIAL IVPUSH ONE (10:37)
[2021-11-24 10:44] LABS: BASO % 0.5 % (0-2.0); EOS % 0.7 % (0-4.5); HEMATOCRIT 28.2 % (32.4-45.2); HEMOGLOBIN 9.2 GM/dL (10.7-15.3); LYMPH % 13.7 % (8-40); MCH 29.2 pg (25.7-33.7); MCHC 32.7 g/dl (32.0-36.0); MEAN CELL VOLUME 89.3 fl (80-96); MEAN PLT VOLUME 8.4 fl (7.5-11.1); MONO % 6.5 % (3.8-10.2); NEUT % 78.6 % (42.8-82.8); PLATELET COUNT 232 10^3/uL (134-434); RBC 3.16 M/mm3 (3.60-5.2); RDW 14.7 % (11.6-15.6); WHITE BLOOD COUNT 11.5 K/mm3 (4.0-10.0)
[2021-11-24] MEDS ORDERED: POTASSIUM CHLORIDE TABS 20 MEQ TABLET.ER (FP) PO ONE (11:00)
[2021-11-24] MEDS ORDERED: POTASSIUM CHLORIDE ORAL LIQUID 20 MEQ/15 ML PO SCH (12:00)
[2021-11-24] MEDS: ATORVASTATIN CA 40 MG TABLET (FP) PO SCH (21:14)
[2021-11-24] MEDS: guaiFENesin/D-M SUGAR-FREE/ACLHOL-FREE 118 ML BOTTLE PO PRN (21:15)
[2021-11-24] MEDS: INSULIN (LEVEMIR) 100 UNITS/ML UNITS SQ SCH (21:22)
[2021-11-25] MEDS: INSULIN (NOVOLOG) ASPART 100 UNITS/ML 10ML VIAL SQ SCH ×4 (06:40→21:54)
[2021-11-25] MEDS: FUROSEMIDE 40 MG/4 ML INJECTABLE VIAL IVPUSH SCH ×2 (06:49→14:00)
[2021-11-25] MEDS: dilTIAZem HCL 30 MG TABLET PO SCH ×3 (06:57→18:32)
[2021-11-25 07:27] LABS: ALBUMIN 2.8 g/dl (3.4-5.0); CALCIUM 8.5 mg/dl (8.5-10); CREATININE 1.7 mg/dl (0.55-1.3); TOT PROT 6.7 g/dl (6.4-8.2)
[2021-11-25] MEDS: METOPROLOL TARTRATE 50 MG TABLET (FP) PO SCH ×2 (09:19→21:49)
[2021-11-25] MEDS: APIXABAN 2.5 MG TABLET PO SCH ×2 (09:19→21:48)
[2021-11-25] MEDS: PANTOPRAZOLE 40 MG TABLET PO SCH (09:19)
[2021-11-25 10:10] LABS: BASO % 0.5 % (0-2.0); EOS % 1.6 % (0-4.5); HEMATOCRIT 28.7 % (32.4-45.2); HEMOGLOBIN 9.2 GM/dL (10.7-15.3); LYMPH % 25.3 % (8-40); MCH 28.8 pg (25.7-33.7); MCHC 32.2 g/dl (32.0-36.0); MEAN CELL VOLUME 89.6 fl (80-96); MEAN PLT VOLUME 8.6 fl (7.5-11.1); MONO % 8.3 % (3.8-10.2); NEUT % 64.3 % (42.8-82.8); PLATELET COUNT 226 10^3/uL (134-434); RDW 14.9 % (11.6-15.6)
[2021-11-25] MEDS: guaiFENesin/D-M SUGAR-FREE/ACLHOL-FREE 118 ML BOTTLE PO PRN (10:54)
[2021-11-25] MEDS: INSULIN (LEVEMIR) 100 UNITS/ML UNITS SQ SCH (21:48)
[2021-11-25] MEDS: ATORVASTATIN CA 40 MG TABLET (FP) PO SCH (21:49)
[2021-11-26] MEDS: dilTIAZem HCL 30 MG TABLET PO SCH ×5 (00:36→23:59)
[2021-11-26] MEDS: FUROSEMIDE 40 MG/4 ML INJECTABLE VIAL IVPUSH SCH ×2 (05:59→13:06)
[2021-11-26] MEDS: INSULIN (NOVOLOG) ASPART 100 UNITS/ML 10ML VIAL SQ SCH ×4 (06:15→21:19)
[2021-11-26] MEDS: METOPROLOL TARTRATE 50 MG TABLET (FP) PO SCH ×2 (09:52→21:20)
[2021-11-26] MEDS: APIXABAN 2.5 MG TABLET PO SCH ×2 (09:53→21:19)
[2021-11-26] MEDS: PANTOPRAZOLE 40 MG TABLET PO SCH (09:53)
[2021-11-26 12:07] LABS: ALBUMIN 2.8 g/dl (3.4-5.0); BILIRUBIN,TOTAL 0.8 mg/dl (0.2-1); CALCIUM 8.2 mg/dl (8.5-10); CREATININE 1.7 mg/dl (0.55-1.3); MAGNESIUM 1.9 mg/dL (1.8-2.4); TOT PROT 6.7 g/dl (6.4-8.2)
[2021-11-26 12:36] LABS: BASO % 0.6 % (0-2.0); HEMATOCRIT 27.8 % (32.4-45.2); LYMPH % 15.7 % (8-40); MCH 29.2 pg (25.7-33.7); MCHC 32.6 g/dl (32.0-36.0); MEAN CELL VOLUME 89.5 fl (80-96); MEAN PLT VOLUME 8.3 fl (7.5-11.1); MONO % 6.2 % (3.8-10.2); NEUT % 76.5 % (42.8-82.8); PLATELET COUNT 240 10^3/uL (134-434); RDW 14.5 % (11.6-15.6); WHITE BLOOD COUNT 6.9 K/mm3 (4.0-10.0)
[2021-11-26] MEDS: SENNOSIDES/DOCUSATE COMBO (SENNA PLUS) TABLET (UD) PO SCH ×2 (13:06→21:20)
[2021-11-26] MEDS: INSULIN (LEVEMIR) 100 UNITS/ML UNITS SQ SCH (21:19)
[2021-11-26] MEDS: ATORVASTATIN CA 40 MG TABLET (FP) PO SCH (21:20)
[2021-11-27] MEDS: dilTIAZem HCL 30 MG TABLET PO SCH ×2 (05:53→11:50)
[2021-11-27] MEDS: FUROSEMIDE 40 MG/4 ML INJECTABLE VIAL IVPUSH SCH (05:53)
[2021-11-27] MEDS: INSULIN (NOVOLOG) ASPART 100 UNITS/ML 10ML VIAL SQ SCH ×2 (06:00→11:50)
[2021-11-27] MEDS: SENNOSIDES/DOCUSATE COMBO (SENNA PLUS) TABLET (UD) PO SCH (09:40)
[2021-11-27] MEDS: PANTOPRAZOLE 40 MG TABLET PO SCH (09:41)
[2021-11-27] MEDS: METOPROLOL TARTRATE 50 MG TABLET (FP) PO SCH (09:41)
[2021-11-27] MEDS: APIXABAN 2.5 MG TABLET PO SCH (09:41)
[2021-11-27 10:02] VITALS: BP 130/70; PULSE 106; TEMP 98
[2021-11-27 10:29] LABS: BILIRUBIN,TOTAL 0.9 mg/dl (0.2-1); CALCIUM 8.6 mg/dl (8.5-10); CREATININE 1.7 mg/dl (0.55-1.3); TOT PROT 7.3 g/dl (6.4-8.2)
== END 2021-11-27 13:53 | disposition home or self-care (01) | DRG 291 ==
LOC: FER 09:45 → FM/S 13:44
PROVIDERS: ADMIT Internal Medicine; ATTEND Nurse Practitioner Acute Care
DX: I13.0 Hypertensive heart and chronic kidney disease with heart failure and stage 1 through stage 4 chronic kidney disease, or unspecified chronic kidney disease (principal); I50.33 Acute on chronic diastolic (congestive) heart failure; N39.0 Urinary tract infection, site not specified; J96.11 Chronic respiratory failure with hypoxia; E11.22 Type 2 diabetes mellitus with diabetic chronic kidney disease; N18.9 Chronic kidney disease, unspecified; Z79.01 Long term (current) use of anticoagulants; I48.0 Paroxysmal atrial fibrillation; Z86.16 Personal history of COVID-19; I27.20 Pulmonary hypertension, unspecified; I45.10 Unspecified right bundle-branch block; I34.0 Nonrheumatic mitral (valve) insufficiency; Z99.81 Dependence on supplemental oxygen
CPT/HCPCS: 36415; 71045-TC-FY; 71250-TC; 80048; 80053; 81003; 81015; 82962; 83735; 83880; 84436; 84443; 84484; 85025; 86769; 87086; 87186; 93005; 93010; 93306-TC; 94761; 97116-GP; 97162-GP; 99285-25; C9803; U0003; U0005

== ENCOUNTER 2021-12-03 13:09 | Inpatient (IN) | payer OTHER ==
[2021-12-03] MEDS ORDERED: FUROSEMIDE 40 MG/4 ML INJECTABLE VIAL IVPUSH ONE (14:22)
[2021-12-03] MEDS ORDERED: FUROSEMIDE 40 MG/4 ML INJECTABLE VIAL ONE (14:27)
[2021-12-03 14:43] LABS: INR 1.82 (0.83-1.09); PROTHROMBIN TIME (PATIENT) 21.1 SEC (9.7-13.0)
[2021-12-03 14:45] LABS: ACTIVATED PTT 35.9 SECONDS (25.2-36.5)
[2021-12-03 14:51] LABS: ALBUMIN 3.2 g/dl (3.4-5.0); BILIRUBIN,TOTAL 0.8 mg/dl (0.2-1); CALCIUM 8.7 mg/dl (8.5-10); CREATININE 1.8 mg/dl (0.55-1.3); MAGNESIUM 2.2 mg/dL (1.8-2.4); TOT PROT 7.7 g/dl (6.4-8.2)
[2021-12-03] MEDS ORDERED: ALBUTEROL SO4 HFA INHALER IH PRN (14:53)
[2021-12-03] MEDS ORDERED: PATIENT'S OWN MEDICATION (NON-FORMULARY) (Benzonatate 100 MG Capsule) PO PRN (14:53)
[2021-12-03] MEDS ORDERED: guaiFENesin/D-METHORPHAN HB 5 ML UNIT-DOSE CUPS PO PRN (14:53)
[2021-12-03] MEDS ORDERED: guaiFENesin 600 MG TABLET.ER (FP) PO PRN (15:21)
[2021-12-03 16:32] LABS: VENOUS BASE EXCESS -1.3 mmol/L (-2-2); VENOUS O2 SATURATION 66.4 % (70-80); VENOUS PCO2 39.8 mmHg (38-52); VENOUS PH 7.39 (7.310-7.410)
[2021-12-03 16:36] LABS: BASO % 0.8 % (0-2.0); EOS % 2.5 % (0-4.5); HEMATOCRIT 28.1 % (32.4-45.2); LYMPH % 16.8 % (8-40); MCH 28.8 pg (25.7-33.7); MCHC 31.9 g/dl (32.0-36.0); MEAN CELL VOLUME 90.3 fl (80-96); MEAN PLT VOLUME 7.9 fl (7.5-11.1); MONO % 5.3 % (3.8-10.2); NEUT % 74.6 % (42.8-82.8); PLATELET COUNT 363 10^3/uL (134-434); RBC 3.12 M/mm3 (3.60-5.2); RDW 15.5 % (11.6-15.6); WHITE BLOOD COUNT 7.5 K/mm3 (4.0-10.0)
[2021-12-03] MEDS: METOPROLOL TARTRATE 50 MG TABLET (FP) PO SCH (21:25)
[2021-12-03] MEDS: ATORVASTATIN CA 40 MG TABLET (FP) PO SCH (21:27)
[2021-12-03] MEDS: APIXABAN 2.5 MG TABLET PO SCH (21:27)
[2021-12-04] MEDS ORDERED: FUROSEMIDE 40 MG TABLET (FP) PO SCH (06:00)
[2021-12-04] MEDS: INSULIN (LEVEMIR) 100 UNITS/ML UNITS SQ SCH (06:08)
[2021-12-04 08:07] LABS: ALBUMIN 3.1 g/dl (3.4-5.0); BILIRUBIN,TOTAL 0.8 mg/dl (0.2-1); CALCIUM 8.4 mg/dl (8.5-10); CREATININE 1.8 mg/dl (0.55-1.3); TOT PROT 7.3 g/dl (6.4-8.2)
[2021-12-04] MEDS: amLODIPine BESYLATE 10 MG TABLET (FP) PO SCH (09:19)
[2021-12-04] MEDS: APIXABAN 2.5 MG TABLET PO SCH ×2 (09:19→21:31)
[2021-12-04] MEDS: METOPROLOL TARTRATE 50 MG TABLET (FP) PO SCH ×2 (09:19→21:31)
[2021-12-04] MEDS: PANTOPRAZOLE 40 MG TABLET PO SCH (09:19)
[2021-12-04 09:43] LABS: BASO % 0.7 % (0-2.0); EOS % 2.6 % (0-4.5); HEMATOCRIT 27.4 % (32.4-45.2); LYMPH % 25.6 % (8-40); MCH 29.2 pg (25.7-33.7); MCHC 32.9 g/dl (32.0-36.0); MEAN CELL VOLUME 88.9 fl (80-96); MEAN PLT VOLUME 7.3 fl (7.5-11.1); NEUT % 64.1 % (42.8-82.8); PLATELET COUNT 321 10^3/uL (134-434); RBC 3.08 M/mm3 (3.60-5.2); RDW 15.4 % (11.6-15.6); WHITE BLOOD COUNT 6.2 K/mm3 (4.0-10.0)
[2021-12-04] MEDS ORDERED: PATIENT'S OWN MEDICATION (NON-FORMULARY) (Insulin Aspart [Novolog Flexpen] 100 UNIT/ML Ins SQ SCH (10:00)
[2021-12-04] MEDS: INSULIN (NOVOLOG) ASPART 100 UNITS/ML 10ML VIAL SQ SCH ×3 (11:00→21:38)
[2021-12-04] MEDS ORDERED: FUROSEMIDE 40 MG/4 ML INJECTABLE VIAL IVPUSH ONE (11:07)
[2021-12-04] MEDS ORDERED: DEXTROSE 5%-WATER - 50 ML IVPB ONE ×3 (14:19→23:43)
[2021-12-04] MEDS ORDERED: PIPERACILLIN/TAZOBACTAM 3.375 GM VIAL IVPB ONE ×3 (14:19→23:43)
[2021-12-04] MEDS: PIPERACILLIN/TAZOB 3.375 GM 3.375 GM in DEXTROSE 5%-WATER - 50 ML IVPB SCH ×2 (14:32→21:32)
[2021-12-04] MEDS: FUROSEMIDE 40 MG/4 ML INJECTABLE VIAL IVPUSH SCH (17:10)
[2021-12-04] MEDS: ATORVASTATIN CA 40 MG TABLET (FP) PO SCH (21:31)
[2021-12-05] MEDS: PIPERACILLIN/TAZOB 3.375 GM 3.375 GM in DEXTROSE 5%-WATER - 50 ML IVPB SCH ×2 (02:03→16:39)
[2021-12-05] MEDS: INSULIN (NOVOLOG) ASPART 100 UNITS/ML 10ML VIAL SQ SCH ×4 (06:16→21:18)
[2021-12-05] MEDS: FUROSEMIDE 40 MG/4 ML INJECTABLE VIAL IVPUSH SCH (06:16)
[2021-12-05] MEDS: INSULIN (LEVEMIR) 100 UNITS/ML UNITS SQ SCH (06:17)
[2021-12-05] MEDS ORDERED: guaiFENesin/D-METHORPHAN HB 10 ML UNIT-DOSE CUPS PO PRN (07:42)
[2021-12-05 07:50] LABS: ALBUMIN 3.3 g/dl (3.4-5.0); BILIRUBIN,TOTAL 0.8 mg/dl (0.2-1); CALCIUM 8.7 mg/dl (8.5-10); CREATININE 2.1 mg/dl (0.55-1.3); TOT PROT 7.4 g/dl (6.4-8.2)
[2021-12-05 08:15] LABS: BASO % 0.7 % (0-2.0); EOS % 3.1 % (0-4.5); HEMATOCRIT 26.5 % (32.4-45.2); HEMOGLOBIN 9.1 GM/dL (10.7-15.3); LYMPH % 22.7 % (8-40); MCH 30.5 pg (25.7-33.7); MCHC 34.4 g/dl (32.0-36.0); MEAN CELL VOLUME 88.9 fl (80-96); MEAN PLT VOLUME 7.1 fl (7.5-11.1); MONO % 5.3 % (3.8-10.2); NEUT % 68.2 % (42.8-82.8); PLATELET COUNT 320 10^3/uL (134-434); RBC 2.98 M/mm3 (3.60-5.2); RDW 15.2 % (11.6-15.6); WHITE BLOOD COUNT 6.5 K/mm3 (4.0-10.0)
[2021-12-05] MEDS: METOPROLOL TARTRATE 50 MG TABLET (FP) PO SCH ×2 (09:20→21:13)
[2021-12-05] MEDS: amLODIPine BESYLATE 10 MG TABLET (FP) PO SCH (09:20)
[2021-12-05] MEDS: PANTOPRAZOLE 40 MG TABLET PO SCH (09:21)
[2021-12-05] MEDS: APIXABAN 2.5 MG TABLET PO SCH ×2 (09:21→21:13)
[2021-12-05 12:17] LABS: LACTIC ACID 2.2 mmol/L (0.4-2.0)
[2021-12-05] MEDS ORDERED: DEXTROSE 5%-WATER - 50 ML IVPB ONE ×2 (16:27→23:55)
[2021-12-05] MEDS ORDERED: PIPERACILLIN/TAZOBACTAM 2.25 GM VIAL IVPB ONE ×2 (16:27→23:55)
[2021-12-05] MEDS: PIPERACILLIN/TAZOB 2.25 GM 2.25 GM in DEXTROSE 5%-WATER - 50 ML IVPB SCH (17:17)
[2021-12-05] MEDS: ATORVASTATIN CA 40 MG TABLET (FP) PO SCH (21:13)
[2021-12-05] MEDS ORDERED: MELATONIN 5 MG TABLETS PO ONE (22:39)
[2021-12-06] MEDS: PIPERACILLIN/TAZOB 2.25 GM 2.25 GM in DEXTROSE 5%-WATER - 50 ML IVPB SCH ×3 (01:09→17:33)
[2021-12-06] MEDS: INSULIN (LEVEMIR) 100 UNITS/ML UNITS SQ SCH (06:24)
[2021-12-06] MEDS: INSULIN (NOVOLOG) ASPART 100 UNITS/ML 10ML VIAL SQ SCH ×4 (06:25→21:13)
[2021-12-06] MEDS ORDERED: PIPERACILLIN/TAZOBACTAM 2.25 GM VIAL IVPB ONE ×3 (09:15→23:34)
[2021-12-06] MEDS ORDERED: DEXTROSE 5%-WATER - 50 ML IVPB ONE ×3 (09:15→23:34)
[2021-12-06] MEDS: METOPROLOL TARTRATE 50 MG TABLET (FP) PO SCH ×2 (09:33→21:08)
[2021-12-06] MEDS: amLODIPine BESYLATE 10 MG TABLET (FP) PO SCH (09:33)
[2021-12-06] MEDS: PANTOPRAZOLE 40 MG TABLET PO SCH (09:34)
[2021-12-06] MEDS: APIXABAN 2.5 MG TABLET PO SCH ×2 (09:34→21:08)
[2021-12-06 09:56] LABS: BASO % 0.9 % (0-2.0); EOS % 3.9 % (0-4.5); HEMATOCRIT 27.3 % (32.4-45.2); LYMPH % 25.5 % (8-40); MCH 29.1 pg (25.7-33.7); MCHC 32.9 g/dl (32.0-36.0); MEAN CELL VOLUME 88.5 fl (80-96); MEAN PLT VOLUME 7.5 fl (7.5-11.1); MONO % 6.2 % (3.8-10.2); NEUT % 63.5 % (42.8-82.8); PLATELET COUNT 317 10^3/uL (134-434); RBC 3.09 M/mm3 (3.60-5.2); RDW 15.9 % (11.6-15.6); WHITE BLOOD COUNT 7.2 K/mm3 (4.0-10.0)
[2021-12-06 10:13] LABS: ALBUMIN 3.1 g/dl (3.4-5.0); BLOOD UREA NITROGEN 66.2 mg/dL (7-18); MAGNESIUM 2.5 mg/dL (1.8-2.4)
[2021-12-06 10:15] LABS: CREATININE 2.2 mg/dL (0.55-1.3)
[2021-12-06 10:18] LABS: BILIRUBIN,TOTAL 0.9 mg/dL (0.2-1); TOT PROT 7.2 g/dl (6.4-8.2)
[2021-12-06] MEDS: ALBUTEROL SO4 2.5/IPRATROPIUM 0.5 INH SOL 3 ML VIAL.NEB. NEB SCH ×3 (10:37→21:08)
[2021-12-06] MEDS ORDERED: FUROSEMIDE 40 MG/4 ML INJECTABLE VIAL IVPUSH ONE (16:13)
[2021-12-06] MEDS: ATORVASTATIN CA 40 MG TABLET (FP) PO SCH (21:08)
[2021-12-07] MEDS: PIPERACILLIN/TAZOB 2.25 GM 2.25 GM in DEXTROSE 5%-WATER - 50 ML IVPB SCH ×3 (01:24→17:28)
[2021-12-07] MEDS ORDERED: MELATONIN 1 MG TABLET PO ONE (02:50)
[2021-12-07] MEDS ORDERED: FUROSEMIDE 40 MG/4 ML INJECTABLE VIAL IVPUSH SCH (06:00)
[2021-12-07] MEDS: INSULIN (NOVOLOG) ASPART 100 UNITS/ML 10ML VIAL SQ SCH ×4 (06:41→21:54)
[2021-12-07] MEDS: INSULIN (LEVEMIR) 100 UNITS/ML UNITS SQ SCH (06:48)
[2021-12-07] MEDS: ALBUTEROL SO4 2.5/IPRATROPIUM 0.5 INH SOL 3 ML VIAL.NEB. NEB SCH ×3 (08:41→20:19)
[2021-12-07] MEDS ORDERED: PIPERACILLIN/TAZOBACTAM 2.25 GM VIAL IVPB ONE ×3 (08:50→23:27)
[2021-12-07] MEDS ORDERED: DEXTROSE 5%-WATER - 50 ML IVPB ONE ×3 (08:50→23:27)
[2021-12-07] MEDS: amLODIPine BESYLATE 10 MG TABLET (FP) PO SCH (09:33)
[2021-12-07] MEDS: PANTOPRAZOLE 40 MG TABLET PO SCH (09:33)
[2021-12-07] MEDS: METOPROLOL TARTRATE 50 MG TABLET (FP) PO SCH ×2 (09:33→21:16)
[2021-12-07] MEDS: APIXABAN 2.5 MG TABLET PO SCH ×2 (09:33→21:16)
[2021-12-07 09:50] LABS: BASO % 0.9 % (0-2.0); EOS % 3.5 % (0-4.5); HEMATOCRIT 25.8 % (32.4-45.2); HEMOGLOBIN 8.6 GM/dL (10.7-15.3); LYMPH % 21.1 % (8-40); MCH 29.8 pg (25.7-33.7); MCHC 33.4 g/dl (32.0-36.0); MEAN CELL VOLUME 89.2 fl (80-96); MEAN PLT VOLUME 7.7 fl (7.5-11.1); MONO % 6.3 % (3.8-10.2); NEUT % 68.2 % (42.8-82.8); PLATELET COUNT 286 10^3/uL (134-434); RBC 2.89 M/mm3 (3.60-5.2); RDW 15.6 % (11.6-15.6)
[2021-12-07 09:52] LABS: ALBUMIN 3.1 g/dl (3.4-5.0); BLOOD UREA NITROGEN 67.9 mg/dL (7-18); CALCIUM 8.3 mg/dL (8.5-10.1)
[2021-12-07 09:54] LABS: MAGNESIUM 2.5 mg/dL (1.8-2.4)
[2021-12-07 09:56] LABS: CREATININE 2.3 mg/dL (0.55-1.3)
[2021-12-07 09:58] LABS: BILIRUBIN,TOTAL 0.6 mg/dL (0.2-1); TOT PROT 7.3 g/dl (6.4-8.2)
[2021-12-07] MEDS ORDERED: methylPREDNISolone NA SUCC 40 MG/1 ML VIAL IVPUSH ONE (10:11)
[2021-12-07 11:09] LABS: PHOSPHOROUS 4.9 mg/dL (2.5-4.9)
[2021-12-07 11:26] LABS: N-TERMINAL BNP 6020.6 pg/ml (5-450)
[2021-12-07] MEDS: NITROGLYCERIN 2% OINTMENT - 1GM PACKET TD SCH ×2 (14:19→21:16)
[2021-12-07] MEDS: FUROSEMIDE 40 MG/4 ML INJECTABLE VIAL IVPUSH SCH (14:19)
[2021-12-07] MEDS: ATORVASTATIN CA 40 MG TABLET (FP) PO SCH (21:16)
[2021-12-07] MEDS ORDERED: INSULIN (NOVOLOG) ASPART 100 UNITS/ML 10ML VIAL SQ ONE (22:15)
[2021-12-08] MEDS: PIPERACILLIN/TAZOB 2.25 GM 2.25 GM in DEXTROSE 5%-WATER - 50 ML IVPB SCH ×3 (01:45→18:06)
[2021-12-08] MEDS: NITROGLYCERIN 2% OINTMENT - 1GM PACKET TD SCH ×3 (06:46→22:01)
[2021-12-08] MEDS: FUROSEMIDE 40 MG/4 ML INJECTABLE VIAL IVPUSH SCH ×2 (06:46→13:50)
[2021-12-08] MEDS: INSULIN (LEVEMIR) 100 UNITS/ML UNITS SQ SCH (06:47)
[2021-12-08] MEDS: INSULIN (NOVOLOG) ASPART 100 UNITS/ML 10ML VIAL SQ SCH ×4 (06:47→22:05)
[2021-12-08] MEDS: ALBUTEROL SO4 2.5/IPRATROPIUM 0.5 INH SOL 3 ML VIAL.NEB. NEB SCH ×3 (08:26→21:58)
[2021-12-08] MEDS ORDERED: PIPERACILLIN/TAZOBACTAM 2.25 GM VIAL IVPB ONE ×2 (09:06→16:51)
[2021-12-08] MEDS ORDERED: DEXTROSE 5%-WATER - 50 ML IVPB ONE ×2 (09:07→16:52)
[2021-12-08] MEDS: amLODIPine BESYLATE 10 MG TABLET (FP) PO SCH (09:26)
[2021-12-08] MEDS: APIXABAN 2.5 MG TABLET PO SCH ×2 (09:26→22:00)
[2021-12-08 09:27] LABS: BASO % 0.2 % (0-2.0); HEMATOCRIT 24.9 % (32.4-45.2); HEMOGLOBIN 8.1 GM/dL (10.7-15.3); LYMPH % 10.1 % (8-40); MCHC 32.6 g/dl (32.0-36.0); MEAN CELL VOLUME 88.9 fl (80-96); MEAN PLT VOLUME 7.7 fl (7.5-11.1); MONO % 1.8 % (3.8-10.2); NEUT % 87.9 % (42.8-82.8); PLATELET COUNT 270 10^3/uL (134-434); RDW 15.4 % (11.6-15.6); WHITE BLOOD COUNT 5.4 K/mm3 (4.0-10.0)
[2021-12-08] MEDS: PANTOPRAZOLE 40 MG TABLET PO SCH (09:27)
[2021-12-08] MEDS: METOPROLOL TARTRATE 50 MG TABLET (FP) PO SCH ×2 (09:27→22:00)
[2021-12-08 09:56] LABS: ALBUMIN 3.1 g/dl (3.4-5.0); BLOOD UREA NITROGEN 66.4 mg/dL (7-18); CALCIUM 8.6 mg/dL (8.5-10.1); MAGNESIUM 2.6 mg/dL (1.8-2.4)
[2021-12-08 09:59] LABS: CREATININE 2.3 mg/dL (0.55-1.3)
[2021-12-08 10:00] LABS: BILIRUBIN,TOTAL 0.6 mg/dL (0.2-1); PHOSPHOROUS 5.1 mg/dL (2.5-4.9); TOT PROT 7.1 g/dl (6.4-8.2)
[2021-12-08] MEDS ORDERED: Insulin (LOG) Aspart 100 UNITS/ML VIAL SQ ONE (11:12)
[2021-12-08] MEDS ORDERED: MELATONIN 1 MG TABLET PO PRN (12:42)
[2021-12-08] MEDS: Insulin (LOG) Aspart 100 UNITS/ML VIAL SQ SCH (16:42)
[2021-12-08] MEDS: ATORVASTATIN CA 40 MG TABLET (FP) PO SCH (22:00)
[2021-12-09] MEDS: PIPERACILLIN/TAZOB 2.25 GM 2.25 GM in DEXTROSE 5%-WATER - 50 ML IVPB SCH (01:29)
[2021-12-09] MEDS: FUROSEMIDE 40 MG/4 ML INJECTABLE VIAL IVPUSH SCH ×2 (06:24→14:02)
[2021-12-09] MEDS: NITROGLYCERIN 2% OINTMENT - 1GM PACKET TD SCH ×3 (06:25→22:13)
[2021-12-09] MEDS: INSULIN (LEVEMIR) 100 UNITS/ML UNITS SQ SCH (06:29)
[2021-12-09] MEDS: Insulin (LOG) Aspart 100 UNITS/ML VIAL SQ SCH (06:29)
[2021-12-09] MEDS: INSULIN (NOVOLOG) ASPART 100 UNITS/ML 10ML VIAL SQ SCH ×4 (06:34→22:25)
[2021-12-09] MEDS: METOPROLOL TARTRATE 50 MG TABLET (FP) PO SCH ×2 (10:13→22:12)
[2021-12-09] MEDS: PANTOPRAZOLE 40 MG TABLET PO SCH (10:13)
[2021-12-09] MEDS: AMOX TR/POT CLAV 500MG/125MG TABLETS (FP) PO SCH ×2 (10:13→17:33)
[2021-12-09] MEDS: ALBUTEROL SO4 2.5/IPRATROPIUM 0.5 INH SOL 3 ML VIAL.NEB. NEB SCH ×3 (10:13→19:39)
[2021-12-09] MEDS: amLODIPine BESYLATE 10 MG TABLET (FP) PO SCH (10:14)
[2021-12-09] MEDS: APIXABAN 2.5 MG TABLET PO SCH ×2 (10:14→22:12)
[2021-12-09 10:40] LABS: BASO % 0.3 % (0-2.0); EOS % 1.4 % (0-4.5); HEMATOCRIT 28.1 % (32.4-45.2); HEMOGLOBIN 9.1 GM/dL (10.7-15.3); LYMPH % 19.3 % (8-40); MCHC 32.4 g/dl (32.0-36.0); MEAN CELL VOLUME 89.3 fl (80-96); MEAN PLT VOLUME 7.9 fl (7.5-11.1); MONO % 7.4 % (3.8-10.2); NEUT % 71.6 % (42.8-82.8); PLATELET COUNT 308 10^3/uL (134-434); RBC 3.14 M/mm3 (3.60-5.2); WHITE BLOOD COUNT 10.3 K/mm3 (4.0-10.0)
[2021-12-09 10:43] LABS: BLOOD UREA NITROGEN 75.3 mg/dL (7-18); CALCIUM 8.7 mg/dL (8.5-10.1)
[2021-12-09 10:46] LABS: CREATININE 2.6 mg/dL (0.55-1.3)
[2021-12-09] MEDS ORDERED: METOLAZONE 2.5 MG TABLET (FP) PO ONE ×2 (11:19→13:30)
[2021-12-09 18:33] LABS: EPITHELIAL CELLS FEW /hpf
[2021-12-09] MEDS ORDERED: CEFTRIAXONE 1 GM in DEXTROSE 5%-WATER - 50 ML IVPB SCH (18:45)
[2021-12-09] MEDS ORDERED: cefTRIAXone SODIUM 1 GM VIAL ONE (19:35)
[2021-12-09] MEDS ORDERED: DEXTROSE 5%-WATER - 50 ML IVPB ONE (19:35)
[2021-12-09] MEDS ORDERED: SENNOSIDES 8.6MG TABLET (FP) PO PRN (21:35)
[2021-12-09] MEDS ORDERED: DOCUSATE SODIUM 100 MG CAPSULE (FP) PO PRN (21:35)
[2021-12-09] MEDS: MUPIROCIN 2% TOPICAL OINTMENT FOR DECOLONIZATION NS SCH (22:12)
[2021-12-09] MEDS: CHLORHEXIDINE GLUCONATE 4% CLEANSER FOR DECOLONIZATION TP SCH (22:12)
[2021-12-09] MEDS: ATORVASTATIN CA 40 MG TABLET (FP) PO SCH (22:12)
[2021-12-10] MEDS ORDERED: MELATONIN 1 MG TABLET PO PRN (04:06)
[2021-12-10] MEDS ORDERED: guaiFENesin 600 MG TABLET.ER (FP) PO PRN (04:06)
[2021-12-10] MEDS ORDERED: guaiFENesin/D-METHORPHAN HB 10 ML UNIT-DOSE CUPS PO PRN (04:06)
[2021-12-10] MEDS ORDERED: MEROPENEM 500 MG VIAL (RESTRICTED TO ID) IVPB ONE ×2 (05:24→15:03)
[2021-12-10] MEDS ORDERED: DEXTROSE 5%-WATER 100 ML IVPB ONE ×2 (05:25→15:03)
[2021-12-10] MEDS: FUROSEMIDE 40 MG/4 ML INJECTABLE VIAL IVPUSH SCH ×2 (05:31→14:02)
[2021-12-10] MEDS: NITROGLYCERIN 2% OINTMENT - 1GM PACKET TD SCH ×3 (05:34→21:52)
[2021-12-10] MEDS: MEROPENEM 500 MG in DEXTROSE 5%-WATER 100 ML IVPB SCH ×2 (05:36→16:59)
[2021-12-10] MEDS: INSULIN SLIDING SCALE (NOVOLOG) 1 VIAL SQ SCH ×4 (06:37→21:59)
[2021-12-10] MEDS: INSULIN (LEVEMIR) 100 UNITS/ML UNITS SQ SCH (06:38)
[2021-12-10] MEDS: MUPIROCIN 2% TOPICAL OINTMENT FOR DECOLONIZATION NS SCH ×2 (08:59→21:51)
[2021-12-10] MEDS: PANTOPRAZOLE 40 MG TABLET PO SCH (08:59)
[2021-12-10] MEDS: amLODIPine BESYLATE 10 MG TABLET (FP) PO SCH (08:59)
[2021-12-10] MEDS: METOPROLOL TARTRATE 50 MG TABLET (FP) PO SCH ×2 (08:59→21:51)
[2021-12-10] MEDS: APIXABAN 2.5 MG TABLET PO SCH ×2 (08:59→21:51)
[2021-12-10 09:11] LABS: CREATININE 2.5 mg/dL (0.55-1.3)
[2021-12-10 09:12] LABS: CALCIUM 8.2 mg/dL (8.5-10.1)
[2021-12-10] MEDS: ALBUTEROL SO4 2.5/IPRATROPIUM 0.5 INH SOL 3 ML VIAL.NEB. NEB SCH ×3 (09:12→20:45)
[2021-12-10] MEDS ORDERED: POTASSIUM CHLORIDE TABS 20 MEQ TABLET.ER (FP) PO ONE ×2 (10:45→16:00)
[2021-12-10] MEDS ORDERED: POTASSIUM CHLORIDE ORAL LIQUID 20 MEQ/15 ML PO ONE (11:00)
[2021-12-10] MEDS: POLYETHYLENE GLYCOL (HEALTHYLAX) 3350 17 GM PACKET PO SCH ×2 (14:02→21:51)
[2021-12-10] MEDS ORDERED: METOLAZONE 2.5 MG TABLET (FP) PO ONE (14:25)
[2021-12-10] MEDS: ACETAMINOPHEN 650 MG/20.3 ML ORAL SOLUTION (CUPS) PO PRN (15:07)
[2021-12-10] MEDS: CHLORHEXIDINE GLUCONATE 4% CLEANSER FOR DECOLONIZATION TP SCH (21:51)
[2021-12-10] MEDS: DOCUSATE SODIUM 100 MG CAPSULE (FP) PO SCH (21:51)
[2021-12-10] MEDS ORDERED: MELATONIN 5 MG TABLETS PO SCH (22:00)
[2021-12-10] MEDS ORDERED: ATORVASTATIN CA 40 MG TABLET (FP) PO SCH (22:00)
[2021-12-11] MEDS: ACETAMINOPHEN 650 MG/20.3 ML ORAL SOLUTION (CUPS) PO PRN ×2 (00:02→09:07)
[2021-12-11] MEDS: NITROGLYCERIN 2% OINTMENT - 1GM PACKET TD SCH ×3 (06:08→21:52)
[2021-12-11] MEDS: FUROSEMIDE 40 MG/4 ML INJECTABLE VIAL IVPUSH SCH ×2 (06:08→13:00)
[2021-12-11] MEDS: INSULIN (LEVEMIR) 100 UNITS/ML UNITS SQ SCH (06:09)
[2021-12-11] MEDS: INSULIN SLIDING SCALE (NOVOLOG) 1 VIAL SQ SCH ×4 (06:09→21:28)
[2021-12-11 06:40] LABS: HEMATOCRIT 26.8 % (32.4-45.2); HEMOGLOBIN 8.8 GM/dL (10.7-15.3); MCH 28.9 pg (25.7-33.7); MCHC 32.8 g/dl (32.0-36.0); MEAN CELL VOLUME 88.2 fl (80-96); MEAN PLT VOLUME 7.7 fl (7.5-11.1); PLATELET COUNT 242 10^3/uL (134-434); RBC 3.04 M/mm3 (3.60-5.2); RDW 15.9 % (11.6-15.6); WHITE BLOOD COUNT 7.7 K/mm3 (4.0-10.0)
[2021-12-11 08:30] LABS: BLOOD UREA NITROGEN 87.3 mg/dL (7-18); CREATININE 2.4 mg/dL (0.55-1.3); GLUCOSE,RANDOM 188 mg/dL (74-106)
[2021-12-11 08:31] LABS: CALCIUM 8.2 mg/dL (8.5-10.1); CHLORIDE 97 mmol/L (98-107); CO2 29 mmol/L (21-32); SODIUM 137 mmol/L (136-145)
[2021-12-11] MEDS: ALBUTEROL SO4 2.5/IPRATROPIUM 0.5 INH SOL 3 ML VIAL.NEB. NEB SCH ×3 (08:36→20:12)
[2021-12-11] MEDS: MUPIROCIN 2% TOPICAL OINTMENT FOR DECOLONIZATION NS SCH (09:05)
[2021-12-11] MEDS: DOCUSATE SODIUM 100 MG CAPSULE (FP) PO SCH ×2 (09:05→21:27)
[2021-12-11] MEDS: PANTOPRAZOLE 40 MG TABLET PO SCH (09:05)
[2021-12-11] MEDS: METOPROLOL TARTRATE 50 MG TABLET (FP) PO SCH ×2 (09:05→21:26)
[2021-12-11] MEDS: amLODIPine BESYLATE 10 MG TABLET (FP) PO SCH (09:05)
[2021-12-11] MEDS: APIXABAN 2.5 MG TABLET PO SCH ×2 (09:06→21:27)
[2021-12-11] MEDS: POLYETHYLENE GLYCOL (HEALTHYLAX) 3350 17 GM PACKET PO SCH ×2 (09:06→21:25)
[2021-12-11] MEDS ORDERED: DEXTROSE 5%-WATER - 50 ML IVPB ONE (12:47)
[2021-12-11] MEDS ORDERED: cefTRIAXone SODIUM 1 GM VIAL ONE (12:47)
[2021-12-11] MEDS: CEFTRIAXONE 1 GM in DEXTROSE 5%-WATER - 50 ML IVPB SCH (13:00)
[2021-12-11] MEDS ORDERED: METOLAZONE 2.5 MG TABLET (FP) PO ONE (13:49)
[2021-12-11] MEDS ORDERED: ACETAMINOPHEN 650 MG/20.3 ML ORAL SOLUTION (CUPS) PO PRN (17:23)
[2021-12-11] MEDS ORDERED: guaiFENesin 600 MG TABLET.ER (FP) PO PRN (17:23)
[2021-12-11] MEDS ORDERED: guaiFENesin/D-METHORPHAN HB 10 ML UNIT-DOSE CUPS PO PRN (17:23)
[2021-12-11] MEDS ORDERED: SENNOSIDES 8.6MG TABLET (FP) PO PRN (17:23)
[2021-12-11] MEDS: MEROPENEM 500 MG in DEXTROSE 5%-WATER 100 ML IVPB SCH (17:29)
[2021-12-11] MEDS: LACTOBACILLUS ACIDOPHILUS 1 TABLET PO SCH (21:25)
[2021-12-11] MEDS: MELATONIN 5 MG TABLETS PO SCH (21:27)
[2021-12-11] MEDS: ATORVASTATIN CA 40 MG TABLET (FP) PO SCH (21:27)
[2021-12-11] MEDS ORDERED: MUPIROCIN 2% TOPICAL OINTMENT FOR DECOLONIZATION NS SCH (22:00)
[2021-12-11] MEDS ORDERED: CHLORHEXIDINE GLUCONATE 4% CLEANSER FOR DECOLONIZATION TP SCH (22:00)
[2021-12-12] MEDS ORDERED: FUROSEMIDE 40 MG/4 ML INJECTABLE VIAL IVPUSH SCH (06:00)
[2021-12-12] MEDS: INSULIN SLIDING SCALE (NOVOLOG) 1 VIAL SQ SCH ×4 (06:01→22:21)
[2021-12-12] MEDS: NITROGLYCERIN 2% OINTMENT - 1GM PACKET TD SCH ×3 (06:01→22:21)
[2021-12-12] MEDS: INSULIN (LEVEMIR) 100 UNITS/ML UNITS SQ SCH (06:01)
[2021-12-12] MEDS: ALBUTEROL SO4 2.5/IPRATROPIUM 0.5 INH SOL 3 ML VIAL.NEB. NEB SCH ×4 (07:30→20:27)
[2021-12-12 08:21] LABS: HEMATOCRIT 26.5 % (32.4-45.2); HEMOGLOBIN 8.7 GM/dL (10.7-15.3); MCH 28.9 pg (25.7-33.7); MCHC 32.8 g/dl (32.0-36.0); MEAN CELL VOLUME 88.2 fl (80-96); MEAN PLT VOLUME 7.9 fl (7.5-11.1); PLATELET COUNT 235 10^3/uL (134-434); WHITE BLOOD COUNT 8.8 K/mm3 (4.0-10.0)
[2021-12-12 08:36] LABS: MAGNESIUM 2.7 mg/dL (1.8-2.4)
[2021-12-12 08:39] LABS: PHOSPHOROUS 5.9 mg/dL (2.5-4.9)
[2021-12-12 10:09] LABS: BLOOD UREA NITROGEN 91.5 mg/dL (7-18); CALCIUM 8.3 mg/dL (8.5-10.1); CREATININE 2.2 mg/dL (0.55-1.3)
[2021-12-12] MEDS ORDERED: POTASSIUM CHLORIDE TABS 20 MEQ TABLET.ER (FP) PO ONE (10:33)
[2021-12-12] MEDS ORDERED: DEXTROSE 5%-WATER - 50 ML IVPB ONE (10:35)
[2021-12-12] MEDS ORDERED: cefTRIAXone SODIUM 1 GM VIAL ONE (10:35)
[2021-12-12] MEDS: PANTOPRAZOLE 40 MG TABLET PO SCH (10:58)
[2021-12-12] MEDS: POLYETHYLENE GLYCOL (HEALTHYLAX) 3350 17 GM PACKET PO SCH ×2 (10:58→22:00)
[2021-12-12] MEDS: CEFTRIAXONE 1 GM in DEXTROSE 5%-WATER - 50 ML IVPB SCH (10:58)
[2021-12-12] MEDS: METOPROLOL TARTRATE 50 MG TABLET (FP) PO SCH ×2 (10:58→22:20)
[2021-12-12] MEDS: amLODIPine BESYLATE 10 MG TABLET (FP) PO SCH (10:58)
[2021-12-12] MEDS: APIXABAN 2.5 MG TABLET PO SCH ×2 (10:58→22:19)
[2021-12-12] MEDS: DOCUSATE SODIUM 100 MG CAPSULE (FP) PO SCH ×2 (10:58→22:20)
[2021-12-12] MEDS ORDERED: METOLAZONE 2.5 MG TABLET (FP) PO ONE (13:30)
[2021-12-12] MEDS ORDERED: CALCIUM ACETATE 667 MG CAPSULE (FP) PO ONE ×2 (14:30→16:45)
[2021-12-12] MEDS ORDERED: FUROSEMIDE 40 MG/4 ML INJECTABLE VIAL IVPB SCH (15:00)
[2021-12-12] MEDS ORDERED: INSULIN (NOVOLOG) ASPART 100 UNITS/ML 10ML VIAL ONE (22:16)
[2021-12-12] MEDS: MELATONIN 5 MG TABLETS PO SCH (22:20)
[2021-12-12] MEDS: LACTOBACILLUS ACIDOPHILUS 1 TABLET PO SCH (22:20)
[2021-12-12] MEDS: ATORVASTATIN CA 40 MG TABLET (FP) PO SCH (22:20)
[2021-12-13] MEDS: NITROGLYCERIN 2% OINTMENT - 1GM PACKET TD SCH ×3 (06:11→22:55)
[2021-12-13] MEDS: INSULIN (LEVEMIR) 100 UNITS/ML UNITS SQ SCH (06:11)
[2021-12-13] MEDS: INSULIN SLIDING SCALE (NOVOLOG) 1 VIAL SQ SCH ×4 (06:12→23:00)
[2021-12-13] MEDS ORDERED: INSULIN (NOVOLOG) ASPART 100 UNITS/ML 10ML VIAL ONE (06:37)
[2021-12-13] MEDS ORDERED: TORSEMIDE 100 MG TABLET PO SCH (07:00)
[2021-12-13] MEDS: ALBUTEROL SO4 2.5/IPRATROPIUM 0.5 INH SOL 3 ML VIAL.NEB. NEB SCH ×3 (07:45→21:27)
[2021-12-13 08:39] LABS: HEMATOCRIT 30.3 % (32.4-45.2); MCH 29.1 pg (25.7-33.7); MCHC 33.1 g/dl (32.0-36.0); MEAN CELL VOLUME 88.1 fl (80-96); MEAN PLT VOLUME 7.4 fl (7.5-11.1); PLATELET COUNT 225 10^3/uL (134-434); RBC 3.43 M/mm3 (3.60-5.2); RDW 15.5 % (11.6-15.6); WHITE BLOOD COUNT 8.1 K/mm3 (4.0-10.0)
[2021-12-13 10:25] LABS: BLOOD UREA NITROGEN 96.9 mg/dL (7-18); GLUCOSE,RANDOM 153 mg/dL (74-106); SODIUM 136 mmol/L (136-145)
[2021-12-13 10:26] LABS: CHLORIDE 93 mmol/L (98-107); CO2 33 mmol/L (21-32)
[2021-12-13 10:27] LABS: CALCIUM 9.4 mg/dL (8.5-10.1)
[2021-12-13] MEDS ORDERED: DEXTROSE 5%-WATER - 50 ML IVPB ONE (10:39)
[2021-12-13] MEDS ORDERED: cefTRIAXone SODIUM 1 GM VIAL ONE (10:39)
[2021-12-13] MEDS: METOPROLOL TARTRATE 50 MG TABLET (FP) PO SCH ×2 (10:49→22:55)
[2021-12-13] MEDS: DOCUSATE SODIUM 100 MG CAPSULE (FP) PO SCH ×2 (10:50→22:55)
[2021-12-13] MEDS: CEFTRIAXONE 1 GM in DEXTROSE 5%-WATER - 50 ML IVPB SCH (10:50)
[2021-12-13] MEDS: PANTOPRAZOLE 40 MG TABLET PO SCH (10:50)
[2021-12-13] MEDS: POLYETHYLENE GLYCOL (HEALTHYLAX) 3350 17 GM PACKET PO SCH ×2 (10:50→22:55)
[2021-12-13] MEDS: amLODIPine BESYLATE 10 MG TABLET (FP) PO SCH (10:50)
[2021-12-13] MEDS: APIXABAN 2.5 MG TABLET PO SCH ×2 (10:50→22:55)
[2021-12-13 13:46] VITALS: BMI 25.6
[2021-12-13] MEDS: TORSEMIDE 20 MG TABLET (FP) PO SCH (14:05)
[2021-12-13] MEDS ORDERED: POTASSIUM CHLORIDE TABS 20 MEQ TABLET.ER (FP) PO ONE (14:25)
[2021-12-13] MEDS: ATORVASTATIN CA 40 MG TABLET (FP) PO SCH (22:55)
[2021-12-13] MEDS: MELATONIN 5 MG TABLETS PO SCH (22:55)
[2021-12-13] MEDS: LACTOBACILLUS ACIDOPHILUS 1 TABLET PO SCH (22:55)
[2021-12-14] MEDS: TORSEMIDE 20 MG TABLET (FP) PO SCH (07:05)
[2021-12-14] MEDS: NITROGLYCERIN 2% OINTMENT - 1GM PACKET TD SCH ×3 (07:05→23:00)
[2021-12-14] MEDS: INSULIN (LEVEMIR) 100 UNITS/ML UNITS SQ SCH (07:13)
[2021-12-14] MEDS: INSULIN SLIDING SCALE (NOVOLOG) 1 VIAL SQ SCH ×4 (07:14→21:56)
[2021-12-14] MEDS: ALBUTEROL SO4 2.5/IPRATROPIUM 0.5 INH SOL 3 ML VIAL.NEB. NEB SCH ×2 (08:35→15:02)
[2021-12-14 08:47] LABS: HEMATOCRIT 29.9 % (32.4-45.2); HEMOGLOBIN 9.6 GM/dL (10.7-15.3); MCH 28.4 pg (25.7-33.7); MCHC 32.3 g/dl (32.0-36.0); MEAN PLT VOLUME 7.8 fl (7.5-11.1); PLATELET COUNT 236 10^3/uL (134-434); RDW 15.9 % (11.6-15.6); WHITE BLOOD COUNT 8.8 K/mm3 (4.0-10.0)
[2021-12-14] MEDS ORDERED: cefTRIAXone SODIUM 1 GM VIAL ONE (09:50)
[2021-12-14] MEDS ORDERED: DEXTROSE 5%-WATER - 50 ML IVPB ONE (09:50)
[2021-12-14] MEDS: amLODIPine BESYLATE 10 MG TABLET (FP) PO SCH (09:51)
[2021-12-14] MEDS: POLYETHYLENE GLYCOL (HEALTHYLAX) 3350 17 GM PACKET PO SCH ×2 (09:51→21:56)
[2021-12-14] MEDS: METOPROLOL TARTRATE 50 MG TABLET (FP) PO SCH ×2 (09:51→21:55)
[2021-12-14] MEDS: DOCUSATE SODIUM 100 MG CAPSULE (FP) PO SCH ×2 (09:51→21:55)
[2021-12-14] MEDS: PANTOPRAZOLE 40 MG TABLET PO SCH (09:51)
[2021-12-14] MEDS: CEFTRIAXONE 1 GM in DEXTROSE 5%-WATER - 50 ML IVPB SCH (09:51)
[2021-12-14] MEDS: APIXABAN 2.5 MG TABLET PO SCH ×2 (09:51→21:56)
[2021-12-14] MEDS: POTASSIUM CHLORIDE TABS 20 MEQ TABLET.ER (FP) PO SCH ×2 (09:51→21:55)
[2021-12-14 12:17] LABS: BLOOD UREA NITROGEN 102.2 mg/dL (7-18); CALCIUM 9.3 mg/dL (8.5-10.1)
[2021-12-14] MEDS: TORSEMIDE 100 MG TABLET PO SCH (14:21)
[2021-12-14] MEDS: ALBUTEROL SO4 HFA INHALER IH PRN (17:08)
[2021-12-14] MEDS ORDERED: INSULIN (NOVOLOG) ASPART 100 UNITS/ML 10ML VIAL ONE (21:43)
[2021-12-14] MEDS: ATORVASTATIN CA 40 MG TABLET (FP) PO SCH (21:56)
[2021-12-14] MEDS: MELATONIN 5 MG TABLETS PO SCH (21:56)
[2021-12-14] MEDS: LACTOBACILLUS ACIDOPHILUS 1 TABLET PO SCH (21:56)
[2021-12-15] MEDS: INSULIN SLIDING SCALE (NOVOLOG) 1 VIAL SQ SCH ×4 (06:43→21:34)
[2021-12-15] MEDS: INSULIN (LEVEMIR) 100 UNITS/ML UNITS SQ SCH (06:44)
[2021-12-15] MEDS: TORSEMIDE 100 MG TABLET PO SCH ×2 (06:45→13:15)
[2021-12-15] MEDS: NITROGLYCERIN 2% OINTMENT - 1GM PACKET TD SCH ×3 (06:46→21:32)
[2021-12-15] MEDS: ALBUTEROL SO4 2.5/IPRATROPIUM 0.5 INH SOL 3 ML VIAL.NEB. NEB SCH ×3 (07:57→19:54)
[2021-12-15] MEDS: DOCUSATE SODIUM 100 MG CAPSULE (FP) PO SCH ×2 (09:26→21:35)
[2021-12-15] MEDS: METOPROLOL TARTRATE 50 MG TABLET (FP) PO SCH ×2 (09:26→21:32)
[2021-12-15] MEDS: POLYETHYLENE GLYCOL (HEALTHYLAX) 3350 17 GM PACKET PO SCH ×2 (09:26→21:32)
[2021-12-15] MEDS: PANTOPRAZOLE 40 MG TABLET PO SCH (09:26)
[2021-12-15] MEDS: APIXABAN 2.5 MG TABLET PO SCH ×2 (09:26→21:31)
[2021-12-15] MEDS: amLODIPine BESYLATE 10 MG TABLET (FP) PO SCH (09:26)
[2021-12-15] MEDS: POTASSIUM CHLORIDE TABS 20 MEQ TABLET.ER (FP) PO SCH ×3 (09:26→21:32)
[2021-12-15 10:21] LABS: BASO % 0.8 % (0-2.0); EOS % 2.1 % (0-4.5); HEMATOCRIT 30.2 % (32.4-45.2); HEMOGLOBIN 9.7 GM/dL (10.7-15.3); LYMPH % 19.7 % (8-40); MCH 28.1 pg (25.7-33.7); MCHC 32.1 g/dl (32.0-36.0); MEAN CELL VOLUME 87.4 fl (80-96); MEAN PLT VOLUME 8.1 fl (7.5-11.1); MONO % 6.1 % (3.8-10.2); NEUT % 71.3 % (42.8-82.8); PLATELET COUNT 222 10^3/uL (134-434); RBC 3.45 M/mm3 (3.60-5.2); RDW 15.8 % (11.6-15.6); WHITE BLOOD COUNT 8.3 K/mm3 (4.0-10.0)
[2021-12-15 10:40] LABS: CALCIUM 8.9 mg/dL (8.5-10.1)
[2021-12-15 10:41] LABS: ALBUMIN 3.1 g/dl (3.4-5.0); BLOOD UREA NITROGEN 99.3 mg/dL (7-18); MAGNESIUM 2.7 mg/dL (1.8-2.4)
[2021-12-15 10:44] LABS: CREATININE 2.1 mg/dL (0.55-1.3); PHOSPHOROUS 4.7 mg/dL (2.5-4.9)
[2021-12-15 10:45] LABS: BILIRUBIN,TOTAL 0.4 mg/dL (0.2-1); TOT PROT 7.3 g/dl (6.4-8.2)
[2021-12-15 16:36] LABS: BLOOD UREA NITROGEN 103.1 mg/dL (7-18); CALCIUM 8.4 mg/dL (8.5-10.1)
[2021-12-15] MEDS: ATORVASTATIN CA 40 MG TABLET (FP) PO SCH (21:30)
[2021-12-15] MEDS: MELATONIN 5 MG TABLETS PO SCH (21:31)
[2021-12-15] MEDS: LACTOBACILLUS ACIDOPHILUS 1 TABLET PO SCH (21:31)
[2021-12-16] MEDS: POTASSIUM CHLORIDE TABS 20 MEQ TABLET.ER (FP) PO SCH ×3 (06:08→21:39)
[2021-12-16] MEDS: NITROGLYCERIN 2% OINTMENT - 1GM PACKET TD SCH (06:09)
[2021-12-16] MEDS: INSULIN (LEVEMIR) 100 UNITS/ML UNITS SQ SCH (06:35)
[2021-12-16] MEDS: INSULIN SLIDING SCALE (NOVOLOG) 1 VIAL SQ SCH ×4 (06:35→21:53)
[2021-12-16] MEDS: TORSEMIDE 100 MG TABLET PO SCH ×2 (06:36→14:03)
[2021-12-16] MEDS ORDERED: INSULIN (NOVOLOG) ASPART 100 UNITS/ML 10ML VIAL ONE (06:50)
[2021-12-16] MEDS: ALBUTEROL SO4 2.5/IPRATROPIUM 0.5 INH SOL 3 ML VIAL.NEB. NEB SCH ×3 (07:30→20:40)
[2021-12-16 08:06] LABS: HEMATOCRIT 28.7 % (32.4-45.2); HEMOGLOBIN 9.6 GM/dL (10.7-15.3); MCH 28.9 pg (25.7-33.7); MCHC 33.2 g/dl (32.0-36.0); MEAN PLT VOLUME 7.7 fl (7.5-11.1); PLATELET COUNT 184 10^3/uL (134-434); RDW 15.8 % (11.6-15.6)
[2021-12-16 08:14] LABS: ALBUMIN 2.9 g/dl (3.4-5.0); BLOOD UREA NITROGEN 103.1 mg/dL (7-18); CALCIUM 8.7 mg/dL (8.5-10.1); MAGNESIUM 2.5 mg/dL (1.8-2.4)
[2021-12-16 08:16] LABS: PHOSPHOROUS 4.2 mg/dL (2.5-4.9)
[2021-12-16 08:17] LABS: BILIRUBIN,TOTAL 0.4 mg/dL (0.2-1); CREATININE 2.1 mg/dL (0.55-1.3); TOT PROT 6.8 g/dl (6.4-8.2)
[2021-12-16] MEDS: TAMSULOSIN HCL 0.4 MG CAP PO SCH (08:48)
[2021-12-16] MEDS: PANTOPRAZOLE 40 MG TABLET PO SCH (10:16)
[2021-12-16] MEDS: ISOSORBIDE MONONITRATE 30 MG TAB.SR.24H (FP) PO SCH (10:16)
[2021-12-16] MEDS: POLYETHYLENE GLYCOL (HEALTHYLAX) 3350 17 GM PACKET PO SCH ×2 (10:16→21:53)
[2021-12-16] MEDS: amLODIPine BESYLATE 10 MG TABLET (FP) PO SCH (10:16)
[2021-12-16] MEDS: APIXABAN 2.5 MG TABLET PO SCH ×2 (10:16→21:40)
[2021-12-16] MEDS: METOPROLOL TARTRATE 50 MG TABLET (FP) PO SCH ×2 (10:16→21:39)
[2021-12-16] MEDS: ALBUTEROL SO4 HFA INHALER IH PRN (16:54)
[2021-12-16 18:26] LABS: CHLORIDE 90 mmol/L (98-107); SODIUM 135 mmol/L (136-145)
[2021-12-16 18:27] LABS: CALCIUM 8.5 mg/dL (8.5-10.1)
[2021-12-16 18:28] LABS: ANION GAP 11 MMOL/L (8-16); CO2 34 mmol/L (21-32); GLUCOSE,RANDOM 222 mg/dL (74-106)
[2021-12-16 18:45] LABS: BLOOD UREA NITROGEN 109.7 mg/dL (7-18)
[2021-12-16] MEDS: MELATONIN 5 MG TABLETS PO SCH (21:38)
[2021-12-16] MEDS: LACTOBACILLUS ACIDOPHILUS 1 TABLET PO SCH (21:39)
[2021-12-16] MEDS: ATORVASTATIN CA 40 MG TABLET (FP) PO SCH (21:39)
[2021-12-16] MEDS: DOCUSATE SODIUM 100 MG CAPSULE (FP) PO SCH (21:40)
[2021-12-17] MEDS: INSULIN SLIDING SCALE (NOVOLOG) 1 VIAL SQ SCH ×4 (06:17→21:45)
[2021-12-17] MEDS: TORSEMIDE 100 MG TABLET PO SCH (06:45)
[2021-12-17] MEDS: POTASSIUM CHLORIDE TABS 20 MEQ TABLET.ER (FP) PO SCH (06:45)
[2021-12-17] MEDS: INSULIN (LEVEMIR) 100 UNITS/ML UNITS SQ SCH (06:46)
[2021-12-17] MEDS: TAMSULOSIN HCL 0.4 MG CAP PO SCH (08:33)
[2021-12-17] MEDS: METOPROLOL TARTRATE 50 MG TABLET (FP) PO SCH ×2 (10:28→21:31)
[2021-12-17] MEDS: APIXABAN 2.5 MG TABLET PO SCH ×2 (10:29→21:31)
[2021-12-17] MEDS: amLODIPine BESYLATE 10 MG TABLET (FP) PO SCH (10:29)
[2021-12-17] MEDS: PANTOPRAZOLE 40 MG TABLET PO SCH (10:29)
[2021-12-17] MEDS: ISOSORBIDE MONONITRATE 30 MG TAB.SR.24H (FP) PO SCH (10:29)
[2021-12-17 11:31] LABS: CHLORIDE 88 mmol/L (98-107); SODIUM 133 mmol/L (136-145)
[2021-12-17 11:33] LABS: ANION GAP 8 MMOL/L (8-16); CALCIUM 8.8 mg/dL (8.5-10.1); CO2 36 mmol/L (21-32)
[2021-12-17 11:35] LABS: GLUCOSE,RANDOM 267 mg/dL (74-106)
[2021-12-17 11:36] LABS: CREATININE 2.1 mg/dL (0.55-1.3)
[2021-12-17 11:41] LABS: BLOOD UREA NITROGEN 104.6 mg/dL (7-18)
[2021-12-17] MEDS: ALBUTEROL SO4 2.5/IPRATROPIUM 0.5 INH SOL 3 ML VIAL.NEB. NEB SCH ×3 (12:05→20:10)
[2021-12-17] MEDS: TORSEMIDE 20 MG TABLET (FP) PO SCH (14:40)
[2021-12-17] MEDS: POLYETHYLENE GLYCOL (HEALTHYLAX) 3350 17 GM PACKET PO SCH ×2 (14:41→21:28)
[2021-12-17] MEDS ORDERED: LACTULOSE 20 GM/30 ML UDC (FOR ORAL USE ONLY) PO ONE (16:22)
[2021-12-17] MEDS: DOCUSATE SODIUM 100 MG CAPSULE (FP) PO SCH (21:28)
[2021-12-17] MEDS: LACTOBACILLUS ACIDOPHILUS 1 TABLET PO SCH (21:28)
[2021-12-17] MEDS: ATORVASTATIN CA 40 MG TABLET (FP) PO SCH (21:28)
[2021-12-17] MEDS: MELATONIN 5 MG TABLETS PO SCH (21:30)
[2021-12-17] MEDS ORDERED: SENNOSIDES 8.6MG TABLET (FP) PO SCH (22:00)
[2021-12-18] MEDS: TORSEMIDE 20 MG TABLET (FP) PO SCH ×2 (06:39→14:45)
[2021-12-18] MEDS: INSULIN (LEVEMIR) 100 UNITS/ML UNITS SQ SCH (06:41)
[2021-12-18] MEDS: INSULIN SLIDING SCALE (NOVOLOG) 1 VIAL SQ SCH ×2 (06:44→11:53)
[2021-12-18] MEDS: ALBUTEROL SO4 2.5/IPRATROPIUM 0.5 INH SOL 3 ML VIAL.NEB. NEB SCH ×2 (07:45→13:40)
[2021-12-18] MEDS ORDERED: LACTULOSE 20 GM/30 ML UDC (FOR ORAL USE ONLY) PO ONE (08:30)
[2021-12-18] MEDS: TAMSULOSIN HCL 0.4 MG CAP PO SCH (08:36)
[2021-12-18 09:08] LABS: CHLORIDE 91 mmol/L (98-107); SODIUM 134 mmol/L (136-145)
[2021-12-18 09:10] LABS: CALCIUM 9.5 mg/dL (8.5-10.1)
[2021-12-18 09:11] LABS: ANION GAP 9 MMOL/L (8-16); CO2 34 mmol/L (21-32); GLUCOSE,RANDOM 151 mg/dL (74-106)
[2021-12-18 09:14] LABS: CREATININE 2.1 mg/dL (0.55-1.3)
[2021-12-18] MEDS: METOPROLOL TARTRATE 50 MG TABLET (FP) PO SCH (09:47)
[2021-12-18] MEDS: POLYETHYLENE GLYCOL (HEALTHYLAX) 3350 17 GM PACKET PO SCH (09:47)
[2021-12-18] MEDS: amLODIPine BESYLATE 10 MG TABLET (FP) PO SCH (09:47)
[2021-12-18] MEDS: ISOSORBIDE MONONITRATE 30 MG TAB.SR.24H (FP) PO SCH (09:47)
[2021-12-18] MEDS: APIXABAN 2.5 MG TABLET PO SCH (09:48)
[2021-12-18] MEDS: PANTOPRAZOLE 40 MG TABLET PO SCH (09:48)
[2021-12-18 15:01] VITALS: BP 104/48; PULSE 92; TEMP 98.5
== END 2021-12-18 15:45 | disposition home health service (06) | DRG 291 ==
LOC: FER 13:09 → EDLOC 14:57 → FM/S 14:57 → JICU 12-09 21:07 → J5S 12-11 17:20 → J6S 12-12 12:32 → JERBED 12-12 22:10 → J6S 12-12 22:11
PROVIDERS: ADMIT Hospitalist; ATTEND Internal Medicine
DX: I13.0 Hypertensive heart and chronic kidney disease with heart failure and stage 1 through stage 4 chronic kidney disease, or unspecified chronic kidney disease (principal); I50.33 Acute on chronic diastolic (congestive) heart failure; J18.9 Pneumonia, unspecified organism; J96.21 Acute and chronic respiratory failure with hypoxia; E87.2 Acidosis; N39.0 Urinary tract infection, site not specified; N17.9 Acute kidney failure, unspecified; J44.1 Chronic obstructive pulmonary disease with (acute) exacerbation; J44.0 Chronic obstructive pulmonary disease with (acute) lower respiratory infection; E87.4 Mixed disorder of acid-base balance; E87.3 Alkalosis; J90 Pleural effusion, not elsewhere classified; N18.30 Chronic kidney disease, stage 3 unspecified; I48.0 Paroxysmal atrial fibrillation; E78.5 Hyperlipidemia, unspecified; I27.20 Pulmonary hypertension, unspecified; E11.22 Type 2 diabetes mellitus with diabetic chronic kidney disease; K59.00 Constipation, unspecified; R33.9 Retention of urine, unspecified; I36.1 Nonrheumatic tricuspid (valve) insufficiency; N28.1 Cyst of kidney, acquired; I34.0 Nonrheumatic mitral (valve) insufficiency
CPT/HCPCS: 36415; 71045-TC-FY; 71250-TC; 74018-TC-FY; 74176-TC; 76775-TC; 76856-TC; 80048; 80053; 81003; 81015; 82010; 82550; 82803; 82962; 83036; 83605; 83735; 83880; 84100; 84443; 84484; 85025; 85027; 85610; 85730; 86850; 86900; 86901; 87086; 87186; 93005; 93010; 94640; 97116-GP; 97162-GP; 99285-25; C9803-CS; U0003; U0005

== ENCOUNTER 2022-03-18 15:01 | Inpatient (IN) | payer OTHER ==
[2022-03-18 17:20] LABS: HEMATOCRIT 31.2 % (32.4-45.2); HEMOGLOBIN 10.6 G/dL (10.7-15.3); MCH 26.5 pg (25.7-33.7); MEAN CELL VOLUME 77.9 fl (80-96); MEAN PLT VOLUME 8.4 fl (7.5-11.1); PLATELET COUNT 216.2 10^3/uL (134-434); RBC 4.01 10^6/uL (3.60-5.2); RDW 19.6 % (11.6-15.6); WHITE BLOOD COUNT 10.4 10^3/uL (4.0-10.8)
[2022-03-18 17:40] LABS: ALBUMIN 3.8 g/dl (3.4-5.0); BILIRUBIN,TOTAL 0.6 mg/dl (0.2-1); CALCIUM 8.9 mg/dl (8.5-10); CREATININE 2.8 mg/dl (0.55-1.3); MAGNESIUM 2.9 mg/dL (1.8-2.4); TOT PROT 7.4 g/dl (6.4-8.2)
[2022-03-18 17:45] LABS: PLATELET ESTIMATE ADEQUATE
[2022-03-18] MEDS ORDERED: CEFTRIAXONE 1,000 MG in DEXTROSE 5%-WATER - 50 ML IVPB ONE (21:50)
[2022-03-18] MEDS ORDERED: SODIUM CHLORIDE 500 ML IV STA (21:55)
[2022-03-18] MEDS ORDERED: POLYETHYLENE GLYCOL (HEALTHYLAX) 3350 17 GM PACKET PO PRN (21:55)
[2022-03-18] MEDS ORDERED: ACETAMINOPHEN 325 MG TABLET (FP) PO PRN (21:55)
[2022-03-18] MEDS ORDERED: cefTRIAXone SODIUM 1 GM VIAL ONE (21:58)
[2022-03-18] MEDS: APIXABAN 2.5 MG TABLET PO SCH (23:03)
[2022-03-18] MEDS: INSULIN SLIDING SCALE (NOVOLOG) 1 VIAL SQ SCH (23:05)
[2022-03-19 00:13] VITALS: BMI 22.3
[2022-03-19] MEDS: INSULIN SLIDING SCALE (NOVOLOG) 1 VIAL SQ SCH ×4 (06:05→21:26)
[2022-03-19 08:10] LABS: INR 1.64 (0.83-1.09); PROTHROMBIN TIME (PATIENT) 18.9 SEC (9.7-13.0)
[2022-03-19 08:12] LABS: ACTIVATED PTT 30.2 SECONDS (25.2-36.5)
[2022-03-19 08:18] LABS: CALCIUM 8.5 mg/dl (8.5-10); CREATININE 2.5 mg/dl (0.55-1.3); MAGNESIUM 2.5 mg/dL (1.8-2.4); PHOSPHOROUS 4.2 mg/dl (2.5-4.9)
[2022-03-19 08:29] LABS: HEMATOCRIT 28.4 % (32.4-45.2); HEMOGLOBIN 9.5 G/dL (10.7-15.3); MCHC 33.5 g/dl (32.0-36.0); MEAN CELL VOLUME 77.8 fl (80-96); MEAN PLT VOLUME 8.8 fl (7.5-11.1); PLATELET COUNT 186.5 10^3/uL (134-434); RBC 3.65 10^6/uL (3.60-5.2); RDW 18.7 % (11.6-15.6); WHITE BLOOD COUNT 7.5 10^3/uL (4.0-10.8)
[2022-03-19] MEDS: APIXABAN 2.5 MG TABLET PO SCH ×2 (09:12→21:27)
[2022-03-19] MEDS: TAMSULOSIN HCL 0.4 MG CAP PO SCH (09:12)
[2022-03-19] MEDS: ATORVASTATIN CA 40 MG TABLET (FP) PO SCH (09:12)
[2022-03-19] MEDS: PANTOPRAZOLE 40 MG TABLET PO SCH (09:12)
[2022-03-19] MEDS: METOPROLOL TARTRATE 50 MG TABLET (FP) PO SCH ×2 (11:18→21:29)
[2022-03-19] MEDS: amLODIPine BESYLATE 10 MG TABLET (FP) PO SCH (11:18)
[2022-03-19] MEDS: INSULIN (NOVOLOG) ASPART 100 UNITS/ML 10ML VIAL SQ SCH ×3 (11:25→21:30)
[2022-03-19] MEDS: TORSEMIDE 20 MG TABLET (FP) PO SCH (13:00)
[2022-03-19] MEDS ORDERED: POTASSIUM CHLORIDE TABS 10 MEQ TABLET.ER (FP) PO ONE (14:00)
[2022-03-19] MEDS ORDERED: CEFTRIAXONE 1 GM in DEXTROSE 5%-WATER - 50 ML IVPB SCH (22:00)
[2022-03-19] MEDS ORDERED: INSULIN (LEVEMIR) 100 UNITS/ML UNITS SQ SCH (22:00)
[2022-03-20] MEDS: TORSEMIDE 20 MG TABLET (FP) PO SCH (06:28)
[2022-03-20] MEDS: INSULIN SLIDING SCALE (NOVOLOG) 1 VIAL SQ SCH ×2 (06:32→12:49)
[2022-03-20] MEDS: amLODIPine BESYLATE 10 MG TABLET (FP) PO SCH (09:08)
[2022-03-20] MEDS: PANTOPRAZOLE 40 MG TABLET PO SCH (09:08)
[2022-03-20] MEDS: METOPROLOL TARTRATE 50 MG TABLET (FP) PO SCH (09:08)
[2022-03-20] MEDS: TAMSULOSIN HCL 0.4 MG CAP PO SCH (09:08)
[2022-03-20] MEDS: ATORVASTATIN CA 40 MG TABLET (FP) PO SCH (09:08)
[2022-03-20] MEDS: APIXABAN 2.5 MG TABLET PO SCH (09:09)
[2022-03-20 10:57] VITALS: BP 122/56; PULSE 83; TEMP 98.5
== END 2022-03-20 14:17 | disposition home or self-care (01) | DRG 683 ==
LOC: FER 15:01 → FM/S 21:52
PROVIDERS: ADMIT Hospitalist; ATTEND Nurse Practitioner Acute Care
DX: N17.9 Acute kidney failure, unspecified (principal); J96.11 Chronic respiratory failure with hypoxia; K86.2 Cyst of pancreas; I13.0 Hypertensive heart and chronic kidney disease with heart failure and stage 1 through stage 4 chronic kidney disease, or unspecified chronic kidney disease; I50.32 Chronic diastolic (congestive) heart failure; N39.0 Urinary tract infection, site not specified; E87.1 Hypo-osmolality and hyponatremia; N18.30 Chronic kidney disease, stage 3 unspecified; E78.5 Hyperlipidemia, unspecified; I45.10 Unspecified right bundle-branch block; E11.22 Type 2 diabetes mellitus with diabetic chronic kidney disease; G25.2 Other specified forms of tremor; I25.10 Atherosclerotic heart disease of native coronary artery without angina pectoris; I48.0 Paroxysmal atrial fibrillation; D64.9 Anemia, unspecified
CPT/HCPCS: 0241U-QW; 36415; 70450-TC; 71045-TC-FY; 74176-TC; 80048; 80053; 81003; 81015; 82962; 83735; 84100; 84484; 85025; 85027; 85610; 85730; 87086; 87186; 93005; 97116-GP; 97162-GP; 99285-25

== ENCOUNTER 2022-04-21 12:31 | Inpatient (IN) | payer OTHER ==
[2022-04-21] MEDS ORDERED: SODIUM CHLORIDE 1,633 ML IV ONE (13:22)
[2022-04-21] MEDS ORDERED: ONDANSETRON 4 MG/2 ML VIAL IVPUSH ONE (13:24)
[2022-04-21 13:53] LABS: HEMATOCRIT 30.2 % (32.4-45.2); HEMOGLOBIN 10.5 G/dL (10.7-15.3); MCH 27.3 pg (25.7-33.7); MCHC 34.7 g/dl (32.0-36.0); MEAN CELL VOLUME 78.7 fl (80-96); MEAN PLT VOLUME 8.9 fl (7.5-11.1); PLATELET COUNT 192.7 10^3/uL (134-434); RBC 3.84 10^6/uL (3.60-5.2); RDW 19.3 % (11.6-15.6)
[2022-04-21 13:54] LABS: INR 1.8 (0.83-1.09); PROTHROMBIN TIME (PATIENT) 20.8 SEC (9.7-13.0)
[2022-04-21 14:01] LABS: ALBUMIN 3.7 g/dl (3.4-5.0); BILIRUBIN,TOTAL 0.5 mg/dl (0.2-1); CALCIUM 8.7 mg/dl (8.5-10); CREATININE 4.2 mg/dl (0.55-1.3); MAGNESIUM 2.7 mg/dL (1.8-2.4); PHOSPHOROUS 4.8 mg/dl (2.5-4.9); TOT PROT 7.1 g/dl (6.4-8.2)
[2022-04-21 14:19] LABS: ALBUMIN 3.8 g/dl (3.4-5.0); BILIRUBIN,TOTAL 0.5 mg/dl (0.2-1); CALCIUM 8.9 mg/dl (8.5-10); CREATININE 4.3 mg/dl (0.55-1.3); TOT PROT 7.1 g/dl (6.4-8.2)
[2022-04-21 14:28] LABS: EPITHELIAL CELLS FEW /hpf
[2022-04-21 14:35] LABS: ADD RBC MORPHOLOGY YES; ANISOCYTOSIS 1+
[2022-04-21 14:37] LABS: OVALOCYTE 1+
[2022-04-21] MEDS ORDERED: CEFTRIAXONE 1,000 MG in DEXTROSE 5%-WATER - 50 ML IVPB ONE (15:33)
[2022-04-21] MEDS ORDERED: cefTRIAXone SODIUM 1 GM VIAL ONE (15:48)
[2022-04-21] MEDS ORDERED: SODIUM CHLORIDE 0.9% 500 ML INFUS.BAG IV ONE (16:59)
[2022-04-21 17:22] LABS: ALBUMIN 3.2 g/dl (3.4-5.0); BILIRUBIN,TOTAL 0.6 mg/dl (0.2-1); CALCIUM 7.8 mg/dl (8.5-10); CREATININE 3.9 mg/dl (0.55-1.3); TOT PROT 5.9 g/dl (6.4-8.2)
[2022-04-21] MEDS ORDERED: SODIUM CHLORIDE 0.9% 1000 ML INFUS.BAG IV ONE ×2 (18:01→18:03)
[2022-04-21 20:11] VITALS: BMI 22.9
[2022-04-22 08:24] LABS: ALBUMIN 3.1 g/dl (3.4-5.0); BILIRUBIN,TOTAL 0.4 mg/dl (0.2-1); CALCIUM 8.2 mg/dl (8.5-10); CREATININE 3.5 mg/dl (0.55-1.3); TOT PROT 5.7 g/dl (6.4-8.2)
[2022-04-22] MEDS: APIXABAN 2.5 MG TABLET PO SCH ×2 (09:15→21:11)
[2022-04-22 09:35] LABS: HEMATOCRIT 26.4 % (32.4-45.2); HEMOGLOBIN 8.9 GM/dL (10.7-15.3); MCH 26.1 pg (25.7-33.7); MCHC 33.8 g/dl (32.0-36.0); MEAN CELL VOLUME 77.3 fl (80-96); MEAN PLT VOLUME 8.2 fl (7.5-11.1); PLATELET COUNT 152 10^3/uL (134-434); RBC 3.41 M/mm3 (3.60-5.2); WHITE BLOOD COUNT 6.3 K/mm3 (4.0-10.0)
[2022-04-22] MEDS ORDERED: CEFTRIAXONE 1 GM in DEXTROSE 5%-WATER - 50 ML IVPB SCH (10:00)
[2022-04-22 11:31] LABS: ANISOCYTOSIS 2+; MACROCYTOSIS 0; OVALOCYTE 2+
[2022-04-22] MEDS: ATORVASTATIN CA 40 MG TABLET (FP) PO SCH (21:11)
[2022-04-23] MEDS: APIXABAN 2.5 MG TABLET PO SCH ×2 (09:21→21:22)
[2022-04-23 09:55] LABS: HEMATOCRIT 27.3 % (32.4-45.2); HEMOGLOBIN 9.4 G/dL (10.7-15.3); MCH 27.7 pg (25.7-33.7); MCHC 34.5 g/dl (32.0-36.0); MEAN PLT VOLUME 8.5 fl (7.5-11.1); PLATELET COUNT 171.8 10^3/uL (134-434); RBC 3.41 10^6/uL (3.60-5.2); RDW 18.9 % (11.6-15.6); WHITE BLOOD COUNT 8.7 10^3/uL (4.0-10.8)
[2022-04-23 10:12] LABS: ALBUMIN 3.2 g/dl (3.4-5.0); BILIRUBIN,TOTAL 0.4 mg/dl (0.2-1); CALCIUM 8.5 mg/dl (8.5-10); CREATININE 2.7 mg/dl (0.55-1.3)
[2022-04-23] MEDS: ATORVASTATIN CA 40 MG TABLET (FP) PO SCH (21:22)
[2022-04-24 08:06] LABS: HEMATOCRIT 26.5 % (32.4-45.2); HEMOGLOBIN 8.9 G/dL (10.7-15.3); MCH 26.9 pg (25.7-33.7); MCHC 33.4 g/dl (32.0-36.0); MEAN CELL VOLUME 80.6 fl (80-96); MEAN PLT VOLUME 7.9 fl (7.5-11.1); RBC 3.29 10^6/uL (3.60-5.2); RDW 19.1 % (11.6-15.6)
[2022-04-24 08:30] LABS: ALBUMIN 2.9 g/dl (3.4-5.0); BILIRUBIN,TOTAL 0.5 mg/dl (0.2-1); CALCIUM 8.3 mg/dl (8.5-10); CREATININE 2.1 mg/dl (0.55-1.3); TOT PROT 5.6 g/dl (6.4-8.2)
[2022-04-24 09:00] LABS: PLATELET ESTIMATE ADEQUATE
[2022-04-24] MEDS: APIXABAN 2.5 MG TABLET PO SCH ×2 (10:01→22:15)
[2022-04-24] MEDS: FUROSEMIDE 40 MG/4 ML INJECTABLE VIAL IVPUSH SCH (10:01)
[2022-04-24] MEDS: ATORVASTATIN CA 40 MG TABLET (FP) PO SCH (22:15)
[2022-04-25 08:30] LABS: ALBUMIN 2.7 g/dl (3.4-5.0); BILIRUBIN,TOTAL 0.5 mg/dl (0.2-1); CREATININE 1.8 mg/dl (0.55-1.3); TOT PROT 5.5 g/dl (6.4-8.2)
[2022-04-25] MEDS: FUROSEMIDE 40 MG/4 ML INJECTABLE VIAL IVPUSH SCH (09:15)
[2022-04-25] MEDS: APIXABAN 2.5 MG TABLET PO SCH ×2 (09:15→22:28)
[2022-04-25 10:22] LABS: BASO % 0.7 % (0-2.0); EOS % 1.8 % (0-4.5); HEMATOCRIT 25.8 % (32.4-45.2); HEMOGLOBIN 8.4 GM/dL (10.7-15.3); LYMPH % 14.9 % (8-40); MCH 25.9 pg (25.7-33.7); MCHC 32.5 g/dl (32.0-36.0); MEAN CELL VOLUME 79.8 fl (80-96); MEAN PLT VOLUME 7.7 fl (7.5-11.1); NEUT % 75.6 % (42.8-82.8); PLATELET COUNT 181 10^3/uL (134-434); RBC 3.23 M/mm3 (3.60-5.2); RDW 19.1 % (11.6-15.6); WHITE BLOOD COUNT 7.4 K/mm3 (4.0-10.0)
[2022-04-25] MEDS ORDERED: dilTIAZem HCL 60 MG TABLET PO ONE (15:15)
[2022-04-25] MEDS: ATORVASTATIN CA 40 MG TABLET (FP) PO SCH (22:28)
[2022-04-26] MEDS: FUROSEMIDE 40 MG/4 ML INJECTABLE VIAL IVPUSH SCH ×2 (09:14→13:33)
[2022-04-26] MEDS: APIXABAN 2.5 MG TABLET PO SCH ×2 (09:14→21:14)
[2022-04-26 10:41] LABS: HEMATOCRIT 28.9 % (32.4-45.2); HEMOGLOBIN 9.9 G/dL (10.7-15.3); MCH 27.5 pg (25.7-33.7); MCHC 34.2 g/dl (32.0-36.0); MEAN CELL VOLUME 80.5 fl (80-96); MEAN PLT VOLUME 8.1 fl (7.5-11.1); PLATELET COUNT 201.4 10^3/uL (134-434); RBC 3.59 10^6/uL (3.60-5.2); RDW 19.1 % (11.6-15.6); WHITE BLOOD COUNT 7.4 10^3/uL (4.0-10.8)
[2022-04-26 10:45] LABS: PLATELET ESTIMATE ADEQUATE
[2022-04-26 10:50] LABS: ALBUMIN 3.1 g/dl (3.4-5.0); BILIRUBIN,TOTAL 0.4 mg/dl (0.2-1); CALCIUM 8.5 mg/dl (8.5-10); CREATININE 1.4 mg/dl (0.55-1.3); MAGNESIUM 1.9 mg/dL (1.8-2.4); TOT PROT 6.4 g/dl (6.4-8.2)
[2022-04-26] MEDS: ATORVASTATIN CA 40 MG TABLET (FP) PO SCH (21:14)
[2022-04-27] MEDS: FUROSEMIDE 40 MG/4 ML INJECTABLE VIAL IVPUSH SCH ×2 (06:27→13:30)
[2022-04-27 09:06] LABS: ALBUMIN 2.9 g/dl (3.4-5.0); BILIRUBIN,TOTAL 0.6 mg/dl (0.2-1); CALCIUM 8.6 mg/dl (8.5-10); CREATININE 1.5 mg/dl (0.55-1.3); MAGNESIUM 1.8 mg/dL (1.8-2.4)
[2022-04-27] MEDS ORDERED: CEFTRIAXONE 1 GM in DEXTROSE 5%-WATER - 50 ML IVPB SCH (10:00)
[2022-04-27] MEDS ORDERED: CEPHALEXIN 250 MG/5 ML ORAL SUSPENSION PO SCH (10:00)
[2022-04-27 10:14] LABS: BASO % 0.8 % (0-2.0); EOS % 1.7 % (0-4.5); HEMATOCRIT 27.7 % (32.4-45.2); HEMOGLOBIN 9.1 GM/dL (10.7-15.3); LYMPH % 17.4 % (8-40); MCH 26.2 pg (25.7-33.7); MCHC 32.9 g/dl (32.0-36.0); MEAN CELL VOLUME 79.5 fl (80-96); MEAN PLT VOLUME 7.1 fl (7.5-11.1); MONO % 7.4 % (3.8-10.2); NEUT % 72.7 % (42.8-82.8); PLATELET COUNT 204 10^3/uL (134-434); RBC 3.48 M/mm3 (3.60-5.2); RDW 18.7 % (11.6-15.6); WHITE BLOOD COUNT 7.1 K/mm3 (4.0-10.0)
[2022-04-27] MEDS: APIXABAN 2.5 MG TABLET PO SCH ×2 (10:34→21:12)
[2022-04-27] MEDS: CEPHALEXIN MONOHYDRATE 500 MG CAPSULE (UD) PO SCH ×2 (10:34→21:12)
[2022-04-27] MEDS ORDERED: FUROSEMIDE 40 MG TABLET (FP) PO SCH (14:00)
[2022-04-27] MEDS: TORSEMIDE 20 MG TABLET (FP) PO SCH (17:14)
[2022-04-27] MEDS ORDERED: TORSEMIDE 20 MG TABLET (FP) PO SCH (18:00)
[2022-04-27] MEDS: ATORVASTATIN CA 40 MG TABLET (FP) PO SCH (21:12)
[2022-04-28] MEDS: TORSEMIDE 20 MG TABLET (FP) PO SCH (06:38)
[2022-04-28 08:06] VITALS: BP 134/55; PULSE 88; RESP 20; TEMP 98.2
[2022-04-28 08:17] LABS: BILIRUBIN,TOTAL 0.7 mg/dl (0.2-1); CALCIUM 8.5 mg/dl (8.5-10); CREATININE 1.4 mg/dl (0.55-1.3); MAGNESIUM 1.5 mg/dL (1.8-2.4); TOT PROT 6.3 g/dl (6.4-8.2)
[2022-04-28] MEDS ORDERED: TAMSULOSIN HCL 0.4 MG CAP PO SCH (08:30)
[2022-04-28] MEDS: APIXABAN 2.5 MG TABLET PO SCH (09:47)
[2022-04-28] MEDS: CEPHALEXIN MONOHYDRATE 500 MG CAPSULE (UD) PO SCH (09:47)
[2022-04-28] MEDS ORDERED: amLODIPine BESYLATE 10 MG TABLET (FP) PO SCH (10:00)
[2022-04-28 10:06] LABS: BASO % 0.7 % (0-2.0); EOS % 1.8 % (0-4.5); HEMATOCRIT 27.7 % (32.4-45.2); HEMOGLOBIN 9.2 GM/dL (10.7-15.3); LYMPH % 21.8 % (8-40); MCH 26.4 pg (25.7-33.7); MEAN CELL VOLUME 79.8 fl (80-96); MEAN PLT VOLUME 7.2 fl (7.5-11.1); MONO % 7.3 % (3.8-10.2); NEUT % 68.4 % (42.8-82.8); PLATELET COUNT 220 10^3/uL (134-434); RBC 3.47 M/mm3 (3.60-5.2); RDW 18.6 % (11.6-15.6); WHITE BLOOD COUNT 6.4 K/mm3 (4.0-10.0)
== END 2022-04-28 11:03 | disposition home or self-care (01) | DRG 291 ==
LOC: FER 12:31 → FM/S 18:07
PROVIDERS: ADMIT Internal Medicine
DX: I13.0 Hypertensive heart and chronic kidney disease with heart failure and stage 1 through stage 4 chronic kidney disease, or unspecified chronic kidney disease (principal); I50.33 Acute on chronic diastolic (congestive) heart failure; G93.41 Metabolic encephalopathy; E87.1 Hypo-osmolality and hyponatremia; N17.9 Acute kidney failure, unspecified; N39.0 Urinary tract infection, site not specified; E46 Unspecified protein-calorie malnutrition; I48.0 Paroxysmal atrial fibrillation; E78.5 Hyperlipidemia, unspecified; N18.30 Chronic kidney disease, stage 3 unspecified; R11.2 Nausea with vomiting, unspecified; E87.70 Fluid overload, unspecified; K21.9 Gastro-esophageal reflux disease without esophagitis; Z68.22 Body mass index [BMI] 22.0-22.9, adult; E87.5 Hyperkalemia
CPT/HCPCS: 0241U-QW; 36415; 71045-TC-FY; 74176-TC; 76705-TC; 80053; 81003; 81015; 82436; 82533; 83605; 83735; 83930; 83935; 84100; 84133; 84300; 84443; 84484; 85025; 85027; 85610; 87040; 87086; 87186; 93005; 97116-GP; 97163-GP; 99285-25

== ENCOUNTER 2022-09-13 14:44 | Inpatient (IN) | payer OTHER ==
[2022-09-13 16:04] LABS: HEMATOCRIT 30.3 % (32.4-45.2); HEMOGLOBIN 10.3 G/dL (10.7-15.3); MCH 26.5 pg (25.7-33.7); MCHC 33.9 g/dl (32.0-36.0); MEAN CELL VOLUME 78.2 fl (80-96); MEAN PLT VOLUME 7.5 fl (7.5-11.1); PLATELET COUNT 342.4 10^3/uL (134-434); RBC 3.87 10^6/uL (3.60-5.2); RDW 18.3 % (11.6-15.6); WHITE BLOOD COUNT 10.2 10^3/uL (4.0-10.8)
[2022-09-13 16:06] LABS: ALBUMIN 3.2 g/dl (3.4-5.0); BILIRUBIN,TOTAL 0.6 mg/dl (0.2-1); CALCIUM 8.4 mg/dl (8.5-10); CREATININE 2.5 mg/dl (0.55-1.3); TOT PROT 7.7 g/dl (6.4-8.2)
[2022-09-13 16:22] LABS: ANISOCYTOSIS 1+; OVALOCYTE 2+
[2022-09-13 16:30] LABS: EPITHELIAL CELLS FEW /hpf; URINE HYALINE CAST 0-2 /lpf
[2022-09-13] MEDS ORDERED: FUROSEMIDE 40 MG/4 ML INJECTABLE VIAL IVPB ONE (17:39)
[2022-09-13] MEDS ORDERED: FUROSEMIDE 40 MG/4 ML INJECTABLE VIAL ONE (17:41)
[2022-09-13] MEDS: METOPROLOL TARTRATE 50 MG TABLET (FP) PO SCH (21:24)
[2022-09-13] MEDS: APIXABAN 2.5 MG TABLET PO SCH (21:24)
[2022-09-14] MEDS ORDERED: TRIMETHOBENZAMIDE HCL 200MG/2ML INJ IM PRN (01:31)
[2022-09-14] MEDS: MELATONIN 5 MG TABLETS PO ONE ×2 (01:50→01:53)
[2022-09-14] MEDS ORDERED: INSULIN (LEVEMIR) 100 UNITS/ML UNITS SQ SCH ×2 (07:00→22:00)
[2022-09-14] MEDS: TAMSULOSIN HCL 0.4 MG CAP PO SCH ×2 (08:38→21:04)
[2022-09-14 09:16] LABS: BILIRUBIN,TOTAL 0.9 mg/dl (0.2-1); CALCIUM 8.5 mg/dl (8.5-10); CREATININE 2.2 mg/dl (0.55-1.3)
[2022-09-14] MEDS: PANTOPRAZOLE 40 MG TABLET PO SCH (09:49)
[2022-09-14] MEDS: ATORVASTATIN CA 40 MG TABLET (FP) PO SCH (09:49)
[2022-09-14] MEDS: ZINC SULFATE 220 MG CAPSULE (FP) PO SCH (09:49)
[2022-09-14] MEDS: METOPROLOL TARTRATE 50 MG TABLET (FP) PO SCH ×2 (09:49→21:04)
[2022-09-14] MEDS: APIXABAN 2.5 MG TABLET PO SCH ×2 (09:49→21:04)
[2022-09-14] MEDS: LACTOBACILLUS ACIDOPHILUS 1 TABLET PO SCH (09:49)
[2022-09-14] MEDS ORDERED: amLODIPine BESYLATE 10 MG TABLET (FP) PO SCH (10:00)
[2022-09-14] MEDS ORDERED: FUROSEMIDE 40 MG/4 ML INJECTABLE VIAL IVPUSH SCH (10:00)
[2022-09-14] MEDS ORDERED: ZINC 50 MG PO SCH (10:00)
[2022-09-14 10:04] LABS: BASO % 0.5 % (0-2.0); EOS % 1.6 % (0-4.5); HEMATOCRIT 29.1 % (32.4-45.2); HEMOGLOBIN 9.3 GM/dL (10.7-15.3); LYMPH % 23.4 % (8-40); MCH 24.9 pg (25.7-33.7); MCHC 31.8 g/dl (32.0-36.0); MEAN CELL VOLUME 78.4 fl (80-96); MEAN PLT VOLUME 7.4 fl (7.5-11.1); MONO % 9.7 % (3.8-10.2); NEUT % 64.8 % (42.8-82.8); PLATELET COUNT 342 10^3/uL (134-434); RBC 3.72 M/mm3 (3.60-5.2); WHITE BLOOD COUNT 7.9 K/mm3 (4.0-10.0)
[2022-09-15] MEDS: TAMSULOSIN HCL 0.4 MG CAP PO SCH ×2 (08:15→21:09)
[2022-09-15 08:54] LABS: HEMATOCRIT 26.5 % (32.4-45.2); HEMOGLOBIN 8.5 G/dL (10.7-15.3); MCH 25.4 pg (25.7-33.7); MCHC 32.2 g/dl (32.0-36.0); MEAN PLT VOLUME 8.1 fl (7.5-11.1); PLATELET COUNT 333.7 10^3/uL (134-434); RBC 3.36 10^6/uL (3.60-5.2); RDW 18.8 % (11.6-15.6); WHITE BLOOD COUNT 8.2 10^3/uL (4.0-10.8)
[2022-09-15] MEDS: METOPROLOL TARTRATE 50 MG TABLET (FP) PO SCH ×2 (09:18→21:13)
[2022-09-15] MEDS: PANTOPRAZOLE 40 MG TABLET PO SCH (09:18)
[2022-09-15] MEDS: APIXABAN 2.5 MG TABLET PO SCH ×2 (09:18→21:09)
[2022-09-15] MEDS: ZINC SULFATE 220 MG CAPSULE (FP) PO SCH (09:18)
[2022-09-15] MEDS: ATORVASTATIN CA 40 MG TABLET (FP) PO SCH (09:18)
[2022-09-15] MEDS: LACTOBACILLUS ACIDOPHILUS 1 TABLET PO SCH (09:18)
[2022-09-15] MEDS: PATIENT'S OWN MEDICATION (NON-FORMULARY) (Benzonatate 100 MG Capsule) PO SCH ×2 (09:53→09:54)
[2022-09-15 10:16] LABS: CALCIUM 7.9 mg/dl (8.5-10); CREATININE 2.3 mg/dl (0.55-1.3); MAGNESIUM 2.7 mg/dL (1.8-2.4); PHOSPHOROUS 3.7 mg/dl (2.5-4.9)
[2022-09-15] MEDS: INSULIN (LEVEMIR) 100 UNITS/ML UNITS SQ SCH (21:09)
[2022-09-16 08:36] LABS: HEMATOCRIT 27.1 % (32.4-45.2); HEMOGLOBIN 8.7 G/dL (10.7-15.3); MCH 25.2 pg (25.7-33.7); MCHC 32.1 g/dl (32.0-36.0); MEAN CELL VOLUME 78.6 fl (80-96); MEAN PLT VOLUME 7.9 fl (7.5-11.1); PLATELET COUNT 254.8 10^3/uL (134-434); RBC 3.45 10^6/uL (3.60-5.2); RDW 18.3 % (11.6-15.6); WHITE BLOOD COUNT 7.5 10^3/uL (4.0-10.8)
[2022-09-16 08:38] LABS: CALCIUM 7.7 mg/dl (8.5-10); CREATININE 2.3 mg/dl (0.55-1.3); MAGNESIUM 2.9 mg/dL (1.8-2.4); PHOSPHOROUS 3.7 mg/dl (2.5-4.9)
[2022-09-16] MEDS: ATORVASTATIN CA 40 MG TABLET (FP) PO SCH (09:33)
[2022-09-16] MEDS: ZINC SULFATE 220 MG CAPSULE (FP) PO SCH (09:33)
[2022-09-16] MEDS: METOPROLOL TARTRATE 50 MG TABLET (FP) PO SCH ×2 (09:33→21:14)
[2022-09-16] MEDS: TAMSULOSIN HCL 0.4 MG CAP PO SCH ×2 (09:34→21:14)
[2022-09-16] MEDS: LACTOBACILLUS ACIDOPHILUS 1 TABLET PO SCH (09:34)
[2022-09-16] MEDS: PANTOPRAZOLE 40 MG TABLET PO SCH (09:34)
[2022-09-16] MEDS: APIXABAN 2.5 MG TABLET PO SCH ×2 (09:34→21:14)
[2022-09-16 16:29] VITALS: BMI 22.1
[2022-09-16] MEDS: INSULIN (LEVEMIR) 100 UNITS/ML UNITS SQ SCH (21:14)
[2022-09-17 01:56] VITALS: RESP 18
[2022-09-17 06:30] VITALS: BP 101/37; PULSE 70; TEMP 98.2
[2022-09-17 09:11] LABS: ALBUMIN 2.8 g/dl (3.4-5.0); BILIRUBIN,TOTAL 0.6 mg/dl (0.2-1); CALCIUM 7.8 mg/dl (8.5-10); CREATININE 2.1 mg/dl (0.55-1.3); TOT PROT 6.5 g/dl (6.4-8.2)
[2022-09-17] MEDS ORDERED: VITAMIN B COMP W-C 1 EA TABLET (NEPHRO-VITE) PO SCH (10:00)
[2022-09-17] MEDS: TAMSULOSIN HCL 0.4 MG CAP PO SCH (10:11)
[2022-09-17] MEDS: METOPROLOL TARTRATE 50 MG TABLET (FP) PO SCH (10:11)
[2022-09-17] MEDS: ATORVASTATIN CA 40 MG TABLET (FP) PO SCH (10:12)
[2022-09-17] MEDS: ZINC SULFATE 220 MG CAPSULE (FP) PO SCH (10:12)
[2022-09-17] MEDS: PANTOPRAZOLE 40 MG TABLET PO SCH (10:12)
[2022-09-17] MEDS: APIXABAN 2.5 MG TABLET PO SCH (10:13)
[2022-09-17] MEDS: LACTOBACILLUS ACIDOPHILUS 1 TABLET PO SCH (10:13)
[2022-09-17 12:11] LABS: BASO % 0.8 % (0-2.0); EOS % 1.1 % (0-4.5); HEMATOCRIT 27.2 % (32.4-45.2); HEMOGLOBIN 8.4 GM/dL (10.7-15.3); LYMPH % 22.2 % (8-40); MCH 24.5 pg (25.7-33.7); MCHC 30.9 g/dl (32.0-36.0); MEAN CELL VOLUME 79.2 fl (80-96); MEAN PLT VOLUME 7.9 fl (7.5-11.1); MONO % 9.1 % (3.8-10.2); NEUT % 66.8 % (42.8-82.8); PLATELET COUNT 234 10^3/uL (134-434); RBC 3.44 M/mm3 (3.60-5.2); RDW 18.4 % (11.6-15.6); WHITE BLOOD COUNT 8.2 K/mm3 (4.0-10.0)
== END 2022-09-17 13:12 | disposition home or self-care (01) | DRG 312 ==
LOC: FER 14:44 → FM/S 17:36
PROVIDERS: ADMIT Internal Medicine
DX: R55 Syncope and collapse (principal); I50.33 Acute on chronic diastolic (congestive) heart failure; I13.0 Hypertensive heart and chronic kidney disease with heart failure and stage 1 through stage 4 chronic kidney disease, or unspecified chronic kidney disease; E87.1 Hypo-osmolality and hyponatremia; N17.9 Acute kidney failure, unspecified; J84.9 Interstitial pulmonary disease, unspecified; E11.9 Type 2 diabetes mellitus without complications; I48.0 Paroxysmal atrial fibrillation; E78.5 Hyperlipidemia, unspecified; E86.0 Dehydration; K21.9 Gastro-esophageal reflux disease without esophagitis; E87.70 Fluid overload, unspecified; N18.30 Chronic kidney disease, stage 3 unspecified
CPT/HCPCS: 0241U-QW; 36415; 71045-TC-FY; 71250-TC; 80048; 80053; 80061; 81003; 81015; 82550; 82962; 83690; 83735; 84100; 84484; 85025; 85027; 93005; 93306-TC; 97116-GP; 97161-GP; 99285-25

== ENCOUNTER 2024-03-02 15:18 | Inpatient (IN) | payer OTHER ==
[2024-03-02 16:21] LABS: HEMATOCRIT 28.3 % (32.4-45.2); HEMOGLOBIN 8.9 G/dL (10.7-15.3); MCH 26.2 pg (25.7-33.7); MCHC 31.6 g/dl (32.0-36.0); MEAN CELL VOLUME 82.9 fl (80-96); MEAN PLT VOLUME 7.9 fl (7.5-11.1); PLATELET COUNT 267.1 10^3/uL (134-434); RBC 3.41 10^6/uL (3.60-5.2); WHITE BLOOD COUNT 7.8 10^3/uL (4.0-10.8)
[2024-03-02 16:37] LABS: ALBUMIN 3.7 g/dl (3.4-5.0); BILIRUBIN,TOTAL 0.4 mg/dl (0.2-1); CALCIUM 8.3 mg/dl (8.5-10.1); CREATININE 2.5 mg/dl (0.6-1.3); MAGNESIUM 2.1 mg/dL (1.8-2.4); POTASSIUM 4.3 mmol/L (3.5-5.1); TOT PROT 6.8 g/dl (6.4-8.2)
[2024-03-02 16:38] LABS: PLATELET ESTIMATE ADEQUATE
[2024-03-02] MEDS ORDERED: VANCOMYCIN 1,000 MG VIAL (RESTRICTED TO ID ONLY) ONE (17:50)
[2024-03-02] MEDS: VANCOMYCIN HCL 1,000 MG in DEXTROSE 5%-WATER - 500 ML IVPB ONE (17:52)
[2024-03-02 18:16] LABS: N-TERMINAL BNP 7318.2 pg/ml (5-450)
[2024-03-02] MEDS ORDERED: FUROSEMIDE 40 MG/4 ML INJECTABLE VIAL ONE (19:09)
[2024-03-02] MEDS: CEFEPIME HCL 2 GM VIAL (RESTRICTED TO ID) IVPB ONE (19:10)
[2024-03-02] MEDS: FUROSEMIDE 40 MG/4 ML INJECTABLE VIAL IVPUSH ONE (19:10)
[2024-03-02] MEDS ORDERED: ACETAMINOPHEN 325 MG TABLET (FP) PO PRN (21:20)
[2024-03-02] MEDS ORDERED: DOCUSATE SODIUM 100 MG CAPSULE (FP) PO PRN (21:20)
[2024-03-03] MEDS ORDERED: SENNOSIDES 8.6MG TABLET (FP) PO PRN (01:14)
[2024-03-03] MEDS: METOPROLOL TARTRATE 50 MG TABLET (FP) PO SCH (01:30)
[2024-03-03 08:46] LABS: INR 1.14 (0.83-1.09); PROTHROMBIN TIME (PATIENT) 12.9 SEC (9.7-13.0)
[2024-03-03 08:53] LABS: CALCIUM 8.3 mg/dl (8.5-10.1); CREATININE 2.2 mg/dl (0.6-1.3); PHOSPHOROUS 4.8 (2.5-4.9); POTASSIUM 4.2 mmol/L (3.5-5.1)
[2024-03-03] MEDS: CEFTRIAXONE 1 GM in SODIUM CHLORIDE 50 ML IVPB SCH (09:06)
[2024-03-03] MEDS: APIXABAN 2.5 MG TABLET PO SCH (09:07)
[2024-03-03] MEDS: FAMOTIDINE 20 MG TABLET PO SCH (09:07)
[2024-03-03 09:33] LABS: BASO % 0.7 % (0-2.0); EOS % 2.8 % (0-4.5); HEMOGLOBIN 8.4 GM/dL (10.7-15.3); LYMPH % 17.8 % (8-40); MCH 25.1 pg (25.7-33.7); MEAN CELL VOLUME 80.9 fl (80-96); MEAN PLT VOLUME 7.3 fl (7.5-11.1); NEUT % 69.7 % (42.8-82.8); PLATELET COUNT 239 10^3/uL (134-434); RBC 3.34 M/mm3 (3.60-5.2); RDW 16.2 % (11.6-15.6)
[2024-03-03] MEDS ORDERED: TORSEMIDE 20 MG TABLET (FP) PO SCH (10:00)
[2024-03-03] MEDS: AZITHROMYCIN IVPB 500 MG in DEXTROSE 5%-WATER - 250 ML IVPB SCH (10:35)
[2024-03-03] MEDS: INSULIN ASPART SLIDING SCALE (NOVOLOG) 1 VIAL SQ SCH (11:10)
[2024-03-03] MEDS ORDERED: FUROSEMIDE 40 MG/4 ML INJECTABLE VIAL IVPUSH SCH (14:00)
[2024-03-03] MEDS: FUROSEMIDE 40 MG/4 ML INJECTABLE VIAL IVPUSH SCH (14:39)
[2024-03-04 08:47] LABS: HEMOGLOBIN 9.3 G/dL (10.7-15.3); MCH 25.7 pg (25.7-33.7); MCHC 30.9 g/dl (32.0-36.0); MEAN CELL VOLUME 83.1 fl (80-96); MEAN PLT VOLUME 7.7 fl (7.5-11.1); PLATELET COUNT 250.4 10^3/uL (134-434); RBC 3.61 10^6/uL (3.60-5.2); RDW 16.7 % (11.6-15.6); WHITE BLOOD COUNT 8.2 10^3/uL (4.0-10.8)
[2024-03-04 09:04] LABS: PLATELET ESTIMATE ADEQUATE
[2024-03-04 09:05] LABS: CALCIUM 8.3 mg/dl (8.5-10.1); CREATININE 1.9 mg/dl (0.6-1.3); MAGNESIUM 2.1 mg/dL (1.8-2.4); PHOSPHOROUS 4.7 (2.5-4.9)
[2024-03-04] MEDS: AZITHROMYCIN IVPB 500 MG/250 ML BAG IVPB SCH (11:36)
[2024-03-04 14:32] LABS: MAGNESIUM 2.1 mg/dL (1.8-2.4); POTASSIUM 4.1 mmol/L (3.5-5.1)
[2024-03-04] MEDS: ATORVASTATIN CA 20 MG TABLET (FP) PO SCH (21:29)
[2024-03-05 08:32] LABS: HEMATOCRIT 28.9 % (32.4-45.2); HEMOGLOBIN 8.8 G/dL (10.7-15.3); MCH 25.5 pg (25.7-33.7); MCHC 30.5 g/dl (32.0-36.0); MEAN CELL VOLUME 83.8 fl (80-96); PLATELET COUNT 231.3 10^3/uL (134-434); RBC 3.45 10^6/uL (3.60-5.2); RDW 16.5 % (11.6-15.6); WHITE BLOOD COUNT 10.4 10^3/uL (4.0-10.8)
[2024-03-05 09:03] LABS: CALCIUM 8.5 mg/dl (8.5-10.1); CREATININE 1.9 mg/dl (0.6-1.3); MAGNESIUM 2.2 mg/dL (1.8-2.4); PHOSPHOROUS 4.6 (2.5-4.9); POTASSIUM 4.8 mmol/L (3.5-5.1)
[2024-03-05] MEDS: LIDOCAINE 5% TOPICAL PATCH TP SCH (12:35)
[2024-03-05] MEDS: IPRATROPIUM BR 0.02% 0.5 MG/2.5 ML VIAL.NEB. NEB SCH (21:40)
[2024-03-05] MEDS: LIDOCAINE PATCH REMOVAL MC SCH (21:49)
[2024-03-06] MEDS: METHYL SALICYLATE/MENTHOL OINT 30 GM TUBE TP SCH (11:32)
[2024-03-06] MEDS ORDERED: REFRIGERATED ANITBIOTICS ONE (12:19)
[2024-03-06] MEDS: ACETAMINOPHEN 325 MG TABLET (FP) PO PRN (15:17)
[2024-03-07] MEDS ORDERED: cefTRIAXone SODIUM 1 GM VIAL ONE (09:35)
[2024-03-08] MEDS: TORSEMIDE 20 MG TABLET (FP) PO SCH (09:08)
[2024-03-08 15:54] LABS: EPITHELIAL CELLS 0-5 /hpf
[2024-03-09 08:51] LABS: ALBUMIN 3.2 g/dl (3.4-5.0); BILIRUBIN,TOTAL 0.5 mg/dl (0.2-1); CALCIUM 8.4 mg/dl (8.5-10.1); POTASSIUM 5.6 mmol/L (3.5-5.1); TOT PROT 6.3 g/dl (6.4-8.2)
[2024-03-09 09:35] LABS: HEMATOCRIT 24.9 % (32.4-45.2); HEMOGLOBIN 8.1 GM/dL (10.7-15.3); MCH 26.4 pg (25.7-33.7); MCHC 32.7 g/dl (32.0-36.0); MEAN CELL VOLUME 80.7 fl (80-96); MEAN PLT VOLUME 7.2 fl (7.5-11.1); PLATELET COUNT 252 10^3/uL (134-434); RBC 3.08 M/mm3 (3.60-5.2); RDW 16.2 % (11.6-15.6)
[2024-03-09] MEDS: SODIUM ZIRCONIUM CYCLOSILICATE (LOKELMA) 5 GM PACKET PO SCH (10:14)
[2024-03-10 09:45] VITALS: RESP 19
[2024-03-10 13:26] LABS: HEMATOCRIT 58.1 % (32.4-45.2); HEMOGLOBIN 17.9 G/dL (10.7-15.3); MCH 25.8 pg (25.7-33.7); MCHC 30.8 g/dl (32.0-36.0); MEAN CELL VOLUME 83.7 fl (80-96); MEAN PLT VOLUME 8.6 fl (7.5-11.1); PLATELET COUNT 99.5 10^3/uL (134-434); RBC 6.94 10^6/uL (3.60-5.2); RDW 17.1 % (11.6-15.6); WHITE BLOOD COUNT 3.7 10^3/uL (4.0-10.8)
[2024-03-10 13:32] LABS: PLATELET ESTIMATE DECREASED
[2024-03-10 13:34] LABS: ALBUMIN 3.2 g/dl (3.4-5.0); BILIRUBIN,TOTAL 0.4 mg/dl (0.2-1); CALCIUM 8.3 mg/dl (8.5-10.1); CREATININE 1.9 mg/dl (0.6-1.3); POTASSIUM 4.8 mmol/L (3.5-5.1); TOT PROT 6.3 g/dl (6.4-8.2)
[2024-03-10 14:35] VITALS: BP 152/57; PULSE 93; TEMP 98.1
[2024-03-10 15:10] LABS: HEMATOCRIT 26.4 % (32.4-45.2); HEMOGLOBIN 8.2 G/dL (10.7-15.3); MCH 25.9 pg (25.7-33.7); MEAN CELL VOLUME 83.6 fl (80-96); MEAN PLT VOLUME 7.5 fl (7.5-11.1); PLATELET COUNT 208.2 10^3/uL (134-434); RBC 3.16 10^6/uL (3.60-5.2); RDW 15.8 % (11.6-15.6); WHITE BLOOD COUNT 8.5 10^3/uL (4.0-10.8)
[2024-03-10 15:20] LABS: PLATELET ESTIMATE ADEQUATE
[2024-03-10 16:06] VITALS: BMI 24.3
[2024-03-10] MEDS: INSULIN (LEVEMIR) 100 UNITS/ML UNITS SQ SCH (17:53)
== END 2024-03-10 17:55 | disposition home or self-care (01) | DRG 291 ==
LOC: FER 15:18 → FM/S 18:44
PROVIDERS: ADMIT Internal Medicine
DX: I13.0 Hypertensive heart and chronic kidney disease with heart failure and stage 1 through stage 4 chronic kidney disease, or unspecified chronic kidney disease (principal); I50.33 Acute on chronic diastolic (congestive) heart failure; J18.9 Pneumonia, unspecified organism; E11.22 Type 2 diabetes mellitus with diabetic chronic kidney disease; I27.20 Pulmonary hypertension, unspecified; E78.5 Hyperlipidemia, unspecified; I48.0 Paroxysmal atrial fibrillation; I25.10 Atherosclerotic heart disease of native coronary artery without angina pectoris; E87.5 Hyperkalemia; N18.9 Chronic kidney disease, unspecified
CPT/HCPCS: 0241U-QW; 36415; 71045-TC-FY; 80048; 80053; 80061; 81003; 81015; 82962; 83735; 83880; 84100; 84132; 84439; 84443; 84484; 85025; 85027; 85610; 93005; 93010; 93306-TC; 94640; 97116-GP; 97162-GP; 99285-25